=== PATIENT | female | born 1945 | race Caucasian/White ===

== ENCOUNTER 2020-08-27 14:45 | Emergency (ER) | payer MEDICARE, MEDICAID, SELFPAY ==
--- NOTE | ~2020-08-27 | CT_ITS ---
EXAMINATION: CT facial bones wo con DATE: 08/27/2020 16:32 INDICATION: Head injury. TECHNIQUE: Computed tomography (CT) of the facial bones and maxillofacial region was performed withou t intravenous contrast. Automated exposure control and iterative reconstruction technique were employ ed. The dose-length product was 453.08 mGy-cm. COMPARISON: Head CT 11/11/2017 FINDINGS: The orbits are normal. There is mild mucosal thickening in the paranasal sinuses. There is a left lateral spur of the nasal septum. No fracture. The mastoid air cells are normal. IMPRESSION: 1. No fracture. Reviewed, dictated and finalized at location A. EL REGISTERED NURSE ICU IMPRESSION: 1. No fracture.
--- NOTE | ~2020-08-27 | CT_ITS ---
EXAMINATION: CT brain wo con DATE: 08/27/2020 16:32 INDICATION: Head injury. TECHNIQUE: Computed tomography (CT) of the head was performed without intravenous contrast. The mA wa s adjusted according to patient size. Iterative reconstruction technique was employed. The dose-lengt h product was 605.33 mGy-cm. COMPARISON: Head CT 11/11/2017 FINDINGS: There are scattered areas of low attenuation in the cerebral white matter, which is within normal limits for the patient's age. There is no intracranial hemorrhage, acute infarction, or abnorm al intracranial mass lesion. The ventricles are normal in size. There is mild mucosal thickening in t he ethmoid sinuses. The mastoid air cells are normal. The orbits are normal. IMPRESSION: 1. Normal aging brain. Reviewed, dictated and finalized at location A. WORKER IMPRESSION: 1. Normal aging brain.
--- NOTE | ~2020-08-27 | XR_ITS ---
EXAMINATION: XR_[id number]_CR DATE: 08/27/2020 16:46 INDICATION: Left chest pain. Fall. TECHNIQUE: A frontal view of the chest and 4 views of the left ribs were obtained. COMPARISON: Chest 2 views 07/12/2019, chest CT 11/11/2017 FINDINGS: The chest demonstrates clear lungs without pneumonia, pleural effusion, or pneumothorax. Th e heart size is normal. Again seen are multiple old healed left rib fractures. There are acute fractu res of left fourth-eighth ribs. IMPRESSION: 1. Acute fractures of left fourth-eighth ribs. Reviewed, dictated and finalized at location A. AL CRUELTY INVESTIGATOR
[2020-08-27 14:58] VITALS: BP 148/104; PULSE 81; RESP 18; TEMP 36.6; O2SAT 97
--- NOTE | 2020-08-27 15:51 | ED.EYEPROB ---
HPI - Eye Problem General Chief complaint: Eye Problems Stated complaint: blood in left eye Time Seen by Provider: 08/27/20 15:51 History of Present Illness HPI Narrative: History limited by very poor historian 75 yo female w/ h/o DM presents to the ED for bleeding eyes. She reports that she had a fall several days ago and struck her face. She had pain in her nose after the fall. She awoke the next morning with blood in her eyes . She says that she has also had blurry vision and crusting. She claims that the blood goes away at times and come back. She also admits to very poor glucose control, between 350 and 550. She says that her PCP is aware, but she will not take insulin due to an allergy. She feels light headed frequently. Related Data Allergies Allergy/AdvReac Type Severity Reaction Status Date / Time Insulins Allergy Intermediate Swelling Verified 08/27/20 15:03 Quinolones Allergy Mild Unknown Verified 08/27/20 15:03 Aminoglycosides Allergy Unknown Unknown Verified 08/27/20 15:03 erythromycin base Allergy Unknown Unknown Verified 08/27/20 15:03 insulin detemir Allergy Unknown Unknown Verified 08/27/20 15:03 insulin glargine Allergy Unknown Unknown Verified 08/27/20 15:03 iodine Allergy Unknown Unknown Verified 08/27/20 15:03 latex Allergy Unknown Unknown Verified 08/27/20 15:03 levofloxacin Allergy Unknown Unknown Verified 08/27/20 15:03 acyclovir Allergy Unknown Verified 08/27/20 15:03 MYCINS Allergy Mild MAKES Uncoded 08/27/20 15:03 TONGUE SWELL, DIFF BREATHING Contrast Media Allergy Mild Unknown Uncoded 08/27/20 15:03 CHLORDIAZEPOXIDE HCL Allergy Unknown Unknown Uncoded 08/27/20 15:03 MACROLIDES Allergy Unknown Unknown Uncoded 08/27/20 15:03 Review of Systems Review of Systems: All systems reviewed & are unremarkable except as noted in HPI and below Constitutional: Constitutional: Reports fatigue and Denies fever(s) Eyes: Eyes: Reports change in vision ENT: Reports dizziness Cardiovascular: Cardiovascular: Denies chest pain Respiratory: Respiratory: Reports dyspnea Gastrointestinal: Gastrointestinal: Denies abdominal pain, Denies nausea and Denies vomiting Genitourinary: Genitourinary: Denies dysuria Musculoskeletal: Musculoskeletal: Denies back pain Neurologic: Reports dizziness, Reports headache(s) and Reports weakness Endocrine: Endocrine: Reports fatigue PMFSH Past Medical History Medical History (Updated 08/27/20 @ 17:44 by Dionicio Amaya MD) Essential (primary) hypertension History of [place] (myocardial infarction) History of stroke Surgical History Surgical History (Updated 08/27/20 @ 16:56 by Dionicio Amaya MD) History of repair of hiatal hernia Family History Family History (Updated 06/04/17 @ 11:56 by DOCTOR UNKNOWN) Grandparent Family history of obesity Asthma Diabetes mellitus Mother Family history of osteoporosis Depression Family history of migraine headaches Asthma Family history of anemia Cerebrovascular accident Family history of arthritis Carcinoma of colon Family history of Alzheimer's disease Family history of atrial fibrillation Family history of heart disease in male family member before age 55 Acute myocardial infarction Father Family history of alcoholism Family history of arthritis Family history of lung cancer Family history of lung disease Family history of hearing loss Other Family history of allergic disorder Hypertension Social History Social History Smoking status: Never smoker Alcohol intake: never Gender identity (if verbalized by the patient): Female Exam Const: General: no acute distress and alert Nutritional Appearance: obese Orientation/consciousness: patient oriented x3 HENMT: Other: mild swelling to the nose Eyes: Conjunctivae: conjunctival abnormality left subconjunctival hemorrhage Pupils: Equal, round and reactive pupils present EOM: EOMs intact bilaterally N
[2020-08-27 16:36] LABS: Basophils Percent Auto 0.7 % (0.2-1.2); Eosinophils Absolute Auto 0.1 K/mm3 (0-0.3); Hematocrit 36.6 % (37.0-47.0); Hemoglobin 12.3 g/dL (12.0-15.0); Immature Granulocyte Absolute 0.02 K/mm3 (0.00-0.031); Immature Granulocyte Percent A 0.3 % (0-0.5); Lymphocytes Absolute Auto 1.38 K/mm3 (0.9-3.2); Lymphocytes Percent Auto 22.5 % (18.3-44.2); Mean Corpuscular HGB Conc 33.6 g/dl (32-36); Mean Corpuscular Hemoglobin 31.5 pg (26-34); Mean Corpuscular Volume 93.6 fl (80-100); Mean Platelet Volume 10.5 fl (7.4-10.4); Monocytes Absolute Auto 0.4 K/mm3 (0.1-0.6); Monocytes Percent Auto 6.9 % (2.6-8.5); Neutrophils Absolute Auto 4.1 K/mm3 (1.3-6.7); Neutrophils Percent Auto 67.6 % (45.5-73.1); Platelet Count Result 183 k/mm3 (150-375); Red Blood Count 3.91 M/mm3 (4.2-5.4); Red Cell Distribution Width 12.5 % (11.5-14.5); White Blood Count 6.1 K/mm3 (4.5-10.0)
[2020-08-27 16:48] LABS: Alanine Aminotransferase 22 U/L (4-35); Albumin Level 4.3 g/dL (3.5-5.1); Alkaline Phosphatase 117 U/L (38-126); Anion Gap 11 mmol/L (8-16); Aspartate Amino Transferase 30 U/L (14-36); Bilirubin,Total 0.4 mg/dL (0.2-1.3); Blood Urea Nitrogen 17 mg/dL (7-17); Calcium 9.3 mg/dL (8.4-10.2); Carbon Dioxide 25 mmol/L (22-30); Chloride 97 mmol/L (98-107); Estimated CRCL calculation 61 ml/min; Estimated Glomerular Filt Rate > 60; Glucose 456 mg/dL (65-105); Potassium 4.2 mmol/L (3.4-5.0); Sodium 133 mmol/L (137-145)
[2020-08-27] MEDS: SODIUM CHLORIDE 0.9% IV 1,000 ML 999 ML IV CONT (17:05)
[2020-08-27] MEDS: METOCLOPRAMIDE HCL INJ 10 MG/2 ML VIAL IV PUSH (17:05)
[2020-08-27 18:05] VITALS: BP 132/87; PULSE 78; RESP 18; O2SAT 99
== END 2020-08-27 18:06 | disposition home or self-care (01) ==
PROVIDERS: Emergency Provider Emergency Medicine; PCP Family Medicine
DX: H11.32 Conjunctival hemorrhage, left eye (principal); S22.42XA Multiple fractures of ribs, left side, initial encounter for closed fracture; E11.9 Type 2 diabetes mellitus without complications; I10 Essential (primary) hypertension; I25.2 Old myocardial infarction; Z86.73 Personal history of transient ischemic attack (TIA), and cerebral infarction without residual deficits; W19.XXXA Unspecified fall, initial encounter
CPT/HCPCS: 36415; 70450; 70486; 71101; 80053; 85025; 96374; 99284; J2765; J7030

== ENCOUNTER 2020-09-13 13:27 | Outpatient (CLI) | payer MEDICARE, MEDICAID, SELFPAY ==
--- NOTE | ~2020-09-13 | CT_ITS ---
EXAMINATION: CT brain wo con DATE: 09/13/2020 14:18 INDICATION: Head injury from fall 3 weeks ago. Headache, blurred vision TECHNIQUE: Computed tomography (CT) of the head was performed without intravenous contrast. The mA wa s adjusted according to patient size. Iterative reconstruction technique was employed. Exam dose: 60 5.33 mGy-cm total exam DLP. COMPARISON: 08/27/2020 CT brain FINDINGS: There is nonspecific diminished attenuation of the subcortical and periventricular cerebral white matter, likely due to chronic small vessel ischemic changes. No intracranial mass lesion or hemorrhage or recent cerebrovascular accident is evident. There is no midline shift or mass effects. No subdural or epidural hematoma. No fracture or bone destruction of the cranial vault. The mastoid air cells and included paranasal sinuses are normally developed and aerated. IMPRESSION: Nonspecific white matter changes likely related to small vessel ischemic changes; no acu te intracranial finding or skull fracture Reviewed, dictated and finalized at Location A. Reviewed, dictated and finalized at location B. HASING ASSISTANT IMPRESSION: Nonspecific white matter changes likely related to small vessel is chemic changes; no acute intracranial finding or skull fracture
--- NOTE | ~2020-09-13 | US_ITS ---
EXAMINATION: US carotid duplex BI DATE: 09/13/2020 14:09 INDICATION: TIA. TECHNIQUE: Grayscale, color Doppler, and pulsed Doppler images of the cervical carotid arteries were obtained. The degree of vessel stenosis is placed in one of the following categories: normal, <50%, 5 0-69%, >=70% but less than near-occlusion, near-occlusion, or total occlusion. Note that percent sten osis relative to normal distal artery lumen diameter is indirectly measured from velocity measurement s as described by Dionicio, et al. Radiology 2003; 229:340-346. Notes: Normal: Peak systolic velocity <125 centimeters/sec and no plaque <50%. Peak systolic velocity <125 ( EDV <40; ICA/CCA PSV ratio <2.0; used these factors only a tandem lesions or low cardiac output or co ntralateral disease) 50-69 %: PSV 125-230 (EDV 40-100; ratio 2-4) >= 70% but less than near occlusion: PSV greater than 230 (EDV > 100; ratio> 4.0) Near Occlusion: PSV that is variable; markedly narrowed lumen Occlusion: Absent flow on color/spectral Doppler and no lumen on nesbitt scale. COMPARISON: Ultrasound dated 02/08/2011 FINDINGS: RIGHT: The right common carotid artery (CCA) peak systolic velocity (PSV) is 80 cm/s. The right internal car otid artery (ICA) PSV is 72 cm/s. The right ICA end-diastolic velocity (EDV) is 24 cm/s. The right IC A/CCA PSV ratio is 0.9. The external carotid artery (ECA) PSV is 74 cm/s. There is antegrade flow in the right vertebral artery. LEFT: The left CCA PSV is 95 cm/s. The left ICA PSV is 66 cm/s. The left ICA EDV is 15 cm/s. The left ICA/C CA PSV ratio is 0.7. The ECA PSV is 80 cm/s. There is antegrade flow in the left vertebral artery. IMPRESSION: 1. Less than 50% stenosis in the right internal carotid artery by sonographic criteria. 2. Less than 50% stenosis in the left internal carotid artery by sonographic criteria. Reviewed, dictated and finalized at location A. MATIC TUBE REPAIRER IMPRESSION: 1. Less than 50% stenosis in the right internal carotid artery by sonographic c stefan. 2. Less than 50% stenosis in the left internal carotid artery by sonographic rick berumen.
== END 2020-09-13 13:28 | disposition home or self-care (01) ==
PROVIDERS: PCP Family Medicine; Visit Provider Psychiatry & Neurology Neurology
DX: G45.9 Transient cerebral ischemic attack, unspecified (principal)
CPT/HCPCS: 70450; 93880

== ENCOUNTER 2021-03-20 12:53 | Outpatient (CLI) | payer MEDICARE, MEDICAID, SELFPAY ==
[2021-03-20 13:39] LABS: Alanine Aminotransferase 25 U/L (4-35); Albumin Level 4.6 g/dL (3.5-5.1); Alkaline Phosphatase 75 U/L (38-126); Anion Gap 13 mmol/L (8-16); Aspartate Amino Transferase 30 U/L (14-36); Bilirubin,Total 0.4 mg/dL (0.2-1.3); Blood Urea Nitrogen 21 mg/dL (7-17); Calcium 10.1 mg/dL (8.4-10.2); Carbon Dioxide 23 mmol/L (22-30); Chloride 98 mmol/L (98-107); Estimated Glomerular Filt Rate > 60; Glucose 454 mg/dL (65-105); Potassium 4.1 mmol/L (3.4-5.0); Sodium 134 mmol/L (137-145)
[2021-03-20 13:55] LABS: Cholesterol 291 mg/dL (0-200); HDL Direct 56 mg/dL; Triglycerides 168 mg/dL (<150)
[2021-03-20 14:01] LABS: LDL Cholesterol Direct 180 mg/dL
[2021-03-20 14:21] LABS: Creatinine Urine 21.6 mg/dL
[2021-03-20 14:26] LABS: MALB Creatinine Ratio 50.9 mg/g (0-30)
[2021-03-20 14:37] LABS: Free T4 Free Thyroxine 0.89 ng/mL (0.78-2.19)
== END 2021-03-20 12:54 | disposition home or self-care (01) ==
PROVIDERS: PCP Family Medicine; Visit Provider Internal Medicine Endocrinology, Diabetes & Metabolism
DX: E11.9 Type 2 diabetes mellitus without complications (principal); I10 Essential (primary) hypertension
CPT/HCPCS: 36415; 80053; 80061; 82043; 82306; 84439; 84443

== ENCOUNTER 2021-03-20 12:59 | Outpatient (CLI) | payer MEDICARE, MEDICAID, SELFPAY ==
[2021-03-20 14:37] LABS: Vitamin D 25 Hydroxy 27.2 ng/mL
== END 2021-03-20 13:00 | disposition home or self-care (01) ==
PROVIDERS: PCP Family Medicine
DX: E55.9 Vitamin D deficiency, unspecified (principal)
CPT/HCPCS: 36415; 82306

== ENCOUNTER 2021-07-10 15:21 | Outpatient (CLI) | payer MEDICARE, MEDICAID, SELFPAY ==
--- NOTE | ~2021-07-10 | CT_ITS ---
EXAMINATION: CT brain wo con EXAM DATE: 07/10/2021 15:56 INDICATION: Headache. Abnormal gait. TECHNIQUE: Spiral CT of the head was performed without contrast. Axial, coronal and sagittal images were reviewed. The dose-length product (DLP) for this examination was 681.00 mGy-cm. The exposure w as tailored according to patient size, and iterative reconstruction (ASIR) was used as additional dos e reduction technique. Comparison is made to prior examination from 09/03/2020. FINDINGS: There is no acute intraparenchymal hemorrhage. No evidence of intraparenchymal brain mass lesion. No evidence of acute infarction. Please note that initial head CT has limited sensitivity f or small or acute infarctions. There is mild to moderate periventricular and subcortical hypodensity, nonspecific but probably related to small vessel ischemic disease. There is mild to moderate promi nence of the sulci and ventricles related to cerebral atrophy. There is intracranial carotid arteri osclerosis. There are no extra-axial collections. There is no mass effect or midline shift. The or bits are unremarkable. Soft tissue is unremarkable. The visualized sinuses and mastoid air cells ar e well aerated. IMPRESSION: 1. No acute intracranial findings. 2. Chronic age related findings. Reviewed, dictated and finalized at location A.
== END 2021-07-10 15:22 | disposition home or self-care (01) ==
LOC: ANHIMG 15:27
PROVIDERS: PCP Family Medicine; Visit Provider Family Medicine
DX: R51.9 Headache, unspecified (principal)
CPT/HCPCS: 70450

== ENCOUNTER 2021-07-20 08:54 | Outpatient (CLI) | payer MEDICARE, MEDICAID, SELFPAY ==
--- NOTE | 2021-07-20 11:31 | P.NEURO_ITS ---
Neurology EEG Report General Information Date of Study: 07/20/21 TEST eeg DIAGNOSIS Recurrent black out. CONDITION OF RECORDING awake drowsy and sleep EEG NUMBER [id number] CLINICAL HISTORY patient reported the last few months she has been falling a lot. Feels like someone is pulling her head back and then she falls. Also been having a lot of throbbing headaches EEG DESCRIPTION basic resting occipital frequency consists of small amount of poorly organized low voltage to medium voltage 8 to 9 hertz per second alpha admixed with low- voltage 15 to 18 hertz per second beta. Low-voltage to medium voltage 6 to 7 hertz per second theta activity seen during drowsiness admixed with low-voltage beta activity. Bilateral symmetrical sleep activity seen during sleep with intermittent EKG artifact. Hyperventilation not done. Photic stimulation produced normal drive. Non paroxysmal. Nonfocal. Nonlateralizing. IMPRESSION No significant abnormalities noted
== END 2021-07-20 08:55 | disposition home or self-care (01) ==
PROVIDERS: PCP Family Medicine; Visit Provider Psychiatry & Neurology Neurology
DX: R55 Syncope and collapse (principal)
CPT/HCPCS: 95816

== ENCOUNTER 2022-04-14 17:15 | Emergency (ER) | payer MEDICARE, MEDICAID, SELFPAY ==
--- NOTE | ~2022-04-14 | CT_ITS ---
EXAMINATION: CT brain wo con DATE: 04/14/2022 17:50 INDICATION: ROSA, WEAKNESS, BLURRED VISION . TECHNIQUE: Computed tomography (CT) of the head was performed without intravenous contrast. The mA wa s adjusted according to patient size. Iterative reconstruction technique was employed. The dose-lengt h product was 605.33 mGy-cm. COMPARISON: 07/10/2021. FINDINGS: No acute intracranial hemorrhage or extra-axial fluid collection. No hydrocephalus, mass, or herniation. No acute ischemic infarct. Unremarkable dural venous sinus attenuation. No acute osseous abnormality. The aerated spaces are clear. Mild atrophy and chronic white matter change. Atherosclerotic intracranial calcifications. IMPRESSION: No acute intracranial process. Reviewed, dictated and finalized at location K.
--- NOTE | ~2022-04-14 | XR_ITS ---
EXAMINATION: XR chest 2V Exam Date/Time: 04/14/2022 17:48 CDT HISTORY: WEAKNESS, mult falls recently, ROSA,hx seizures,asthma,OR Comparison: 07/12/2019. RESULT: Lines, tubes, and devices: None. Lungs and pleura: Clear. Cardiomediastinal silhouette: Stable cardiomediastinal silhouette. Other: No acute osseous or upper abdominal finding. IMPRESSION: No acute cardiopulmonary process. Reviewed, dictated and finalized at location K.
[2022-04-14 17:28] VITALS: BP 142/69; PULSE 108; RESP 18; TEMP 36.3; O2SAT 98
--- NOTE | 2022-04-14 17:42 | ECG_ITS ---
Measurements Intervals [place] Rate: 77 P: 30 MO: 197 QRS: -19 QRSD: 94 T: 62 QT: 407 QTc: 462 Interpretive Statements SINUS RHYTHM LEFT VENTRICULAR HYPERTROPHY WITH ST-T CHANGE BASELINE ARTIFACT- I, II, III, AVR, AVL, V4-V6 BORDERLINE ECG Electronically Signed On 04-14-2022 23:19:32 CDT by Scott Deal D.O.
[2022-04-14 18:23] LABS: Basophils Percent Auto 0.5 % (0.2-1.2); Eosinophils Absolute Auto 0.1 K/mm3 (0-0.3); Eosinophils Percent Auto 1.2 % (0-4.4); Hematocrit 38.8 % (37.0-47.0); Hemoglobin 12.8 g/dL (12.0-15.0); Immature Granulocyte Absolute 0.02 K/mm3 (0.00-0.031); Immature Granulocyte Percent A 0.3 % (0-0.5); Lymphocytes Absolute Auto 1.34 K/mm3 (0.9-3.2); Mean Corpuscular Hemoglobin 31.9 pg (26-34); Mean Corpuscular Volume 96.8 fl (80-100); Mean Platelet Volume 10.2 fl (7.4-10.4); Monocytes Absolute Auto 0.4 K/mm3 (0.1-0.6); Monocytes Percent Auto 7.4 % (2.6-8.5); Neutrophils Absolute Auto 3.9 K/mm3 (1.3-6.7); Neutrophils Percent Auto 67.6 % (45.5-73.1); Platelet Count Result 172 k/mm3 (150-375); Red Blood Count 4.01 M/mm3 (4.2-5.4); Red Cell Distribution Width 11.8 % (11.5-14.5); White Blood Count 5.8 K/mm3 (4.5-10.0)
[2022-04-14 18:56] LABS: Alanine Aminotransferase 25 U/L (6-35); Albumin Level 4.3 g/dL (3.5-5.1); Alkaline Phosphatase 97 U/L (38-126); Anion Gap 8 mmol/L (8-16); Aspartate Amino Transferase 29 U/L (14-36); Bilirubin,Total 0.4 mg/dL (0.2-1.3); Blood Urea Nitrogen 20 mg/dL (7-17); Calcium 9.1 mg/dL (8.4-10.2); Carbon Dioxide 25 mmol/L (22-30); Chloride 95 mmol/L (98-107); Estimated CRCL calculation 66 ml/min; Estimated Glomerular Filt Rate > 60; Glucose 548 mg/dL (65-110); Potassium 4.4 mmol/L (3.4-5.0); Sodium 128 mmol/L (137-145)
[2022-04-14] MEDS: SODIUM CHLORIDE 0.9% IV 1,000 ML 999 ML IV CONT (19:39)
[2022-04-14] MEDS: PROCHLORPERAZINE EDISYLATE 10 MG/2 ML VIAL IV PUSH (19:40)
[2022-04-14] MEDS: diphenhydrAMINE HCl INJ 50 MG/ML VIAL IV PUSH (19:40)
[2022-04-14 19:45] LABS: Appearance Urine Clear (Clear); Bilirubin Urine Negative (Negative); Blood Urine Trace-lysed (Negative); Color Urine Yellow (Yellow); Glucose Urine UA 3+ mg/dL (Negative); Ketones Urine Negative (Negative); Leukocyte Esterase Ur Trace LEU/UL (Negative); Nitrate Urine Negative (Negative); Protein Urine Negative (Negative); Urobilinogen Urine 0.2 mg/dL (<2.0)
[2022-04-14 19:46] VITALS: BP 169/89; PULSE 79; RESP 13; O2SAT 97
[2022-04-14 19:46] LABS: Bacteria Urine Trace /hpf; Mucus Urine Rare /lpf; Squamous Epithelial Cell Urine Occasional /hpf (Few)
[2022-04-14 19:47] LABS: Add Urine Microscopic? YES
[2022-04-14 19:53] LABS: Lactic Acid Reflex 1.8 mmol/L (0.7-2.0)
--- NOTE | 2022-04-14 19:58 | ED.GENADULT ---
HPI - General Adult General Chief complaint: Headache Stated complaint: gait abnormalities, head pain x 1.5 weeks Time Seen by Provider: 04/14/22 19:12 History of Present Illness HPI narrative: Patient is 76-year-old female who presents the emergency department with chief complaint of headache and hyperglycemia. The patient reports that she is allergic to insulins as they make her feel strange and has felt as though she has been somewhat unsteady patient states that for some time she has been feeling unsteady but states it got worse over the last. Blood the patient states that she has seen her primary doctor and has an appointment tomorrow with her primary as well patient reports that she has multiple allergies to medications as they make her feel strange Related Data Home Medications Medication Instructions Recorded Confirmed losartan 50 mg-hydrochlorothiazide 1 tablet PO DAILY 01/10/21 11/21/21 12.5 mg tablet metoprolol succinate 100 mg 100 mg PO DAILY 01/10/21 11/21/21 tablet,extended release 24 hr meclizine 12.5 mg tablet 12.5 mg PO TID PRN 01/02/22 Allergies Allergy/AdvReac Type Severity Reaction Status Date / Time Insulins Allergy Intermediate Swelling Verified 04/14/22 19:39 iohexol Allergy Mild Unknown Verified 04/14/22 19:39 [From contrast - CT, X-RAY] Quinolones Allergy Mild Unknown Verified 04/14/22 19:39 Aminoglycosides Allergy Unknown Unknown Verified 04/14/22 19:39 chlordiazepoxide Allergy Unknown Unknown Verified 04/14/22 19:39 erythromycin base Allergy Unknown Unknown Verified 04/14/22 19:39 insulin detemir Allergy Unknown Unknown Verified 04/14/22 19:39 insulin glargine Allergy Unknown Unknown Verified 04/14/22 19:39 iodine Allergy Unknown Unknown Verified 04/14/22 19:39 latex Allergy Unknown Unknown Verified 04/14/22 19:39 levofloxacin Allergy Unknown Unknown Verified 04/14/22 19:17 Macrolide Antibiotics Allergy Unknown Unknown Verified 04/14/22 19:29 acyclovir Allergy Unknown Verified 04/14/22 19:17 MYCINS Allergy Mild MAKES Uncoded 04/14/22 19:17 TONGUE SWELL, DIFF BREATHING Review of Systems Review of Systems: A 10 system review of systems was completed on the patient and is negative except for what is stated in the HPI. Nursing and ancillary documentation was reviewed. PMFSH Past Medical History Medical History Allergies Allergy to insulin Anxiety Arthritis Asthma Brain tumor Essential (primary) hypertension Gallbladder disorder History of [place] (myocardial infarction) History of stroke Hyperlipidemia Myelopathy Osteoporosis Seizures Stroke Uncontrolled type 2 diabetes mellitus with hyperglycemia Surgical History Surgical History History of repair of hiatal hernia Family History Family History Grandparent Family history of obesity Asthma Diabetes mellitus Mother Family history of osteoporosis Depression Family history of migraine headaches Asthma Family history of anemia Cerebrovascular accident Family history of arthritis Carcinoma of colon Family history of Alzheimer's disease Family history of atrial fibrillation Family history of heart disease in male family member before age 55 Acute myocardial infarction Father Family history of alcoholism Family history of arthritis Family history of lung cancer Family history of lung disease Family history of hearing loss Other Family history of allergic disorder Hypertension Social History Social History Alcohol intake: never Substance use: never Gender identity (if verbalized by the patient): Female Exam Narrative: GENERAL: Well-appearing, well-nourished, and in no acute distress. HEAD: Normocephalic, atraumatic.
[2022-04-14 20:06] LABS: Troponin I < 0.012 ng/mL (0.000-0.034)
[2022-04-14 20:40] VITALS: BP 152/82; PULSE 77; RESP 26; O2SAT 97
--- NOTE | 2022-04-14 20:40 | PC.NURSE ---
BS 402
[2022-04-14 20:41] LABS: Glucose Point of Care 402 mg/dl (65-105)
[2022-04-14 20:52] LABS: Glucose Point of Care 399 mg/dl (65-105)
== END 2022-04-14 21:05 | disposition home or self-care (01) ==
PROVIDERS: Emergency Medicine; Emergency Provider Emergency Medicine; PCP Family Medicine
DX: E11.65 Type 2 diabetes mellitus with hyperglycemia (principal); R51.9 Headache, unspecified; J45.909 Unspecified asthma, uncomplicated; I10 Essential (primary) hypertension; I25.2 Old myocardial infarction; Z86.73 Personal history of transient ischemic attack (TIA), and cerebral infarction without residual deficits; E78.5 Hyperlipidemia, unspecified; M81.0 Age-related osteoporosis without current pathological fracture; M19.90 Unspecified osteoarthritis, unspecified site; Z79.84 Long term (current) use of oral hypoglycemic drugs
CPT/HCPCS: 36415; 70450; 71046; 80053; 81001; 82948; 83605; 83735; 84484; 85025; 87086; 87088; 93005; 96361; 96374; 96375; 99284; J0780; J1200; J7030

== ENCOUNTER 2022-04-15 13:18 | Outpatient (CLI) | payer MEDICARE, MEDICAID, SELFPAY ==
[2022-04-15 15:08] LABS: Alanine Aminotransferase 25 U/L (6-35); Albumin Level 4.4 g/dL (3.5-5.1); Alkaline Phosphatase 92 U/L (38-126); Anion Gap 11 mmol/L (8-16); Aspartate Amino Transferase 28 U/L (14-36); Bilirubin,Total 0.6 mg/dL (0.2-1.3); Blood Urea Nitrogen 16 mg/dL (7-17); Calcium 9.7 mg/dL (8.4-10.2); Carbon Dioxide 25 mmol/L (22-30); Chloride 97 mmol/L (98-107); Cholesterol 262 mg/dL (0-200); Estimated Glomerular Filt Rate > 60; Glucose 402 mg/dL (65-110); HDL Direct 41 mg/dL; Potassium 4.1 mmol/L (3.4-5.0); Sodium 133 mmol/L (137-145); Triglycerides 197 mg/dL (<150)
[2022-04-15 15:19] LABS: LDL Cholesterol Direct 172 mg/dL
[2022-04-15 15:28] LABS: Hemoglobin A1C > 14.0 % (<5.7)
[2022-04-15 15:39] LABS: Creatinine Urine 23.7 mg/dL
[2022-04-15 15:44] LABS: MALB Creatinine Ratio 53.2 mg/g (0-30); Microalbumin Urine Random 12.6 mg/L (0-16.7)
[2022-04-15 16:13] LABS: Vitamin D 25 Hydroxy 22.5 ng/mL
== END 2022-04-15 13:19 | disposition home or self-care (01) ==
PROVIDERS: PCP Family Medicine; Visit Provider Nurse Practitioner Family
DX: E11.65 Type 2 diabetes mellitus with hyperglycemia (principal); E78.5 Hyperlipidemia, unspecified; Z88.8 Allergy status to other drugs, medicaments and biological substances; I10 Essential (primary) hypertension
CPT/HCPCS: 36415; 80053; 80061; 82043; 82306; 82607; 83036; 84443

== ENCOUNTER 2022-07-03 13:08 | Outpatient (CLI) | payer MEDICARE, MEDICAID, SELFPAY | END 2022-07-03 13:09 | disposition home or self-care (01) | LOC: ANHAUDIO 13:10 | PROVIDERS: PCP Family Medicine; Referring Provider Student in an Organized Health Care Education/Training Program; Visit Provider Student in an Organized Health Care Education/Training Program | DX: H91.90 Unspecified hearing loss, unspecified ear (principal) | CPT/HCPCS: 92557; 92567 ==

== ENCOUNTER 2022-08-24 13:20 | Outpatient (CLI) | payer MEDICARE, MEDICAID, SELFPAY ==
[2022-08-24 13:58] LABS: Alanine Aminotransferase 28 U/L (6-35); Albumin Level 4.5 g/dL (3.5-5.1); Alkaline Phosphatase 77 U/L (38-126); Anion Gap 9 mmol/L (8-16); Aspartate Amino Transferase 29 U/L (14-36); Bilirubin,Total 0.5 mg/dL (0.2-1.3); Blood Urea Nitrogen 18 mg/dL (7-17); Carbon Dioxide 27 mmol/L (22-30); Chloride 98 mmol/L (98-107); Cholesterol 232 mg/dL (0-200); Estimated Glomerular Filt Rate > 60; Glucose 280 mg/dL (65-110); HDL Direct 51 mg/dL; Potassium 3.6 mmol/L (3.4-5.0); Sodium 134 mmol/L (137-145); Triglycerides 136 mg/dL (<150)
[2022-08-24 14:01] LABS: Hemoglobin A1C > 14.0 % (<5.7)
[2022-08-24 14:09] LABS: LDL Cholesterol Direct 133 mg/dL
[2022-08-24 14:25] LABS: Creatinine Urine 16.4 mg/dL
[2022-08-24 14:29] LABS: MALB Creatinine Ratio 46.3 mg/g (0-30); Microalbumin Urine Random 7.6 mg/L (0-16.7)
== END 2022-08-24 13:21 | disposition home or self-care (01) ==
LOC: ANHLAB 13:24
PROVIDERS: PCP Family Medicine; Visit Provider Family Medicine
DX: E11.40 Type 2 diabetes mellitus with diabetic neuropathy, unspecified (principal); Z79.4 Long term (current) use of insulin; I10 Essential (primary) hypertension; E78.5 Hyperlipidemia, unspecified
CPT/HCPCS: 36415; 80053; 80061; 82043; 83036

== ENCOUNTER 2022-09-06 10:29 | Outpatient (CLI) | payer MEDICARE, MEDICAID, SELFPAY ==
--- NOTE | 2022-09-06 11:00 | NEURO_ITS ---
IMPRESSION: # History of diabetes with falls and lower extremity numbness. # Bilateral lower extremity sensorimotor polyneuropathy (left worse than right) with chronic neurogenic changes in bilateral gastrocnemius, bilateral extensor digitorum brevis and right flexor digitorum longus muscles consistent with axonal-type polyneuropathy. # Clinical correlation recommended. Motor Nerve Conduction Lower Extremities Peroneal Nerve Conduction Velocity (m/sec) Terminal Latency (msec) Response Voltage(mV) Popliteal space-Ankle Ankle Extensor Dig Brevis Popliteal space Ankle Right 39-40 4.4 1-1 1 Left NR-NR 3.9 NR-NR .5 Tibial Nerve Conduction Velocity (m/sec) Terminal Latency (msec) Response Voltage(mV) Popliteal space-Ankle Ankle-Extensor Dig Brevis Popliteal space Ankle Right 39 4.6 1 1 Left 45 4.6 2 2 F-waves Peroneal Nerve (ms) Tibial Nerve (ms) Right 56.1 57.1 Left 56.3 58.4 Sensory Nerve Conduction Lower Extremities Sural Nerve Stimulation Terminal Latency (msec) Ankle Response Voltage (uV) Ankle Response Velocity (m/sec) Right 3.4 21 47 Left 3.9 28 41 Superficial Peroneal Nerve Stimulation Terminal Latency (msec) Ankle Response Voltage (uV) Ankle Response Velocity (m/sec) Right 3.9 14 41 Left 3.8 22 42 Left Right Muscles Examined Fibrillation Fasciculation Recruitment Voltage Duration Left Right Left Right Left Right Left Right Left Right X X Ant Tibialis X X Gastroc Reduced Reduced X X Fibularis Long X X Flex Dig Long Reduced X X Ext Dig Brev Reduced Reduced Abd Hallucis Quadriceps Paraspinals MTDD
== END 2022-09-06 10:30 | disposition home or self-care (01) ==
LOC: ANHNEURO 10:30
PROVIDERS: PCP Family Medicine; Visit Provider Student in an Organized Health Care Education/Training Program
DX: R29.6 Repeated falls (principal); G62.9 Polyneuropathy, unspecified
CPT/HCPCS: 95886; 95910; 95911

== ENCOUNTER 2022-09-14 10:44 | Outpatient (CLI) | payer MEDICARE, MEDICAID, SELFPAY ==
--- NOTE | ~2022-09-14 | MM_ITS ---
EXAMINATION: MM screening jay BI w kirstin HISTORY: Screening TECHNIQUE: Craniocaudal and mediolateral oblique 3-D tomosynthesis images were obtained and synthetic 2-D images were generated. CAD analysis was submitted and interpreted. COMPARISON: Comparison to multiple prior studies sequentially, with oldest reviewed study dated 06/24. BREAST PARENCHYMAL COMPOSITION: There are scattered areas of fibroglandular density. FINDINGS: There is no evidence of suspicious mass, calcification, or architectural distortion to sugg est malignancy in either breast. There has been no suspicious interval change. IMPRESSION: 1. No mammographic evidence of malignancy. 2. Recommend routine screening mammography in one year. BI-RADS Category 1: Negative Reviewed, dictated and finalized at location A. ICAL OFFICE
== END 2022-09-14 10:45 | disposition home or self-care (01) ==
PROVIDERS: PCP Family Medicine; Visit Provider Family Medicine
DX: Z12.31 Encounter for screening mammogram for malignant neoplasm of breast (principal)
CPT/HCPCS: 77063; 77067

== ENCOUNTER 2023-04-12 10:41 | Emergency (ER) | payer MEDICARE, MEDICAID, SELFPAY ==
[2023-04-12] VITALS (11 sets, daily range): BP systolic 124–168; BP diastolic 67–84; PULSE 78–88; RESP 10–18; TEMP 36.4; O2SAT 90–100
--- NOTE | ~2023-04-12 | XR_ITS ---
XR hip RT 2V w AP pelvis DATE: 04/12/2023 12:00 INDICATION: Fall. Right groin pain TECHNIQUE: AP pelvis. AP and lateral views of right hip COMPARISON: 04/12/2011 right hip 11/11/2017 CT chest abdomen pelvis FINDINGS: There is osteopenia. Levoscoliosis of the lumbar spine. Possible fracture deformity of L3, not well-demonstrated on this examination. Moderate bilateral hip osteoarthritis. No fracture or dislocation, avascular necrosis or bone destruc tion of the right hip is evident. No pelvic fracture or bone destruction is noted. Normal alignment at the pubic symphysis and sacroili ac joints. IMPRESSION: Moderate bilateral hip osteoarthritis Osteopenia Possible L3 fracture of uncertain age Reviewed, dictated and finalized at location A.
--- NOTE | ~2023-04-12 | CT_ITS ---
EXAMINATION: CT abdomen pelvis wo con DATE: 04/12/2023 12:08 INDICATION: Constipation for 7 days. Left lower quadrant pain. TECHNIQUE: Computed tomography (CT) of the abdomen and pelvis was performed without intravenous contr ast (patient is reportedly allergic to contrast material.). Automated exposure control and iterative reconstruction technique were employed. Exam dose: 611.01 mGy-cm total exam DLP. COMPARISON: November 11, 2017 CT chest abdomen pelvis FINDINGS: Included lower lung thomas are clear. No pericardial or pleural effusion. Small sliding hiatal hernia. The liver is unremarkable. Possible small stones in the dependent aspect of the gallbladder; ultrasou nd would be more sensitive and accurate for detection of cholelithiasis. No gallbladder wall thickeni ng or pericholecystic fluid or fat stranding. No bile duct or pancreatic duct dilatation is detected. No hepatic, pancreatic or splenic space-occupying mass lesion. Normal morphology of the adrenal glands. Approximately 1.4 cm possible right renal cyst; this is indeterminate on this limited noncontrast exa mination. No urinary tract calculus or hydroureteronephrosis. The urinary bladder wall is diffusely m oderately thickened.. There is atherosclerotic calcification of the abdominal aorta at the origins of the celiac, superior mesenteric and particularly renal arteries. No abdominal aortic aneurysm. There is calcified atherosc lerosis of the iliac and femoral arteries. No intraperitoneal or retroperitoneal or pelvic mass lesion or adenopathy or ascites is noted. There is thickening of the wall of the rectosigmoid area. There are numerous diverticula throughout the left and right colon; no evidence of diverticulitis is noted. No bowel obstruction or intraperitoneal free air is detected. There is patchy sclerosis of the left sacrum which might be due to Paget's disease, less likely osteo sclerotic metastatic disease. Degenerative changes of the thoracic and lumbar spine. Compression fracture deformity of L3. IMPRESSION: Extensive diverticulosis of left and right colon Thickening of the wall of rectosigmoid area which may indicate proctocolitis Small sliding hiatal hernia Cannot exclude cholelithiasis; consider ultrasound evaluation Possible 1.4 cm right renal cyst; this is not optimally evaluated on this limited noncontrast examina tion Nonspecific moderate thickening of the urinary bladder wall Patchy sclerosis of left sacrum which might be due to Paget's disease or less likely osteosclerotic m etastatic disease; this is a new finding since Compression fracture deformity of L3, new since 11/11/2017 Reviewed, dictated and finalized at [facility]. Reviewed, dictated and finalized at location A. IMPRESSION: Extensive diverticulosis of left and right colon Thickening of the wall of rectosigmoid area which may indicate proctocolitis Small sliding hiatal hernia Cannot exclude cholelithiasis; consider ultrasound evaluation Possible 1.4 cm right renal cyst; this is not optimally evaluated on this limit ed noncontrast examination Nonspecific moderate thickening of the urinary bladder wall Patchy sclerosis of left sacrum which might be due to Paget's disease or less l ikely osteosclerotic metastatic disease; this is a new finding since Compression fracture deformity of L3, new since 11/11/2017
[2023-04-12 11:11] LABS: Basophils Percent Auto 0.5 % (0.2-1.2); Eosinophils Absolute Auto 0.1 K/mm3 (0-0.3); Eosinophils Percent Auto 0.7 % (0-4.4); Hematocrit 38.7 % (37.0-47.0); Hemoglobin 12.4 g/dL (12.0-15.0); Immature Granulocyte Absolute 0.03 K/mm3 (0.00-0.031); Immature Granulocyte Percent A 0.3 % (0-0.5); Lymphocytes Absolute Auto 1.21 K/mm3 (0.9-3.2); Lymphocytes Percent Auto 13.9 % (18.3-44.2); Mean Corpuscular Volume 90.4 fl (80-100); Mean Platelet Volume 10.1 fl (7.4-10.4); Monocytes Absolute Auto 0.6 K/mm3 (0.1-0.6); Monocytes Percent Auto 6.3 % (2.6-8.5); Neutrophils Absolute Auto 6.8 K/mm3 (1.3-6.7); Neutrophils Percent Auto 78.3 % (45.5-73.1); Platelet Count Result 268 k/mm3 (150-375); Red Blood Count 4.28 M/mm3 (4.2-5.4); Red Cell Distribution Width 14.1 % (11.5-14.5); White Blood Count 8.7 K/mm3 (4.5-10.0)
[2023-04-12 11:20] LABS: Alanine Aminotransferase 23 U/L (6-35); Albumin Level 4.7 g/dL (3.5-5.1); Alkaline Phosphatase 89 U/L (38-126); Anion Gap 10 mmol/L (8-16); Aspartate Amino Transferase 29 U/L (14-36); Bilirubin,Total 0.7 mg/dL (0.2-1.3); Blood Urea Nitrogen 18 mg/dL (7-17); Calcium 9.4 mg/dL (8.4-10.2); Carbon Dioxide 30 mmol/L (22-30); Chloride 93 mmol/L (98-107); Estimated CRCL calculation 64 ml/min; Estimated Glomerular Filt Rate > 60; Glucose 253 mg/dL (65-110); Lipase 38 U/L (23-300); Potassium 4.1 mmol/L (3.4-5.0); Sodium 133 mmol/L (137-145)
--- NOTE | 2023-04-12 11:32 | ED.GENADULT ---
HPI - General Adult General Chief complaint: Abdominal Pain <Ayaz Cruz PA-C - Last Filed: 04/12/23 17:31> Stated complaint: abd pain (concerned for bowel blockage) <Ayaz Cruz PA-C - Last Filed: 04/12/23 17:31> Time Seen by Provider: 04/12/23 10:54 <Ayaz Cruz PA-C - Last Filed: 04/12/23 17:31> Source: patient <ALISA Smith Last Filed: 04/12/23 17:31> Mode of arrival: ambulatory <Ayaz Cruz PA-C - Last Filed: 04/12/23 17:31> Limitations: no limitations <Ayaz Cruz PA-C - Last Filed: 04/12/23 17:31> History of Present Illness HPI narrative: This is a 77-year-old female who presents to the ED with chief complaint of lower abdominal pain and nausea for the the past couple of days. Per triage note patient reported not having a BM for 7 days, however she tells me that she did have 1 small BM 3 days ago. She states that she has been passing gas today. She reports decreased appetite and intermittent nausea. Denies vomiting. She does note some increased frequency and discomfort with urination in the past couple of days as well. Denies fevers, chills, chest pain, shortness of breath. Patient also notes that she had a recent mechanical fall in her home and is also having some right groin pain. She reports the pain radiates into her lower leg. She reports a longstanding history of arthritis including degenerative spine disease. Denies any numbness or weakness. Denies bowel or bladder dysfunction. <Ayaz Cruz PA-C - Last Filed: 04/12/23 17:31> Related Data Home medications: Home Medications Medication Instructions Recorded Confirmed losartan 50 mg-hydrochlorothiazide 1 tablet PO DAILY 01/10/21 04/15/22 12.5 mg tablet metoprolol succinate 100 mg 100 mg PO DAILY 01/10/21 04/15/22 tablet,extended release 24 hr meclizine 12.5 mg tablet 12.5 mg PO TID PRN 01/02/22 04/15/22 acetaminophen 325 mg capsule 325 mg PO Q6H PRN 04/15/22 04/15/22 [id number] ac 400 tablet PO 04/15/22 04/15/22 mcg-calcium carb 500 mg-vit K1 20 mcg tablet insulin regular hum U-500 conc 500 25 unit subcut ONCE 06/20/22 unit/mL subcutaneous soln (Humulin R U-500 (Concentrated) Insulin) <Ayaz Cruz PA-C - Last Filed: 04/12/23 17:31> Allergies/adverse reactions: Allergies Allergy/AdvReac Type Severity Reaction Status Date / Time insulin aspart Allergy Severe itching, Verified 04/12/23 11:07 [From Fiasp U-100 Insulin] trouble breathing, chest pain niacinamide Allergy Severe itching, Verified 04/12/23 11:07 [From Fiasp U-100 Insulin] trouble breathing, chest pain Insulins Allergy Intermediate Swelling Verified 04/12/23 11:07 iohexol Allergy Mild Unknown Verified 04/12/23 11:07 [From contrast - CT, X-RAY] Quinolones Allergy Mild Unknown Verified 04/12/23 11:07 Aminoglycosides Allergy Unknown Unknown Verified 04/12/23 11:07 chlordiazepoxide Allergy Unknown Unknown Verified 04/12/23 11:07 erythromycin base Allergy Unknown Unknown Verified 04/12/23 11:07 insulin detemir Allergy Unknown Unknown Verified 04/12/23 11:07 insulin glargine Allergy Unknown Unknown Verified 04/12/23 11:07 iodine Allergy Unknown Unknown Verified 04/12/23 11:07 latex Allergy Unknown Unknown Verified 04/12/23 11:07 levofloxacin Allergy Unknown Unknown Verified 04/12/23 11:07 Macrolide Antibiotics Allergy Unknown Unknown Verified 04/12/23 11:07 acyclovir Allergy Unknown Verified 04/12/23 11:07 insulin glulisine AdvReac Hives Verified 04/12/23 11:07 [From Apidra U-100 Insulin] MYCINS Allergy Mild MAKES Uncoded 06/20/22 15:23 TONGUE SWELL, DIFF BREATHING <Ayaz Cruz PA-C - Last Filed: 04/12/23 17:31> COUNTS INCLUDE 234 BEDS AT THE [facility] Past Medical History Medical History: Medical History (Updated 04/12/23 @ 14:28 by Ayaz A. Anthony, PA-C) Allergies Allergy to insulin Anxiety Arthritis Asthma Brain tumor Cataracts, bilateral Diabete
[2023-04-12 12:15] LABS: Appearance Urine Slightly Cloudy (Clear); Bilirubin Urine Negative (Negative); Blood Urine 2+ (Negative); Color Urine Yellow (Yellow); Glucose Urine UA Trace mg/dL (Negative); Ketones Urine Negative (Negative); Leukocyte Esterase Ur 1+ LEU/UL (Negative); Nitrate Urine Negative (Negative); Protein Urine 1+ mg/dL (Negative); Urobilinogen Urine 0.2 mg/dL (<2.0); pH Urine 5.5 (5.0-9.0)
[2023-04-12 12:37] LABS: Add Urine Microscopic? YES
[2023-04-12 12:42] LABS: Bacteria Urine Rare /hpf; Squamous Epithelial Cell Urine Few /hpf (Few); WBC Urine >100 /hpf
[2023-04-12] MEDS: ONDANSETRON INJ 4 MG/2 ML VIAL IV PUSH (12:59)
[2023-04-12] MEDS: MORPHINE SULFATE (*CRX) 2 MG/ML INJ IV PUSH (12:59)
[2023-04-12 13:23] LABS: WBC Clumps Urine Present /HPF
== END 2023-04-12 15:06 | disposition home or self-care (01) ==
PROVIDERS: Emergency Medicine; Emergency Provider Physician Assistant; PCP Internal Medicine
DX: N39.0 Urinary tract infection, site not specified (principal); K51.30 Ulcerative (chronic) rectosigmoiditis without complications; S32.030A Wedge compression fracture of third lumbar vertebra, initial encounter for closed fracture; E78.5 Hyperlipidemia, unspecified; E11.9 Type 2 diabetes mellitus without complications; I10 Essential (primary) hypertension; Z86.73 Personal history of transient ischemic attack (TIA), and cerebral infarction without residual deficits; W19.XXXA Unspecified fall, initial encounter; Y92.009 Unspecified place in unspecified non-institutional (private) residence as the place of occurrence of the external cause
CPT/HCPCS: 36415; 73502; 74176; 80053; 81001; 83690; 85025; 87086; 87088; 96374; 96375; 99284; J2270; J2405

== ENCOUNTER 2023-04-14 11:42 | Emergency (ER) | payer MEDICARE, MEDICAID, SELFPAY ==
[2023-04-14] VITALS (11 sets, daily range): BP systolic 122–164; BP diastolic 41–83; PULSE 78–88; RESP 16–20; TEMP 36.3–36.6; O2SAT 95–100
--- NOTE | ~2023-04-14 | CT_ITS ---
EXAMINATION: CT brain wo con DATE: 04/14/2023 16:07 INDICATION: Achalasia TECHNIQUE: Computed tomography (CT) of the head was performed without intravenous contrast. The mA wa s adjusted according to patient size. Iterative reconstruction technique was employed. Exam dose: 68 1.00 mGy-cm total exam DLP. COMPARISON: 04/14/2022 CT brain FINDINGS: Bilateral vertebral artery, basilar artery and bilateral carotid siphon internal carotid ar taylor calcifications. There is nonspecific diminished attenuation of the cerebral white matter, likely due to chronic small vessel ischemic changes. No intracranial mass lesion or hemorrhage, midline shift or mass effect or subdural or epidural hemat brandi is detected. There is cerebral and cerebellar volume loss. No fracture or bone destruction of the cranial vault. The mastoid air cells and included paranasal sinuses are normally developed and aerated. IMPRESSION: Cerebral atherosclerosis and chronic small vessel ischemic changes of the cerebral white matter Cerebral and cerebellar volume loss No acute intracranial finding Reviewed, dictated and finalized at [facility]. Reviewed, dictated and finalized at location B.
--- NOTE | ~2023-04-14 | CT_ITS ---
EXAMINATION: CT abdomen pelvis wo con DATE: 04/14/2023 14:44 INDICATION: Abdominal pain. Nausea. TECHNIQUE: Computed tomography (CT) of the abdomen and pelvis was performed without intravenous contr ast. Automated exposure control and iterative reconstruction technique were employed. The dose-length product was 705.01 mGy-cm. COMPARISON: CT abdomen and pelvis 04/12/2023 FINDINGS: The visualized portions of the lung bases demonstrate minimal atelectasis. No pleural effus ion. The heart size is normal. There are coronary artery calcifications. No pericardial effusion. The re are changes of fundoplication of the stomach. The liver is normal. There are gallstones in the gal lbladder, which is distended. The spleen, pancreas, adrenal glands, and left kidney are normal. There is a 1.3 cm cyst in right kidney. There is diverticulosis of the colon without evidence of diverticu litis. There are no dilated loops of bowel. The appendix is not visualized. There is calcified athero sclerosis of the aorta and many of the other arteries. There are no pathologically enlarged lymph nod es. There is no free intraperitoneal fluid. There is a compression fracture of L3 with 1/5 loss of he ight. There is mild chronic anterior wedging of multiple vertebral bodies. There is moderate lumbar s pondylosis. There are bridging endplate osteophytes at multiple levels in the spine, consistent with diffuse idiopathic skeletal hyperostosis (DISH). There is sclerosis in left sacral ala, consistent wi th a healing insufficiency fracture. IMPRESSION: 1. Cholelithiasis. Gallbladder distention may be secondary to fasting or acute cholecystitis. Correla te with physical exam. 3. L3 compression fracture with mild worsening from 04/12/2023. Reviewed, dictated and finalized at location A. IMPRESSION: 1. Cholelithiasis. Gallbladder distention may be secondary to fasting or acute cholecystitis. Correlate with physical exam. 3. L3 compression fracture with mild worsening from 04/12/2023.
--- NOTE | 2023-04-14 14:08 | ED.ABDPAIN ---
HPI - Abdominal Pain General Chief Complaint: Abdominal Pain Stated Complaint: pain Time Seen by Provider: 04/14/23 13:29 Source: patient and old records reviewed Mode of arrival: ambulatory Limitations: no limitations History of Present Illness HPI narrative: Patient is a 77-year-old female who presents to the ED with report of right-sided abdominal pain and constipation. Patient reports she has been constipated for the last 8+ days. She was seen in the ED here 2 days ago for abdominal pain, back pain s/p glf, and was found to have a urinary tract infection, proctocolitis, and an L3 compression fracture. Patient was prescribed Augmentin and [place]. She states she has been taking these as prescribed, though per her med rec it does not appear that these have been picked up. Patient reports having worsening pain in her right sided lower abdomen, radiating down her right leg and bilateral flanks. She is concerned she is severely constipated. She states she has been having difficulty ambulating due to the pain. Reports nausea, denies vomiting. Denies fever. Related Data Home Medications Medication Instructions Recorded Confirmed losartan 50 mg-hydrochlorothiazide 1 tablet PO DAILY 01/10/21 04/15/22 12.5 mg tablet metoprolol succinate 100 mg 100 mg PO DAILY 01/10/21 04/15/22 tablet,extended release 24 hr meclizine 12.5 mg tablet 12.5 mg PO TID PRN 01/02/22 04/15/22 acetaminophen 325 mg capsule 325 mg PO Q6H PRN 04/15/22 04/15/22 gjhtlfwt-jyh-uufjg ac 400 tablet PO 04/15/22 04/15/22 mcg-calcium carb 500 mg-vit K1 20 mcg tablet insulin regular hum U-500 conc 500 25 unit subcut ONCE 06/20/22 unit/mL subcutaneous soln (Humulin R U-500 (Concentrated) Insulin) Allergies Allergy/AdvReac Type Severity Reaction Status Date / Time insulin aspart Allergy Severe itching, Verified 04/14/23 13:08 [From Fiasp U-100 Insulin] trouble breathing, chest pain niacinamide Allergy Severe itching, Verified 04/14/23 13:08 [From Fiasp U-100 Insulin] trouble breathing, chest pain Insulins Allergy Intermediate Swelling Verified 04/14/23 13:08 iohexol Allergy Mild Unknown Verified 04/14/23 13:08 [From contrast - CT, X-RAY] Quinolones Allergy Mild Unknown Verified 04/14/23 13:08 Aminoglycosides Allergy Unknown Unknown Verified 04/14/23 13:08 chlordiazepoxide Allergy Unknown Unknown Verified 04/14/23 13:08 erythromycin base Allergy Unknown Unknown Verified 04/14/23 13:08 insulin detemir Allergy Unknown Unknown Verified 04/14/23 13:08 insulin glargine Allergy Unknown Unknown Verified 04/14/23 13:08 iodine Allergy Unknown Unknown Verified 04/14/23 13:08 latex Allergy Unknown Unknown Verified 04/14/23 13:08 levofloxacin Allergy Unknown Unknown Verified 04/14/23 13:08 Macrolide Antibiotics Allergy Unknown Unknown Verified 04/14/23 13:08 acyclovir Allergy Unknown Verified 04/14/23 13:08 insulin glulisine AdvReac Hives Verified 04/14/23 13:08 [From Apidra U-100 Insulin] MYCINS Allergy Mild MAKES Uncoded 04/14/23 13:08 TONGUE SWELL, DIFF BREATHING Review of Systems Review of Systems: CONSTITUTIONAL: Denies fever, chills, or sweats. CARDIOVASCULAR: Denies chest pain. RESPIRATORY: Denies dyspnea. GASTROINTESTINAL: See HPI. GENITOURINARY: Denies dysuria or hematuria. SKIN: Denies rash or itching. MUSCULOSKELETAL: See HPI. NEUROLOGIC: Denies headache, numbness, or weakness. All systems reviewed & are unremarkable except as noted in HPI and below PMFSH Past Medical History Medical History Allergies Allergy to insulin Anxiety Arthritis Asthma Brain tumor Cataracts, bilateral Diabetes Essential (primary) hypertension Falls Gallbladder disorder Hearing loss History of AR (myocardial infarction) History of stroke Hyperlipidemia Myelopathy Osteoporosis Seizures Stroke Uncontrolled type 2 diabetes mellitus with
--- NOTE | 2023-04-14 14:35 | PC.NURSE ---
pt to ct via stretcher at this time
[2023-04-14 14:37] LABS: Basophils Absolute Auto 0.1 K/mm3 (0.0-0.1); Basophils Percent Auto 0.7 % (0.2-1.2); Eosinophils Absolute Auto 0.1 K/mm3 (0-0.3); Hematocrit 45.5 % (37.0-47.0); Hemoglobin 14.7 g/dL (12.0-15.0); Immature Granulocyte Absolute 0.05 K/mm3 (0.00-0.031); Immature Granulocyte Percent A 0.5 % (0-0.5); Lymphocytes Absolute Auto 1.59 K/mm3 (0.9-3.2); Lymphocytes Percent Auto 16.7 % (18.3-44.2); Mean Corpuscular HGB Conc 32.3 g/dl (32-36); Mean Corpuscular Hemoglobin 29.5 pg (26-34); Mean Corpuscular Volume 91.4 fl (80-100); Mean Platelet Volume 9.7 fl (7.4-10.4); Monocytes Absolute Auto 0.6 K/mm3 (0.1-0.6); Monocytes Percent Auto 5.9 % (2.6-8.5); Neutrophils Absolute Auto 7.2 K/mm3 (1.3-6.7); Neutrophils Percent Auto 75.2 % (45.5-73.1); Platelet Count Result 278 k/mm3 (150-375); Red Blood Count 4.98 M/mm3 (4.2-5.4); Red Cell Distribution Width 14.1 % (11.5-14.5); White Blood Count 9.5 K/mm3 (4.5-10.0)
[2023-04-14 14:44] LABS: Appearance Urine Clear (Clear); Bacteria Urine None Seen /hpf; Bilirubin Urine Negative (Negative); Blood Urine Negative (Negative); Color Urine Yellow (Yellow); Glucose Urine UA Negative (Negative); Ketones Urine Negative (Negative); Leukocyte Esterase Ur Trace LEU/UL (Negative); Nitrate Urine Negative (Negative); Non Pathogenic Casts 0-2; Protein Urine Negative (Negative); RBC Urine 0-2 /hpf (0-2); Specific Grav Ur 1.009 (1.001-1.035); Squamous Epithelial Cell Urine None seen /hpf (Few); WBC Urine 0-5 /hpf; pH Urine 5.5 (5.0-9.0)
[2023-04-14 14:52] LABS: Add Urine Microscopic? YES
[2023-04-14 15:01] LABS: Alanine Aminotransferase 25 U/L (6-35); Albumin Level 5.3 g/dL (3.5-5.1); Alkaline Phosphatase 116 U/L (38-126); Anion Gap 10 mmol/L (8-16); Aspartate Amino Transferase 33 U/L (14-36); Bilirubin,Total 0.9 mg/dL (0.2-1.3); Blood Urea Nitrogen 14 mg/dL (7-17); Calcium 10.5 mg/dL (8.4-10.2); Carbon Dioxide 34 mmol/L (22-30); Chloride 93 mmol/L (98-107); Estimated CRCL calculation 64 ml/min; Estimated Glomerular Filt Rate > 60; Glucose 111 mg/dL (65-110); Lipase 29 U/L (23-300); Potassium 4.2 mmol/L (3.4-5.0); Sodium 137 mmol/L (137-145)
--- NOTE | 2023-04-14 16:10 | PC.NURSE ---
PT refuses to get back into bed at this time, pt A&Ox2
[2023-04-14 16:36] LABS: Amphetamine Screen Urine Negative (Negative); Barbiturate Screen Urine Negative (Negative); Benzodiazepines Screen Urine Negative (Negative); Cannabinoid Screen Urine Negative (Negative); Cocaine Screen Urine Negative (Negative); Methadone Screen Urine Negative (Negative); Opiate Screen Urine Positive (Negative); Phencyclidine Screen Urine Negative (Negative)
--- NOTE | 2023-04-14 16:47 | PC.NURSE ---
stand by assist to bedside commode, ERP at bedside with this nurse and pt's speech suddenly became garbled, Pt A/O x2, would follow commands. CT ordered by ERP. Pt up in chair now reports she is ready to go home. Pt has asked for morphine multiple times, ERP aware. Pt is currently angry because she did not receive morphine. Son reports pt sometimes has garbled speech after waking up.
== END 2023-04-14 17:30 | disposition home or self-care (01) ==
PROVIDERS: Emergency Provider Physician Assistant
DX: S32.030A Wedge compression fracture of third lumbar vertebra, initial encounter for closed fracture (principal); K59.00 Constipation, unspecified; F41.9 Anxiety disorder, unspecified; J45.909 Unspecified asthma, uncomplicated; E11.9 Type 2 diabetes mellitus without complications; I10 Essential (primary) hypertension; G40.909 Epilepsy, unspecified, not intractable, without status epilepticus; X58.XXXA Exposure to other specified factors, initial encounter
CPT/HCPCS: 36415; 70450; 74176; 80053; 80307; 81001; 83690; 85025; 99284

== ENCOUNTER 2023-08-07 12:49 | Emergency (ER) | payer MEDICARE, MEDICAID, SELFPAY ==
--- NOTE | ~2023-08-07 | US_ITS ---
EXAMINATION: US venous doppler [facility] DATE: 08/07/2023 16:07 INDICATION: Lower limb swelling TECHNIQUE: Grayscale ultrasound images without and with compression and Doppler ultrasound images of the bilateral lower extremity veins were obtained. COMPARISON: None. FINDINGS: The visualized portions of right common femoral vein, profunda (deep) femoral vein, femoral vein, pop liteal vein, posterior tibial veins, peroneal veins, gastrocnemius vein and greater saphenous vein ou tflow are patent. The visualized portions of left common femoral vein, profunda femoral vein, femoral vein, popliteal v ein, posterior tibial veins, peroneal veins, gastrocnemius vein and greater saphenous vein outflow ar e patent. IMPRESSION: 1. No deep venous thrombosis in either lower limb. Reviewed, dictated and finalized at location A. MILLER
[2023-08-07 12:58] VITALS: BP 136/84; PULSE 63; RESP 18; TEMP 36.6; O2SAT 100
[2023-08-07 15:35] LABS: Appearance Urine Clear (Clear); Bacteria Urine 3+ /hpf; Bilirubin Urine Negative (Negative); Blood Urine Negative (Negative); Color Urine Yellow (Yellow); Glucose Urine UA Negative (Negative); Ketones Urine Negative (Negative); Leukocyte Esterase Ur 1+ LEU/UL (Negative); Nitrate Urine Negative (Negative); Non Pathogenic Casts 0-2; Protein Urine Negative (Negative); RBC Urine 0-2 /hpf (0-2); Specific Grav Ur 1.008 (1.001-1.035); Squamous Epithelial Cell Urine None seen /hpf (Few); Urobilinogen Urine 0.2 mg/dL (<2.0); pH Urine 5.5 (5.0-9.0)
[2023-08-07 15:43] LABS: Add Urine Microscopic? YES
--- NOTE | 2023-08-07 16:54 | ED.GENADULT ---
HPI - General Adult General Chief complaint: Allergic Reaction Stated complaint: allergic reaction Time Seen by Provider: 08/07/23 14:55 History of Present Illness HPI narrative: Patient is a 78-year-old female who presents the ER with concerns of having an allergic reaction to Bactrim. She took the Bactrim for 1 week 1 month ago. After finishing the medication she reports she developed some swelling her lower extremities. No calf pain. No chest pain or shortness of breath. She also reports that she has been having dysuria over the last 3 days. No urinary frequency or urgency. No fevers or chills or sweats. Related Data Home Medications Medication Instructions Recorded Confirmed losartan 50 mg-hydrochlorothiazide 1 tablet PO DAILY 01/10/21 06/18/23 12.5 mg tablet metoprolol succinate 100 mg 100 mg PO DAILY 01/10/21 06/18/23 tablet,extended release 24 hr meclizine 12.5 mg tablet 12.5 mg PO TID PRN 01/02/22 06/18/23 acetaminophen 325 mg capsule 325 mg PO Q6H PRN 04/15/22 06/18/23 kptfonjy-yua-ghykz ac 400 tablet PO 04/15/22 06/18/23 mcg-calcium carb 500 mg-vit K1 20 mcg tablet insulin regular hum U-500 conc 500 25 unit subcut ONCE 06/20/22 06/18/23 unit/mL subcutaneous soln (Humulin R U-500 (Concentrated) Insulin) Saccharomyces boulardii 250 mg 250 mg PO BID 06/11/23 06/18/23 capsule (Florastor) bisacodyl 10 mg rectal suppository 10 mg RECTAL DAILY PRN 06/11/23 06/18/23 (Dulcolax (bisacodyl)) cefdinir 300 mg capsule 300 mg PO Q12H 06/11/23 06/18/23 famotidine 10 mg tablet 10 mg PO BID 06/11/23 06/18/23 hyoscyamine sulfate 0.125 mg tablet 0.125 mg PO QID 06/11/23 06/18/23 metformin 1,000 mg tablet 1,000 mg PO BID 06/11/23 06/18/23 Allergies Allergy/AdvReac Type Severity Reaction Status Date / Time insulin aspart Allergy Severe itching, Verified 06/11/23 15:18 [From Fiasp U-100 Insulin] trouble breathing, chest pain niacinamide Allergy Severe itching, Verified 06/11/23 15:18 [From Fiasp U-100 Insulin] trouble breathing, chest pain Insulins Allergy Intermediate Swelling Verified 06/11/23 15:18 amoxicillin Allergy Mild Unknown Verified 06/11/23 15:18 iohexol Allergy Mild Unknown Verified 06/11/23 15:18 [From contrast - CT, X-RAY] Quinolones Allergy Mild Unknown Verified 06/11/23 15:18 Aminoglycosides Allergy Unknown Unknown Verified 06/11/23 15:18 chlordiazepoxide Allergy Unknown Unknown Verified 06/11/23 15:18 erythromycin base Allergy Unknown Unknown Verified 06/11/23 15:18 insulin detemir Allergy Unknown Unknown Verified 06/11/23 15:18 insulin glargine Allergy Unknown Unknown Verified 06/11/23 15:18 iodine Allergy Unknown Unknown Verified 06/11/23 15:18 latex Allergy Unknown Unknown Verified 06/11/23 15:18 levofloxacin Allergy Unknown Unknown Verified 06/11/23 15:18 Macrolide Antibiotics Allergy Unknown Unknown Verified 06/11/23 15:18 acyclovir Allergy Unknown Verified 06/11/23 15:18 sulfamethoxazole Allergy Swelling Verified 08/07/23 14:58 [From Bactrim] trimethoprim [From Bactrim] Allergy Swelling Verified 08/07/23 14:58 insulin glulisine AdvReac Hives Verified 06/11/23 15:18 [From Apidra U-100 Insulin] MYCINS Allergy Mild MAKES Uncoded 06/11/23 15:18 TONGUE SWELL, DIFF BREATHING Review of Systems Review of Systems: All systems reviewed & are unremarkable except as noted in HPI and below Constitutional: Constitutional: Denies chills and Denies fever(s) Cardiovascular: Cardiovascular: Denies chest pain, Denies rapid heart rate and Denies radiating jaw, neck or arm pain Respiratory: Respiratory: Denies cough and Denies dyspnea Gastrointestinal: Gastrointestinal: Denies abdominal pain, Denies nausea and Denies vomiting Genitourinary: Genitourinary: Reports dysuria Musculoskeletal: Musculoskeletal: Denies arthralgias and Denies joint swelling Comments: Leg edema PMFSH Past Medical History Medical History (Reviewed
[2023-08-07 18:03] VITALS: BP 130/67; PULSE 72; RESP 17; O2SAT 98
== END 2023-08-07 18:04 | disposition home or self-care (01) ==
PROVIDERS: Emergency Provider Emergency Medicine
DX: N39.0 Urinary tract infection, site not specified (principal); J45.909 Unspecified asthma, uncomplicated; I10 Essential (primary) hypertension; I25.2 Old myocardial infarction; E11.9 Type 2 diabetes mellitus without complications; E78.5 Hyperlipidemia, unspecified; E55.9 Vitamin D deficiency, unspecified; M19.90 Unspecified osteoarthritis, unspecified site; M81.0 Age-related osteoporosis without current pathological fracture; Z86.73 Personal history of transient ischemic attack (TIA), and cerebral infarction without residual deficits; Z87.891 Personal history of nicotine dependence; Z79.4 Long term (current) use of insulin; Z79.84 Long term (current) use of oral hypoglycemic drugs
CPT/HCPCS: 81001; 87077; 87086; 87186; 93970; 99284

== ENCOUNTER 2023-12-07 15:19 | Emergency (ER) | payer MEDICARE, MEDICAID, SELFPAY ==
[2023-12-07 15:21] VITALS: BP 154/105; PULSE 74; RESP 18; TEMP 36.4; O2SAT 99
--- NOTE | 2023-12-07 17:35 | ED.EXTPRO ---
HPI - Extremity Problem General Chief complaint: Extremity Problem,Nontraumatic Stated complaint: left leg pain Time Seen by Provider: 12/07/23 16:23 History of Present Illness HPI Narrative: 78 YEARS OLD WHITE FEMALE DROPPED OFF BY HER SON, CAME FROM HOME. COMPLAINING OF CAT SCRATCH AT LEFT LOWER LEG ANTERIORLY FEW DAYS AGO SUBSEQUENTLY STARTED HAVING REDNESS AT THAT AREA AND TENDERNESS. SHE DENIES ANY FEVER, CHILLS, NAUSEA, VOMITING, HEADACHE, CHEST PAIN OR SHORTNESS OF BREATH OR BACK PAIN. Related Data Home Medications Medication Instructions Recorded Confirmed losartan 50 mg-hydrochlorothiazide 1 tablet PO DAILY 01/10/21 06/18/23 12.5 mg tablet metoprolol succinate 100 mg 100 mg PO DAILY 01/10/21 06/18/23 tablet,extended release 24 hr meclizine 12.5 mg tablet 12.5 mg PO TID PRN 01/02/22 06/18/23 acetaminophen 325 mg capsule 325 mg PO Q6H PRN 04/15/22 06/18/23 nmfwoybk-uzx-kfive ac 400 tablet PO 04/15/22 06/18/23 mcg-calcium carb 500 mg-vit K1 20 mcg tablet insulin regular hum U-500 conc 500 25 unit subcut ONCE 06/20/22 06/18/23 unit/mL subcutaneous soln (Humulin R U-500 (Concentrated) Insulin) Saccharomyces boulardii 250 mg 250 mg PO BID 06/11/23 06/18/23 capsule (Florastor) bisacodyl 10 mg rectal suppository 10 mg RECTAL DAILY PRN 06/11/23 06/18/23 (Dulcolax (bisacodyl)) cefdinir 300 mg capsule 300 mg PO Q12H 06/11/23 06/18/23 famotidine 10 mg tablet 10 mg PO BID 06/11/23 06/18/23 hyoscyamine sulfate 0.125 mg tablet 0.125 mg PO QID 06/11/23 06/18/23 metformin 1,000 mg tablet 1,000 mg PO BID 06/11/23 06/18/23 Allergies Allergy/AdvReac Type Severity Reaction Status Date / Time insulin aspart Allergy Severe itching, Verified 06/11/23 15:18 [From Fiasp U-100 Insulin] trouble breathing, chest pain niacinamide Allergy Severe itching, Verified 06/11/23 15:18 [From Fiasp U-100 Insulin] trouble breathing, chest pain Insulins Allergy Intermediate Swelling Verified 06/11/23 15:18 amoxicillin Allergy Mild Unknown Verified 06/11/23 15:18 iohexol Allergy Mild Unknown Verified 06/11/23 15:18 [From contrast - CT, X-RAY] Quinolones Allergy Mild Unknown Verified 06/11/23 15:18 Aminoglycosides Allergy Unknown Unknown Verified 06/11/23 15:18 chlordiazepoxide Allergy Unknown Unknown Verified 06/11/23 15:18 erythromycin base Allergy Unknown Unknown Verified 06/11/23 15:18 insulin detemir Allergy Unknown Unknown Verified 06/11/23 15:18 insulin glargine Allergy Unknown Unknown Verified 06/11/23 15:18 iodine Allergy Unknown Unknown Verified 06/11/23 15:18 latex Allergy Unknown Unknown Verified 06/11/23 15:18 levofloxacin Allergy Unknown Unknown Verified 06/11/23 15:18 Macrolide Antibiotics Allergy Unknown Unknown Verified 06/11/23 15:18 acyclovir Allergy Unknown Verified 06/11/23 15:18 sulfamethoxazole Allergy Swelling Verified 08/07/23 14:58 [From Bactrim] trimethoprim [From Bactrim] Allergy Swelling Verified 08/07/23 14:58 insulin glulisine AdvReac Hives Verified 06/11/23 15:18 [From Apidra U-100 Insulin] MYCINS Allergy Mild MAKES Uncoded 06/11/23 15:18 TONGUE SWELL, DIFF BREATHING Review of Systems Review of Systems: All systems reviewed & are unremarkable except as noted in HPI and below PMFSH Past Medical History Medical History Allergies Allergy to insulin Anxiety Arthritis Asthma Brain tumor Cataracts, bilateral Diabetes Essential (primary) hypertension [place] Gallbladder disorder Hearing loss History of [place] (myocardial infarction) History of stroke Hyperlipidemia Myelopathy Osteoporosis Seizures Stroke Uncontrolled type 2 diabetes mellitus with hyperglycemia Vitamin D deficiency Surgical History Surgical History History of repair of hiatal hernia Family History Family History (Reviewed 12/07/23 @ 17:52 by Anika Delgado
[2023-12-07] MEDS: DOXYCYCLINE HYCLATE 100 MG TABLET PO (17:50)
== END 2023-12-07 18:13 | disposition home or self-care (01) ==
PROVIDERS: Emergency Provider Emergency Medicine; PCP Internal Medicine
DX: A28.1 Cat-scratch disease (principal); I80.02 Phlebitis and thrombophlebitis of superficial vessels of left lower extremity; I83.93 Asymptomatic varicose veins of bilateral lower extremities; J45.909 Unspecified asthma, uncomplicated; I25.2 Old myocardial infarction; E11.9 Type 2 diabetes mellitus without complications; E78.5 Hyperlipidemia, unspecified; E55.9 Vitamin D deficiency, unspecified; M81.0 Age-related osteoporosis without current pathological fracture; M19.90 Unspecified osteoarthritis, unspecified site; Z86.73 Personal history of transient ischemic attack (TIA), and cerebral infarction without residual deficits; Z87.891 Personal history of nicotine dependence; Z79.4 Long term (current) use of insulin; Z79.84 Long term (current) use of oral hypoglycemic drugs
CPT/HCPCS: 99283; A9270

== ENCOUNTER 2024-01-07 12:31 | Outpatient (CLI) | payer MEDICARE, MEDICAID, SELFPAY ==
[2024-01-08 00:47] LABS: Folic Acid 12.8 ng/mL (2.76->20)
== END 2024-01-07 12:32 | disposition home or self-care (01) ==
PROVIDERS: PCP Internal Medicine; Visit Provider Family Medicine
DX: E03.9 Hypothyroidism, unspecified (principal); E55.9 Vitamin D deficiency, unspecified; Z13.228 Encounter for screening for other metabolic disorders
CPT/HCPCS: 36415; 82306; 82607; 82746; 84443

== ENCOUNTER 2024-05-02 14:18 | Observation (INO) | payer MEDICARE, MEDICAID, SELFPAY ==
--- NOTE | ~2024-05-02 | XR_ITS ---
EXAMINATION: XR chest 1V portable DATE: 05/05/2024 12:49 INDICATION: Shortness of breath. TECHNIQUE: A single frontal view of the chest was obtained. COMPARISON: Chest 2 views 05/02/2024 FINDINGS: There is no pneumonia, pleural effusion, or pneumothorax. The heart size is normal. There a re old healed bilateral rib fractures. IMPRESSION: 1. No acute cardiopulmonary disease. Reviewed, dictated and finalized at location A.
--- NOTE | ~2024-05-02 | XR_ITS ---
XR chest 2V DATE: 05/02/2024 15:09 INDICATION: Shortness of breath. Bilateral lower leg swelling TECHNIQUE: AP and lateral views COMPARISON: 04/14/2022 2 view chest FINDINGS: Borderline or increased heart size, not optimally evaluated on AP projection because of mag nification. There is an approximately 2 cm asymmetric density overlying the left suprahilar area of uncertain sig nificance. PA and lateral chest radiographs were CT thorax are recommended when practical. Otherwise no pulmonary infiltrate or consolidation, pleural effusion or pneumothorax is noted. Pulmon anu vascularity appears within normal range. Osteopenia. IMPRESSION: Asymmetric 2 cm opacity is uncertain if any significance overlying left suprahilar area; recommend PA and lateral chest radiographs or CT thorax with IV contrast material when practical Borderline or increased heart size Osteopenia Reviewed, dictated and finalized at location J. IMPRESSION: Asymmetric 2 cm opacity is uncertain if any significance overlying left suprahilar area; recommend PA and lateral chest radiographs or CT thorax w ith IV contrast material when practical Borderline or increased heart size Osteopenia
--- NOTE | ~2024-05-02 | XR_ITS ---
XR chest 2V DATE: 05/02/2024 18:41 INDICATION: Shortness of breath. Asymmetric opacity left suprahilar area noted on earlier AP portable chest radiograph TECHNIQUE: PA and lateral views COMPARISON: 05/02/2024 AP and lateral views FINDINGS: Previously reported asymmetrical opacity overlying left suprahilar area on 05/02/2024 1507 ho urs AP chest is not evident on the current PA view and was presumably artifact. There is aortic calcification and ectasia and unfolding. Cardiomegaly. No pulmonary consolidation or pneumothorax is evident. Osteopenia. IMPRESSION: Cardiomegaly, aortic atherosclerosis Asymmetric opacity overlying left suprahilar area on earlier AP chest radiograph today is not observe d on this PA view. This was likely an artifact. Reviewed, dictated and finalized at location J. IMPRESSION: Cardiomegaly, aortic atherosclerosis Asymmetric opacity overlying left suprahilar area on earlier AP chest radiograp h today is not observed on this PA view. This was likely an artifact.
--- NOTE | ~2024-05-02 | NM_ITS ---
EXAMINATION: NM lung vent and perfusion DATE: 05/05/2024 15:34 INDICATION: Shortness of breath. TECHNIQUE: 19.64 mCi Xenon-133 was given for ventilation images. 4.72 mCi Tc-99m MAA was administered intravenously for perfusion images. Scintigraphic images of the chest were obtained. COMPARISON: Chest single view 05/05/2024 FINDINGS: Ventilation images demonstrate small defects in the upper lobes and lower lobes. No retention on wash out images. Perfusion images demonstrate small defects in the lower lobes and left upper lobe. IMPRESSION: 1. Low probability for pulmonary embolism. Reviewed, dictated and finalized at location A.
--- NOTE | ~2024-05-02 | XR_ITS ---
Portable chest x-ray Comparison: 05/05/2024 Clinical History: Shortness of breath Findings: Lungs are clear, without focal consolidation or pleural effusion. Cardiomediastinal silho uette is stable. Bones and soft tissues are unremarkable. Impression: Clear lungs. Reviewed, dictated and finalized at location . Impression: Clear lungs.
--- NOTE | 2024-05-02 14:21 | ECG_ITS ---
Test Date: 2024-05-02 14:25:27 Measurements Intervals [place] Rate: 74 P: 6 [place]: 188 QRS: -7 QRSD: 98 T: 105 QT: 395 QTc: 440 Interpretive Statements SINUS RHYTHM LEFT VENTRICULAR HYPERTROPHY AND ST-T CHANGE [VOLTAGE CRITERIA PLUS ST/T ABNORMALITY] ABNORMAL ECG No previous ECG available for comparison Electronically Signed On 05-03-2024 15:26:22 CDT by Ammon York M.D.
--- NOTE | 2024-05-02 15:00 | ED.SOB ---
HPI - SOB/Dyspnea General Chief Complaint: Shortness of Breath/Dyspnea Stated Complaint: trouble breathing. BLE edema Time Seen by Provider: 05/02/24 14:32 History of Present Illness HPI Narrative: 78-year-old female with history of hypertension, diabetes presenting with shortness of breath. Patient states that for the last week or so she has been feeling persistently short of breath especially when she lays down or exerts herself. States that she had brief episode of some right-sided chest pain yesterday but no other chest pain. States that both of her legs are also very swollen for her. States they feel tight and painful. Related Data Home Medications Medication Instructions Recorded Confirmed losartan 50 mg-hydrochlorothiazide 1 tablet PO DAILY 01/10/21 05/02/24 12.5 mg tablet metoprolol succinate 100 mg 100 mg PO DAILY 01/10/21 05/02/24 tablet,extended release 24 hr meclizine 12.5 mg tablet 12.5 mg PO TID PRN Dizziness 01/02/22 05/02/24 [id number] ac 400 1 tablet PO DAILY 04/15/22 05/02/24 mcg-calcium carb 500 mg-vit K1 20 mcg tablet metformin 1,000 mg tablet 1,000 mg PO BID 06/11/23 05/02/24 acetaminophen 500 mg tablet 1,000 mg PO TID PRN Pain 05/02/24 05/02/24 cholecalciferol (vitamin D3) 10 10 mcg PO DAILY 05/02/24 05/02/24 mcg (400 unit) capsule (Vitamin D3) insulin NPH-regular 70-30 U-100 15 unit subcut BID 05/02/24 05/02/24 insulin 100 unit/mL subcutaneous pen (Novolin 70-30 FlexPen U-100 Insulin) pantoprazole 40 mg tablet,delayed 40 mg PO DAILY 05/02/24 05/02/24 release Allergies Allergy/AdvReac Type Severity Reaction Status Date / Time insulin aspart Allergy Severe itching, Verified 06/11/23 15:18 [From Fiasp U-100 Insulin] trouble breathing, chest pain niacinamide Allergy Severe itching, Verified 06/11/23 15:18 [From Fiasp U-100 Insulin] trouble breathing, chest pain Insulins Allergy Intermediate Swelling Verified 06/11/23 15:18 amoxicillin Allergy Mild Unknown Verified 06/11/23 15:18 iohexol Allergy Mild Unknown Verified 06/11/23 15:18 [From contrast - CT, X-RAY] Quinolones Allergy Mild Unknown Verified 06/11/23 15:18 Aminoglycosides Allergy Unknown Unknown Verified 06/11/23 15:18 chlordiazepoxide Allergy Unknown Unknown Verified 06/11/23 15:18 erythromycin base Allergy Unknown Unknown Verified 06/11/23 15:18 insulin detemir Allergy Unknown Unknown Verified 06/11/23 15:18 insulin glargine Allergy Unknown Unknown Verified 06/11/23 15:18 iodine Allergy Unknown Unknown Verified 06/11/23 15:18 latex Allergy Unknown Unknown Verified 06/11/23 15:18 levofloxacin Allergy Unknown Unknown Verified 06/11/23 15:18 Macrolide Antibiotics Allergy Unknown Unknown Verified 06/11/23 15:18 acyclovir Allergy Unknown Verified 06/11/23 15:18 sulfamethoxazole Allergy Swelling Verified 08/07/23 14:58 [From Bactrim] trimethoprim [From Bactrim] Allergy Swelling Verified 08/07/23 14:58 insulin glulisine AdvReac Hives Verified 06/11/23 15:18 [From Apidra U-100 Insulin] MYCINS Allergy Mild MAKES Uncoded 06/11/23 15:18 TONGUE SWELL, DIFF BREATHING PMFSH Past Medical History Medical History (Updated 05/05/24 @ 13:40 by Jenna Peralta MD) Allergies Allergy to insulin Anxiety Arthritis Asthma Brain tumor Cataracts, bilateral Diabetes Essential (primary) hypertension Falls Gallbladder disorder Hearing loss History of [place] (myocardial infarction) History of stroke Hyperlipidemia Myelopathy Osteoporosis Peripheral neuropathy Seizures Stroke Uncontrolled type 2 diabetes mellitus with hyperglycemia Vitamin D deficiency Surgical History Surgical History History of repair of hiatal hernia Family History Family History Grandparent Family history of obesity Asthma Diabetes mellitus Mother Family history of osteop
[2024-05-02 15:46] LABS: Basophils Absolute Auto 0.1 K/mm3 (0.0-0.1); Basophils Percent Auto 0.6 % (0.2-1.2); Eosinophils Absolute Auto 0.2 K/mm3 (0-0.3); Eosinophils Percent Auto 2.5 % (0-4.4); Hematocrit 23.2 % (37.0-47.0); Immature Granulocyte Absolute 0.03 K/mm3 (0.00-0.031); Immature Granulocyte Percent A 0.4 % (0-0.5); Lymphocytes Absolute Auto 1.84 K/mm3 (0.9-3.2); Mean Corpuscular Hemoglobin 21.2 pg (26-34); Mean Corpuscular Volume 75.6 fl (80-100); Mean Platelet Volume 9.8 fl (7.4-10.4); Monocytes Absolute Auto 0.7 K/mm3 (0.1-0.6); Monocytes Percent Auto 8.1 % (2.6-8.5); Neutrophils Absolute Auto 5.2 K/mm3 (1.3-6.7); Neutrophils Percent Auto 65.4 % (45.5-73.1); Platelet Count Result 256 k/mm3 (150-375); Red Blood Count 3.07 M/mm3 (4.2-5.4); Red Cell Distribution Width 18.3 % (11.5-14.5)
[2024-05-02 15:56] LABS: Alanine Aminotransferase 14 U/L (6-35); Albumin Level 4.4 g/dL (3.5-5.1); Alkaline Phosphatase 70 U/L (38-126); Anion Gap 13 mmol/L (4-12); Aspartate Amino Transferase 23 U/L (14-36); Bilirubin,Total 0.5 mg/dL (0.2-1.3); Blood Urea Nitrogen 13 mg/dL (7-17); Carbon Dioxide 25 mmol/L (22-30); Chloride 100 mmol/L (98-107); Estimated CRCL calculation 66 ml/min; Estimated Glomerular Filt Rate > 60; Glucose 122 mg/dL (65-110); Potassium 3.3 mmol/L (3.4-5.0); Sodium 138 mmol/L (137-145)
[2024-05-02 15:59] LABS: INR 1.1; Prothrombin Time 14.3 Seconds (11.1-14.7)
[2024-05-02 16:00] LABS: Partial Thromboplastin Time 34.3 Seconds (22.3-36.8)
[2024-05-02 16:07] LABS: Hemoglobin 6.5 g/dL (12.0-15.0)
[2024-05-02 16:08] LABS: NT Pro B Type Natriuretic Pept 746 pg/mL (19.9-100); Troponin I < 0.012 ng/mL (0.000-0.034)
[2024-05-02 16:09] LABS: Anisocytosis 1+; Hypochromasia 1+; Microcytosis 1+ (NORMAL); Platelet Estimate Adequate (Adequate); Schistocytes None Seen
[2024-05-02 16:22] LABS: Influenza A QL RT-PCR Negative (Negative); Influenza B QL RT-PCR Negative (Negative); RSV RNA, RT-PCR Negative (Negative); SARS-CoV-2 RNA PCR Negative (Negative)
[2024-05-02 16:35] VITALS: BP 151/74; PULSE 70; RESP 18; TEMP 36.6; O2SAT 95
--- NOTE | 2024-05-02 16:42 | PM.IMHP ---
H&P: HPI History of Present Illness Date/Time: 05/02/24 16:42 Chief Complaint: Shortness of Breath Narrative: 78 y/o F presents here with shortness of breath with PMH of HTN, diabetes, asthma, HLD, seizures, and stroke. The patient presents here from home for further evaluation of shortness of breath. She reports acute onset of shortness of breath for the past 8-9 days. She reports intermittent shortness of breath that would not last for extended periods. Shortness of breath that started 8-9 days ago started while she was waiting in the car while her son went into the grocery store. She insisted that he turn the car off. She reports that she started feeling overheated and then became short of breath. Did decrease for a few days but then worsened again. Shortness of breath is accompanied by fatigue, weakness, chest tightness, and syncope. She reports no injury during initial episode and has felt lightheaded since. She is denying palpitations, BRBPR, or melena. Not on anticoagulation. Has hx of anemia - dx 3 months ago. Patient was going to undergo an upper endoscopy but has been unable to get procedure done due to her son having a heart attack. Has previous hx of GI bleed from colon. Patient is also reporting diarrhea that started after she cooked angel in the microwave. She is concerned she did not cook it long enough. No associated abdominal pain. Patient also reports taking multiple supplements and 1G of Tylenol TID with [place] four times per day. Initial VS at presentation: 97.8? F, HR 70, RR 18, 151/74, and 95% on RA. ED workup showed: No leukocytosis, hemoglobin 6.5 (previously 14.7 in 03/2023), normal coags, potassium 3.3, creatinine 0.5 and GFR >60, glucose 122, BNP 746, and viral PCR negative. CXR showed an asymmetric 2 cm opacity overlying left suprahilar area. Review of Systems Review of Systems: All systems reviewed & are unremarkable except as noted in HPI and below [facility] Past Medical History Medical History (Updated 05/02/24 @ 19:54 by Leigh Pike, SANDRA) Allergies Allergy to insulin Anxiety Arthritis Asthma Brain tumor Cataracts, bilateral Diabetes Essential (primary) hypertension Falls Gallbladder disorder Hearing loss History of [place] (myocardial infarction) History of stroke Hyperlipidemia Myelopathy Osteoporosis Peripheral neuropathy Seizures Stroke Uncontrolled type 2 diabetes mellitus with hyperglycemia Vitamin D deficiency Surgical History Surgical History History of repair of hiatal hernia Family History Family History Grandparent Family history of obesity Asthma Diabetes mellitus Mother Family history of osteoporosis Depression Family history of migraine headaches Asthma Family history of anemia Cerebrovascular accident Family history of arthritis Carcinoma of colon Family history of Alzheimer's disease Family history of atrial fibrillation Family history of heart disease in male family member before age 55 Acute myocardial infarction Father Family history of alcoholism Family history of arthritis Family history of lung cancer Family history of lung disease Family history of hearing loss Other Family history of allergic disorder Hypertension Social History Social History Smoking status: Never smoker Second hand tobacco smoke exposure: No Alcohol intake: never Substance use: never Substance use type: does not use Do You Feel Safe in your Home?: Yes Lack of Transportation: No Lack of Food: Never True Current Housing: I Have Housing Concerned About Future Housing: No Difficulty Paying Gas/Electric Bills: No Difficulty Paying for Meds: No Currently Unemployed: No Education: High School Diploma/GED Difficulty w/ Childcare or Family Care: No Gender identity (if verbalized
--- NOTE | 2024-05-02 18:21 | PC.NURSE ---
Pt currently is not sure if she wants to sign consent for blood transfusion because there is no way to tell if the blood came from a patient who received the COVID vaccine or not.
[2024-05-02 18:26] VITALS: BP 179/88; PULSE 70; RESP 18; TEMP 36.4; O2SAT 98
[2024-05-02 18:43] LABS: Iron 24 ug/dL (37-170)
[2024-05-02 18:53] LABS: Percent Iron Saturation 5 % (20-50)
[2024-05-02 19:19] LABS: Ferritin 5.68 ng/mL (11.1-264)
--- NOTE | 2024-05-02 19:42 | ADMGEN ---
This patient, Kimberly Masters, was admitted to 3 Med Surg Room 327-01. Patient/family oriented to hospital policies and general routines including ID bracelet, bed and alarms, visiting hours, pain management, procedures, bathroom and other care routines, personal items, smoking policy, room service/diet, and visiting hours. Information on how to activate the Rapid Response Team has been discussed. Patient/Family are encouraged to report perceived risks to care and to ask questions if they do not understand what they are told or what they should do.
[2024-05-02 19:52] LABS: Folic Acid > 20.0 ng/mL (2.76->20)
[2024-05-02 20:00] VITALS: PULSE 69; O2SAT 100
[2024-05-02 20:03] VITALS: BMI 29.9
[2024-05-02 20:34] LABS: Glucose Point of Care 90 mg/dl (65-105)
[2024-05-02 20:47] LABS: Troponin I < 0.012 ng/mL (0.000-0.034)
[2024-05-02 21:03] VITALS: BP 173/78; PULSE 72; RESP 22; TEMP 36.4; O2SAT 100
[2024-05-02] MEDS: POTASSIUM CHLORIDE 20 MEQ ER TABLET 40 MEQ PO (21:17)
[2024-05-02] MEDS: PANTOPRAZOLE SODIUM IV 40 MG VIAL IV PUSH (21:17)
[2024-05-02] MEDS: LACTATED RINGERS 1,000 ML 75 ML IV CONT (21:18)
[2024-05-02 22:49] LABS: Hematocrit 24.8 % (37.0-47.0)
[2024-05-02 22:53] LABS: Hemoglobin 6.8 g/dL (12.0-15.0)
[2024-05-02 23:11] LABS: Troponin I < 0.012 ng/mL (0.000-0.034)
[2024-05-03] VITALS (11 sets, daily range): BP systolic 138–169; BP diastolic 62–77; PULSE 70–90; RESP 16–20; TEMP 36.2–36.7; O2SAT 98–100; BMI 29.9
[2024-05-03 06:01] LABS: Basophils Absolute Auto 0.1 K/mm3 (0.0-0.1); Eosinophils Absolute Auto 0.2 K/mm3 (0-0.3); Eosinophils Percent Auto 2.7 % (0-4.4); Hematocrit 24.3 % (37.0-47.0); Immature Granulocyte Absolute 0.02 K/mm3 (0.00-0.031); Immature Granulocyte Percent A 0.3 % (0-0.5); Lymphocytes Absolute Auto 1.33 K/mm3 (0.9-3.2); Lymphocytes Percent Auto 18.8 % (18.3-44.2); Mean Corpuscular HGB Conc 26.7 g/dl (32-36); Mean Corpuscular Hemoglobin 20.3 pg (26-34); Mean Corpuscular Volume 75.9 fl (80-100); Mean Platelet Volume 10.2 fl (7.4-10.4); Monocytes Absolute Auto 0.6 K/mm3 (0.1-0.6); Monocytes Percent Auto 8.2 % (2.6-8.5); Neutrophils Absolute Auto 4.9 K/mm3 (1.3-6.7); Platelet Count Result 265 k/mm3 (150-375); Red Cell Distribution Width 18.4 % (11.5-14.5); White Blood Count 7.1 K/mm3 (4.5-10.0)
[2024-05-03 06:17] LABS: Alanine Aminotransferase 12 U/L (6-35); Alkaline Phosphatase 74 U/L (38-126); Anion Gap 8 mmol/L (4-12); Aspartate Amino Transferase 22 U/L (14-36); Bilirubin,Total 0.4 mg/dL (0.2-1.3); Blood Urea Nitrogen 12 mg/dL (7-17); Calcium 8.8 mg/dL (8.4-10.2); Carbon Dioxide 28 mmol/L (22-30); Chloride 101 mmol/L (98-107); Estimated CRCL calculation 77 ml/min; Estimated Glomerular Filt Rate > 60; Glucose 138 mg/dL (65-110); Potassium 3.7 mmol/L (3.4-5.0); Sodium 137 mmol/L (137-145)
[2024-05-03 06:35] LABS: Hemoglobin 6.5 g/dL (12.0-15.0)
[2024-05-03 06:37] LABS: Anisocytosis 1+; Hypochromasia 1+; Microcytosis 1+ (NORMAL); Ovalocytes 1+; Platelet Estimate Adequate (Adequate); Target Cells 1+
[2024-05-03 06:42] LABS: Hemoglobin A1C 8.3 % (<5.7)
[2024-05-03 07:23] LABS: Schistocytes None Seen
[2024-05-03 07:50] LABS: Glucose Point of Care 146 mg/dl (65-105)
[2024-05-03] MEDS: hydroCHLOROthiazide 12.5 MG CAPSULE PO (09:13)
[2024-05-03] MEDS: CHOLECALCIFEROL 400 UNITS TABLET (VIT D) PO (09:14)
[2024-05-03] MEDS: metFORMIN HCL 500 MG TABLET 1000 MG PO ×2 (09:14→16:50)
[2024-05-03] MEDS: LOSARTAN POTASSIUM 50 MG TABLET PO (09:14)
[2024-05-03] MEDS: METOPROLOL SUCCINATE EXT REL 100 MG TABCR PO (09:14)
[2024-05-03] MEDS: THERAPEUTIC MULTIVITAMINS/MINERALS TAB (*BKC) 1 TABLET PO (09:14)
[2024-05-03] MEDS: INSULIN HUMAN ISOPHAN/REGULAR 70/30 (*BKC) 100 UNITS/ML 15 UNITS SUB-Q ×2 (09:16→16:50)
[2024-05-03] MEDS: PANTOPRAZOLE SODIUM IV 40 MG VIAL IV PUSH (09:16)
[2024-05-03 11:46] LABS: Glucose Point of Care 157 mg/dl (65-105)
[2024-05-03 12:53] LABS: IFOB Positive Control Positive; Immunochemical Fecal Occult Bl Negative (N)
--- NOTE | 2024-05-03 14:37 | P.PNIM_ITS ---
Progress Note: A&P Assessment and Plan (1) Acute respiratory failure with hypoxia: Code(s): J96.01 - Acute respiratory failure with hypoxia Status: Acute Assessment and Plan: 05/03/24: * Possibly due to CHF changes verses anemia related * Will give 20 of Lasix as she has 1+ pitting edema to both lower extremities and crackles in the bases upper lungs * Will also obtain an echo as we do not have 1 to review in our system * Continue to wean O2 for an oxygen sat greater than 92%, currently on 2 L nasal cannula (2) Anemia: Qualifiers: Anemia type: unspecified type Qualified Code(s): D64.9 - Anemia, unspecified Code(s): D64.9 - Anemia, unspecified Status: Acute Assessment and Plan: 05/03/24: * Hemoglobin 6.5, likely chronic as patient is not symptomatic with the low hemoglobin * Patient refusing blood transfusion due to the possibility that the daughter may have received the COVID vaccine and she once keep her blood PE or * Patient refusing iron infusions as well as tablets as she has had constipation in the past * Continue to trend H&H * Continue Protonix (3) Diarrhea: Qualifiers: Diarrhea type: presumed infectious Qualified Code(s): R19.7 - Diarrhea, unspecified Code(s): R19.7 - Diarrhea, unspecified Status: Acute Assessment and Plan: 05/03/24: * Stool culture was obtained and is pending * Occult blood negative (4) Diabetes: Qualifiers: Diabetes mellitus long-term insulin use: with long-term use Diabetes mellitus type: type 2 Code(s): E11.9 - Type 2 diabetes mellitus without complications Status: Chronic Assessment and Plan: 05/03/24: * Blood sugars ranging 138-157 * Hgb A1C 8.3 which is down from 14.0 * Accu checks AC/HS * Low-dose SSI ordered * Continue insulin 70/ 30--15 units subQ b.i.d. * Continue metformin * hypoglycemic protocol in place * Diabetic diet ordered (5) Essential (primary) hypertension: Code(s): I10 - Essential (primary) hypertension Status: Chronic Assessment and Plan: 05/03/24: * Blood pressures ranging 138/62 to 169/77 * Continue losartan/hydrochlorothiazide, and metoprolol Time Spent With Patient Time with patient: Greater than 35 minutes Subjective Date/time seen: 05/03/24 14:37 Interval history: Interval history: This is a 78-year-old female who presented to the hospital on 05/02/2024 with complaints of shortness of breath. Workup in the hospital included a chest x- ray which shown asymmetric 2 cm opacity. Second chest x-ray which is the AP view did not show the opacity and was likely an artifact. Initial labs showed a normal white blood cell count of 8.0, hemoglobin 6.5, hematocrit 23.2, potassium 3.3, BNP 746, troponin negative x2, TSH 3.280. Respiratory panel was negative for influenza a and B, RSV, COVID. Stool culture was obtained and is pending. He she was occult blood negative. Patient is refusing blood transfusions as she states she wants to keep her blood pure as she does not know if the donor has had a COVID vaccine and does not want that in her blood. She has been given IV fluids, potassium, iron infusion. 05/03/24: Patient denies fever, chills, nausea, vomiting, diarrhea, abdominal pain, chest pain. Patient endorses shortness of breath at rest and bilateral lower extremity swelling. Her vital signs are stable she is currently on 2 L nasal cannula she is afebrile. She does have a low hemoglobin again today of 6.5 and is refusing blood transfusion due to the possibility of
--- NOTE | 2024-05-03 14:37 | PM.IMPN ---
Progress Note: A&P Assessment and Plan (1) Acute respiratory failure with hypoxia: Code(s): J96.01 - Acute respiratory failure with hypoxia Status: Acute Assessment and Plan: 05/03/24: Possibly due to CHF changes verses anemia related Will give 20 of Lasix as she has 1+ pitting edema to both lower extremities and crackles in the bases upper lungs Will also obtain an echo as we do not have 1 to review in our system Continue to wean O2 for an oxygen sat greater than 92%, currently on 2 L nasal cannula (2) Anemia: Qualifiers: Anemia type: unspecified type Qualified Code(s): D64.9 - Anemia, unspecified Code(s): D64.9 - Anemia, unspecified Status: Acute Assessment and Plan: 05/03/24: Hemoglobin 6.5, likely chronic as patient is not symptomatic with the low hemoglobin Patient refusing blood transfusion due to the possibility that the daughter may have received the COVID vaccine and she once keep her blood PE or Patient refusing iron infusions as well as tablets as she has had constipation in the past Continue to trend H&H Continue Protonix (3) Diarrhea: Qualifiers: Diarrhea type: presumed infectious Qualified Code(s): R19.7 - Diarrhea, unspecified Code(s): R19.7 - Diarrhea, unspecified Status: Acute Assessment and Plan: 05/03/24: Stool culture was obtained and is pending Occult blood negative (4) Diabetes: Qualifiers: Diabetes mellitus snf insulin use: with snf use Diabetes mellitus type: type 2 Code(s): E11.9 - Type 2 diabetes mellitus without complications Status: Chronic Assessment and Plan: 05/03/24: Blood sugars ranging 138-157 Hgb A1C 8.3 which is down from 14.0 Accu checks AC/HS Low-dose SSI ordered Continue insulin 70/ 30--15 units subQ b.i.d. Continue metformin hypoglycemic protocol in place Diabetic diet ordered (5) Essential (primary) hypertension: Code(s): I10 - Essential (primary) hypertension Status: Chronic Assessment and Plan: 05/03/24: Blood pressures ranging 138/62 to 169/77 Continue losartan/hydrochlorothiazide, and metoprolol Time Spent With Patient Time with patient: Greater than 35 minutes Subjective Date/time seen: 05/03/24 14:37 Interval history: Interval history: This is a 78-year-old female who presented to the hospital on 05/02/2024 with complaints of shortness of breath. Workup in the hospital included a chest x-ray which shown asymmetric 2 cm opacity. Second chest x-ray which is the AP view did not show the opacity and was likely an artifact. Initial labs showed a normal white blood cell count of 8.0, hemoglobin 6.5, hematocrit 23.2, potassium 3.3, BNP 746, troponin negative x2, TSH 3.280. Respiratory panel was negative for influenza a and B, RSV, COVID. Stool culture was obtained and is pending. He she was occult blood negative. Patient is refusing blood transfusions as she states she wants to keep her blood pure as she does not know if the donor has had a COVID vaccine and does not want that in her blood. She has been given IV fluids, potassium, iron infusion. 05/03/24: Patient denies fever, chills, nausea, vomiting, diarrhea, abdominal pain, chest pain. Patient endorses shortness of breath at rest and bilateral lower extremity swelling. Her vital signs are stable she is currently on 2 L nasal cannula she is afebrile. She does have a low hemoglobin again today of 6.5 and is refusing blood transfusion due to the possibility of the donor having had the COVID vaccine and she does not want her blood tainted. I also ordered iron for her and she refused that as well as that has caused her constipation in the past. Review of Systems Review of Systems: All systems reviewed & are unremarkable except as noted in HPI and below Constitutional: Constitutional: Reports as per HPI and Reports no additional constitutional complaints
[2024-05-03 16:46] LABS: Glucose Point of Care 165 mg/dl (65-105)
[2024-05-03] MEDS: FUROSEMIDE INJ 40 MG/4 ML VIAL 20 MG IV PUSH (18:04)
[2024-05-03 20:01] LABS: Glucose Point of Care 155 mg/dl (65-105)
[2024-05-03] MEDS: HYDROcodone/acetaminophen (*CRX) 5-325 MG TABLET 1 TAB PO (21:24)
[2024-05-03] MEDS: ACETAMINOPHEN 500 MG TABLET PO (21:26)
[2024-05-04] VITALS (11 sets, daily range): BP systolic 142–156; BP diastolic 63–84; PULSE 63–85; RESP 18–20; TEMP 35.7–36.3; O2SAT 97–99
--- NOTE | 2024-05-04 | ECHO_ITS ---
Patient Info Name: Kimberly Masters Age: 78 years : 1945 Gender: Female Ht: 64 in Wt: 174 lbs BSA: 1.91 m2 HR: 85 bpm BP: 150 / 83 mmHg Heart Rhythm: Sinus Rhythm Technical Quality: Fair Exam Date: 05/04/2024 9:13 AM Exam Location: Echo Lab Patient Status: Inpatient Admit Date: 05/02/2024 Staff Ordering Physician: Lolis Vicente APRN Plasterer Journeyman: Afia Mendoza RDCS Attending Provider: Lolis Vicente APRN Referring Physician: Cinthia WARD; Exam Type: CA echo dop color flow w con Study Info Indications - CHF Complete two-dimensional, color flow and Doppler transthoracic echocardiogram is performed with contrast to opacify the left ventricle and to improve the deliniation of the left ventricle endocardial borders. Contrast/Agitated Saline Contrast/Ag. Saline: Definity Amount: 2.00 ml Administered By: Afia Mendoza RDCS Existing IV Access: Yes IV Access Condition: patent with no signs of infiltration Summary 1. Left ventricular chamber dimension is normal. 2. Left ventricular systolic function is normal, estimated at 65-70%. 3. There is mildly increased left ventricular wall thickness. 4. The left ventricular diastolic function is grade I diastolic dysfunction. 5. Right ventricular systolic function is normal. 6. Left atrial chamber dimension is severely enlarged. 7. There is mild tricuspid valve regurgitation. Left Ventricle Left ventricular chamber dimension is normal. Left ventricular systolic function is normal, estimated at 65-70%. There is mildly increased left ventricular wall thickness. The left ventricular diastolic function is grade I diastolic dysfunction. Right Ventricle Right ventricular chamber dimension is normal. Right ventricular systolic function is normal. Left Atria Left atrial chamber dimension is severely enlarged. Right Atria Right atrial chamber dimension is normal. Atrial Septum Intact interatrial septum visualized by color flow imaging. Aortic Valve The aortic valve is probable trileaflet. There is no aortic valve stenosis. There is no aortic valve regurgitation. Pulmonic Valve The pulmonic valve is not well visualized. Mitral Valve There is trace mitral valve regurgitation. Tricuspid Valve There is mild tricuspid valve regurgitation. Pericardium/Pleural There is no pericardial effusion. Inferior Vena Cava Dilated inferior vena cava with <50% collapse upon inspiration consistent with elevated right atrial pressure, 15 mmHg. Aorta The aortic root size at the sinus of Valsalva is normal. Left Ventricular Outflow Tract Name Value Normal LVOT 2D LVOT Diameter 1.99 cm LVOT Doppler LVOT Peak Gradient 5 mmHg LVOT Mean Gradient 2 mmHg LVOT VTI 23.33 cm LVOT VTI/AV VTI Ratio 0.84 LVOT Stroke Volume 72.47 ml LVOT CO 4.98 l/min LVOT CI 2.60 L/min/m2 Pulmonic Valve Name Value
--- NOTE | 2024-05-04 07:31 | P.PNIM_ITS ---
Progress Note: A&P Assessment and Plan (1) Acute respiratory failure with hypoxia: Code(s): J96.01 - Acute respiratory failure with hypoxia Status: Acute Assessment and Plan: 05/03/24: * Possibly due to CHF changes verses anemia related * Will give 20 of Lasix as she has 1+ pitting edema to both lower extremities and crackles in the bases upper lungs * Will also obtain an echo as we do not have 1 to review in our system * Continue to wean O2 for an oxygen sat greater than 92%, currently on 2 L nasal cannula 05/04/24: * Plan for echo today * Will give another dose of Lasix this morning as she still has 1+ pitting edema and crackles to both bases * Continue to wean O2 for sat greater than 92%, currently on 2 L nasal cannula (2) Anemia: Qualifiers: Anemia type: unspecified type Qualified Code(s): D64.9 - Anemia, unspecified Code(s): D64.9 - Anemia, unspecified Status: Acute Assessment and Plan: 05/03/24: * Hemoglobin 6.5, likely chronic as patient is not symptomatic with the low hemoglobin * Patient refusing blood transfusion due to the possibility that the daughter may have received the COVID vaccine and she once keep her blood PE or * Patient refusing iron infusions as well as tablets as she has had constipation in the past * Continue to trend H&H * Continue Protonix 05/04/24: * Continue to monitor, patient is asymptomatic (3) Diarrhea: Qualifiers: Diarrhea type: presumed infectious Qualified Code(s): R19.7 - Diarrhea, unspecified Code(s): R19.7 - Diarrhea, unspecified Status: Acute Assessment and Plan: 05/03/24: * Stool culture was obtained and is pending * Occult blood negative 05/04/24: * Stool culture is still pending (4) Diabetes: Qualifiers: Diabetes mellitus type: type 2 Diabetes mellitus correction insulin use: with correction use Code(s): E11.9 - Type 2 diabetes mellitus without complications Status: Chronic Assessment and Plan: 05/03/24: * Blood sugars ranging 138-157 * Hgb A1C 8.3 which is down from 14.0 * Accu checks AC/HS * Low-dose SSI ordered * Continue insulin 70/ 30--15 units subQ b.i.d. * Continue metformin * hypoglycemic protocol in place * Diabetic diet ordered 05/04/24: * No change to current treatment plan (5) Essential (primary) hypertension: Code(s): I10 - Essential (primary) hypertension Status: Chronic Assessment and Plan: 05/03/24: * Blood pressures ranging 138/62 to 169/77 * Continue losartan/hydrochlorothiazide, and metoprolol 05/04/24: * No change to current treatment plan Time Spent With Patient Time with patient: Greater than 35 minutes Subjective Date/time seen: 05/04/24 07:31 Interval history: Interval history: This is a 78-year-old female who presented to the hospital on 05/02/2024 with complaints of shortness of breath. Workup in the hospital included a chest x- ray which shown asymmetric 2 cm opacity. Second chest x-ray which is the AP view did not show the opacity and was likely an artifact. Initial labs showed a normal white blood cell count of 8.0, hemoglobin 6.5, hematocrit 23.2, potassium 3.3, BNP 746, troponin negative x2, TSH 3.280. Respiratory panel was negative for influenza a and B, RSV, COVID. Stool culture was obtained and is pending. He she was occult blood negative. Patient is refusing blood transfusions as she states she wants to keep her blood pure as she does not know if the donor has had a COVID vaccine and d
--- NOTE | 2024-05-04 07:31 | PM.IMPN ---
Progress Note: A&P Assessment and Plan (1) Acute respiratory failure with hypoxia: Code(s): J96.01 - Acute respiratory failure with hypoxia Status: Acute Assessment and Plan: 05/03/24: Possibly due to CHF changes verses anemia related Will give 20 of Lasix as she has 1+ pitting edema to both lower extremities and crackles in the bases upper lungs Will also obtain an echo as we do not have 1 to review in our system Continue to wean O2 for an oxygen sat greater than 92%, currently on 2 L nasal cannula 05/04/24: Plan for echo today Will give another dose of Lasix this morning as she still has 1+ pitting edema and crackles to both bases Continue to wean O2 for sat greater than 92%, currently on 2 L nasal cannula (2) Anemia: Qualifiers: Anemia type: unspecified type Qualified Code(s): D64.9 - Anemia, unspecified Code(s): D64.9 - Anemia, unspecified Status: Acute Assessment and Plan: 05/03/24: Hemoglobin 6.5, likely chronic as patient is not symptomatic with the low hemoglobin Patient refusing blood transfusion due to the possibility that the daughter may have received the COVID vaccine and she once keep her blood PE or Patient refusing iron infusions as well as tablets as she has had constipation in the past Continue to trend H&H Continue Protonix 05/04/24: Continue to monitor, patient is asymptomatic (3) Diarrhea: Qualifiers: Diarrhea type: presumed infectious Qualified Code(s): R19.7 - Diarrhea, unspecified Code(s): R19.7 - Diarrhea, unspecified Status: Acute Assessment and Plan: 05/03/24: Stool culture was obtained and is pending Occult blood negative 05/04/24: Stool culture is still pending (4) Diabetes: Qualifiers: Diabetes mellitus type: type 2 Diabetes mellitus long term care social worker insulin use: with long term care social worker use Code(s): E11.9 - Type 2 diabetes mellitus without complications Status: Chronic Assessment and Plan: 05/03/24: Blood sugars ranging 138-157 Hgb A1C 8.3 which is down from 14.0 Accu checks AC/HS Low-dose SSI ordered Continue insulin 70/ 30--15 units subQ b.i.d. Continue metformin hypoglycemic protocol in place Diabetic diet ordered 05/04/24: No change to current treatment plan (5) Essential (primary) hypertension: Code(s): I10 - Essential (primary) hypertension Status: Chronic Assessment and Plan: 05/03/24: Blood pressures ranging 138/62 to 169/77 Continue losartan/hydrochlorothiazide, and metoprolol 05/04/24: No change to current treatment plan Time Spent With Patient Time with patient: Greater than 35 minutes Subjective Date/time seen: 05/04/24 07:31 Interval history: Interval history: This is a 78-year-old female who presented to the hospital on 05/02/2024 with complaints of shortness of breath. Workup in the hospital included a chest x-ray which shown asymmetric 2 cm opacity. Second chest x-ray which is the AP view did not show the opacity and was likely an artifact. Initial labs showed a normal white blood cell count of 8.0, hemoglobin 6.5, hematocrit 23.2, potassium 3.3, BNP 746, troponin negative x2, TSH 3.280. Respiratory panel was negative for influenza a and B, RSV, COVID. Stool culture was obtained and is pending. He she was occult blood negative. Patient is refusing blood transfusions as she states she wants to keep her blood pure as she does not know if the donor has had a COVID vaccine and does not want that in her blood. She has been given IV fluids, potassium, iron infusion. Patient refusing blood transfusion due to the possibility of the donor having had the COVID vaccine and she does not want her blood tainted. She is also refusing iron as well as that has caused her constipation in the past. 05/04/24: Patient denies any new complaints today. Labs reviewed. Review of Systems Review of Systems: All systems reviewed & are unre
[2024-05-04 08:11] LABS: Glucose Point of Care 145 mg/dl (65-105)
[2024-05-04] MEDS: PANTOPRAZOLE SODIUM IV 40 MG VIAL IV PUSH (08:21)
[2024-05-04] MEDS: metFORMIN HCL 500 MG TABLET 1000 MG PO ×2 (08:21→17:27)
[2024-05-04] MEDS: INSULIN HUMAN ISOPHAN/REGULAR 70/30 (*BKC) 100 UNITS/ML 15 UNITS SUB-Q ×2 (08:21→17:28)
[2024-05-04] MEDS: LOSARTAN POTASSIUM 50 MG TABLET PO (08:22)
[2024-05-04] MEDS: CHOLECALCIFEROL 400 UNITS TABLET (VIT D) PO (08:22)
[2024-05-04] MEDS: THERAPEUTIC MULTIVITAMINS/MINERALS TAB (*BKC) 1 TABLET PO (08:22)
[2024-05-04] MEDS: METOPROLOL SUCCINATE EXT REL 100 MG TABCR PO (08:22)
[2024-05-04] MEDS: hydroCHLOROthiazide 12.5 MG CAPSULE PO (08:22)
[2024-05-04] MEDS: HYDROcodone/acetaminophen (*CRX) 5-325 MG TABLET 1 TAB PO ×3 (08:26→23:08)
[2024-05-04] MEDS: ACETAMINOPHEN 500 MG TABLET PO ×3 (08:27→23:09)
[2024-05-04] MEDS: PERFLUTREN LIPID MICROSPHERES 1.5 ML VIAL DILUTED TO 10 ML TOTAL VOLUME IV PUSH (09:48)
[2024-05-04 10:34] LABS: Basophils Absolute Auto 0.1 K/mm3 (0.0-0.1); Basophils Percent Auto 0.8 % (0.2-1.2); Eosinophils Absolute Auto 0.1 K/mm3 (0-0.3); Hemoglobin 7.3 g/dL (12.0-15.0); Immature Granulocyte Absolute 0.03 K/mm3 (0.00-0.031); Immature Granulocyte Percent A 0.5 % (0-0.5); Lymphocytes Absolute Auto 1.14 K/mm3 (0.9-3.2); Lymphocytes Percent Auto 17.6 % (18.3-44.2); Mean Corpuscular Hemoglobin 20.6 pg (26-34); Mean Corpuscular Volume 76.3 fl (80-100); Mean Platelet Volume 9.8 fl (7.4-10.4); Monocytes Absolute Auto 0.6 K/mm3 (0.1-0.6); Monocytes Percent Auto 9.9 % (2.6-8.5); Neutrophils Absolute Auto 4.5 K/mm3 (1.3-6.7); Neutrophils Percent Auto 69.2 % (45.5-73.1); Platelet Count Result 272 k/mm3 (150-375); Red Blood Count 3.54 M/mm3 (4.2-5.4); Red Cell Distribution Width 18.3 % (11.5-14.5); White Blood Count 6.5 K/mm3 (4.5-10.0)
[2024-05-04] MEDS: FUROSEMIDE INJ 40 MG/4 ML VIAL IV PUSH (10:55)
[2024-05-04 10:58] LABS: Anisocytosis 2+; Hypochromasia 2+; Ovalocytes 2+; Platelet Estimate Adequate (Adequate); Schistocytes None Seen
[2024-05-04 11:01] LABS: Alanine Aminotransferase 14 U/L (6-35); Albumin Level 4.6 g/dL (3.5-5.1); Alkaline Phosphatase 74 U/L (38-126); Anion Gap 9 mmol/L (4-12); Aspartate Amino Transferase 24 U/L (14-36); Bilirubin,Total 0.4 mg/dL (0.2-1.3); Blood Urea Nitrogen 13 mg/dL (7-17); Carbon Dioxide 34 mmol/L (22-30); Chloride 96 mmol/L (98-107); Estimated CRCL calculation 57 ml/min; Estimated Glomerular Filt Rate > 60; Glucose 137 mg/dL (65-110); Potassium 4.1 mmol/L (3.4-5.0); Sodium 139 mmol/L (137-145)
--- NOTE | 2024-05-04 11:24 | IVDEFINITY ---
Prior to administration of IV Definity the patient was educated on the risks and benefits of the imaging enhancing agent including potential adverse side effects. The patient verbalized understanding. Allergies were verified. No exclusion criteria were identified and at least one of the following inclusion criteria were met: 1) physician request, 2) patient technically difficult to image (per the [employer] [place] [employer] guidelines of two or more segments not discernable within the apical view), or 3) questionable left ventricular function. ?
[2024-05-04 11:53] LABS: Glucose Point of Care 160 mg/dl (65-105)
[2024-05-04 17:28] LABS: Glucose Point of Care 208 mg/dl (65-105)
[2024-05-04] MEDS: INSULIN ASPART (*BKC) 100 UNITS/ML SUB-Q (17:28)
[2024-05-04 21:53] LABS: Glucose Point of Care 111 mg/dl (65-105)
[2024-05-05] VITALS (14 sets, daily range): BP systolic 124–180; BP diastolic 61–88; PULSE 65–113; RESP 16–18; TEMP 36–36.3; O2SAT 96–100
[2024-05-05 08:05] LABS: Glucose Point of Care 138 mg/dl (65-105)
[2024-05-05] MEDS: ACETAMINOPHEN 500 MG TABLET PO ×3 (08:52→23:42)
[2024-05-05] MEDS: FUROSEMIDE INJ 40 MG/4 ML VIAL IV PUSH ×2 (08:52→17:43)
[2024-05-05] MEDS: HYDROcodone/acetaminophen (*CRX) 5-325 MG TABLET 1 TAB PO ×3 (08:53→23:42)
[2024-05-05] MEDS: hydroCHLOROthiazide 12.5 MG CAPSULE PO (08:53)
[2024-05-05] MEDS: metFORMIN HCL 500 MG TABLET 1000 MG PO ×2 (08:53→17:43)
[2024-05-05] MEDS: THERAPEUTIC MULTIVITAMINS/MINERALS TAB (*BKC) 1 TABLET PO (08:53)
[2024-05-05] MEDS: LOSARTAN POTASSIUM 50 MG TABLET PO (08:53)
[2024-05-05] MEDS: METOPROLOL SUCCINATE EXT REL 100 MG TABCR PO (08:54)
[2024-05-05] MEDS: INSULIN HUMAN ISOPHAN/REGULAR 70/30 (*BKC) 100 UNITS/ML 15 UNITS SUB-Q ×2 (08:54→17:44)
[2024-05-05] MEDS: PANTOPRAZOLE SODIUM IV 40 MG VIAL IV PUSH (08:54)
[2024-05-05] MEDS: CHOLECALCIFEROL 400 UNITS TABLET (VIT D) PO (08:54)
[2024-05-05] MEDS: INSULIN ASPART (*BKC) 100 UNITS/ML SUB-Q (11:50)
[2024-05-05 12:07] LABS: Glucose Point of Care 204 mg/dl (65-105)
--- NOTE | 2024-05-05 14:44 | PCRCNOTE ---
HOME O2 EVAL COMPLETE. PATIENT DOES NOT REQUIRE HOME O2 AT THIS TIME. RN NOTIFIED.
--- NOTE | 2024-05-05 15:43 | P.PNIM_ITS ---
Progress Note: A&P Assessment and Plan (1) Acute respiratory failure with hypoxia: Code(s): J96.01 - Acute respiratory failure with hypoxia Status: Acute Assessment and Plan: 05/03/24: * Possibly due to CHF changes verses anemia related * Will give 20 of Lasix as she has 1+ pitting edema to both lower extremities and crackles in the bases upper lungs * Will also obtain an echo as we do not have 1 to review in our system * Continue to wean O2 for an oxygen sat greater than 92%, currently on 2 L nasal cannula 05/04/24: * Plan for echo today * Will give another dose of Lasix this morning as she still has 1+ pitting edema and crackles to both bases * Continue to wean O2 for sat greater than 92%, currently on 2 L nasal cannula 05/05/24: * In echocardiogram showing normal LV systolic function with an estimated EF of 65-70%, mildly increased left ventricular wall thickness, and 1 diastolic dysfunction * Continue Lasix 40 mg IV * Will put in for Lasix 40 mg IV b.i.d. * Wean oxygen for sat greater than 92%, currently on 1 L nasal cannula with an O2 sat of 100% * Home O2 evaluation * Dietitian consult for heart healthy diet * 1500 ml fluid restriction * Will get V/Q scan to rule out PE today (2) Anemia: Qualifiers: Anemia type: unspecified type Qualified Code(s): D64.9 - Anemia, unspecified Code(s): D64.9 - Anemia, unspecified Status: Acute Assessment and Plan: 05/03/24: * Hemoglobin 6.5, likely chronic as patient is not symptomatic with the low hemoglobin * Patient refusing blood transfusion due to the possibility that the daughter may have received the COVID vaccine and she once keep her blood PE or * Patient refusing iron infusions as well as tablets as she has had constipation in the past * Continue to trend H&H * Continue Protonix 05/04/24: * Continue to monitor, patient is asymptomatic 05/05/24: * Hemoglobin 7.3 today after diuresis * Continue to trend H&H (3) Diarrhea: Qualifiers: Diarrhea type: presumed infectious Qualified Code(s): R19.7 - Diarrhea, unspecified Code(s): R19.7 - Diarrhea, unspecified Status: Acute Assessment and Plan: 05/03/24: * Stool culture was obtained and is pending * Occult blood negative 05/04/24: * Stool culture is still pending 05/05/24: * No change (4) Diabetes: Qualifiers: Diabetes mellitus type: type 2 Diabetes mellitus supervisor intermediates insulin use: with prison use Code(s): E11.9 - Type 2 diabetes mellitus without complications Status: Chronic Assessment and Plan: 05/03/24: * Blood sugars ranging 138-157 * Hgb A1C 8.3 which is down from 14.0 * Accu checks AC/HS * Low-dose SSI ordered * Continue insulin 70/ 30--15 units subQ b.i.d. * Continue metformin * hypoglycemic protocol in place * Diabetic diet ordered 05/04/24: * No change to current treatment plan (5) Essential (primary) hypertension: Code(s): I10 - Essential (primary) hypertension Status: Chronic Assessment and Plan: 05/03/24: * Blood pressures ranging 138/62 to 169/77 * Continue losartan/hydrochlorothiazide, and metoprolol 05/04/24: * No change to current treatment plan Subjective Date/time seen: 05/05/24 15:43 Interval history: Interval history: This is a 78-year-old female who presented to the hospital on 05/02/2024 with complaints of shortness of breath. Workup in the hospital included a chest x- ray which shown asymm
--- NOTE | 2024-05-05 15:43 | PM.IMPN ---
Progress Note: A&P Assessment and Plan (1) Acute respiratory failure with hypoxia: Code(s): J96.01 - Acute respiratory failure with hypoxia Status: Acute Assessment and Plan: 05/03/24: Possibly due to CHF changes verses anemia related Will give 20 of Lasix as she has 1+ pitting edema to both lower extremities and crackles in the bases upper lungs Will also obtain an echo as we do not have 1 to review in our system Continue to wean O2 for an oxygen sat greater than 92%, currently on 2 L nasal cannula 05/04/24: Plan for echo today Will give another dose of Lasix this morning as she still has 1+ pitting edema and crackles to both bases Continue to wean O2 for sat greater than 92%, currently on 2 L nasal cannula 05/05/24: In echocardiogram showing normal LV systolic function with an estimated EF of 65-70%, mildly increased left ventricular wall thickness, and 1 diastolic dysfunction Continue Lasix 40 mg IV Will put in for Lasix 40 mg IV b.i.d. Wean oxygen for sat greater than 92%, currently on 1 L nasal cannula with an O2 sat of 100% Home O2 evaluation Dietitian consult for heart healthy diet 1500 ml fluid restriction Will get V/Q scan to rule out PE today (2) Anemia: Qualifiers: Anemia type: unspecified type Qualified Code(s): D64.9 - Anemia, unspecified Code(s): D64.9 - Anemia, unspecified Status: Acute Assessment and Plan: 05/03/24: Hemoglobin 6.5, likely chronic as patient is not symptomatic with the low hemoglobin Patient refusing blood transfusion due to the possibility that the daughter may have received the COVID vaccine and she once keep her blood PE or Patient refusing iron infusions as well as tablets as she has had constipation in the past Continue to trend H&H Continue Protonix 05/04/24: Continue to monitor, patient is asymptomatic 05/05/24: Hemoglobin 7.3 today after diuresis Continue to trend H&H (3) Diarrhea: Qualifiers: Diarrhea type: presumed infectious Qualified Code(s): R19.7 - Diarrhea, unspecified Code(s): R19.7 - Diarrhea, unspecified Status: Acute Assessment and Plan: 05/03/24: Stool culture was obtained and is pending Occult blood negative 05/04/24: Stool culture is still pending 05/05/24: No change (4) Diabetes: Qualifiers: Diabetes mellitus type: type 2 Diabetes mellitus trimmer sorter insulin use: with penitentiary use Code(s): E11.9 - Type 2 diabetes mellitus without complications Status: Chronic Assessment and Plan: 05/03/24: Blood sugars ranging 138-157 Hgb A1C 8.3 which is down from 14.0 Accu checks AC/HS Low-dose SSI ordered Continue insulin 70/ 30--15 units subQ b.i.d. Continue metformin hypoglycemic protocol in place Diabetic diet ordered 05/04/24: No change to current treatment plan (5) Essential (primary) hypertension: Code(s): I10 - Essential (primary) hypertension Status: Chronic Assessment and Plan: 05/03/24: Blood pressures ranging 138/62 to 169/77 Continue losartan/hydrochlorothiazide, and metoprolol 05/04/24: No change to current treatment plan Subjective Date/time seen: 05/05/24 15:43 Interval history: Interval history: This is a 78-year-old female who presented to the hospital on 05/02/2024 with complaints of shortness of breath. Workup in the hospital included a chest x-ray which shown asymmetric 2 cm opacity. Second chest x-ray which is the AP view did not show the opacity and was likely an artifact. Initial labs showed a normal white blood cell count of 8.0, hemoglobin 6.5, hematocrit 23.2, potassium 3.3, BNP 746, troponin negative x2, TSH 3.280. Respiratory panel was negative for influenza a and B, RSV, COVID. Stool culture was obtained and is pending. He she was occult blood negative. Patient is refusing blood transfusions as she states she wants to keep her blood pure as she does not know if the do
[2024-05-05 16:34] LABS: Glucose Point of Care 152 mg/dl (65-105)
[2024-05-05 16:44] LABS: Basophils Absolute Auto 0.1 K/mm3 (0.0-0.1); Basophils Percent Auto 1.1 % (0.2-1.2); Eosinophils Absolute Auto 0.3 K/mm3 (0-0.3); Eosinophils Percent Auto 3.8 % (0-4.4); Hematocrit 24.7 % (37.0-47.0); Immature Granulocyte Absolute 0.02 K/mm3 (0.00-0.031); Immature Granulocyte Percent A 0.3 % (0-0.5); Lymphocytes Absolute Auto 1.51 K/mm3 (0.9-3.2); Lymphocytes Percent Auto 22.9 % (18.3-44.2); Mean Corpuscular HGB Conc 27.9 g/dl (32-36); Mean Corpuscular Volume 75.1 fl (80-100); Mean Platelet Volume 10.5 fl (7.4-10.4); Monocytes Absolute Auto 0.8 K/mm3 (0.1-0.6); Monocytes Percent Auto 11.9 % (2.6-8.5); Platelet Count Result 274 k/mm3 (150-375); Red Blood Count 3.29 M/mm3 (4.2-5.4); Red Cell Distribution Width 18.6 % (11.5-14.5); White Blood Count 6.6 K/mm3 (4.5-10.0)
[2024-05-05 17:38] LABS: Hemoglobin 6.9 g/dL (12.0-15.0)
[2024-05-05 17:40] LABS: Alanine Aminotransferase 15 U/L (6-35); Albumin Level 4.4 g/dL (3.5-5.1); Alkaline Phosphatase 69 U/L (38-126); Anion Gap 14 mmol/L (4-12); Anisocytosis 1+; Aspartate Amino Transferase 28 U/L (14-36); Bilirubin,Total 0.3 mg/dL (0.2-1.3); Blood Urea Nitrogen 18 mg/dL (7-17); Carbon Dioxide 31 mmol/L (22-30); Chloride 92 mmol/L (98-107); Estimated CRCL calculation 57 ml/min; Estimated Glomerular Filt Rate > 60; Glucose 139 mg/dL (65-110); Hypochromasia 2+; Macrocytosis 1+ (NORMAL); Platelet Estimate Adequate (Adequate); Potassium 3.8 mmol/L (3.4-5.0); Sodium 137 mmol/L (137-145)
[2024-05-05 17:41] LABS: Basophilic Stippling 1+; Schistocytes None Seen; Target Cells 1+
[2024-05-05 20:49] LABS: Glucose Point of Care 183 mg/dl (65-105)
[2024-05-06] VITALS (7 sets, daily range): BP systolic 122–140; BP diastolic 81–101; PULSE 67–84; RESP 14–20; TEMP 35.6–36.2; O2SAT 90–100
[2024-05-06 06:30] LABS: Basophils Absolute Auto 0.1 K/mm3 (0.0-0.1); Basophils Percent Auto 0.9 % (0.2-1.2); Eosinophils Absolute Auto 0.3 K/mm3 (0-0.3); Eosinophils Percent Auto 4.5 % (0-4.4); Hemoglobin 7.4 g/dL (12.0-15.0); Immature Granulocyte Absolute 0.02 K/mm3 (0.00-0.031); Immature Granulocyte Percent A 0.3 % (0-0.5); Lymphocytes Absolute Auto 1.96 K/mm3 (0.9-3.2); Lymphocytes Percent Auto 30.2 % (18.3-44.2); Mean Corpuscular HGB Conc 27.4 g/dl (32-36); Mean Corpuscular Hemoglobin 20.6 pg (26-34); Mean Platelet Volume 9.9 fl (7.4-10.4); Monocytes Absolute Auto 0.7 K/mm3 (0.1-0.6); Monocytes Percent Auto 11.2 % (2.6-8.5); Neutrophils Absolute Auto 3.4 K/mm3 (1.3-6.7); Neutrophils Percent Auto 52.9 % (45.5-73.1); Platelet Count Result 293 k/mm3 (150-375); Red Cell Distribution Width 18.6 % (11.5-14.5); White Blood Count 6.5 K/mm3 (4.5-10.0)
[2024-05-06 06:41] LABS: Alanine Aminotransferase 14 U/L (6-35); Albumin Level 4.4 g/dL (3.5-5.1); Alkaline Phosphatase 74 U/L (38-126); Anion Gap 10 mmol/L (4-12); Aspartate Amino Transferase 25 U/L (14-36); Bilirubin,Total 0.4 mg/dL (0.2-1.3); Blood Urea Nitrogen 21 mg/dL (7-17); Calcium 8.8 mg/dL (8.4-10.2); Carbon Dioxide 35 mmol/L (22-30); Chloride 92 mmol/L (98-107); Estimated CRCL calculation 51 ml/min; Estimated Glomerular Filt Rate > 60; Glucose 128 mg/dL (65-110); Potassium 3.8 mmol/L (3.4-5.0); Sodium 137 mmol/L (137-145)
[2024-05-06 06:50] LABS: NT Pro B Type Natriuretic Pept 222 pg/mL (19.9-100)
[2024-05-06 06:57] LABS: Anisocytosis 2+; Hypochromasia 2+; Platelet Estimate Adequate (Adequate); Schistocytes None Seen; Target Cells 2+
[2024-05-06 08:10] LABS: Glucose Point of Care 160 mg/dl (65-105)
[2024-05-06] MEDS: ACETAMINOPHEN 500 MG TABLET PO (09:18)
[2024-05-06] MEDS: metFORMIN HCL 500 MG TABLET 1000 MG PO (09:18)
[2024-05-06] MEDS: HYDROcodone/acetaminophen (*CRX) 5-325 MG TABLET 1 TAB PO (09:18)
[2024-05-06] MEDS: THERAPEUTIC MULTIVITAMINS/MINERALS TAB (*BKC) 1 TABLET PO (09:18)
[2024-05-06] MEDS: hydroCHLOROthiazide 12.5 MG CAPSULE PO (09:18)
[2024-05-06] MEDS: INSULIN HUMAN ISOPHAN/REGULAR 70/30 (*BKC) 100 UNITS/ML 15 UNITS SUB-Q (09:19)
[2024-05-06] MEDS: LOSARTAN POTASSIUM 50 MG TABLET PO (09:19)
[2024-05-06] MEDS: METOPROLOL SUCCINATE EXT REL 100 MG TABCR PO (09:19)
[2024-05-06] MEDS: CHOLECALCIFEROL 400 UNITS TABLET (VIT D) PO (09:19)
[2024-05-06] MEDS: PANTOPRAZOLE SODIUM IV 40 MG VIAL IV PUSH (09:19)
--- NOTE | 2024-05-06 10:22 | PM.DS ---
DS: Admitting Diagnosis Discharge Date 05/06/24 Admitting Diagnosis Anemia Diarrhea Diabetes Hypertension DS: Discharge Diagnosis Discharge Diagnosis (1) Acute respiratory failure with hypoxia: Code(s): J96.01 - Acute respiratory failure with hypoxia Status: Acute (2) Anemia: Qualifiers: Anemia type: unspecified type Qualified Code(s): D64.9 - Anemia, unspecified Code(s): D64.9 - Anemia, unspecified Status: Acute (3) Diarrhea: Qualifiers: Diarrhea type: presumed infectious Qualified Code(s): R19.7 - Diarrhea, unspecified Code(s): R19.7 - Diarrhea, unspecified Status: Acute (4) Diabetes: Qualifiers: Diabetes mellitus type: type 2 Diabetes mellitus long-term insulin use: with intermediate project manager use Code(s): E11.9 - Type 2 diabetes mellitus without complications Status: Chronic (5) Essential (primary) hypertension: Code(s): I10 - Essential (primary) hypertension Status: Chronic DS: Summary Hospital Course Reason for hospitalization: Anemia Diarrhea Diabetes Hypertension Hospital Course: This is a 78-year-old female who presented to the hospital on 05/02/2024 with complaints of shortness of breath. Workup in the hospital included a chest x-ray which shown asymmetric 2 cm opacity. Second chest x-ray which is the AP view did not show the opacity and was likely an artifact. Initial labs showed a normal white blood cell count of 8.0, hemoglobin 6.5, hematocrit 23.2, potassium 3.3, BNP 746, troponin negative x2, TSH 3.280. Respiratory panel was negative for influenza a and B, RSV, COVID. Stool culture was obtained and is pending. He she was occult blood negative. Patient is refusing blood transfusions as she states she wants to keep her blood pure as she does not know if the donor has had a COVID vaccine and does not want that in her blood. She has been given IV fluids, potassium, iron infusion. Patient refusing blood transfusion due to the possibility of the donor having had the COVID vaccine and she does not want her blood tainted. She is also refusing iron as well as that has caused her constipation in the past. Echo was preformed and showed normal LV systolic function with an estimated EF of 65-70%, mildly increased left ventricular wall thickness, grade 1 diastolic dysfunction. She was started on Lasix 40 mg daily for her bilateral lower extremity edema and pulmonary edema. She appears euvolemic today. Stool cultures were negative. Her diarrhea has subsided. Her vital signs are stable, she is afebrile, she is currently on room air. Patient is stable for discharge at this time. She will need to follow up with her primary care physician in week. Final diagnosis: Acute exacerbation of CHF, chronic anemia Status at Discharge Cognitive/behavioral status at discharge: Alert oriented x3 Functional status at discharge: uses cane/walker Overall status at discharge: patient is progressing back to baseline Time Spent with Patient Time attestation: Total time spent providing and/or coordinating discharge services: Time spent: Greater than 30 minutes Exam Narrative: General: In no acute distress, well nourished Cardiac: Normal S1 and S2. RRR, No murmur, gallops or friction rubs, peripheral pulses intact. Respiratory: Lungs clear to auscultation, no adventitious lung sounds, currently on room air Extremities: No edema Neuro: Alert and oriented x4 DS: Data Data Completed and Pending Completed studies during hospitalization: Chest x-ray x4 Pulmonary perfusion imaging Pending studies at discharge: None Labs on day of discharge: Labs from last 24 hours 05/06/24 05/06/24 05/05/24 08:07 06:05 20:34 WBC 6.5 RBC 3.60 L Hgb 7.4 L Hct 27.0 L MCV 75.0 L MCH 20.6 L MCHC 27.4 L RDW 18.6 H Plt Count 293 MPV 9.9 Immature Gran % (Auto) 0.3 Neut % (Auto) 52.9 Lymph % (Auto) 30.
[2024-05-06] MEDS: SODIUM CHLORIDE 0.9% IV 500 ML IV CONT (11:04)
[2024-05-06 12:17] LABS: Glucose Point of Care 137 mg/dl (65-105)
== END 2024-05-06 14:50 | disposition home or self-care (01) ==
LOC: ANHED 15:00 → ANH3MEDSUR 18:14
PROVIDERS: Emergency Medicine; Student in an Organized Health Care Education/Training Program; Admitting Provider Internal Medicine; Emergency Provider Emergency Medicine; PCP Family Medicine; Visit Provider Nurse Practitioner Acute Care
DX: J96.01 Acute respiratory failure with hypoxia (principal); I11.0 Hypertensive heart disease with heart failure; I50.9 Heart failure, unspecified; D64.9 Anemia, unspecified; R19.7 Diarrhea, unspecified; I36.1 Nonrheumatic tricuspid (valve) insufficiency; J45.909 Unspecified asthma, uncomplicated; E78.5 Hyperlipidemia, unspecified; E11.42 Type 2 diabetes mellitus with diabetic polyneuropathy; F41.9 Anxiety disorder, unspecified; I25.2 Old myocardial infarction; Z86.73 Personal history of transient ischemic attack (TIA), and cerebral infarction without residual deficits; M81.0 Age-related osteoporosis without current pathological fracture; E55.9 Vitamin D deficiency, unspecified; G40.909 Epilepsy, unspecified, not intractable, without status epilepticus; Z20.822 Contact with and (suspected) exposure to COVID-19; Z79.84 Long term (current) use of oral hypoglycemic drugs; Z79.4 Long term (current) use of insulin; Z79.891 Long term (current) use of opiate analgesic
CPT/HCPCS: 36415; 71045; 71046; 78582; 80053; 82274; 82607; 82728; 82746; 82948; 83036; 83540; 83550; 83880; 84443; 84484; 85014; 85018; 85025; 85610; 85730; 86850; 86900; 86901; 86920; 87045; 87427; 87449; 87637; 93005; 94618; 96361; 96374; 96375; 96376; 97161; 97165; 99285; A9270; A9540; A9558; C8929; G0378; J1815; J1940; J2470; J7040; J7120; Q9957

== ENCOUNTER 2024-06-21 13:01 | Observation (INO) | payer MEDICARE, MEDICAID, SELFPAY ==
[2024-06-21] VITALS (21 sets, daily range): BP systolic 107–158; BP diastolic 54–78; PULSE 70–88; RESP 14–18; TEMP 36.4–36.8; O2SAT 95–100; BMI 29.0; BMI 23.1
--- NOTE | ~2024-06-21 | CT_ITS ---
EXAMINATION: CT brain wo con DATE: 06/21/2024 22:35 INDICATION: Right arm numbness TECHNIQUE: Computed tomography (CT) of the head was performed without intravenous contrast. Sagittal and coronal reconstructions were performed. The mA was adjusted according to patient size. Iterative reconstruction technique was employed. The dose-length product was 1135.00 mGy-cm. COMPARISON: head CT dated 04/14/2023 FINDINGS: No acute intracranial hemorrhage, acute infarction or abnormal extra axial fluid collection. There is mild to moderate scattered white matter hypoattenuation consistent with chronic small vessel ischemi c disease. Symmetric prominence of the sulci consistent with mild to moderate age-appropriate diffuse cerebral volume loss. Ventricles are normal and symmetric. No mass/mass effect. The orbits, paranas al sinuses and mastoid air cells are normal. IMPRESSION: 1. No acute intracranial process. 2. Stable appearance of age-related changes including mild to moderate diffuse volume loss and mild t o moderate scattered white matter hypoattenuation consistent with chronic small vessel ischemic disea se. Reviewed, dictated and finalized at location A. IMPRESSION: 1. No acute intracranial process. 2. Stable appearance of age-related changes including mild to moderate diffuse volume loss and mild to moderate scattered white matter hypoattenuation consist ent with chronic small vessel ischemic disease.
--- NOTE | ~2024-06-21 | XR_ITS ---
EXAMINATION: XR chest 2V DATE: 06/21/2024 13:56 INDICATION: Shortness of breath and chest pain. TECHNIQUE: Frontal and lateral views of the chest were obtained. COMPARISON: Chest single view 05/06/2024 FINDINGS: There is no pneumonia, pleural effusion, or pneumothorax. The heart size is normal. There a re old healed bilateral rib fractures. There is mild chronic anterior wedging of multiple vertebral b odies. There are changes of vertebroplasty in lumbar spine. IMPRESSION: 1. No acute cardiopulmonary disease. Reviewed, dictated and finalized at location A.
--- NOTE | 2024-06-21 13:14 | ECG_ITS ---
Test Date: 2024-06-21 13:22:12 Measurements Intervals [place] Rate: 83 P: -3 MT: 195 QRS: -15 QRSD: 101 T: 145 QT: 371 QTc: 438 Interpretive Statements SINUS RHYTHM WITH OCCASIONAL VENTRICULAR PREMATURE COMPLEXES WITH OCCASIONAL SUPRAVENTRICULAR PREMATURE COMPLEXES DELAYED PRECORDIAL R/S TRANSITION LEFT VENTRICULAR HYPERTROPHY AND ST-T CHANGE MINIMAL Q WAVES- HIGH LATERAL LEADS BORDERLINE ST-T WAVE ABNORMALITY- INFERIOR LEADS BASELINE ARTIFACT- I, II, III, AVR, AVL, AVF BORDERLINE ECG Compared to ECG 05/02/2024 14:25:27 NO SIGNIFICANT CHANGE Electronically Signed On 06-21-2024 14:21:37 CDT by Scott Deal D.O.
[2024-06-21 13:35] LABS: Basophils Percent Auto 0.7 % (0.2-1.2); Eosinophils Absolute Auto 0.2 K/mm3 (0-0.3); Hemoglobin 7.5 g/dL (12.0-15.0); Immature Granulocyte Absolute 0.02 K/mm3 (0.00-0.031); Immature Granulocyte Percent A 0.3 % (0-0.5); Lymphocytes Absolute Auto 1.86 K/mm3 (0.9-3.2); Lymphocytes Percent Auto 26.6 % (18.3-44.2); Mean Corpuscular HGB Conc 27.8 g/dl (32-36); Mean Corpuscular Hemoglobin 20.7 pg (26-34); Mean Corpuscular Volume 74.6 fl (80-100); Mean Platelet Volume 9.9 fl (7.4-10.4); Monocytes Absolute Auto 0.5 K/mm3 (0.1-0.6); Monocytes Percent Auto 7.4 % (2.6-8.5); Neutrophils Absolute Auto 4.3 K/mm3 (1.3-6.7); Platelet Count Result 291 k/mm3 (150-375); Red Blood Count 3.62 M/mm3 (4.2-5.4); Red Cell Distribution Width 19.8 % (11.5-14.5)
[2024-06-21 13:36] LABS: Basophils Absolute Auto 0.1 K/mm3 (0.0-0.1)
[2024-06-21 13:44] LABS: Anion Gap 12 mmol/L (4-12); Blood Urea Nitrogen 21 mg/dL (7-17); Calcium 9.1 mg/dL (8.4-10.2); Carbon Dioxide 24 mmol/L (22-30); Chloride 101 mmol/L (98-107); Estimated CRCL calculation 54 ml/min; Estimated Glomerular Filt Rate > 60; Glucose 123 mg/dL (65-110); Hypochromasia 2+; Platelet Estimate Adequate (Adequate); Potassium 3.1 mmol/L (3.4-5.0); Sodium 137 mmol/L (137-145)
[2024-06-21 13:45] LABS: Alanine Aminotransferase 18 U/L (6-35); Albumin Level 4.6 g/dL (3.5-5.1); Alkaline Phosphatase 64 U/L (38-126); Aspartate Amino Transferase 28 U/L (14-36); Bilirubin,Total 0.3 mg/dL (0.2-1.3); Lipase 21 U/L (23-300)
[2024-06-21 13:49] LABS: Anisocytosis 2+; Microcytosis 1+ (NORMAL)
[2024-06-21 13:50] LABS: Ovalocytes 1+; Schistocytes None Seen
[2024-06-21 13:56] LABS: Troponin I < 0.012 ng/mL (0.000-0.034)
[2024-06-21 13:59] LABS: INR 1.1; Prothrombin Time 14.6 Seconds (11.1-14.7)
[2024-06-21 14:00] LABS: Partial Thromboplastin Time 32.9 Seconds (22.3-36.8)
--- NOTE | 2024-06-21 14:17 | PC.NURSE ---
patient states they have hx of GI bleeding and was told told to never take Aspirin so would like to decline today.
--- NOTE | 2024-06-21 15:08 | ED.CHESTPAIN ---
HPI - Chest Pain General Chief Complaint: Shortness of Breath/Dyspnea Stated Complaint: short of breath- CHF Time Seen by Provider: 06/21/24 14:23 Source: patient Mode of arrival: ambulatory Limitations: no limitations History of Present Illness HPI narrative: This is an 79-year-old female, with history of diabetes, hypertension, recently admitted to this hospital for anemia from a GI bleed, presents emergency department complaining of chest pain for the past 2 days. Patient states the pain is dull, substernal without radiation aggravated by physical exertion. This is associated with shortness of breath. She denies loss of consciousness, weakness/numbness, abdominal pain and has no other complaints at this time. Related Data Home Medications Medication Instructions Recorded Confirmed losartan 50 mg-hydrochlorothiazide 1 tablet PO DAILY 01/10/21 05/02/24 12.5 mg tablet metoprolol succinate 100 mg 100 mg PO DAILY 01/10/21 05/02/24 tablet,extended release 24 hr meclizine 12.5 mg tablet 12.5 mg PO TID PRN Dizziness 01/02/22 05/02/24 [id number] ac 400 1 tablet PO DAILY 04/15/22 05/02/24 mcg-calcium carb 500 mg-vit K1 20 mcg tablet metformin 1,000 mg tablet 1,000 mg PO BID 06/11/23 05/02/24 acetaminophen 500 mg tablet 1,000 mg PO TID PRN Pain 05/02/24 05/02/24 cholecalciferol (vitamin D3) 10 10 mcg PO DAILY 05/02/24 05/02/24 mcg (400 unit) capsule (Vitamin D3) insulin NPH-regular 70-30 U-100 15 unit subcut BID 05/02/24 05/02/24 insulin 100 unit/mL subcutaneous pen (Novolin 70-30 FlexPen U-100 Insulin) pantoprazole 40 mg tablet,delayed 40 mg PO DAILY 05/02/24 05/02/24 release Allergies Allergy/AdvReac Type Severity Reaction Status Date / Time insulin aspart Allergy Severe itching, Verified 06/11/23 15:18 [From Fiasp U-100 Insulin] trouble breathing, chest pain niacinamide Allergy Severe itching, Verified 06/11/23 15:18 [From Fiasp U-100 Insulin] trouble breathing, chest pain Insulins Allergy Intermediate Swelling Verified 06/11/23 15:18 amoxicillin Allergy Mild Unknown Verified 06/11/23 15:18 iohexol Allergy Mild Unknown Verified 06/11/23 15:18 [From contrast - CT, X-RAY] Quinolones Allergy Mild Unknown Verified 06/11/23 15:18 Aminoglycosides Allergy Unknown Unknown Verified 06/11/23 15:18 chlordiazepoxide Allergy Unknown Unknown Verified 06/11/23 15:18 erythromycin base Allergy Unknown Unknown Verified 06/11/23 15:18 insulin detemir Allergy Unknown Unknown Verified 06/11/23 15:18 insulin glargine Allergy Unknown Unknown Verified 06/11/23 15:18 iodine Allergy Unknown Unknown Verified 06/11/23 15:18 latex Allergy Unknown Unknown Verified 06/11/23 15:18 levofloxacin Allergy Unknown Unknown Verified 06/11/23 15:18 Macrolide Antibiotics Allergy Unknown Unknown Verified 06/11/23 15:18 acyclovir Allergy Unknown Verified 06/11/23 15:18 sulfamethoxazole Allergy Swelling Verified 08/07/23 14:58 [From Bactrim] trimethoprim [From Bactrim] Allergy Swelling Verified 08/07/23 14:58 insulin glulisine AdvReac Hives Verified 06/11/23 15:18 [From Apidra U-100 Insulin] MYCINS Allergy Mild MAKES Uncoded 06/11/23 15:18 TONGUE SWELL, DIFF BREATHING Review of Systems Review of Systems: All systems reviewed & are unremarkable except as noted in HPI and below PMFSH Past Medical History Medical History Allergies Allergy to insulin Anxiety Arthritis Asthma Brain tumor Cataracts, bilateral Diabetes Essential (primary) hypertension [place] Gallbladder disorder Hearing loss History of NH (myocardial infarction) History of stroke Hyperlipidemia Myelopathy Osteoporosis Peripheral neuropathy Seizures Stroke Uncontrolled type 2 diabetes mellitus with hyperglycemia Vitamin D deficiency Surgical History Surgical History History of re
[2024-06-21 15:45] LABS: NT Pro B Type Natriuretic Pept 228 pg/mL (19.9-100)
--- NOTE | 2024-06-21 16:01 | ECG_ITS ---
Test Date: 2024-06-21 16:08:27 Measurements Intervals [place] Rate: 76 P: 2 WI: 213 QRS: -13 QRSD: 100 T: 128 QT: 399 QTc: 451 Interpretive Statements SINUS RHYTHM WITH FIRST DEGREE AV BLOCK WITH OCCASIONAL SUPRAVENTRICULAR PREMATURE COMPLEXES LEFT VENTRICULAR HYPERTROPHY AND ST-T CHANGE BORDERLINE T WAVE ABNORMALITY- LATERAL LEADS BASELINE ARTIFACT- I, III, AVF, V1-V2 BORDERLINE ECG Compared to ECG 06/21/2024 13:22:12 NO SIGNIFICANT CHANGE Electronically Signed On 06-21-2024 18:48:06 CDT by Scott Deal D.O.
--- NOTE | 2024-06-21 16:22 | PC.NURSE ---
asked patient about insulin dose at home @1600. they state for the past 2 weeks they have been taking 18 units of Novolin 70-30 BID at 0600 and 1800. called retail pharmacy [facility] @1616 and they state the prescription is for 20units BID. Called pharmacy @1621 and spoke to Gianni to update them and added this to home medications list. patient does not have a list of other home medications.
[2024-06-21 16:27] LABS: Troponin I < 0.012 ng/mL (0.000-0.034)
[2024-06-21 17:21] LABS: Glucose Point of Care 76 mg/dl (65-105)
--- NOTE | 2024-06-21 17:29 | ADMGEN ---
This patient, Kimberly Masters, was admitted to IMU Room 206-02. Patient/family oriented to hospital policies and general routines including ID bracelet, bed and alarms, visiting hours, pain management, procedures, bathroom and other care routines, personal items, smoking policy, room service/diet, and visiting hours. Information on how to activate the Rapid Response Team has been discussed. Patient/Family are encouraged to report perceived risks to care and to ask questions if they do not understand what they are told or what they should do. Report received from DEMAR Meredith @ [id number]. Pt arrived on the floor at 1705.
--- NOTE | 2024-06-21 18:05 | PM.IMHP ---
H&P: HPI History of Present Illness Date/Time: 06/21/24 19:00 Chief Complaint: Chest pain, shortness of breath, weakness. Narrative: This is an 79-year-old female with hypertension, diastolic dysfunction, sleep apnea, insulin-dependent type 2 diabetes mellitus, and microcytic anemia who presented to the emergency department via private vehicle for evaluation of chest pain, shortness of breath, and weakness. The patient provides the following history. She was admitted to the hospital at the beginning of April 2024 with a hemoglobin of 6.5 after presenting with shortness of breath. She was found to be profoundly iron deficient and was given an iron infusion after declining blood transfusion. She has not been taking oral iron supplementation at home as it causes her constipation. She remained short of breath on discharge in that has gotten progressively worse. She is also feeling weak and is lightheaded on occasion, mainly with position changes. Additionally she has been having low chest/epigastric discomfort ?almost like I had been kicked there.? With further questioning she also endorses bloating and feeling gassy however she has not been able to belch. She is frequently sick to her stomach and has been regurgitating on occasion. She denies overt heartburn. She does endorse having a lot of stress recently. She denies syncope, fever, pleuritic pain, orthopnea, palpitations, vomiting, melena, hematochezia, and calf pain. No known history of coronary artery disease, gastritis, peptic ulcers, or pancreatitis. No NSAID use. Of note the patient tells me that her right hand went numb while she was in the emergency department and she was unable to even hold her spoon. On occasion she has mild numbness and tingling in that hand, sometimes at nighttime, but is never been this significant. She uses Voltaren gel on it and that seems to help. She has no other paresthesias or numbness and she denies focal weakness, vertigo, vision changes, facial droop, and difficulties speaking and swallowing. In the ED: She was afebrile on arrival with stable vital signs. Labs were significant for a hemoglobin of 7.5, MCV 74.6, potassium 3.1, BUN 21, glucose 123, proBNP 228, troponin less than 0.012. Chest x-ray showed no acute cardiopulmonary disease. EKG was read by the accredited farm manager as showing no significant change compared to prior tracings (sinus rhythm with occasional ectopy, minimal Q-waves in the high lateral leads, changes of LVH, delayed precordial R/S transition). She was given aspirin 324 mg and is being admitted in this setting for closer monitoring and Cardiology consultation. Review of Systems Review of Systems: Findings and treatment plan were discussed with the patient. Questions were solicited and answered to satisfaction. The patient's medical management will be taken over by the hospitalist team in a.m. [facility] Past Medical History Medical History Allergies Anxiety Arthritis Asthma Brain tumor Cataracts, bilateral Diastolic dysfunction Essential (primary) hypertension Gallbladder disorder Hearing loss History of DE (myocardial infarction) Hyperlipidemia Iron deficiency anemia Myelopathy Osteoporosis Peripheral neuropathy Seizures Stroke Type 2 diabetes mellitus Uncontrolled type 2 diabetes mellitus with hyperglycemia Vitamin D deficiency Surgical History Surgical History History of repair of hiatal hernia Family History Family History Grandparent Family history of obesity Asthma Diabetes mellitus Mother Family history of osteoporosis Depression Family history of migraine headaches Asthma Family history of anemia Cerebrovascular accident Family history of arthritis Carcinoma of colon Family history of Alzheimer's disease Family history of atrial fibrillation
[2024-06-21] MEDS: POTASSIUM CHLORIDE 20 MEQ ER TABLET 40 MEQ PO (18:49)
--- NOTE | 2024-06-21 19:18 | ECG_ITS ---
Test Date: 2024-06-21 19:28:34 Measurements Intervals [place] Rate: 74 P: 15 SD: 225 QRS: -17 QRSD: 113 T: 103 QT: 407 QTc: 453 Interpretive Statements SINUS RHYTHM WITH FIRST DEGREE AV BLOCK WITH OCCASIONAL SUPRAVENTRICULAR PREMATURE COMPLEXES INTRAVENTRICULAR CONDUCTION DELAY LEFT VENTRICULAR HYPERTROPHY AND ST-T CHANGE MINIMAL Q WAVES- HIGH LATERAL LEADS BORDERLINE T WAVE ABNORMALITY- LATERAL LEADS BORDERLINE ECG Compared to ECG 06/21/2024 16:08:27 No significant changes Electronically Signed On 06-21-2024 19:34:38 CDT by Scott Deal D.O.
[2024-06-21 19:52] LABS: Glucose Point of Care 155 mg/dl (65-105)
[2024-06-21 19:57] LABS: Iron 25 ug/dL (37-170)
[2024-06-21 19:59] LABS: Troponin I < 0.012 ng/mL (0.000-0.034)
[2024-06-21 20:06] LABS: Percent Iron Saturation 5 % (20-50)
[2024-06-21 20:33] LABS: Ferritin 5.33 ng/mL (11.1-264)
[2024-06-21 21:09] LABS: Folic Acid > 20.0 ng/mL (2.76->20)
[2024-06-21 22:59] LABS: IFOB Positive Control Positive; Immunochemical Fecal Occult Bl Positive (N)
[2024-06-22] VITALS (22 sets, daily range): BP systolic 109–149; BP diastolic 49–99; PULSE 66–78; RESP 12–20; TEMP 36.6–37.2; O2SAT 98–100
[2024-06-22] MEDS: HYDROcodone/acetaminophen (*CRX) 5-325 MG TABLET 1 TAB PO ×2 (04:17→19:53)
[2024-06-22] MEDS: DICLOFENAC SODIUM 1% 100 GM GEL (*BKC) 1 APPLIC TOPICAL ×2 (04:18→23:02)
[2024-06-22] MEDS: MECLIZINE HCL 12.5 MG TABLET PO ×2 (04:21→19:53)
[2024-06-22 05:16] LABS: Basophils Absolute Auto 0.1 K/mm3 (0.0-0.1); Basophils Percent Auto 1.1 % (0.2-1.2); Eosinophils Absolute Auto 0.2 K/mm3 (0-0.3); Hematocrit 29.7 % (37.0-47.0); Hemoglobin 8.2 g/dL (12.0-15.0); Immature Granulocyte Absolute 0.02 K/mm3 (0.00-0.031); Immature Granulocyte Percent A 0.3 % (0-0.5); Lymphocytes Absolute Auto 1.59 K/mm3 (0.9-3.2); Lymphocytes Percent Auto 24.7 % (18.3-44.2); Mean Corpuscular HGB Conc 27.6 g/dl (32-36); Mean Corpuscular Hemoglobin 20.7 pg (26-34); Mean Corpuscular Volume 74.8 fl (80-100); Mean Platelet Volume 10.2 fl (7.4-10.4); Monocytes Absolute Auto 0.6 K/mm3 (0.1-0.6); Neutrophils Percent Auto 61.9 % (45.5-73.1); Platelet Count Result 314 k/mm3 (150-375); Red Blood Count 3.97 M/mm3 (4.2-5.4); Red Cell Distribution Width 19.9 % (11.5-14.5); White Blood Count 6.4 K/mm3 (4.5-10.0)
[2024-06-22 05:31] LABS: Anion Gap 12 mmol/L (4-12); Blood Urea Nitrogen 21 mg/dL (7-17); Calcium 9.6 mg/dL (8.4-10.2); Carbon Dioxide 27 mmol/L (22-30); Chloride 99 mmol/L (98-107); Estimated CRCL calculation 56 ml/min; Estimated Glomerular Filt Rate > 60; Glucose 199 mg/dL (65-110); Magnesium 1.5 mg/dL (1.6-2.3); Potassium 3.8 mmol/L (3.4-5.0); Sodium 138 mmol/L (137-145)
[2024-06-22 05:39] LABS: Anisocytosis 1+; Hypochromasia 1+; Ovalocytes 1+; Platelet Estimate Adequate (Adequate)
[2024-06-22 05:40] LABS: Schistocytes None Seen
--- NOTE | 2024-06-22 08:38 | PM.PNCARD ---
Progress Note: A&P Assessment and Plan (1) Chest pain: Qualifiers: Chest pain type: unspecified Qualified Code(s): R07.9 - Chest pain, unspecified Code(s): R07.9 - Chest pain, unspecified Status: Acute Assessment and Plan: Intermittent. R/O MN with serial troponin and EKG. Start Isosorbide mononitrate for possible CAD causing CP. Monitor BP and if low, then will decrease antihypertensives. No stress test given anemia. Discuss outpatient CTA of heart at [facility] to assess coronaries. No further cardiac workup for patient. (2) Diastolic dysfunction: Code(s): I51.89 - Other ill-defined heart diseases Status: Acute Assessment and Plan: Stable. (3) Anemia: Code(s): D64.9 - Anemia, unspecified Status: Acute Assessment and Plan: Assess need for oxygen as per hospitalist. Subjective Date/time seen: 06/22/24 08:38 Interval history: Denies any chest pain now but it intermittent. She felt SOB last night and given oxygen and breathing better. Exam Const: General: cooperative, healthy appearing and comfortable Resp: Auscultation: clear to auscultation bilaterally, no crackles, no rales, no rhonchi and no wheezes Cardio: Rate: regular rate Rhythm: regular rhythm Heart sounds: no murmurs Peripheral pulses: dorsalis pedis present GI: GI Palp: No abdominal tenderness and Yes Soft to palpation Neuro: General: oriented to person, oriented to place and oriented to time Extrem: Right lower extremity: no edema Left lower extremity: no edema Objective Data Vital Signs Vital Signs: Vital Signs - 24 hr 06/21/24 13:08 06/21/24 14:41 06/21/24 14:17 Temperature 98.1 F Pulse Rate 81 81 Respiratory Rate 18 15 Blood Pressure 107/59 L 153/67 H Pulse Oximetry 97 98 Oxygen Delivery Room Air Room Air Oxygen Flow Rate 06/21/24 14:32 06/21/24 14:47 06/21/24 15:16 Temperature Pulse Rate 78 74 80 Respiratory Rate 14 14 14 Blood Pressure 123/59 L 109/57 L 119/75 Pulse Oximetry 99 95 95 Oxygen Delivery Oxygen Flow Rate 06/21/24 15:50 06/21/24 16:29 06/21/24 15:51 Temperature 98.1 F Pulse Rate 81 88 81 Respiratory Rate 17 14 16 Blood Pressure 158/72 H 136/78 Pulse Oximetry 100 99 100 Oxygen Delivery Oxygen Flow Rate 06/21/24 16:15 06/21/24 17:20 06/21/24 17:05 Temperature 98.2 F Pulse Rate 84 76 Respiratory Rate 17 18 Blood Pressure 121/54 L Pulse Oximetry 100 97 Oxygen Delivery Room Air Oxygen Flow Rate 06/21/24 18:00 06/21/24 20:00 06/21/24 20:02 Temperature 97.6 F Pulse Rate 74 74 71 Respiratory Rate 18 18 Blood Pressure 132/66 Pulse Oximetry 97 100 Oxygen Delivery Room Air Oxygen Flow Rate 06/21/24 20:05 06/21/24 20:04 06/21/24 20:04 Temperature 97.6 F Pulse Rate 71 Respiratory Rate 18 Blood Pressure 132/66 112/66 116/71 Pulse Oximetry 100 Oxygen Delivery Oxygen Flow Rate 06/21/24 20:46 06/21/24 21:50 06/21/24 20:00 Temperature Pulse Rate 72 72 70 Respiratory Rate 17 Blood Pressure 155/65 H Pulse Oximetry Oxygen Delivery Oxygen Flow Rate 06/21/24 22:00 06/21/24 23:39 06/21/24 23:56 Temperature 97.7 F Pulse Rate 71 71 70 Respiratory Rate 17 18 Blood Pressure 124/62 Pulse Oximetry 100 99 Oxygen Delivery Room Air Oxygen Flow Rate 06/22/24 00:00 06/22/24 02:00 06/22/24 03:03 Temperature 97.8 F Pulse Rate 72 74 67 Respiratory Rate 18 Blood Pressure 149/64 H Pulse Oximetry 99 Oxygen Delivery Oxygen Flow Rate 06/22/24 04:20 06/22/24 04:00 06/22/24 05:58 Temperature Pulse Rate 67 78 66 Respiratory Rate 18 Blood Pressure Pulse Oximetry 99 Oxygen Delivery Nasal Cannula Oxygen Flow Rate 2 06/22/24 08:00 06/21/24 17:21 Temperature 98.2 F 98.2 F Pulse Rate 72 76 Respiratory Rate 12 18 Blood Pressure 136/99 H 121/54 L Pulse Oximetry 99 97 Oxygen Delivery Oxygen Flow
--- NOTE | 2024-06-22 09:43 | P.CONGI_ITS ---
I, Casey Portillo MD, have provided a substantive portion of the care of this patient and discussed the patient with my Nurse Practitioner. I have reviewed any new relevant radiographic and laboratory results including medications. I agree with her documentation as noted below.?I personally performed the medical decision making and much of the history and exam for this encounter. briefly, she is here with shortness of breath, chest pain and dizziness. Also 1.5 week of dysphagia, recent hospitalization with anemia, denies overt gib. Again with TA[place] and + occult blood stools, noted change in bowel pattern using more laxatives. She refused to have endoscopic evaluation at this time, she just talked to her son. If she changes her mind then they can contact our office to set up as outpatient. Assessment and Plan Assessment and plan (1) Iron deficiency anemia: Qualifiers: Iron deficiency anemia type: unspecified iron deficiency Qualified Code(s): D50.9 - Iron deficiency anemia, unspecified Code(s): D50.9 - Iron deficiency anemia, unspecified Status: Acute (2) Heme + stool: Code(s): R19.5 - Other fecal abnormalities Status: Acute (3) Dysphagia: Qualifiers: Dysphagia type: unspecified Qualified Code(s): R13.10 - Dysphagia, unspecified Code(s): R13.10 - Dysphagia, unspecified Status: Acute (4) Chest pain: Qualifiers: Chest pain type: unspecified Qualified Code(s): R07.9 - Chest pain, unspecified Code(s): R07.9 - Chest pain, unspecified Status: Acute (5) Gallstones: Code(s): K80.20 - Calculus of gallbladder without cholecystitis without obstruction Status: Acute (6) Nausea: Code(s): R11.0 - Nausea Status: Acute Plan 1. Iron deficiency anemia / heme positive stools: Last colonoscopy March of 2018. Patient denies any prior history of EGD. Patient was hospitalized in April 2024 at which time she was noted to have a hemoglobin at 6.5. At that time she received IV iron but declined blood transfusion. labs this admission show HGB 8, HCT 30, MCV 75, platelets 314. Total iron 25, TIBC 458, iron saturation 5%, ferritin 5.33, B12 folate normal. No signs of active GI bleeding at this time. * patient is still complaining of chest pain, may consider endoscopic evaluation once cleared by Cardiology * supplement with IV iron * discussed possibility of EGD and colonoscopy with patient but she would like to hold off at this time on making this decision to she speaks with Dr. Storey * primary care team to continue monitoring H&H and transfuse as needed if patient wishes to proceed with transfusion 2. Dysphagia/nausea: Patient reports one week of difficulty swallowing both solids and liquids. Denies odynophagia or any difficulty swallowing pills. prior to admission patient was on pantoprazole 40 mg daily and reflux was controlled. patient admits to occasional nausea without vomiting that typically accompanies her chest discomfort. * as mentioned above, may consider EGD if patient decides to proceed * If EGD unremarkable will consider MBS * continue PPI * Supportive care with antiemetics 3. Chest pain / Shortness of breath / Dizziness: Patient reports worsening substernal chest pressure and shortness of breath at rest associated with dizziness. Patient has to hold onto things to ambulate at home due to weakness. * Cardiology on patients case, will need clearance prior to endoscopy 4. Cholelithiasis: Patient reports she was previously told she needs cholecystectomy but
--- NOTE | 2024-06-22 09:43 | WPDGICN ---
Assessment and Plan Assessment and plan (1) Iron deficiency anemia: Qualifiers: Iron deficiency anemia type: unspecified iron deficiency Qualified Code(s): D50.9 - Iron deficiency anemia, unspecified Code(s): D50.9 - Iron deficiency anemia, unspecified Status: Acute (2) Heme + stool: Code(s): R19.5 - Other fecal abnormalities Status: Acute (3) Dysphagia: Qualifiers: Dysphagia type: unspecified Qualified Code(s): R13.10 - Dysphagia, unspecified Code(s): R13.10 - Dysphagia, unspecified Status: Acute (4) Chest pain: Qualifiers: Chest pain type: unspecified Qualified Code(s): R07.9 - Chest pain, unspecified Code(s): R07.9 - Chest pain, unspecified Status: Acute (5) Gallstones: Code(s): K80.20 - Calculus of gallbladder without cholecystitis without obstruction Status: Acute (6) Nausea: Code(s): R11.0 - Nausea Status: Acute Plan 1. Iron deficiency anemia / heme positive stools: Last colonoscopy March of 2018. Patient denies any prior history of EGD. Patient was hospitalized in April 2024 at which time she was noted to have a hemoglobin at 6.5. At that time she received IV iron but declined blood transfusion. labs this admission show HGB 8, HCT 30, MCV 75, platelets 314. Total iron 25, TIBC 458, iron saturation 5%, ferritin 5.33, B12 folate normal. No signs of active GI bleeding at this time. patient is still complaining of chest pain, may consider endoscopic evaluation once cleared by Cardiology supplement with IV iron discussed possibility of EGD and colonoscopy with patient but she would like to hold off at this time on making this decision to she speaks with Dr. Storey primary care team to continue monitoring H&H and transfuse as needed if patient wishes to proceed with transfusion 2. Dysphagia/nausea: Patient reports one week of difficulty swallowing both solids and liquids. Denies odynophagia or any difficulty swallowing pills. prior to admission patient was on pantoprazole 40 mg daily and reflux was controlled. patient admits to occasional nausea without vomiting that typically accompanies her chest discomfort. as mentioned above, may consider EGD if patient decides to proceed If EGD unremarkable will consider MBS continue PPI Supportive care with antiemetics 3. Chest pain / Shortness of breath / Dizziness: Patient reports worsening substernal chest pressure and shortness of breath at rest associated with dizziness. Patient has to hold onto things to ambulate at home due to weakness. Cardiology on patients case, will need clearance prior to endoscopy 4. Cholelithiasis: Patient reports she was previously told she needs cholecystectomy but has been hesitant to proceed with surgery as gallbladder is not currently symptomatic. CT abdomen showing cholelithiasis with gallbladder distention. Surgical evaluation if patient becomes symptomatic Thank you very much for allowing me to share in the care of this very nice patient. This report may have been done utilizing a voice recognition system. Attempts have been made to correct errors. However, there may be uncorrected grammatical, spelling, and recognition errors present. GI Consult Note Consult date/time: 06/22/24 09:43 Reason for consult: Anemia and possible GI bleed HPI: This is a pleasant 79 year old female with a past medical surgical history of anxiety, asthma, brain tumor, HTN, history of CA, history of stroke, HLD, seizures, diabetes, and hiatal hernia repair she presented to the ER room 06/21/2024 with complaints of chest pain, shortness of breath, and weakness. GI consulted for low hemoglobin and possible GI bleed. Patient states that she is still having chest pain /pressure since hospitalization. She denies any nausea, vomiting, bloating, odynophagia, reflux, regurgitation, early satiety. She is having daily bowel movements b
[2024-06-22] MEDS: hydroCHLOROthiazide 12.5 MG CAPSULE PO (10:26)
[2024-06-22] MEDS: ISOSORBIDE MONONITRATE 30 MG TAB.ER.24H PO (10:26)
[2024-06-22] MEDS: THERAPEUTIC MULTIVITAMINS/MINERALS TAB (*BKC) 1 TABLET PO (10:27)
[2024-06-22] MEDS: PANTOPRAZOLE 40 MG TABLET PO (10:27)
[2024-06-22] MEDS: FUROSEMIDE 40 MG TABLET PO (10:27)
[2024-06-22] MEDS: METOPROLOL SUCCINATE EXT REL 100 MG TABCR PO (10:28)
[2024-06-22] MEDS: CHOLECALCIFEROL 400 UNITS TABLET (VIT D) PO (10:29)
[2024-06-22] MEDS: LOSARTAN POTASSIUM 50 MG TABLET PO (10:29)
[2024-06-22] MEDS: INSULIN HUMAN ISOPHAN/REGULAR 70/30 (*BKC) 100 UNITS/ML 15 UNITS SUB-Q ×2 (10:30→17:14)
[2024-06-22 11:56] LABS: Glucose Point of Care 220 mg/dl (65-105)
--- NOTE | 2024-06-22 13:11 | PC.NURSE ---
1200- spoke with Dr. Guerrero- magnesium 2gm IVPB d/elayne - pt had received Magnesium IVPB 1 gm earlier this am
[2024-06-22 16:41] LABS: Glucose Point of Care 189 mg/dl (65-105)
--- NOTE | 2024-06-22 18:44 | WPDPN ---
Progress Note: A&P Assessment and Plan (1) Chest pain: Qualifiers: Chest pain type: unspecified Qualified Code(s): R07.9 - Chest pain, unspecified Code(s): R07.9 - Chest pain, unspecified Status: Acute (2) Iron deficiency anemia: Qualifiers: Iron deficiency anemia type: unspecified iron deficiency Qualified Code(s): D50.9 - Iron deficiency anemia, unspecified Code(s): D50.9 - Iron deficiency anemia, unspecified Status: Acute (3) Hypokalemia: Code(s): E87.6 - Hypokalemia Status: Acute (4) Generalized weakness: Code(s): R53.1 - Weakness Status: Acute (5) Numbness and tingling in right hand: Code(s): R20.0 - Anesthesia of skin; R20.2 - Paresthesia of skin Status: Acute (6) Diastolic dysfunction: Code(s): I51.89 - Other ill-defined heart diseases Status: Acute (7) Hypertension: Code(s): I10 - Essential (primary) hypertension Status: Acute (8) Type 2 diabetes mellitus: Code(s): E11.9 - Type 2 diabetes mellitus without complications Status: Acute Plan The patient presented to the emergency department for evaluation of chest pain, shortness of breath, and weakness as detailed in HPI. Labs, imaging, EKG, and all reports were personally reviewed. Chest pain has been ongoing for 6 days or more and her troponins have thus far been negative. Given her risk factors, we will continue to trend troponins and consult Cardiology. Generalized weakness and shortness of breath is likely due to anemia as her hemoglobin is nearly half of what she was running last year at this time. Stool was negative for occult blood during previous stay however that will be repeated. It is possible that her chest pain is stemming from a GI source (possible gastritis, esophagitis, ulcer) thus will repeat stool for occult blood. Dr. Storey has been consulted for possible endoscopy. She refused blood transfusion with her previous stay and does not tolerate oral iron supplementation due to constipation. Repeat iron studies pending to see if she would benefit from another iron infusion during this admission. It may be beneficial to refer her to Hematology as an outpatient. Regarding the right hand numbness and tingling, this has happened in the past and she reports that it is improved with Voltaren gel. May very well be related to carpal tunnel or other neuropathy. Brain CT ordered to rule out CVA which seems unlikely. Check B12 levels as well and continue neurologic checks q 4 hours. She is euvolemic on exam. Blood pressures were reviewed and they are stable. Continue basal insulin. Initiate sliding scale insulin, Accu-Cheks, and hypoglycemic protocol. Potassium will be replaced and monitored. She is on furosemide and hydrochlorothiazide and will likely need to be on daily supplementation. Her medications will be reviewed and resumed as appropriate. Findings and treatment plan were discussed with the patient. Questions were solicited and answered to satisfaction. The patient's medical management will be taken over by the hospitalist team in a.m. patient presented with c/o CP was seen by the copier operator patient had serial tropnin and EKG which were negative suggesting patient did not have CO, patient was started isosorbide mononitrate to help with CP and to help with HTN. patient is also found to have anemia and stool Heme was positive seen by GI and recommended colonoscopy but patient refused it. patient also refused blood transfusion. patient is very anxious most likely cause of her CP. Subjective Date/time seen: 06/22/24 18:44 Interval history: patient presented with c/o CP was seen by the copier operator patient had serial tropnin and EKG which were negative suggesting patient did not have CO, patient was started isosorbide mononitrate to help with CP and to help with HTN. patient is also found to have anemia and stool Heme was positive seen by GI and recom
[2024-06-22] MEDS: MAGNESIUM SULF 2 GM/WATER 50ML 2 GM/50 ML BAG IVPB (19:25)
[2024-06-22 20:18] LABS: Glucose Point of Care 199 mg/dl (65-105)
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
[2024-06-23] VITALS (14 sets, daily range): BP systolic 118–160; BP diastolic 50–70; PULSE 61–81; RESP 18–20; TEMP 36.3–37; O2SAT 95–99; BMI 29.9
--- NOTE | 2024-06-23 | ECHO_ITS ---
Patient Info Name: Kimberly Masters Age: 79 years : 1945 Gender: Female Ht: 64 in Wt: 135 lbs BSA: 1.67 m2 HR: 65 bpm Heart Rhythm: Sinus Rhythm Technical Quality: Fair Exam Date: 06/23/2024 10:58 AM Exam Location: Echo Lab Patient Status: Outpatient Admit Date: 06/21/2024 Staff Ordering Physician: Scott Deal DO Car Tester: Allie Way RDCS Attending Provider: Luis Meza MD Referring Physician: Say MEDINA; Exam Type: CA echo doppler color flow Study Info Indications - cp, sob, assess EF Complete two-dimensional, color flow and Doppler transthoracic echocardiogram is performed. Summary 1. Complete two-dimensional, color flow and Doppler transthoracic echocardiogram is performed. 2. Limited echocardiogram to assess EF and for any wall motion abnormalities. 3. Left ventricular chamber dimension is normal. 4. Left ventricular systolic function is normal, estimated at 65-70%. 5. The left ventricular diastolic function is grade I diastolic dysfunction. 6. E/e' 11 is mildly elevated. Left Ventricle Limited echocardiogram to assess EF and for any wall motion abnormalities. E/e' 11 is mildly elevated. Left ventricular chamber dimension is normal. Left ventricular systolic function is normal, estimated at 65-70%. The left ventricular diastolic function is grade I diastolic dysfunction. Left Ventricular Outflow Tract Name Value Normal LVOT 2D LVOT Diameter 2.0 cm LVOT Doppler LVOT Peak Gradient 6 mmHg LVOT Mean Gradient 4 mmHg LVOT VTI 25 cm LVOT VTI/AV VTI Ratio 0.8 LVOT Stroke Volume 76 ml LVOT CO 4.9 l/min LVOT CI 2.9 l/min/m2 Pulmonic Valve Name Value Normal PV Doppler PV Peak Gradient 6 mmHg Mitral Valve Name Value Normal MV Doppler MV Decel Ashe 289 cm/s2 MV PHT 68 ms MV Area (PHT) 3.3 cm2 4.0-5.0 MV Diastolic Function MV E Peak Velocity 67 cm/s MV A Peak Velocity 109 cm/s MV E/A 0.6 MV Decel Time 233 ms MV Annular TDI MV E/e' (Septal) 13.5 <=8.0 MV E/e' (Lateral) 9.7 <=8.0 MV E/e' (Average) 11.6 Tricuspid Valve
[2024-06-23 04:50] LABS: Hematocrit 26.1 % (37.0-47.0); Hemoglobin 7.2 g/dL (12.0-15.0); Mean Corpuscular HGB Conc 27.6 g/dl (32-36); Mean Corpuscular Hemoglobin 20.4 pg (26-34); Mean Corpuscular Volume 73.9 fl (80-100); Mean Platelet Volume 10.1 fl (7.4-10.4); Platelet Count Result 264 k/mm3 (150-375); Red Blood Count 3.53 M/mm3 (4.2-5.4); Red Cell Distribution Width 19.8 % (11.5-14.5); White Blood Count 6.9 K/mm3 (4.5-10.0)
[2024-06-23 05:05] LABS: Anion Gap 9 mmol/L (4-12); Blood Urea Nitrogen 20 mg/dL (7-17); Calcium 9.1 mg/dL (8.4-10.2); Carbon Dioxide 30 mmol/L (22-30); Chloride 99 mmol/L (98-107); Estimated CRCL calculation 50 ml/min; Estimated Glomerular Filt Rate > 60; Glucose 123 mg/dL (65-110); Magnesium 1.9 mg/dL (1.6-2.3); Sodium 138 mmol/L (137-145)
[2024-06-23 06:29] LABS: Potassium 3.8 mmol/L (3.4-5.0)
[2024-06-23 07:34] LABS: Glucose Point of Care 143 mg/dl (65-105)
--- NOTE | 2024-06-23 08:07 | PM.PNCARD ---
Progress Note: A&P Assessment and Plan (1) Chest pain: Qualifiers: Chest pain type: unspecified Qualified Code(s): R07.9 - Chest pain, unspecified Code(s): R07.9 - Chest pain, unspecified Status: Acute Assessment and Plan: Intermittent. R/O WI with serial troponin and EKG. Started Isosorbide mononitrate for possible CAD causing CP. Monitor BP and if low, then will decrease antihypertensives. No stress test given anemia. Discuss outpatient CTA of heart at [facility] to assess coronaries. Check limited echo to assess for wall motion abnormalities as requested by patient. No further cardiac workup for patient. Have patient f/u with me in 1 week upon discharge. (2) Diastolic dysfunction: Code(s): I51.89 - Other ill-defined heart diseases Status: Acute Assessment and Plan: Stable. (3) Anemia: Code(s): D64.9 - Anemia, unspecified Status: Acute Assessment and Plan: Assess need for oxygen as per hospitalist. May proceed to endoscopies from cardiology standpoint. Subjective Date/time seen: 06/23/24 08:07 Interval history: Denies any chest pain now but it intermittent. She has sob intermittently. Exam Const: General: cooperative, healthy appearing and comfortable Orientation/consciousness: oriented to person, oriented to place and oriented to time Resp: Auscultation: clear to auscultation bilaterally, no crackles, no rales, no rhonchi and no wheezes Cardio: Rate: regular rate Rhythm: regular rhythm Heart sounds: no murmurs Peripheral pulses: dorsalis pedis present Neuro: General: oriented to person, oriented to place and oriented to time Extrem: Right lower extremity: no edema Left lower extremity: no edema Objective Data Vital Signs Vital Signs: Vital Signs - 24 hr 06/22/24 10:28 06/22/24 08:30 06/22/24 11:32 Temperature 98.3 F Pulse Rate 77 68 73 Respiratory Rate 16 Blood Pressure 131/49 L Pulse Oximetry 99 Oxygen Delivery Oxygen Flow Rate 06/22/24 10:00 06/22/24 12:30 06/22/24 14:00 Temperature Pulse Rate 76 73 75 Respiratory Rate Blood Pressure Pulse Oximetry Oxygen Delivery Oxygen Flow Rate 06/22/24 16:00 06/22/24 16:00 09/24/24 18:00 Temperature 98.9 F Pulse Rate 77 73 78 Respiratory Rate 20 Blood Pressure 109/55 L Pulse Oximetry 100 Oxygen Delivery Oxygen Flow Rate 06/22/24 19:49 06/22/24 20:13 06/22/24 20:00 Temperature 98.5 F Pulse Rate 78 72 72 Respiratory Rate 20 20 Blood Pressure 119/61 Pulse Oximetry 100 98 Oxygen Delivery Room Air Oxygen Flow Rate 06/22/24 22:00 06/22/24 23:33 06/23/24 00:00 Temperature 98.7 F Pulse Rate 72 68 66 Respiratory Rate 20 Blood Pressure 132/62 Pulse Oximetry 99 Oxygen Delivery Oxygen Flow Rate 06/22/24 23:30 06/23/24 02:00 06/23/24 04:00 Temperature Pulse Rate 66 65 65 Respiratory Rate 20 20 Blood Pressure Pulse Oximetry 99 99 Oxygen Delivery Room Air Nasal Cannula Oxygen Flow Rate 2 06/23/24 04:00 06/22/24 21:20 06/23/24 05:38 Temperature 97.7 F Pulse Rate 61 64 Respiratory Rate 20 Blood Pressure 136/61 Pulse Oximetry 98 95 Oxygen Delivery Nasal Cannula Oxygen Flow Rate 2 06/23/24 06:00 Temperature Pulse Rate 65 Respiratory Rate Blood Pressure Pulse Oximetry Oxygen Delivery Oxygen Flow Rate Intake/Output Intake/Output: Intake & Output 06/20/24 06/21/24 06/22/24 06/23/24 23:59 23:59 23:59 23:59 Intake Total 120 2490 1100 Output Total 350 200 Balance -230 2290 1100 Meds/Results Medications: Active Medications Generic Name Dose Route Start Last Admin Trade Name Freq PRN Reason Stop Dose Admin Acetaminophen 650 mg 06/21/24 18:22 Acetaminophen 325 Mg Tablet PO Q6H PRN Mild Pain (1-3) or Fever Hydrocodone Bitart/Acetaminophen 1 tab 06/21/24 18:25 06/22/24 19:53 Hydrocodone/Acetaminophen
[2024-06-23] MEDS: INSULIN HUMAN ISOPHAN/REGULAR 70/30 (*BKC) 100 UNITS/ML 15 UNITS SUB-Q ×2 (09:11→17:34)
[2024-06-23] MEDS: PANTOPRAZOLE 40 MG TABLET PO (09:14)
[2024-06-23] MEDS: CHOLECALCIFEROL 400 UNITS TABLET (VIT D) PO (09:14)
[2024-06-23] MEDS: FUROSEMIDE 40 MG TABLET PO (09:14)
[2024-06-23] MEDS: METOPROLOL SUCCINATE EXT REL 100 MG TABCR PO (09:14)
[2024-06-23] MEDS: hydroCHLOROthiazide 12.5 MG CAPSULE PO (09:14)
[2024-06-23] MEDS: LOSARTAN POTASSIUM 50 MG TABLET PO (09:14)
[2024-06-23] MEDS: THERAPEUTIC MULTIVITAMINS/MINERALS TAB (*BKC) 1 TABLET PO (09:14)
[2024-06-23] MEDS: ISOSORBIDE MONONITRATE 30 MG TAB.ER.24H PO (09:14)
[2024-06-23] MEDS: HYDROcodone/acetaminophen (*CRX) 5-325 MG TABLET 1 TAB PO ×2 (09:20→17:34)
[2024-06-23 10:52] LABS: Glucose Point of Care 337 mg/dl (65-105)
--- NOTE | 2024-06-23 14:44 | WPDGIPROGNO ---
Progress Note: A&P Assessment and Plan (1) Iron deficiency anemia: Qualifiers: Iron deficiency anemia type: unspecified iron deficiency Qualified Code(s): D50.9 - Iron deficiency anemia, unspecified Code(s): D50.9 - Iron deficiency anemia, unspecified Status: Acute Assessment and Plan: she changed her mind and now she is ok to have scopes will arrange egd and colonoscopy as outpatient (I will be out of town next few days) (2) Dysphagia: Qualifiers: Dysphagia type: unspecified Qualified Code(s): R13.10 - Dysphagia, unspecified Code(s): R13.10 - Dysphagia, unspecified Status: Acute Assessment and Plan: assess with egd as outpatient (3) Heme + stool: Code(s): R19.5 - Other fecal abnormalities Status: Acute (4) Type 2 diabetes mellitus: Code(s): E11.9 - Type 2 diabetes mellitus without complications Status: Acute (5) Chest pain: Qualifiers: Chest pain type: unspecified Qualified Code(s): R07.9 - Chest pain, unspecified Code(s): R07.9 - Chest pain, unspecified Status: Acute Assessment and Plan: by cardiology Subjective Date/time seen: 06/23/24 14:44 Interval history: no changes yesterday she did not want to have scopes but today she is open to the idea Review of Systems Review of Systems: All systems reviewed & are unremarkable except as noted in HPI and below Exam Const: General: comfortable and no acute distress HENMT: Face/Nose/Sinus: Normal nares present Eyes: General: appearance normal, both eyes and all related structures Neck: Neck: supple Resp: Auscultation: clear to auscultation bilaterally Cardio: Rate: regular rate Rhythm: regular rhythm GI: Inspection: non-distended GI Palp: Yes Soft to palpation and No Tenderness to palpation present (GI) Auscultation: normal bowel sounds Skin: General skin exam: normal color Neuro: Speech: normal speech Motor exam (neuro): 5/5 motor strength present throughout Extrem: General: normal to inspection Psych: Mental Status: mental status grossly normal Objective Data Vital Signs Vital Signs: Vital Signs - 24 hr 06/22/24 16:00 06/22/24 16:00 06/22/24 18:00 Temperature 98.9 F Pulse Rate 77 73 78 Respiratory Rate 20 Blood Pressure 109/55 L Pulse Oximetry 100 Oxygen Delivery Oxygen Flow Rate 06/22/24 19:49 06/22/24 20:13 06/22/24 20:00 Temperature 98.5 F Pulse Rate 78 72 72 Respiratory Rate 20 20 Blood Pressure 119/61 Pulse Oximetry 100 98 Oxygen Delivery Room Air Oxygen Flow Rate 06/22/24 22:00 06/22/24 23:33 06/23/24 00:00 Temperature 98.7 F Pulse Rate 72 68 66 Respiratory Rate 20 Blood Pressure 132/62 Pulse Oximetry 99 Oxygen Delivery Oxygen Flow Rate 06/22/24 23:30 06/23/24 02:00 06/23/24 04:00 Temperature Pulse Rate 66 65 65 Respiratory Rate 20 20 Blood Pressure Pulse Oximetry 99 99 Oxygen Delivery Room Air Nasal Cannula Oxygen Flow Rate 2 06/23/24 04:00 06/22/24 21:20 06/23/24 05:38 Temperature 97.7 F Pulse Rate 61 64 Respiratory Rate 20 Blood Pressure 136/61 Pulse Oximetry 98 95 Oxygen Delivery Nasal Cannula Oxygen Flow Rate 2 06/23/24 06:00 06/23/24 08:00 06/23/24 09:14 Temperature 97.3 F L Pulse Rate 65 72 81 Respiratory Rate 20 Blood Pressure 160/67 H Pulse Oximetry 96 Oxygen Delivery Oxygen Flow Rate 06/23/24 11:53 06/23/24 08:00 06/23/24 10:00 Temperature 98.2 F Pulse Rate 68 71 76 Respiratory Rate 18 Blood Pressure 118/50 L Pulse Oximetry 98 Oxygen Delivery Oxygen Flow Rate 06/23/24 12:00 Temperature Pulse Rate 77 Respiratory Rate Blood Pressure Pulse Oximetry Oxygen Delivery Oxygen Flow Rate Intake/Output Intake/Output: Intake & Output 06/20/24 06/21/24 06/22/24 06/23/24 23:59 23:59 23:59 23:59 Intake Total 120 2490 1320 Output Total
--- NOTE | 2024-06-23 16:25 | PM.DS ---
DS: Summary Time Spent with Patient Time attestation: Total time spent providing and/or coordinating discharge services: DS: Data Data Completed and Pending Labs on day of discharge: Labs from last 24 hours 06/23/24 06/23/24 06/23/24 10:45 07:30 04:08 WBC 6.9 RBC 3.53 L Hgb 7.2 L Hct 26.1 L MCV 73.9 L MCH 20.4 L MCHC 27.6 L RDW 19.8 H Plt Count 264 MPV 10.1 Sodium 138 Potassium 3.8 Chloride 99 Carbon Dioxide 30 Anion Gap 9 BUN 20 H Creatinine 0.80 Estim Creat Clear Calc 50 Estimated GFR > 60 Glucose 123 H POC Capillary Glucose 337 H 143 H Calcium 9.1 Magnesium 1.9 06/22/24 06/22/24 19:42 16:26 WBC RBC Hgb Hct MCV MCH MCHC RDW Plt Count MPV Sodium Potassium Chloride Carbon Dioxide Anion Gap BUN Creatinine Estim Creat Clear Calc Estimated GFR Glucose POC Capillary Glucose 199 H 189 H Calcium Magnesium Discharge Plan Discharge Attending physician on discharge: Luis Meza Consulting providers: Scott Deal; Casey Portillo Discharging Clinician: Citlali Guerrero Activity: as tolerated Diet: heart healthy Discharge Instructions: Chest Pain. Patient to follow up with Dr Deal in 1 week, patient to follow up Casey Jernigan MD as schedule, patient to follow up with her primary care provider as soon as possible, patient is instructed if any symptoms redevelop to go to nearest ER Patient Instructions: Antibiotic Form, Chest Pain (GEN) Stand Alone Forms: General Discharge Information Follow-up/Referrals: Scott Deal DO [Physician] - Casey Portillo MD [Physician] - Jevon,MD Rm [Primary Care Provider] - Discharge Medications: New isosorbide mononitrate 30 mg Tablet Extended Release 24 Hr 30 mg PO QAM Qty: 30 0RF diclofenac sodium [Voltaren Arthritis Pain] 1 % gel 2 g topical QID Qty: 100 0RF Rx Instructions: apply to single elbow, wrist or hand; for hand includes palm/fingers/back of hand nitroglycerin [Nitrostat] 0.4 mg Tablet, Sublingual 0.4 mg sublingual Q5MIN PRN (Reason: Chest Pain) Qty: 20 0RF Continued meclizine 12.5 mg tablet 12.5 mg PO TID PRN (Reason: Dizziness) metoprolol succinate 100 mg tablet extended release 24 hr 100 mg PO DAILY losartan-hydrochlorothiazide 50-12.5 mg tablet 1 tablet PO DAILY [id number] [id number] 400 mcg-500 mg calcium-20 mcg tablet 1 tablet PO DAILY (DME) insulin syringe-needle U-100 [BD Insulin Syringe] 0.3 mL 29 gauge x 1/2 syringe See Rx Instructions .Route Qty: 100 4RF Rx Instructions: As directed metformin 1,000 mg tablet 1,000 mg PO BIDWM hydroxyzine HCl 25 mg tablet 25 mg PO TID PRN (Reason: Itching) sennosides [senna] 8.6 mg Tablet 8.6 mg PO HS PRN (Reason: Constipation) hydrocodone-acetaminophen 5-325 mg tablet 1 tablet PO Q6H PRN (Reason: pain) Qty: 16 0RF Rx Instructions: Patient takes with Acetaminophen 500mg (DME) blood-glucose meter [Contour Next Glucose Meter] Kit See Rx Instructions .Route Qty: 1 0RF Rx Instructions: As directed acetaminophen 500 mg Tablet 500 mg PO TID PRN (Reason: Pain) Rx Instructions: Take with [place] cholecalciferol (vitamin D3) [Vitamin D3] 10 mcg (400 unit) Capsule 10 mcg PO DAILY pantoprazole 40 mg tablet,delayed release (DR/EC) 40 mg PO DAILY Patient Comments: Patient takes 1 to as needed per day Novolin 70-30 FlexPen U-100 100 unit/mL (70-30) Insulin Pen 15 unit SUBCUT BIDWM furosemide 40 mg tablet 40 mg PO DAILY Qty: 30 1RF (DME) lancets [Microlet Lancet] Misc See Rx Instructions .Route Qty: 400 3RF Rx Instructions: use one lancet to check BS 4 times daily (DME) blood-glucose meter [Accu-Chek Guide Glucose Meter] Misc Se
[2024-06-23 19:18] LABS: Glucose Point of Care 242 mg/dl (65-105)
[2024-06-23 20:28] LABS: Glucose Point of Care 209 mg/dl (65-105)
[2024-06-23] MEDS: ACETAMINOPHEN 325 MG TABLET 650 MG PO (21:53)
[2024-06-23] MEDS: DICLOFENAC SODIUM 1% 100 GM GEL (*BKC) 1 APPLIC TOPICAL (21:57)
[2024-06-24] VITALS (9 sets, daily range): BP systolic 110–165; BP diastolic 47–95; PULSE 66–76; RESP 14–20; TEMP 36.2–37.2; O2SAT 95–99
[2024-06-24] MEDS: HYDROcodone/acetaminophen (*CRX) 5-325 MG TABLET 1 TAB PO ×4 (00:20→21:04)
[2024-06-24 08:01] LABS: Glucose Point of Care 220 mg/dl (65-105)
[2024-06-24 08:32] LABS: Hemoglobin 7.3 g/dL (12.0-15.0)
[2024-06-24] MEDS: INSULIN HUMAN ISOPHAN/REGULAR 70/30 (*BKC) 100 UNITS/ML 15 UNITS SUB-Q ×2 (08:48→16:45)
[2024-06-24] MEDS: PANTOPRAZOLE 40 MG TABLET PO (08:49)
[2024-06-24] MEDS: ISOSORBIDE MONONITRATE 30 MG TAB.ER.24H PO (08:49)
[2024-06-24] MEDS: CHOLECALCIFEROL 400 UNITS TABLET (VIT D) PO (08:49)
[2024-06-24] MEDS: hydroCHLOROthiazide 12.5 MG CAPSULE PO (08:49)
[2024-06-24] MEDS: FUROSEMIDE 40 MG TABLET PO (08:49)
[2024-06-24] MEDS: LOSARTAN POTASSIUM 50 MG TABLET PO (08:50)
[2024-06-24] MEDS: THERAPEUTIC MULTIVITAMINS/MINERALS TAB (*BKC) 1 TABLET PO (08:50)
[2024-06-24] MEDS: METOPROLOL SUCCINATE EXT REL 100 MG TABCR PO (08:50)
--- NOTE | 2024-06-24 10:47 | PC.NURSE ---
Complaints of 9/10 right sided chest pain radiating to back. Color pink, skin warm and dry. HR 76, BP 160/67, O2 99% RA. States I'm not taking anymore of that medication - referring to Imdur. Explained that medication likely would not induce chest pain because it dilates the blood vessels. Dr. Deal made aware. No new orders. Dr. Guerrero at bedside. New orders noted. Please see MAR.
[2024-06-24] MEDS: hydrOXYzine pamoate 25 MG CAPSULE PO ×2 (11:23→21:50)
[2024-06-24] MEDS: LIDOCAINE 5% PATCH 1 PATCH TRANSDERM ×2 (11:23→12:28)
[2024-06-24 11:45] LABS: Glucose Point of Care 218 mg/dl (65-105)
--- NOTE | 2024-06-24 13:40 | PC.NURSE ---
Pt has 19 ct of hydroxyzine that was taken from bedside and placed in home medication drawer behind nurses station. Medication counted with pt and DEMAR Rodrigez.
--- NOTE | 2024-06-24 13:45 | PC.NURSE ---
Pt sitting on side of bed organizing items. Pleasant with commercial underwriter. Talking on the phone with son.
--- NOTE | 2024-06-24 15:06 | PC.NURSE ---
Pt sitting on side of bed continuing to organize sugar, incontinence pads, and various items in her purse. Discussed with com writer fond memories from past. Painting nails. Reports feeling anxious and repeatedly asks what the doctors names are, if she can coordinate an ambulance at discharge, and verbalizes things that are upsetting from the past. Reports Ativan in the past has helped with anxiety. Dr. Guerrero made aware. 1 x dose of 0.5mg of Ativan ordered.
--- NOTE | 2024-06-24 15:32 | PC.NURSE ---
Allergy alert for lorazepam discussed with Dr. Guerrero. Advised to confirm pt has received in past. Spoke with RN at Dr. Ecsoto's office ([phone]) who confirmed pt has had over 10 prescriptions for lorazepam 1 mg with the latest prescription being 09/02/23. Allergy ok to override.
[2024-06-24] MEDS: LORazepam (*CRX) 0.5 MG TABLET PO (15:39)
[2024-06-24 16:07] LABS: Glucose Point of Care 183 mg/dl (65-105)
--- NOTE | 2024-06-24 16:42 | PC.NURSE ---
Sitting up on bedside eating dinner. Pt reports pain is feeling better to chest and back. Reports lorazepam helped anxiety.
--- NOTE | 2024-06-24 16:54 | PM.IMPN ---
Progress Note: A&P Assessment and Plan (1) Chest pain: Qualifiers: Chest pain type: unspecified Qualified Code(s): R07.9 - Chest pain, unspecified Code(s): R07.9 - Chest pain, unspecified Status: Acute (2) Iron deficiency anemia: Qualifiers: Iron deficiency anemia type: unspecified iron deficiency Qualified Code(s): D50.9 - Iron deficiency anemia, unspecified Code(s): D50.9 - Iron deficiency anemia, unspecified Status: Acute (3) Hypokalemia: Code(s): E87.6 - Hypokalemia Status: Acute (4) Generalized weakness: Code(s): R53.1 - Weakness Status: Acute (5) Numbness and tingling in right hand: Code(s): R20.0 - Anesthesia of skin; R20.2 - Paresthesia of skin Status: Acute (6) Diastolic dysfunction: Code(s): I51.89 - Other ill-defined heart diseases Status: Acute (7) Hypertension: Code(s): I10 - Essential (primary) hypertension Status: Acute (8) Type 2 diabetes mellitus: Code(s): E11.9 - Type 2 diabetes mellitus without complications Status: Acute Plan The patient presented to the emergency department for evaluation of chest pain, shortness of breath, and weakness as detailed in HPI. Labs, imaging, EKG, and all reports were personally reviewed. Chest pain has been ongoing for 6 days or more and her troponins have thus far been negative. Given her risk factors, we will continue to trend troponins and consult Cardiology. Generalized weakness and shortness of breath is likely due to anemia as her hemoglobin is nearly half of what she was running last year at this time. Stool was negative for occult blood during previous stay however that will be repeated. It is possible that her chest pain is stemming from a GI source (possible gastritis, esophagitis, ulcer) thus will repeat stool for occult blood. Dr. Storey has been consulted for possible endoscopy. She refused blood transfusion with her previous stay and does not tolerate oral iron supplementation due to constipation. Repeat iron studies pending to see if she would benefit from another iron infusion during this admission. It may be beneficial to refer her to Hematology as an outpatient. Regarding the right hand numbness and tingling, this has happened in the past and she reports that it is improved with Voltaren gel. May very well be related to carpal tunnel or other neuropathy. Brain CT ordered to rule out CVA which seems unlikely. Check B12 levels as well and continue neurologic checks q 4 hours. She is euvolemic on exam. Blood pressures were reviewed and they are stable. Continue basal insulin. Initiate sliding scale insulin, Accu-Cheks, and hypoglycemic protocol. Potassium will be replaced and monitored. She is on furosemide and hydrochlorothiazide and will likely need to be on daily supplementation. Her medications will be reviewed and resumed as appropriate. Findings and treatment plan were discussed with the patient. Questions were solicited and answered to satisfaction. The patient's medical management will be taken over by the hospitalist team in a.m. patient presented with c/o CP was seen by the drapery cutter machine patient had serial tropnin and EKG which were negative suggesting patient did not have WI, patient was started isosorbide mononitrate to help with CP and to help with HTN. patient is also found to have anemia and stool Heme was positive seen by GI and recommended colonoscopy but patient refused it. patient also refused blood transfusion. patient is very anxious most likely cause of her CP. today plan was to discharge patient however patient continue c/o CP and patient is very, will apply lidoderm patches for right sided CP suspect costochondritis, and give hydoxyzine pamoate for anxiety, will monitor overnight possibly discharge tomorrow. Subjective Date/time seen: 06/24/24 16:54 Interval history: patient presented with c/o CP was seen by the drapery cutter machine osiris
[2024-06-24] MEDS: POLYSACCHARIDE IRON COMPLEX 150 MG CAPSULE PO (17:27)
[2024-06-24 20:11] LABS: Glucose Point of Care 282 mg/dl (65-105)
[2024-06-25 05:53] VITALS: BP 154/75; PULSE 74; RESP 16; TEMP 36.5; O2SAT 98
[2024-06-25] MEDS: HYDROcodone/acetaminophen (*CRX) 5-325 MG TABLET 1 TAB PO ×2 (06:16→12:06)
[2024-06-25 08:00] VITALS: PULSE 85; O2SAT 96
[2024-06-25 08:11] LABS: Hemoglobin 7.6 g/dL (12.0-15.0); Mean Corpuscular HGB Conc 27.1 g/dl (32-36); Mean Corpuscular Hemoglobin 19.8 pg (26-34); Mean Corpuscular Volume 73.1 fl (80-100); Mean Platelet Volume 9.3 fl (7.4-10.4); Platelet Count Result 276 k/mm3 (150-375); Red Blood Count 3.83 M/mm3 (4.2-5.4); Red Cell Distribution Width 19.7 % (11.5-14.5); White Blood Count 6.6 K/mm3 (4.5-10.0)
[2024-06-25 08:22] LABS: Anion Gap 7 mmol/L (4-12); Blood Urea Nitrogen 20 mg/dL (7-17); Calcium 9.2 mg/dL (8.4-10.2); Carbon Dioxide 33 mmol/L (22-30); Chloride 96 mmol/L (98-107); Estimated CRCL calculation 55 ml/min; Estimated Glomerular Filt Rate > 60; Glucose 174 mg/dL (65-110); Magnesium 1.8 mg/dL (1.6-2.3); Potassium 4.2 mmol/L (3.4-5.0); Sodium 136 mmol/L (137-145)
[2024-06-25 08:32] LABS: Glucose Point of Care 167 mg/dl (65-105)
[2024-06-25 09:26] VITALS: O2SAT 95
[2024-06-25] MEDS: LIDOCAINE 5% PATCH 1 PATCH TRANSDERM ×2 (09:50→09:51)
[2024-06-25] MEDS: INSULIN HUMAN ISOPHAN/REGULAR 70/30 (*BKC) 100 UNITS/ML 15 UNITS SUB-Q (09:55)
[2024-06-25] MEDS: FUROSEMIDE 40 MG TABLET PO (09:59)
[2024-06-25] MEDS: CHOLECALCIFEROL 400 UNITS TABLET (VIT D) PO (09:59)
[2024-06-25] MEDS: POLYSACCHARIDE IRON COMPLEX 150 MG CAPSULE PO (09:59)
[2024-06-25 10:01] VITALS: PULSE 85
[2024-06-25] MEDS: METOPROLOL SUCCINATE EXT REL 100 MG TABCR PO (10:01)
[2024-06-25] MEDS: hydroCHLOROthiazide 12.5 MG CAPSULE PO (10:02)
[2024-06-25] MEDS: PANTOPRAZOLE 40 MG TABLET PO (10:03)
[2024-06-25] MEDS: LOSARTAN POTASSIUM 50 MG TABLET PO (10:03)
[2024-06-25] MEDS: THERAPEUTIC MULTIVITAMINS/MINERALS TAB (*BKC) 1 TABLET PO (10:03)
[2024-06-25] MEDS: DICLOFENAC SODIUM 1% 100 GM GEL (*BKC) 1 APPLIC TOPICAL (10:04)
[2024-06-25] MEDS: MECLIZINE HCL 12.5 MG TABLET PO (10:22)
[2024-06-25 12:05] LABS: Glucose Point of Care 177 mg/dl (65-105)
[2024-06-25] MEDS: hydrOXYzine pamoate 25 MG CAPSULE PO (12:06)
--- NOTE | 2024-06-25 12:50 | PM.DS ---
DS: Admitting Diagnosis Discharge Date 06/25/24 Admitting Diagnosis Chest pain, shortness of breath, weakness. DS: Discharge Diagnosis Discharge Diagnosis (1) Chest pain: Qualifiers: Chest pain type: unspecified Qualified Code(s): R07.9 - Chest pain, unspecified Code(s): R07.9 - Chest pain, unspecified Status: Acute (2) Iron deficiency anemia: Qualifiers: Iron deficiency anemia type: unspecified iron deficiency Qualified Code(s): D50.9 - Iron deficiency anemia, unspecified Code(s): D50.9 - Iron deficiency anemia, unspecified Status: Acute (3) Hypokalemia: Code(s): E87.6 - Hypokalemia Status: Acute (4) Generalized weakness: Code(s): R53.1 - Weakness Status: Acute (5) Numbness and tingling in right hand: Code(s): R20.0 - Anesthesia of skin; R20.2 - Paresthesia of skin Status: Acute (6) Diastolic dysfunction: Code(s): I51.89 - Other ill-defined heart diseases Status: Acute (7) Hypertension: Code(s): I10 - Essential (primary) hypertension Status: Acute (8) Essential (primary) hypertension: Code(s): I10 - Essential (primary) hypertension Status: Chronic (9) Type 2 diabetes mellitus: Code(s): E11.9 - Type 2 diabetes mellitus without complications Status: Acute DS: Summary Hospital Course Hospital Course: patient presented with c/o CP was seen by the supply chain project manager patient had serial tropnin and EKG which were negative suggesting patient did not have ME, patient was started isosorbide mononitrate to help with CP and to help with HTN. patient is also found to have anemia and stool Heme was positive seen by GI and recommended colonoscopy but patient refused it. patient also refused blood transfusion. patient is very anxious most likely cause of her CP. today plan was to discharge patient however patient continue c/o CP and patient is very, will apply lidoderm patches for right sided CP suspect costochondritis, and give hydoxyzine pamoate for anxiety, today patient is clinically stable, and denies CP, will discharge today. Time Spent with Patient Time attestation: Total time spent providing and/or coordinating discharge services: DS: Data Data Completed and Pending Labs on day of discharge: Labs from last 24 hours 06/25/24 06/25/24 06/25/24 11:55 08:08 08:04 WBC 6.6 RBC 3.83 L Hgb 7.6 L Hct 28.0 L MCV 73.1 L MCH 19.8 L MCHC 27.1 L RDW 19.7 H Plt Count 276 MPV 9.3 Sodium Potassium Chloride Carbon Dioxide Anion Gap BUN Creatinine Estim Creat Clear Calc Estimated GFR Glucose POC Capillary Glucose 177 H 167 H Calcium Magnesium 06/25/24 06/24/24 06/24/24 08:03 20:03 15:58 WBC RBC Hgb Hct MCV MCH MCHC RDW Plt Count MPV Sodium 136 L Potassium 4.2 Chloride 96 L Carbon Dioxide 33 H Anion Gap 7 BUN 20 H Creatinine 0.70 Estim Creat Clear Calc 55 Estimated GFR > 60 Glucose 174 H POC Capillary Glucose 282 H 183 H Calcium 9.2 Magnesium 1.8 Discharge Plan Discharge Attending physician on discharge: Luis Meza Consulting providers: Scott Deal; Casey Portillo; Lalita Rowell; Julian Dash V.; Gloria Schmitz Paul Discharging Clinician: Citlali Guerrero Patient Disposition: Home, Self-Care Activity: as tolerated Diet: heart healthy Discharge Instructions: Chest Pain. Patient to follow up with Dr Deal in 1 week, patient to follow up Casey Jernigan MD as schedule, patient to follow up with her primary care provider as soon as possible, patient is instructed if any symptoms redevelop to go to nearest ER Patient Instructions: Antibiotic Form, Chest Pain (GEN), Costochondritis (GEN), Anxiety (GEN) Stand Alone Forms: General Discharge Informati
[2024-07-02 12:48] LABS: Methylmalonic Acid 76 nmol/L (85-423)
== END 2024-06-25 15:20 | disposition home or self-care (01) ==
LOC: ANHED 15:26 → ANHIMU 06-22 03:16 → ANH3MEDSUR 06-25 13:45 → ANHIMU 06-28 07:51
PROVIDERS: Emergency Medicine; Internal Medicine; Physician Assistant; Admitting Provider Internal Medicine; Emergency Provider Preventive Medicine Aerospace Medicine; PCP Family Medicine; Visit Provider Family Medicine
DX: R07.9 Chest pain, unspecified (principal); D50.9 Iron deficiency anemia, unspecified; R53.1 Weakness; E87.6 Hypokalemia; R20.0 Anesthesia of skin; R20.2 Paresthesia of skin; R06.02 Shortness of breath; R19.5 Other fecal abnormalities; K80.20 Calculus of gallbladder without cholecystitis without obstruction; R11.0 Nausea; R13.10 Dysphagia, unspecified; R42 Dizziness and giddiness; I11.9 Hypertensive heart disease without heart failure; E78.5 Hyperlipidemia, unspecified; E11.42 Type 2 diabetes mellitus with diabetic polyneuropathy; I25.2 Old myocardial infarction; J45.909 Unspecified asthma, uncomplicated; E55.9 Vitamin D deficiency, unspecified; M81.0 Age-related osteoporosis without current pathological fracture; F41.9 Anxiety disorder, unspecified; Z79.84 Long term (current) use of oral hypoglycemic drugs; Z79.4 Long term (current) use of insulin; Z86.73 Personal history of transient ischemic attack (TIA), and cerebral infarction without residual deficits
CPT/HCPCS: 36415; 70450; 71046; 80048; 80053; 82274; 82607; 82728; 82746; 82948; 83540; 83550; 83690; 83735; 83880; 83921; 84484; 85014; 85018; 85025; 85027; 85610; 85730; 93005; 93306; 96365; 99285; A9270; G0378; J1815; J3475

== ENCOUNTER 2024-09-08 16:41 | Emergency (ER) | payer MEDICARE, MEDICAID, SELFPAY ==
--- NOTE | ~2024-09-08 | XR_ITS ---
EXAMINATION: XR chest 2V DATE: 09/08/2024 19:45 INDICATION: Cough. TECHNIQUE: Frontal and lateral views of the chest were obtained. COMPARISON: Chest 2 views 06/21/2024, chest CT 11/11/2017 FINDINGS: There is no pneumonia, pleural effusion, or pneumothorax. The heart size is normal. There a re old healed rib fractures bilaterally. IMPRESSION: 1. No acute cardiopulmonary disease. Reviewed, dictated and finalized at location A. ER FIRST
--- NOTE | ~2024-09-08 | XR_ITS ---
EXAMINATION: XR hand LT min 3V DATE: 09/08/2024 19:48 INDICATION: Left hand injury. TECHNIQUE: 4 views of left hand were obtained. COMPARISON: Left hand radiographs 06/29/2013 FINDINGS: Alignment is normal. There are calcifications palmar to base of fifth distal phalanx. There is mild osteoarthritis of triscaphe joint, severe osteoarthritis of first carpometacarpal joint, and mild osteoarthritis of some of the interphalangeal joints. There is moderate osteoarthritis of secon d, fourth, and fifth distal interphalangeal joints. IMPRESSION: 1. Calcifications palmar to base of fifth distal phalanx, which may be an acute avulsion fracture or a chronic finding. 2. Polyarticular osteoarthritis. Reviewed, dictated and finalized at location A. ER INSTRUCTOR
[2024-09-08 16:46] VITALS: BP 144/70; PULSE 86; RESP 18; TEMP 36.6; O2SAT 98
--- NOTE | 2024-09-08 18:35 | PC.NURSE ---
PT REFUSING TO REMOVE HER CLOTHING AT THIS TIME. WANTS TO STAY IN HER COAT.
[2024-09-08 19:21] LABS: Influenza A QL RT-PCR Negative (Negative); Influenza B QL RT-PCR Negative (Negative); RSV RNA, RT-PCR Negative (Negative); SARS-CoV-2 RNA PCR Negative (Negative)
--- NOTE | 2024-09-08 20:25 | ED_ITS ---
HPI - URI/Sore Throat General Chief Complaint: Upper Respiratory Infection Stated Complaint: URI Time Seen by Provider: 09/08/24 18:40 Source: patient and family Mode of arrival: wheelchair Limitations: no limitations History of Present Illness HPI Narrative: 79-year-old with a history of hypertension, diabetes here with the complaints of cold, congestion, nonproductive cough for last 1 week. She states every time she coughs she has pain occasionally in the mid chest area he also complains of left hand pain after a fall patient MD elicited complaint: cough, rhinorrhea and nasal congestion Pertinent past history: asthma Onset (ago): week(s) (1) Consistency: constant Severity: mild Description of mucous: clear Exacerbating factors: nothing Relieving factors: nothing Associated symptoms: denies other symptoms Related Data Home Medications ?Medication ?Instructions ?Recorded ?Confirmed ?Last Taken ?Type losartan 50 mg-hydrochlorothiazide 1 tablet PO DAILY 01/10/21 09/02/24 06/21/24 History 12.5 mg tablet metoprolol succinate 100 mg 100 mg PO DAILY 01/10/21 09/02/24 06/21/24 History tablet,extended release 24 hr meclizine 12.5 mg tablet 12.5 mg PO TID PRN Dizziness 01/02/22 09/02/24 Unknown History uwtemxpm-mck-ioakn ac 400 1 tablet PO DAILY 04/15/22 09/02/24 06/20/24 History mcg-calcium carb 500 mg-vit K1 20 mcg tablet metformin 1,000 mg tablet 1,000 mg PO BIDWM 06/11/23 09/02/24 06/21/24 History acetaminophen 500 mg tablet 500 mg PO TID PRN Pain 05/02/24 09/02/24 06/21/24 H istory cholecalciferol (vitamin D3) 10 10 mcg PO DAILY 05/02/24 09/02/24 06/20/24 History mcg (400 unit) capsule (Vitamin D3) insulin NPH-regular 70-30 U-100 15 unit subcut BIDWM 05/02/24 09/02/24 06/21/24 06:00 History insulin 100 unit/mL subcutaneous pen (Novolin 70-30 FlexPen U-100 Insulin) pantoprazole 40 mg tablet,delayed 40 mg PO DAILY 05/02/24 09/02/24 06/20/24 History release hydroxyzine HCl 25 mg tablet 25 mg PO TID PRN Itching 06/21/24 09/02/24 Unknown History Allergies Allergy/AdvReac Type Severity Reaction Status Date / Time insulin aspart (From Fiasp Allergy Severe itching, Verified 09/08/24 18:44 U-100 Insulin) trouble breathing, chest pain niacinamide (From Fiasp Allergy Severe itching, Verified 09/08/24 18:44 U-100 Insulin) trouble breathing, chest pain Insulins Allergy Intermediate Swelling Verified 09/08/24 18:44 amoxicillin Allergy Mild Unknown Verified 09/08/24 18:44 iohexol (From contrast - CT, Allergy Mild Unknown Verified 09/08/24 18:44 X-RAY) Quinolones Allergy Mild Unknown Verified 09/08/24 18:44 Aminoglycosides Allergy Unknown Unknown Verified 09/08/24 18:44 chlordiazepoxide Allergy Unknown Unknown Verified 09/08/24 18:44 erythromycin base Allergy Unknown Unknown Verified 09/08/24 18:44 insulin detemir Allergy Unknown Unknown Verified 09/08/24 18:44 insulin glargine Allergy Unknown Unknown Verified 09/08/24 18:44 iodine Allergy Unknown Unknown Verified 09/08/24 18:44 latex Allergy Unknown Unknown Verified 09/08/24 18:44 levofloxacin Allergy Unknown Unknown Verified 09/08/24 18:44 Macrolide Antibiotics Allergy Unknown Unknown Verified 09/08/24 18:44 acyclovir Allergy Unknown Verified 09/08/24 18:44 sulfamethoxazole (From Allergy Swelling Verified 09/08/24 18:44 Bactrim) trimethoprim (From Bactrim) Allergy Swelling Verified 09/08/24 18:44 insulin glulisine (From AdvReac Hives Verified 09/08/24 18:44 Apidra U-100 Insulin) MYCINS Allergy Mild MAKES Uncoded 09/08/24 18:44 TONGUE SWELL, DIFF BREATHING Review of Systems Review of Systems: All systems reviewed & are unremarkable except as noted in HPI and below Constitutional: Constitutional: Reports no additional constitutional complaints Eyes: Eyes: Reports no additional eye complaints ENT: Reports system reviewed and no additional complaints, except as documented Cardiovascular: Cardiovascular: Reports no additional cardiovascular co mplaints Respiratory: Respiratory: Reports as per HPI Genitourinary: Genitourinary: Reports no additional female genitourinary complaints Musculoskeletal: Musculoskeletal: Reports no additional musculoskeletal complaints Neurologic: Reports system reviewed and no additional complaints, except as documented PMFSH Past Medical History Medical History Diastolic dysfunction Iron deficiency anemia Type 2 diabetes mellitus Peripheral neuropathy Hearing loss Cataracts, bilateral Vitamin D deficiency Uncontrolled type 2 diabetes mellitus with hyperglycemia Brain tumor Myelopathy Hyperlipidemia Stroke Seizures Osteoporosis Gallbladder disorder Arthritis Anxiety Asthma Allergies Essential (primary) hypertension History of [place] (myocardial infarction) Surgical History Surgical History History of repair of hiatal hernia Family History Family History Grandparent Family history of obesity Asthma Diabetes mellitus Mother Family history of osteoporosis Depression Family history of migraine headaches Asthma Family history of anemia Cerebrovascular accident Family history of arthritis Carcinoma of colon Family history of Alzheimer's disease Family history of atrial fibrillation Family history of heart disease in male family member before age 55 Acute myocardial infarction Father Family history of alcoholism Family history of arthritis Family history of lung cancer Family history of lung disease Family history of hearing loss Other Family history of allergic disorder Hypertension Social History Social History Social History: Surrogate medical decision maker: Brendan Masters, son. Code status: Full code. Smoking status: Never smoker Second hand tobacco smoke exposure: No Alcohol intake: never Substance use: never Substance use type: does not use Do You Feel Safe in your Home?: Yes Lack of Transportation: YES Lack of Food: Never True Current Housing: I Have Housing Concerned About Future Housing: No Difficulty Paying Gas/Electric Bills: No Difficulty Paying for Meds: No Currently Unemployed: No Education: High School Diploma/GED Difficulty w/ Childcare or Family Care: No Spiritual care concerns: No Exam Narrative: GENERAL: Well-appearing, well-nourished, and in no acute distress. HEAD: Normocephalic, atraumatic. EYES: PERRLA and EOMI. NECK: Supple. CHEST: Clear to auscultation. No respiratory distress. HEART: Regular rate and rhythm. No murmur heard. Normal peripheral pulses.. EXTREMITIES: Normal range of motion. No edema. SKIN: Warm, dry, no rash. NEURO: No focal deficits. Alert and oriented x3. PSYCH: Normal mood and affect. Course Course Emergency Course: notified patient and the family about her lab work, chest x-ray findings advised to continue home medication. Take Robitussin as needed for coughing Vital Signs Vital signs: Vital Signs Temperature 36.6 C 09/08/24 16:46 Pulse Rate 86 09/08/24 16:46 Respiratory Rate 18 09/08/24 16:46 Blood Pressure 144/70 H 09/08/24 16:46 Pulse Oximetry 98 09/08/24 16:46 Temperature 36.6 C 09/08/24 16:46 Pulse Rate 86 09/08/24 16:46 Respiratory Rate 18 09/08/24 16:46 Blood Pressure 144/70 H 09/08/24 16:46 Pulse Oximetry 98 09/08/24 16:46 MDM - URI/Sore Throat Lab Data Labs: Lab Results 09/08/24 Range/Units 18:40 Influenza A (RT-PCR) Negative (Negative) Influenza B (RT-PCR) Negative (Negative) RSV (RT-PCR) Negative (Negative) SARS-CoV-2 RNA (RT-PCR) Negative (Negative) Discharge Plan Discharge Clinical Impression: Acute viral syndrome Patient Disposition: Home, Self-Care Condition: Stable Instructions: Viral Syndrome (ED) Additional Instructions: continue home medication, do not require any antibiotic at this time. Patient Language: Nauruan Prescriptions: No Action meclizine 12.5 mg tablet 12.5 mg PO TID PRN (Reason: Dizziness) metoprolol succinate 100 mg tablet extended release 24 hr 100 mg PO DAILY losartan-hydrochlorothiazide 50-12.5 mg tablet 1 tablet PO DAILY iw-jfv-vttzr-calcium carb-K1 400 mcg-500 mg calcium-20 mcg tablet 1 tablet PO DAILY (DME) insulin syringe-needle U-100 [BD Insulin Syringe] 0.3 mL 29 gauge x 1/2 syringe See Rx Instructions .Route Qty: 100 4RF Rx Instructions: As directed metformin 1,000 mg tablet 1,000 mg PO BIDWM hydroxyzine HCl 25 mg tablet 25 mg PO TID PRN (Reason: Itching) diclofenac sodium [Voltaren Arthritis Pain] 1 % gel 2 g topical QID Qty: 100 0RF Rx Instructions: apply to single elbow, wrist or hand; for hand includes palm/fingers/back of hand polysaccharide iron complex 150 mg iron Capsule 150 mg PO BIDWM Qty: 60 0RF hydroxyzine pamoate 25 mg Capsule 25 mg PO Q4H PRN (Reason: Anxiety) Qty: 30 0RF lidocaine [Lidoderm] 5 % Adhesive Patch,Medicated 1 patch transdermal DAILY Qty: 15 0RF hydrocodone-acetaminophen 5-325 mg tablet 1 tablet PO Q6H PRN (Reason: pain) Qty: 16 0RF Rx Instructions: Patient takes with Acetaminophen 500mg (DME) blood-glucose meter [Contour Next Glucose Meter] Kit See Rx Instructions .Route Qty: 1 0RF Rx Instructions: As directed acetaminophen 500 mg Tablet 500 mg PO TID PRN (Reason: Pain) Rx Instructions: Take with [place] cholecalciferol (vitamin D3) [Vitamin D3] 10 mcg (400 unit) Capsule 10 mcg PO DAILY pantoprazole 40 mg tablet,delayed release (DR/EC) 40 mg PO DAILY Patient Comments: Patient takes 1 to as needed per day Novolin 70-30 FlexPen U-100 100 unit/mL (70-30) Insulin Pen 15 unit SUBCUT BIDWM furosemide 40 mg tablet 40 mg PO DAILY Qty: 30 1RF (DME) lancets [Microlet Lancet] Misc See Rx Instructions .Route Qty: 400 3RF Rx Instructions: use one lancet to check BS 4 times daily (DME) blood-glucose meter [Accu-Chek Guide Glucose Meter] Misc See Rx Instructions .Route Qty: 1 0RF Rx Instructions: Use to check blood sugar 5 times daily (DME) Accu-Chek Guide test strips Strip See Rx Instructions .Route Qty: 300 0RF Rx Instructions: Use to check blood sugar 5 times daily (DME) pen needle, diabetic [BD Ultra-Fine July Pen Needle] 32 gauge x 5/32 needle See Rx Instructions .Route Qty: 400 0RF Rx Instructions: use one pen needle to inject insulin 4 times daily Follow-up/Referrals: Jevon,MD Rm [Primary Care Provider] - Time of Disposition: 20:29
[2024-09-08 20:35] VITALS: BP 144/69; PULSE 72; RESP 20; TEMP 37.3; O2SAT 100
== END 2024-09-08 20:55 | disposition home or self-care (01) ==
PROVIDERS: Emergency Provider Family Medicine; PCP Family Medicine
DX: B34.9 Viral infection, unspecified (principal); S69.92XA Unspecified injury of left wrist, hand and finger(s), initial encounter; Z20.822 Contact with and (suspected) exposure to COVID-19; E11.42 Type 2 diabetes mellitus with diabetic polyneuropathy; E55.9 Vitamin D deficiency, unspecified; J45.909 Unspecified asthma, uncomplicated; I11.9 Hypertensive heart disease without heart failure; I25.2 Old myocardial infarction; G95.9 Disease of spinal cord, unspecified; D50.9 Iron deficiency anemia, unspecified; M81.0 Age-related osteoporosis without current pathological fracture; Z79.4 Long term (current) use of insulin; Z79.84 Long term (current) use of oral hypoglycemic drugs; Z79.899 Other long term (current) drug therapy; M19.032 Primary osteoarthritis, left wrist; M18.9 Osteoarthritis of first carpometacarpal joint, unspecified; M19.042 Primary osteoarthritis, left hand; R93.6 Abnormal findings on diagnostic imaging of limbs; W19.XXXA Unspecified fall, initial encounter
CPT/HCPCS: 71046; 73130; 87637; 99284

== ENCOUNTER 2024-09-25 18:02 | Emergency (ER) | payer MEDICARE, MEDICAID, SELFPAY ==
--- NOTE | ~2024-09-25 | CT_ITS ---
CT diagnostic chest wo [facility] Ordering provider: German Baird MD History: 79 years Female with . chest wall pain s/p injury . Comparison: None. Technique: CT chest without IV contrast. Radiation reduction technique utilized. The dose-length product was 167.22 mGy-cm. FINDINGS: VISUALIZED THORACIC INLET: Normal. Hypodensity in the left lobe of the thyroid most likely nodule. U ltrasound evaluation advised. MEDIASTINUM: Aorta/coronary arteries: Mild atheromatous disease. Heart/other: The heart is not enlarged. Lymph nodes: No mediastinal or hilar adenopathy. LUNGS: No pulmonary nodules or masses. No infiltrates or effusions. No pneumothorax. VISUALIZED UPPER ABDOMEN: Small sliding hiatus hernia. Otherwise, the visualized upper abdomen is nor mal. MUSCULOSKELETAL: Soft tissues: The superficial soft tissues are normal. Bones: Age appropriate degenerative changes of the spine. Healed or healing fractures in the left kristine th and 10th ribs. IMPRESSION: 1. No acute cardiopulmonary pathology. 2. . Healed fractures in the left lower thorax. Reviewed, dictated and finalized at location A. W MACHINE SET UP OPERATOR
--- NOTE | ~2024-09-25 | XR_ITS ---
XR chest 2V Ordering provider: Rich Gamez MD History: 79 years Female with . suspected broken ribs . Comparison: September 08, 2024 FINDINGS: MEDIASTINUM: The cardiac silhouette is moderately enlarged. LUNGS: No effusions or pneumothorax. Opacification the left costophrenic angle which may indicate ate lectasis versus pneumonia. OTHER: No free air under the diaphragm. Kyphosis with degenerative disc disease and degenerative castillo ges of the spine. Healing fracture ribs is seen in the right and left lower thorax. IMPRESSION: Left basilar atelectasis versus pneumonia. Bilateral healing rib fractures in the lower thoracic area. Reviewed, dictated and finalized at location A. LEMENT PROCESSOR
[2024-09-25 18:11] VITALS: BP 151/64; PULSE 79; RESP 16; TEMP 36.8; O2SAT 98
--- NOTE | 2024-09-25 20:32 | ED.GENADULT ---
HPI - General Adult General Chief complaint: Chest Pain Stated complaint: rib pain, injury x3d Time Seen by Provider: 09/25/24 19:42 History of Present Illness HPI narrative: Patient 79-year-old female who presents emergency department with chief complaint of chest wall pain. The patient reports that 3 days ago she was getting into a vehicle and the door slammed on to the right side of her chest. The patient states there is pain with range of motion reports there is pain with inspiratory effort the patient states that she has prior history of rib fractures and reports that she is concerned that she may have a rib fracture. Related Data Home Medications ?Medication ?Instructions ?Recorded ?Confirmed ?Last Taken ?Type losartan 50 mg-hydrochlorothiazide 1 tablet PO DAILY 01/10/21 09/02/24 06/21/24 History 12.5 mg tablet metoprolol succinate 100 mg 100 mg PO DAILY 01/10/21 09/02/24 06/21/24 History tablet,extended release 24 hr meclizine 12.5 mg tablet 12.5 mg PO TID PRN Dizziness 01/02/22 09/02/24 Unknown History yxrubfjo-zmo-tqaba ac 400 1 tablet PO DAILY 04/15/22 09/02/24 06/20/24 History mcg-calcium carb 500 mg-vit K1 20 mcg tablet metformin 1,000 mg tablet 1,000 mg PO BIDWM 06/11/23 09/02/24 06/21/24 History acetaminophen 500 mg tablet 500 mg PO TID PRN Pain 05/02/24 09/02/24 06/21/24 History cholecalciferol (vitamin D3) 10 10 mcg PO DAILY 05/02/24 09/02/24 06/20/24 History mcg (400 unit) capsule (Vitamin D3) insulin NPH-regular 70-30 U-100 15 unit subcut BIDWM 05/02/24 09/02/24 06/21/24 06:00 History insulin 100 unit/mL subcutaneous pen (Novolin 70-30 FlexPen U-100 Insulin) pantoprazole 40 mg tablet,delayed 40 mg PO DAILY 05/02/24 09/02/24 06/20/24 History release hydroxyzine HCl 25 mg tablet 25 mg PO TID PRN Itching 06/21/24 09/02/24 Unknown History Allergies Allergy/AdvReac Type Severity Reaction Status Date / Time insulin aspart (From asp Allergy Severe itching, Verified 09/25/24 18:08 U-100 Insulin) trouble breathing, chest pain niacinamide (From Fiasp Allergy Severe itching, Verified 09/25/24 18:08 U-100 Insulin) trouble breathing, chest pain Insulins Allergy Intermediate Swelling Verified 09/25/24 18:08 amoxicillin Allergy Mild Unknown Verified 09/25/24 18:08 iohexol (From contrast - CT, Allergy Mild Unknown Verified 09/25/24 18:08 X-RAY) Quinolones Allergy Mild Unknown Verified 09/25/24 18:08 Aminoglycosides Allergy Unknown Unknown Verified 09/25/24 18:08 chlordiazepoxide Allergy Unknown Unknown Verified 09/25/24 18:08 erythromycin base Allergy Unknown Unknown Verified 09/25/24 18:08 insulin detemir Allergy Unknown Unknown Verified 09/25/24 18:08 insulin glargine Allergy Unknown Unknown Verified 09/25/24 18:08 iodine Allergy Unknown Unknown Verified 09/25/24 18:08 latex Allergy Unknown Unknown Verified 09/25/24 18:08 levofloxacin Allergy Unknown Unknown Verified 09/25/24 18:08 Macrolide Antibiotics Allergy Unknown Unknown Verified 09/25/24 18:08 acyclovir Allergy Unknown Verified 09/25/24 18:08 sulfamethoxazole (From Allergy Swelling Verified 09/25/24 18:08 Bactrim) trimethoprim (From Bactrim) Allergy Swelling Verified 09/25/24 18:08 diphenhydramine (From AdvReac Mild Itching Verified 09/25/24 18:08 Benadryl Allergy) insulin glulisine (From AdvReac Hives Verified 09/25/24 18:08 Apidra U-100 Insulin) MYCINS Allergy Mild MAKES Uncoded 09/25/24 18:08 TONGUE SWELL, DIFF BREATHING Review of Systems Review of Systems: A 10 system review of systems was completed on the patient and is negative except for what is stated in the HPI. Nursing and ancillary documentation was reviewed. [facility] Past Medical History Medical History Diastolic dysfunction Iron deficiency anemia Type 2 diabetes mellitus Peripheral neuropathy Hearing loss Cataracts, bilateral Vitamin D deficiency Uncontrolled type 2 diabetes mellitus with hyperglycemia Brain tumor Myelopathy Hyperlipidemia Stroke Seizures Osteoporosis Gallbladder disorder Arthritis Anxiety Asthma Allergies Essential (primary) hypertension History of [place] (myocardial infarction) Surgical History Surgical History History of repair of hiatal hernia Family History Family History Grandparent Family history of obesity Asthma Diabetes mellitus Mother Family history of osteoporosis Depression Family history of migraine headaches Asthma Family history of anemia Cerebrovascular accident Family history of arthritis Carcinoma of colon Family history of Alzheimer's disease Family history of atrial fibrillation Family history of heart disease in male family member before age 55 Acute myocardial infarction Father Family history of alcoholism Family history of arthritis Family history of lung cancer Family history of lung disease Family history of hearing loss Other Family history of allergic disorder Hypertension Social History Social History Social History: Surrogate medical decision maker: Brendan Masters, josee. Code status: Full code. Smoking status: Never smoker Second hand tobacco smoke exposure: No Alcohol intake: never Substance use: never Substance use type: does not use Do You Feel Safe in your Home?: Yes Lack of Transportation: YES Lack of Food: Never True Current Housing: I Have Housing Concerned About Future Housing: No Difficulty Paying Gas/Electric Bills: No Difficulty Paying for Meds: No Currently Unemployed: No Education: High School Diploma/GED Difficulty w/ Childcare or Family Care: No Spiritual care concerns: No Exam Narrative: GENERAL: Well-appearing, well-nourished, and in no acute distress. HEAD: Normocephalic, atraumatic. EYES: PERRLA and EOMI. ENT: Nares clear, no rhinorrhea or epistaxis. Mucous membranes moist. NECK: Supple. CHEST: Clear to auscultation. No respiratory distress. Chest wall is tender to palpation on the right side HEART: Regular rate and rhythm. No murmur heard. Normal peripheral pulses. ABDOMEN: Soft, nontender, nondistended, normal active bowel sounds. EXTREMITIES: Normal range of motion. No edema. SKIN: Warm, dry, no rash. NEURO: No focal deficits. Alert and oriented x3. PSYCH: Normal mood and affect. Course Vital Signs Vital signs: Vital Signs Temperature 36.8 C 09/25/24 18:11 Pulse Rate 79 09/25/24 18:11 Respiratory Rate 16 09/25/24 18:11 Blood Pressure 151/64 H 09/25/24 18:11 Pulse Oximetry 98 09/25/24 18:11 Temperature 36.8 C 09/25/24 18:11 Pulse Rate 79 09/25/24 18:11 Respiratory Rate 16 09/25/24 18:11 Blood Pressure 151/64 H 09/25/24 18:11 Pulse Oximetry 98 09/25/24 18:11 Medical Decision Making MDM Narrative Medical decision making narrative: Differential diagnosis includes rib fractures, pulmonary contusion, pneumothorax, rib contusion Chest x-ray showed no pneumothorax and showed old rib fractures. CT chest showed no evidence of displaced rib fracture and no evidence of pulmonary contusion Vital Signs Vital Signs: Vital Signs Temperature 36.8 C 09/25/24 18:11 Pulse Rate 79 09/25/24 18:11 Respiratory Rate 16 09/25/24 18:11 Blood Pressure 151/64 H 09/25/24 18:11 Pulse Oximetry 98 09/25/24 18:11 Temperature 36.8 C 09/25/24 18:11 Pulse Rate 79 09/25/24 18:11 Respiratory Rate 16 09/25/24 18:11 Blood Pressure 151/64 H 09/25/24 18:11 Pulse Oximetry 98 09/25/24 18:11 Discharge Plan Discharge Clinical Impression: Chest wall contusion Patient Disposition: Home, Self-Care Condition: Stable Instructions: Antibiotic Form, Chest Wall Pain (ED), Chest Contusion (ED) Patient Language: Syrian Prescriptions: New lidocaine [Lidoderm] 5 % adhesive patch,medicated See Rx Instructions .ROUTE .COMPLEX PRN (Reason: pain) Qty: 15 0RF Rx Instructions: leave on most painful area for up to 12 hrs PRN; No Action meclizine 12.5 mg tablet 12.5 mg PO TID PRN (Reason: Dizziness) metoprolol succinate 100 mg tablet extended release 24 hr 100 mg PO DAILY losartan-hydrochlorothiazide 50-12.5 mg tablet 1 tablet PO DAILY sl-rnq-qwray-calcium carb-K1 400 mcg-500 mg calcium-20 mcg tablet 1 tablet PO DAILY (DME) insulin syringe-needle U-100 [BD Insulin Syringe] 0.3 mL 29 gauge x 1/2 syringe See Rx Instructions .Route Qty: 100 4RF Rx Instructions: As directed metformin 1,000 mg tablet 1,000 mg PO BIDWM hydroxyzine HCl 25 mg tablet 25 mg PO TID PRN (Reason: Itching) diclofenac sodium [Voltaren Arthritis Pain] 1 % gel 2 g topical QID Qty: 100 0RF Rx Instructions: apply to single elbow, wrist or hand; for hand includes palm/fingers/back of hand polysaccharide iron complex 150 mg iron Capsule 150 mg PO BIDWM Qty: 60 0RF hydroxyzine pamoate 25 mg Capsule 25 mg PO Q4H PRN (Reason: Anxiety) Qty: 30 0RF lidocaine [Lidoderm] 5 % Adhesive Patch,Medicated 1 patch transdermal DAILY Qty: 15 0RF hydrocodone-acetaminophen 5-325 mg tablet 1 tablet PO Q6H PRN (Reason: pain) Qty: 16 0RF Rx Instructions: Patient takes with Acetaminophen 500mg (DME) blood-glucose meter [Contour Next Glucose Meter] Kit See Rx Instructions .Route Qty: 1 0RF Rx Instructions: As directed acetaminophen 500 mg Tablet 500 mg PO TID PRN (Reason: Pain) Rx Instructions: Take with [place] cholecalciferol (vitamin D3) [Vitamin D3] 10 mcg (400 unit) Capsule 10 mcg PO DAILY pantoprazole 40 mg tablet,delayed release (DR/EC) 40 mg PO DAILY Patient Comments: Patient takes 1 to as needed per day Novolin 70-30 FlexPen U-100 100 unit/mL (70-30) Insulin Pen 15 unit SUBCUT BIDWM furosemide 40 mg tablet 40 mg PO DAILY Qty: 30 1RF benzonatate 100 mg capsule 100 mg PO TID PRN (Reason: cough) Qty: 30 0RF (DME) lancets [Microlet Lancet] Misc See Rx Instructions .Route Qty: 400 3RF Rx Instructions: use one lancet to check BS 4 times daily (DME) blood-glucose meter [Accu-Chek Guide Glucose Meter] Misc See Rx Instructions .Route Qty: 1 0RF Rx Instructions: Use to check blood sugar 5 times daily (DME) Accu-Chek Guide test strips Strip See Rx Instructions .Route Qty: 300 0RF Rx Instructions: Use to check blood sugar 5 times daily (DME) pen needle, diabetic [BD Ultra-Fine July Pen Needle] 32 gauge x 5/32 needle See Rx Instructions .Route Qty: 400 0RF Rx Instructions: use one pen needle to inject insulin 4 times daily Follow-up/Referrals: Jevon,MD Rm [Primary Care Provider] - Time of Disposition: 21:50
[2024-09-25] MEDS: LIDOCAINE 5% PATCH 1 PATCH TRANSDERM (20:41)
[2024-09-25] MEDS: HYDROcodone/acetaminophen (*CRX) 5-325 MG TABLET 1 TAB PO (20:41)
== END 2024-09-25 22:24 | disposition home or self-care (01) ==
PROVIDERS: Emergency Provider Emergency Medicine; PCP Family Medicine
DX: S20.211A Contusion of right front wall of thorax, initial encounter (principal); I11.9 Hypertensive heart disease without heart failure; I25.2 Old myocardial infarction; E11.42 Type 2 diabetes mellitus with diabetic polyneuropathy; E78.5 Hyperlipidemia, unspecified; E55.9 Vitamin D deficiency, unspecified; J45.909 Unspecified asthma, uncomplicated; D50.9 Iron deficiency anemia, unspecified; M19.90 Unspecified osteoarthritis, unspecified site; M81.0 Age-related osteoporosis without current pathological fracture; Z86.73 Personal history of transient ischemic attack (TIA), and cerebral infarction without residual deficits; Z79.84 Long term (current) use of oral hypoglycemic drugs; Z79.4 Long term (current) use of insulin; Z79.899 Other long term (current) drug therapy; W22.8XXA Striking against or struck by other objects, initial encounter
CPT/HCPCS: 71046; 71250; 99284; A9270

== ENCOUNTER 2024-12-31 14:59 | Outpatient (CLI) | payer MEDICARE, MEDICAID, SELFPAY ==
--- OUTSIDE RECORDS SUMMARY | 2024-12-31 15:07 | XMS_ITS | Encounter Summary ---
Author Organization [facility] Facility Care Team Providers Care Clearance Center Manager Name Role Phone Memo Nieves MD Primary Care Provider [phone] Rm Escoto MD Primary Care Provider [phone] Carrie Joe SURVEY RODMAN Unavailable [phone] Leslye Correia MD Unavailable Carrie Joe SURVEY RODMAN Unavailable [phone] Encounter Details Date Type Department Care Team (Latest Contact Info) Description 10/23/2018 Orders Only [facility] CLINCONV Provider, MD Kelly [address] [place] [address] Social History Tobacco Use Types Packs/Day Years Used Date Smoking Tobacco: Never Smokeless Tobacco: Never Comments Unknown Sex and Gender Information Value Date Recorded Sex Assigned at Not on file Legal Sex Female 8:45 PM PARTS DATA WRITER Gender Identity Not on file Sexual Orientation Not on file documented as of this encounter Plan of Treatment Not on file documented as of this encounter Procedures Procedure Name Priority Date/Time Associated Diagnosis Comments CARDIOLOGY REPORT 10/23/2018 12: 00 AM PARTS DATA WRITER documented in this encounter Results * CARDIOLOGY REPORT (10/23/2018 12:00 AM PARTS DATA WRITER) Anatomical Region Laterality Modality Other Narrative 10/23/2018 12:00 AM PARTS DATA WRITER Ordered by an unspecified provider. Historical Provider [facility] C[facility] JO CHAN Final Result documented in this encounter Visit Diagnoses Not on filedocumented in this encounter Additional Health Concerns Infection Onset Date Last Indicated Resolved Time COVID: Suspected 05/27/2023 05/27/2023 05/27/2023 1:37 PM CDT documented as of this encounter Care Teams Clearance Center Manager Relationship Specialty Start Date End Date Memo Nieves MD PCP - General 01/17/17 08/26/22 Rm Escoto MD PCP - General Family Medicine 08/27/22 Carrie Joe, SURVEY RODMAN [address] [place] [address] [address] [place], [place] [id number] Sample Case Porter 11/27/22 12/09/22 Leslye Correia MD [address] [facility], [address] [place] [address] Consulting Physician Pain Management 06/12/23 Carrie Joe, SURVEY RODMAN [address] [place] [address] [address] [place] [address] Sample Case Porter 11/06/23 04/07/24 documented as of this encounter
--- OUTSIDE RECORDS SUMMARY | 2024-12-31 15:07 | XMS_ITS | Encounter Summary ---
Author Organization [facility] Healthcare Address [address] [place] [address] Care Team Providers Care Zigzag Appliquer Name Role Phone Rm Escoto MD Primary Care Provider [phone] Leslye Correia MD Unavailable Carrie JoeW Unavailable [phone] Encounter Details Date Type Department Care Team (Late st Contact Info) Description 12/29/2023 Telephone [facility] Family Medicine at [address] [place] [address] Rm Escoto MD [address] [place] [address] [address] [place] [address] Social History Tobacco Use Types Packs/Day Years Used Date Smoking Tobacco: Never Smokeless Tobacco: Never Alcohol Use Standard Drinks/Week Comments Never 0 (1 standard drink = 0.6 oz pur e alcohol) [facility] Utilities Answer Date Recorded In the past 12 months has Science, gas, oil, or water company threatened to shut off services in your home? No 11/06/2023 Social Connection and Isolat ion Panel [NHANES] Answer Date Recorded In a typical week, how many times do you talk on the phone with family, friends, or neighbors? Twice a week 11/06/2023 How often do you get togethe r with friends or relatives? Once a week 11/06/2023 How often do you attend chur ch or rastafari services? More than 4 times per year 11/06/2023 Do you belong to any clubs o r organizations such as episcopalian groups, unions, fraternal or athletic groups, or school groups? No 11/06/2023 How often do you attend meet ings of the clubs or organizations you belong to? Never 11/06/2023 Are you , , di vorced, , never , or living with a partner? 11/06/2023 AUDIT-C Answer Date Recorded Q1: How often do you have a drink containing alcohol? Never 12/18/2023 Q2: How many drinks containi ng alcohol do you have on a typical day when you are drinking? Patient does not drink Q3: How often do you have si x or more drinks on one occasion? Never 12/18/2023 Overall Financial Resource Strain (CARDIA) Answe r Date Recorded How hard is it for you to pa y for the very basics like food, housing, medical care, and heating? Not hard at all 11/06/2023 PHQ-2 Answer Date Recorded PHQ-2 Total Score (If total score is 3 or more points, staff should administer the PHQ-9) 1 11/04/2023 Hunger Vital Sign Answer Date Recorded Within the past 12 months, y ou worried that your food would run out before you got the money to buy more. Never true 11/06/19 24 Within the past 12 months, t he food you bought just didn't last and you didn't have money to get more. Never true 11/06/2023 PRAPARE - Transportation Answer Date Re corded In the past 12 months, has l ack of transportation kept you from medical appointments or from getting medications? No 04/2024 In the past 12 months, has l ack of transportation kept you from meetings, work, or from getting things needed for daily living? No 11/06/2023 Housing Stability Vital Sign Answer Onesimo e Recorded In the last 12 months, was t here a time when you were not able to pay the mortgage or rent on time? No 11/06/2023 In the last 12 months, how many places have you lived? 1 11/06/2023 In the last 12 months, was t here a time when you did not have a steady place to sleep or slept in a chcf (including now)? No 11/06/2023 Personal Safety Answer Date Recorded Have you ever been in or are you currently in a harmful physical or emotional relationship or is someone making you feel afraid or unsafe? Denies 05/27/2023 Comments No Sex and Gender Information Value Date Recorded Sex Assigned at Not on file Legal Sex Female 8:45 PM STAMP CLERK Gender Identity Not on file Sexual Orientation Not on file documented as of this encounter Plan of Treatment Not on file documented as of this encounter Goals Goal Patient Goal Type Associated Problems Recent Progress Patient-Stated? Author ACO SW Goal - Patient can identify and utilize needed community resources ACO Care Management On track( 024 4:16 PM CDT) No Carrie Joe LCSW Note: Problem: Need for Community Resources Interventions: - Provide patient/family with a list of appropriate resources for their specific need. - Help to coordinate resources. - Follow up to ensure patient/family has connected with the appropriate resources / personnel. documented as of this encounter Visit Diagnoses Not on filedocumented in this encounter Care Teams Zigzag Appliquer Relationship Specialty Start Date End Date Rm Escoto MD PCP - General Family Medicine 08/27/22 Leslye Correia MD [address] [facility], [facility] [address] [place] [address] Consulting Physician Pain Management 06/12/23 Carrie Joe LCSW [address] [place] [address] [address] [place] [address] Ice Cream Freezer Helper 11/06/23 04/07/24 documented as of this encounter
--- OUTSIDE RECORDS SUMMARY | 2024-12-31 15:07 | XMS_ITS | Encounter Summary ---
Author Organization [facility] Facility Care Team Providers Care Inspector Receiving Name Role Phone Memo Nieves MD Primary Care Provider [phone] Rm Escoto MD Primary Care Provider [phone] Carrie Joe WHEEL BUFFER Unavailable [phone] Leslye Correia MD Unavailable Carrie Joe WHEEL BUFFER Unavailable [phone] Encounter Details Date Type Department Care Team (Latest Contact Info) Description 11/27/2017 Orders Only [facility] CLINCONV ProviderKelly MD [address] [place] [address] Social History Tobacco Use Types Packs/Day Years Used Date Smoking Tobacco: Never Comments Unknown Sex and Gender Information Value Date Recorded Sex Assigned at Not on file Legal Sex Female 8:45 PM INSTRUCTOR ADJUNCT PHARMACY TECHNICIAN Gender Identity Not on file Sexual Orientation Not on file documented as of this encounter Plan of Treatment Not on file documented as of this encounter Procedures Procedure Name Priority Date/Time Associated Diagnosis Comments PROCEDURE - RESULT 12/01/2017 12 :00 AM INSTRUCTOR ADJUNCT PHARMACY TECHNICIAN CARDIOLOGY REPORT 11/27/2017 12: 00 AM INSTRUCTOR ADJUNCT PHARMACY TECHNICIAN documented in this encounter Results * PROCEDURE - RESULT (12/01/2017 12:00 AM INSTRUCTOR ADJUNCT PHARMACY TECHNICIAN) Narrative 12/01/2017 12:00 AM INSTRUCTOR ADJUNCT PHARMACY TECHNICIAN Ordered by an unspecified provider. Historical Provider Final Res ult * CARDIOLOGY REPORT (11/27/2017 12:00 AM INSTRUCTOR ADJUNCT PHARMACY TECHNICIAN) Anatomical Region Laterality Modality Other Narrative 11/27/2017 12:00 AM INSTRUCTOR ADJUNCT PHARMACY TECHNICIAN Ordered by an unspecified provider. us Historical Provider CV CARDIAC SERVICES JO CHAN Final Result documented in this encounter Visit Diagnoses Not on filedocumented in this encounter Additional Health Concerns Infection Onset Date Last Indicated Resolved Time COVID: Suspected 05/27/2023 05/27/2023 05/27/2023 1:37 PM CDT documented as of this encounter Care Teams Inspector Receiving Relationship Specialty Start Date End Date Memo Nieves MD PCP - General 01/17/17 08/26/22 Rm Escoto MD PCP - General Family Medicine 08/27/22 Carrie Joe, [address] [place], [place] [id number] Trimmer Climber 11/27/22 12/09/22 Leslye Correia MD [address] [facility], [address] [place] [address] Consulting Physician Pain Management 06/12/23 Carrie Joe, [address] [place] [address] Trimmer Climber 11/06/23 04/07/24 documented as of this encounter
--- OUTSIDE RECORDS SUMMARY | 2024-12-31 15:07 | XMS_ITS | Encounter Summary ---
Author Organization [facility] Facility Care Team Providers Care Supervisor Dairy Sanitation Name Role Phone Memo Nieves MD Primary Care Provider [phone] Antoinette Carreno RN Unavailable [phone] Rm Escoto MD Primary Care Provider [phone] Carrie Joe COCONUT CANDY MAKER Unavailable Leslye Correia MD Unavailable Carrie Joe COCONUT CANDY MAKER Unavailable Encounter Details Date Type Department Care Team (Latest Contact Info) Description 11/26/2017 Orders Only [facility] CLINCONV Provider, MD Kelly [address] [place] [address] Social History Tobacco Use Types Packs/Day Years Used Date Smoking Tobacco: Never Comments Unknown Sex and Gender Information Value Date Recorded Sex Assigned at Not on file Legal Sex Female 8:45 PM DIE MAKER Gender Identity Not on file Sexual Orientation Not on file documented as of this encounter Plan of Treatment Not on file documented as of this encounter Procedures Procedure Name Priority Date/Time Associated Diagnosis Comments CARDIOLOGY REPORT 12/01/2017 12: 00 AM DIE MAKER PROCEDURE - RESULT 11/26/2017 12 :00 AM DIE MAKER documented in this encounter Results * CARDIOLOGY REPORT (12/01/2017 12:00 AM DIE MAKER) Anatomical Region Laterality Modality Other Narrative 12/01/2017 12:00 AM DIE MAKER Ordered by an unspecified provider. Historical Provider CV CARDIAC SERVICES JO CHAN Final Result * PROCEDURE - RESULT (11/26/2017 12:00 AM DIE MAKER) Narrative 11/26/2017 12:00 AM DIE MAKER Ordered by an unspecified provider. us Historical Provider Final Res ult documented in this encounter Visit Diagnoses Not on filedocumented in this encounter Additional Health Concerns Infection Onset Date Last Indicated Resolved Time COVID: Suspected 05/27/2023 05/27/2023 05/27/2023 1:37 PM CDT documented as of this encounter Care Teams Supervisor Dairy Sanitation Relationship Specialty Start Date End Date Memo Nieves MD PCP - General 01/17/17 08/26/22 Rm Escoto MD [address] [place] [address] [address] [place] [address] PCP - General Family Medicine 08/27/22 Antoinette Carreno, RN [address] [facility] [address] [place] [address] Merchandise Worker 11/17/17 11/26/17 Carrie Joe LCSW [address] [place] [address] [facility] [address] [place] [address] Naphthalene Operator 11/27/22 12/09/22 Leslye Correia MD [address] [facility], [facility] [address] [place] [address] Consulting Physician Pain Management 06/12/23 Carrie Joe LCSW [address] [place] [address] [facility] [address] [place] [address] Naphthalene Operator 11/06/23 04/07/24 documented as of this encounter
--- OUTSIDE RECORDS SUMMARY | 2024-12-31 15:07 | XMS_ITS | Encounter Summary ---
Author Organization [facility] Facility Care Team Providers Care Cellophane Tester Name Role Phone Memo Nieves MD Primary Care Provider [phone] Antoinette Carreno RN Unavailable [phone] Rm Escoto MD Primary Care Provider [phone] Carrie Joe METAL NEUTRALIZER Unavailable [phone] Leslye Correia MD Unavailable Carrie Joe METAL NEUTRALIZER Unavailable [phone] Encounter Details Date Type Department Care Team (Latest Contact Info) Description 06/05/2017 Orders Only [facility] CLINCONV Provider, MD Kelly [address] [place] [address] Social History Tobacco Use Types Packs/Day Years Used Date Smoking Tobacco: Never Comments Unknown Sex and Gender Information Value Date Recorded Sex Assigned at Not on file Legal Sex Female 8:45 PM MEDICAL FIELD REPRESENTATIVE Gender Identity Not on file Sexual Orientation Not on file documented as of this encounter Plan of Treatment Not on file documented as of this encounter Procedures Procedure Name Priority Date/Time Associated Diagnosis Comments PROCEDURE - RESULT 06/06/2017 12 :00 AM CDT documented in this encounter Results * PROCEDURE - RESULT (06/06/2017 12:00 AM CDT) Narrative 06/06/2017 12:00 AM CDT Ordered by an unspecified provider. Historical Provider Final Res ult documented in this encounter Visit Diagnoses Not on filedocumented in this encounter Additional Health Concerns Infection Onset Date Last Indicated Resolved Time COVID: Suspected 05/27/2023 05/27/202305/27/2023 1:37 PM CDT documented as of this encounter Care Teams Cellophane Tester Relationship Specialty Start Date End Date Memo Nieves MD PCP - General 01/17/17 08/26/22 Rm Escoto MD [address] [facility] [address] [place] [address] PCP - General Family Medicine 08/27/22 Antoinette Carreno RN [address] [facility] [address] [place] [address] Direct Response Consultant 11/17/17 11/26/17 Carrie Joe, METAL NEUTRALIZER [address] [facility] [address] [place] [address] Manager Van 11/27/22 12/09/22 Leslye Correia MD [address] [facility], [facility] [address] [place] [address] Consulting Physician Pain Management 06/12/23 Carrie Joe, METAL NEUTRALIZER [address] [facility] [address] [place] [address] Manager Van 11/06/23 04/07/24 documented as of this encounter
--- OUTSIDE RECORDS SUMMARY | 2024-12-31 15:07 | XMS_ITS | Encounter Summary ---
Author Organization [facility] Address [address] [place] [address] Care Team Providers Care Cushion Maker Hand Name Role Phone Memo Nieves MD Primary Care Provider [phone] Natanael Yarbrough MD Unavailable [phone] Edison Escoto MD Primary Care Provider [phone] Encounter Details Date Type Department Care Team (Late st Contact Info) Description 07/15/2019 Abstract [facility], [facility] [address] [place], [place] [id number] Jaquan Tirado MA Social History Tobacco Use Types Packs/Day Years Used Date Smoking Tobacco: Never Smokeless Tobacco: Never Alcohol Use Standard Drinks/Week Comments No 0 (1 standard drink = 0.6 oz pur e alcohol) AUDIT-C Answer Date Recorded Frequency of Alcohol Consumption Never 08/07/2018 Average Number of Drinks Not on file 018 Frequency of Binge Drinking Not on file 05/2018 Comments Unknown Sex and Gender Information Value Date Recorded Sex Assigned at Female 11/16/2024 3:42 PM SCHOOL TREASURER Legal Sex Female 5:38 PM CDT Gender Identity Not on file Sexual Orientation Not on file Occupation Industry Job Start Date Job End Date Not on file Not on file Not on file Not on file documented as of this encounter Plan of Treatment Not on file documented as of this encounter Procedures Procedure Name Priority Date/Time Associated Diagnosis Comments PRO-BRAIN NATRIURETIC PEPTIDE Routine 07/12/2019 PROTIME (OUTSIDE LAB) Routine 07/12/2019 CBC (OUTSIDE LAB) Routine 07/12/2019 COMPREHENSIVE METABOLIC PANEL Routine 07/12/2019 LIPID PANEL Routine 07/12/2019 THYROXINE, TOTAL Routine 07/12/2019 THYROXINE, FREE (FT4) Routine 07/12/2019 THYROID STIM HORMONE TSH Routine 07/12/2019 documented in this encounter Results * THYROXINE, FREE (FT4) (07/12/2019) FREE T4 0.89 07/12/2019 [facility] Final Result * CBC (OUTSIDE LAB) (07/12/2019) WBC 6.3 HGB 12.4 HCT 38.1 PLT 215 07/12/2019 us [facility]-OUTSIDE/ABSTRACTED Final Result * PROTIME (OUTSIDE LAB) (07/12/2019) PROTIME 13.2 INR 1.0 07/12/2019 us Doc [facility]-OUTSIDE/ABSTRACTED Final Result * PRO-BRAIN NATRIURETIC PEPTIDE (07/12/2019) PRO-BRAIN NATRIURETIC PEPTIDE 93 5 - 100 07/12/2019 us [facility] Final Result * LIPID PANEL (07/12/2019) CHOLESTEROL 248 HDL 49 TRIGLYCERIDES 137 LDL (CALCULATED) 169 07/12/2019 us [facility] Edited Resul t - Final * COMPREHENSIVE METABOLIC PANEL (07/12/2019) SODIUM S/P/B 137 POTASSIUM S/P/B 3.7 CO2 27 CHLORIDE S/P/B 97 GLUCOSE 163 mg/dL CALCIUM S/P/B 9.5 BUN 8 CREATININE S/P/B 0.50 0.5 - 1.0 EGFR NON-AFR. AMER. >60 <=90 ALKALINE PHOSPHATASE S/P/B 92 ALT 26 AST 36 BILIRUBIN TOTAL S/P/B 0.5 ALBUMIN S/P/B 4.5 3.5 - 5.0 TOTAL PROTEIN S/P/B 8.0 07/12/2019 us Doc [facility] Edited Resul t - Final * THYROID STIM HORMONE, TSH (07/12/2019) TSH 1.950 07/12/2019 us [facility] Final Result * THYROXINE, TOTAL (07/12/2019) TOTAL T4 11.10 5.53 - 11.0 07/12/2019 us Doc [facility] Final Result documented in this encounter Visit Diagnoses Not on filedocumented in this encounter Care Teams Cushion Maker Hand Relationship Specialty Start Date End Date Memo Nieves MD PCP - General FAMILY PRACTICE 07/14/18 04/25/23 Edison Escoto MD [address] [place] [address] PCP - General Neurology Psychiatry 04/26/23 Natanael Yarbrough MD [address] [place] [address] Mirna Industrial Technician CARDIOVASCULAR DISEASE 05/25/19 documented as of this encounter
--- OUTSIDE RECORDS SUMMARY | 2024-12-31 15:07 | XMS_ITS | Patient Health Record ---
Author Organization [facility] Address [address] [facility] [address] [place], [place] [id number] Reason For Referral No Information Plan Of Treatment No Information
--- OUTSIDE RECORDS SUMMARY | 2024-12-31 15:07 | XMS_ITS ---
Author Organization [facility] Address [address] [place], [place] [id number] Care Team Providers Care Timber Trimmer Name Role Phone ARI MYERS Unavailable [phone] REASON FOR VISIT Has medicaid Encounters Encounter Location Date Provider Diagnosis [facility] [address] [place], [place] [id number] 12/03/2023 ARI MYERS Plan Of Treatment No Information Progress Notes * HEENA GASTELUMDOB:[birth year] (79 yo F)Acc No.[id number]:12/03/2023 Progress Notes Patient: HEENA GARCIA Provider: Kathi Myers DPM :1945 A ge:78 Y S ex:Female Date:12/03/2023 Address:[address] [place], [place] [id number] Subjective: * Chief Complaints: * 1 . Has medicaid. * Medical History: Objective: * Vitals: Assessment: Plan: * Treatment: * Billing Information: * Visit Code: * Procedure Codes: * Electronic signature of JORGE DEAN DPM on 12/31/2024 at 02:00 PM CDT Sign off status: Pending * Provider: Kathi Myers DPM Date: 12/03/2023 Generated for Titus reece/Vance/Jennifer on: 12/31/2024 02:00 PM CDT
--- OUTSIDE RECORDS SUMMARY | 2024-12-31 15:07 | XMS_ITS | Encounter Summary ---
Author Organization [facility] Healthcare Address [address] [place] [address] Care Team Providers Care Lines Tender Name Role Phone Rm Escoto MD Primary Care Provider Leslye Correia MD Unavailable Encounter Details Date Type Department Care Team (Late st Contact Info) Description 07/15/2024 Telephone [facility] Medical Group Family Medicine at [address] [place] [address] Rm Escoto MD [address] [place] [address] [address] [place] [address] Social History Tobacco Use Types Packs/Day Years Used Date Smoking Tobacco: Never Smokeless Tobacco: Never Alcohol Use Standard Drinks/Week Comments Never 0 (1 standard drink = 0.6 oz pur e alcohol) [facility] Utilities Answer Date Recorded In the past 12 months has [employer] electric, gas, oil, or water company threatened to [...] often do you attend chur ch or anabaptist services? More than 4 times per year 11/06/2023 Do you belong to any clubs o r organizations such as mandaen groups, unions, fraternal or athletic groups, or school groups? No 11/06/2023 How often do you attend meet ings of the clubs or organizations you belong to? Never 11/06/2023 Are you , , di vorced, , never , or living with a partner? 11/06/2023 AUDIT-C Answer Date Recorded Q1: How often do you have a drink containing alcohol? Never 07/14/2024 Q2: How many drinks containi ng alcohol do you have on a typical day when you are drinking? Patient does not drink Q3: How often do you have si x or more drinks on one occasion? Never 07/14/2024 Overall Financial Resource Strain (CARDIA) Answe r [...] place to sleep or slept in a long term (including now)? No 11/06/2023 Personal Safety Answer Date Recorded Have you ever been in or are you currently in a harmful physical or emotional relationship or is someone making you feel afraid or unsafe? Denies 05/27/2023 Comments No Sex and Gender Information Value Date Recorded Sex Assigned at Not on file Legal Sex Female 8:45 PM DIRECTOR OF SALES Gender Identity Not on file Sexual Orientation Not on file documented as of this encounter Miscellaneous Notes * Telephone Encounter - HenryDecember - 07/15/2024 4:26 PM CDT documented in this encounter Plan of Treatment Not on file documented as of this encounter Goals Goal Patient Goal Type Associated Problems Recent Progress Patient-Stated? Author ACO SW Goal - Patient can identify and utilize needed community resources ACO Care Management On track( 024 4:16 PM CDT) Carrie Jackson, SURVEY COORDINATOR Note: Problem: Need for Community Resources Interventions: - Provide patient/family with a list of appropriate resources for their specific need. - Help to coordinate resources. - Follow up to ensure patient/family has connected with the appropriate resources / personnel. documented as of this encounter Visit Diagnoses Not on filedocumented in this encounter Care Teams Lines Tender Relationship Specialty Start Date End Date Rm Escoto MD PCP - General Family Medicine 08/27/22 Leslye Correia MD [address] [facility] [address] Consulting Physician Pain Management 06/12/23 documented as of this encounter
--- OUTSIDE RECORDS SUMMARY | 2024-12-31 15:08 | XMS_ITS | Encounter Summary ---
Author Organization [facility] Healthcare Address [address] [place] [id number] Care Team Providers Care Furniture Restorer Name Role Phone Rm Escoto MD Primary Care Provider [phone] Leslye Correia MD Unavailable Reason for Visit * Reason Onset Date Comments Additional Services Or Orders 11/30/2024 Encounter Details Date Type Department Care Team (Late st Contact Info) Description 11/30/2024 Telephone [facility] Family Medicine at [address] [place] [address] Rm Escoto MD [address] [place] [address] [address] [place] [address] Additional Services Or Orders Social History Tobacco Use Types Packs/Day Years Used Date Smoking Tobacco: Never Smokeless Tobacco: Never Alcohol Use Standard Drinks/Week Comments Never 0 (1 standard drink = 0.6 oz pur e alcohol) [place] Utilities Answer Date Recorded In the past 12 months has [employer], gas, oil, or water [employer] threatened to shut off services in your home? No 11/06/2023 Social Connection and Isolat ion Panel [NHANES] Answer Date Recorded In a typical week, how many times do you talk on the phone with family, friends, or neighbors? Twice a week 11/06/2023 How often do you get togethe r with friends or relatives? Once a week 11/06/2023 How often do you attend chur or scientology services? More than 4 times per year 11/06/2023 Do you belong to any clubs o r organizations such as adventism groups, unions, fraternal or athletic groups, or school groups? No 11/06/2023 How often do you attend meet ings of the clubs or organizations you belong to? Never 11/06/2023 Are you , , di vorced, , never , or living with a partner? 11/06/2023 AUDIT-C Answer Date Recorded Q1: How often do you have a drink containing alcohol? Never 12/08/2024 Q2: How many drinks containi ng alcohol do you have on a typical day when you are drinking? Patient does not drink Q3: How often do you have si x or more drinks on one occasion? Never 12/08/2024 Overall Financial Resource Strain (CARDIA) Answe r Date Recorded How hard is it for you to pa y for the very basics like food, housing, medical care, and heating? Not hard at all 11/06/2023 PHQ-2 Answer Date Recorded PHQ-2 Total Score (If total score is 3 or more points, staff should administer the PHQ-9) 0 12/08/2024 Hunger Vital Sign Answer Date Recorded Within [...] place to sleep or slept in a custodial (including now)? No 11/06/2023 Personal Safety Answer Date Recorded Have you ever been in or are you currently in a harmful physical or emotional relationship or is someone making you feel afraid or unsafe? Denies 05/27/2023 Comments No Sex and Gender Information Value Date Recorded Sex Assigned at Not on file Legal Sex Female 8:45 PM [employer] [facility] Gender Identity Not on file Sexual Orientation Not on file documented as of this encounter Functional Status * Audit-C Score Answer Date of Assessment Author 0 12/08/2024 3:45 PM Jyoti Carroll MA * Question Answer Date of Assessment Author Q1: How often do you have a drink containing alcohol? Never 12/08/2024 3:45 PM CDJyoti Nieto MA Q2: How many drinks containing alcohol do you have on a typical day when you are drinking? Patient does not drink 12/08/2024 3:45 PM Jyoti Carroll MA Q3: How often do you have six or more drinks on one occasion? Never 12/08/2024 3:45 PM Jyoti Carroll MA documented as of this encounter Miscellaneous Notes * Telephone Encounter - Deedee Carvalho - 11/30/2024 3:38 PM CST Appointment scheduled 12/08/2024 CONCIERGE * Telephone Encounter - Holly Sanchez MA - 11/30/2024 3:14 PM CST She will need an appointment for documentation of need, it can be a video Please call patient for an appointment CONCIERGE * Telephone Encounter - Vero Peters MA - 11/30/2024 2:57 PM CST Additional Services or Orders Type of Service Requested:Equipment Reason for Request (e.g. condition/symptom, date of COVID exposure if applicable): Patient says shehas a broken back and needs a back brace Details Regarding Additional Services (e.g. type of home health, type of equipment, type of test, etc.): Patient needs a back brace Where will services be performed? (if outside of the practice, facility name, address, phone/fax offacility): TBD Additional Comments: She says she has had two however they wear out in six months she says. She does not have one. Does message need to be routed? Yes-Action Needed [facility]ER[place] documented in this encounter Plan of Treatment Not on file documented as of this encounter Goals Goal Patient Goal Type Associated Problems Recent Progress Patient-Stated? Author ACO SW Goal - Patient can identify and utilize needed community resources ACO Care Management On track( 024 4:16 PM CDT) Carrie Jackson, HOME HEALTH CARE PROVIDER Note: Problem: Need for Community Resources Interventions: - Provide patient/family with a list of appropriate resources for their specific need. - Help to coordinate resources. - Follow up to ensure patient/family has connected with the appropriate resources / personnel. documented as of this encounter Visit Diagnoses Not on filedocumented in this encounter Care Teams Furniture Restorer Relationship Specialty Start Date End Date Rm Escoto MD PCP - General Family Medicine 08/27/22 Leslye Correia MD [address] [facility] [address] Consulting Physician Pain Management 06/12/23 documented as of this encounter
--- OUTSIDE RECORDS SUMMARY | 2024-12-31 15:08 | XMS_ITS | Encounter Summary ---
Author Organization [facility] Address [facility] [place] [address] Care Team Providers Care Sweeping Compound Blender Name Role Phone Lori Valentin MD Unavailable [phone] Edison Escoto MD Primary Care Provider [phone] Reason for Visit * Reason Comments Hypertension 2mo Encounter Details Date Type Department Care Team (Latest Contact Info) Description 12/31/2024 2:00 PM CDT Office Visit [facility] [phone] Lori Valentin MD [address] [facility] [address] [place] [phone] Hypertension (2mo) Social History Tobacco Use Types Packs/Day Years Used Date Smoking Tobacco: Never Smokeless Tobacco: Never Tobacco Cessation:Counseling Given: Not Answered Alcohol Use Standard Drinks/Week Comments No 0 (1 standard drink = 0.6 oz pur e alcohol) AUDIT-C Answer Date Recorded Frequency of Alcohol Consumption Never 08/07/2018 Average Number of Drinks Not on file 018 Frequency of Binge Drinking Not on file 05/2018 Comments No Sex and Gender Information Value Date Recorded Sex Assigned at Female 11/16/2024 3:42 PM PIGMENT PUSHER Legal Sex Female 5:38 PM CDT Gender Identity Not on file Sexual Orientation Not on file Occupation Industry Job Start Date Job End Date Not on file Not on file Not on file Not on file documented as of this encounter Last Filed Vital Signs Vital Sign Reading Time Taken Comments Blood Pressure 130/62 12/31/2024 2:01 PM CDT Pulse - - Temperature - - Respiratory Rate - - Oxygen Saturation - - Inhaled Oxygen Concentration - - Weight 78.5 kg (173 lb) 12/31/2024 2:01 PM CDT Height 163.8 cm (5' 4.5 ) 12/31/2024 2:01 PM CDT Body Mass Index 29.24 12/31/2024 2:01 PM CDT documented in this encounter Progress Notes * Lori Valentin MD - 12/31/2024 2:00 PM CDT Reason for Visit: No chief complaint on file. History of Present Illness: I am seeing this nice 79-year-old woman in follow- up. Is a last seen her she does have exertional shortness of breath. She gets occasional chest tightness. It may come with and without exertion. Precordial location. She was told years ago by Dr. Louise that she had a heartattack and congestive heart failure. She has had her stress test done. She is rather upset about her insulin pump. Her insulin dose was changed by the chucker and when she used a new insulin she had episodes of heart pounding shortness of breath and chest tightness. She felt quite weak. Eventually she stopped using it. She states that the chucker became quite upset with her about this. She stopped using the new insulin, she feels better. He was told by the chucker and senior java programmer that she really did not have an allergic reaction. Since last appointment she still complains of general fatigue she has about to do good hours duringthe day when she can do things and rest the day she is pretty much exhausted. She has no orthopnea PND but she does get breathless with mild activities. We talked about a statin last time but she said the pharmacy never got it so she never followed up on it. She is concerned that she may have bloodclots in her legs her leg hurts on the left side lower leg. Since last appointment she denies chest pain and has not had quite as much heart pounding. She is very tired all the time she does not sleep well. She does use CPAP. On further questioning her son lives with her for the last year. She does not trust anyone not leave the house alone with him that she is afraid he may steal from her. He smokes in the house which makes her very upset and makes her heart pound and sometimes gives her chest tightness. She had an episode of syncope a couple of years ago while she was sitting. Kimberly is here in follow-up today. She was hospitalized 1 to 2 weeks ago at [facility] according to her history. She was treated for CHF. She was also hospitalized in April 2024 for for CHF. She says she was given oral nitroglycerin and got very weak and dizzy working. It was stopped. She said sometime in the past 6 years ago she was treated with Jardiance which she developed either vaginal or bladder infection and taken off of it. I do not see this in the records. She does snore shedoes get sleepy during the day she was told in the past she has sleep apnea years ago. He denies chest pain. She did have an episode of syncope recently without serious injury. She had an echo done but I cannot find this report. She has noticed a little more swelling in her legs since she got home. She stated in past that since her her son lives with her and can be quite mean to her.Today she told me that our office nurse Lyssa was very mean and hateful to her on a phone conversation. The patient states just a couple days ago she had an episode of chest tightness that lasted for a few minutes without radiation to her neck arm or jaw. She does get short of breath easily. She is on a significant dose of furosemide 40 twice daily as well as hydrochlorothiazide and still gets short of breath with exertion. She says she does make quite a bit of urine with her diuretic. No syncope. General fatigue. We tried to set her up for a stress test but the weather was bad since discharge concluding goal. Today we talked about different types of testing in children with iodine dye and willnot agree to a coronary CTA. She is agreeable to the Lexiscan stress as well she says it makes her feel poorly. We did discuss the 1 / 2,000 risk of heart attack with this test. We also talked about a catheterization both agreed that this would not be the first test we would order. She did not feelwell today and thought she might be getting hypoglycemic. We checked a One Touch here in the officeand we gave her some cheese crackers to take. Recommendations and Plan: I ordered a perfusion stress test Lexiscan protocol and echocardiogram toassess her congestive heart failure and chest pain. She has nitroglycerin and knows how to use it. She is getting blood work today in [place] and I added to this a CBC and a BNP, I will see her in 3months. Subjective Medications: Current Outpatient Medications: acetaminophen 500 MG tablet, Take 1 tablet (500 mg total) by mouth as needed., Disp: 30 tablet, Rfl: 0 amLODIPine (NORVASC) 5 MG tablet, 1 tablet (5 mg total)., Disp: , Rfl: B-D UF III MINI PEN NEEDLES 31G X 5 MM [facility], , Disp: , Rfl: Brindall Melton-Chromium Carl 500-0.2 MG Tab, Take 1 tablet by mouth daily., Disp: , Rfl: citalopram (CELEXA) 10 MG tablet, Take 1 tablet (10 mg total) by mouth daily., Disp: , Rfl: citalopram 20 MG tablet, daily. Indications: prn , Disp: , Rfl: dicyclomine 20 MG tablet, Take 1 tablet (20 mg total) by mouth every 6 (six) hours., Disp: , Rfl: furosemide (LASIX) 40 MG tablet, Take 1 tablet (40 mg total) by mouth daily., Disp: , Rfl: Glucose Blood (CONTOUR NEXT TEST) test strip, Test blood sugar 5 times daily, Disp: , Rfl: Glucose Blood (ONE TOUCH ULTRA TEST STRIPS) test strip, OneTouch Ultra Blue In Vitro StripTEST BLOOD SUGAR UP TO 5 TIMES [id number] Hayek, MireilleActivePharmacy Instructions: E11.9 (Patient taking differently: 1 each by Other route 6 (six) times daily. OneTouch Ultra Blue In Vitro StripTEST BLOOD SUGAR UP TO 5 TIMES [id number] Hayek, MireilleActivePharmacy Instructions: E11.9), Disp: 150 each, Rfl: 11 HYDROcodone-acetaminophen (NORCO) 5-325 MG tablet, 1 tablet every 4 (four) hours as needed for Pain., Disp: , Rfl: hydrOXYzine (VISTARIL) 25 MG capsule, Take 1 capsule (25 mg total) by mouth as needed for Itching.,Disp: , Rfl: insulin NPH-insulin regular (NOVOLIN/HUMULIN 70/30) (70-30) 100 UNIT/ML injection, Inject 18 Units into the skin 2 (two) times daily before meals., Disp: , Rfl: Insulin Pen Needle (BD ULTRA-FINE PEN NEEDLES) 29G X 12.7MM Misc, 1 each by Does not apply route., Disp: , Rfl: ketoconazole 2 % cream, Apply 2 times a day around the valvular area daily., Disp: , Rfl: Lancets (ONETOUCH ULTRASOFT) lancets, , Disp: , Rfl: LORazepam 1 MG tablet, TAKE 1 TABLET BY MOUTH TWICE DAILY NEEDED, Disp: , Rfl: losartan-hydroCHLOROthiazide 50-12.5 MG tablet, Take 1 tablet by mouth daily., Disp: , Rfl: meclizine 12.5 MG tablet, TAKE 1 TABLET BY MOUTH THREE TIMES DAILY NEEDED, Disp: , Rfl: metoprolol succinate ER 100 MG 24 hr tablet, Take 1 tablet (100 mg total) by mouth daily., Disp: , Rfl: Multiple Vitamins-Minerals (ONE-A-DAY WOMENS 50+) Tab, Take 1 tablet by mouth daily., Disp: , Rfl: nitroglycerin (NITROSTAT) 0.4 MG SL tablet, , Disp: , Rfl: ondansetron (ZOFRAN-ODT) 4 MG disintegrating tablet, Take 1 tablet (4 mg total) by mouth every 8 (eight) hours as needed for Nausea., Disp: 20 tablet, Rfl: 0 pantoprazole 40 MG tablet, Take 1 tablet (40 mg total) by mouth daily., Disp: , Rfl: Current Facility-Administered Medications: EPINEPHrine (EPIPEN) injection 0.3 mg, 0.3 mg, Intramuscular, Once, Carolina Florence MD Allergies Allergen Reactions Erythromycin Swelling and Angioedema Insulin Detemir Angioedema and Swelling Insulin Glulisine Angioedema Levofloxacin Angioedema Iodine Rash Amoxicillin-Pot Clavulanate Unknown Benadryl [Diphenhydramine] Itching Cyclobenzaprine Unknown Insulin Unknown Tramadol Unknown Tresiba [Insulin Degludec] Other (see comment) Yeast infections Aminoglycosides Other (see comment) Reaction: Basaglar Kwikpen [Insulin Glargine] Palpitations baslagar Swelling Cat Dander Itching Insulin Degludec Palpitations Latex Rash Wu skin Pioglitazone Unknown and Cough Cough and excessive urination Povidone Iodine Hives and Rash Past Medical History: Diagnosis Date Abnormal EKG Acquired hypothyroidism Brain aneurysm (HHS/HCC) Cataract right Essential (primary) hypertension History of rheumatic fever Sleep apnea Does not use CPAP consistently Type 2 diabetes mellitus without complications (CMS/HCC HHS/HCC) insulin allergies Vitamin D deficiency Yeast infection Past Surgical History: Procedure Laterality Date BREAST LUMPECTOMY Right DILATION/CURETTAGE,DIAGNOSTIC Bilateral LAPAROTOMY OOPHERECTOMY Right REPAIR INCISIONAL HERNIA,REDUCIBLE Social History Tobacco Use Smoking status: Never Smokeless tobacco: Never Vaping Use Vaping status: Never Used Substance Use Topics Alcohol use: No Drug use: Yes Types: Hydrocodone Family History Problem Relation Name Age of Onset Diabetes Paternal Uncle Alzheimers Mother Heart Disease Mother Lung Cancer Father ID Father Family Status Relation Name Status PUncle (Not Specified) Mother at age 62 Father at age 62 No partnership data on file Review of Systems General fatigue does not sleep well wakes up tired and sleepy during the day Respiratory she has documented sleep apnea could not tolerate the mask Not coughing or wheezing but is short of breath with activity Vascular-d she has varicose veins of prominent veins and gets pain in her lower legs. Neurologic progressive imbalance and trouble with her gait she is holding onto the rodriguez. She was supposed to get an appointment with [facility] neurology but they have not called her back at this point There were no vitals filed for this visit. There is no height or weight on file to calculate BMI. Objective Physical Exam elderly no acute distress overweight Skin warm and dry Head normocephalic eyes no icterus Ears no creases neck no JVD or thyromegaly Lungs clear Heart exam is regular with no murmur gallop Abdomen soft nontender no organomegaly or aneurysm Negative Homans Extremities 1-2+ edema right lower extremity 1+ left lower extremity Minor varicosities neuro no focal abnormality mental status alert coherent cooperative Gait wide-based and abnormal. Unsure of her self with her foot Abnormal Romberg. When I stand her up even with her eyes open she is swaying. 07/14/24 1317Resulting AgencySodium 135 - 145 mmol/O368Cpqvuvltn, pl 3.3 - 4.9 mmol/L3.5CERNER MHChloride 97 - 110 mmol/J81JXXLMV MHCO2 22 - 32 mmol/B32QXHYZV MHAnion gap 2 - 15 mmol/S76EUIXSH MHBUN 6 - 25 mg/nC15AUJWRZ [facility] SEMINOLEreatinine 0.60 - 1.10 mg/dL0.74CERNER MHGlucose 70 - 199 mg/hP536DILAYS MHComment: Interpretive Data Fasting glucose >/= 126 mg/dl is diagnostic for diabetes. Fasting is defined as no caloric intake for at least 8 hours. Fasting glucose between 100 mg/dl to 125 mg/dl is diagnostic of prediabetes. In a patient with classic symptoms of hyperglycemia or hyperglycemic crisis, a random glucose >/= 200 mg/dl is diagnostic for diabetes. In the absence of unequivocal hyperglycemia, results should be confirmed by repeat testing. The classification and Diagnosis of Diabetes Diabetes Care 2021; 46: S19-S40. Current interpretive data was last revised 2022.Calcium 8.5 - 10.3 mg/dL9.9CERNER MHBilirubin, total 0.1 - 1.2 mg/dL0.2CERNER MHProtein, pl 6.5 - 8.5 g/dL8.1CERNER MHAlbumin 3.5 - 5.0 g/dL4.5CERNER MHAlk phos 40 - 130 Units/[id number] MHALT 7 - 45 Units/F76TNAUBX MHAST 10 - 45 Units/Z82IUKGDM MH Component CHOLESTEROL 248 HDL 49 TRIGLYCERIDE 137 LDL (CALCULATED) 169 PRO-BRAIN NATRIURETIC PEPTIDE 93 5 - 100 Final 04-26-23 CT ABD IMPRESSION: 1. L3 burst compression fracture as above, age indeterminate and potentially acute or subacute. 2. Cholelithiasis and mild gallbladder distention. If there is concern for cholecystitis, ultrasound could be performed. 3. Colonic diverticulosis without diverticulitis. 4. Other chronic or nonurgent findings as described above. 02/11/19 abd u/s cholelithiasis Exam: Abdomen ultrasound limited No comparison INDICATION: Distended abdomen, evaluate for ascites. TECHNIQUE: Grayscale imaging. FINDINGS: Visualized liver is hyperechoic which could be associated with fatty infiltration. 4 quadrant survey imaging of the abdomen shows no ascites. IMPRESSION: No ascites. HGB A1C 10.6 12/15/2018 BUN 14 creatinine 0.6 blood sugar 219 11/27/2017 Cholesterol 206 triglycerides 157 LDL [address] abdomen 12/11/2014 Colonic diverticulosis, no abdominal aneurysm Diagnostics 4-4-25 EKG SINUS Mukesh,lvh with stt abn 24 mct Normal monitor, no significant arrhythmia burden noted. No symptom rhythm correlation 11-07-22 kenny dioppler Normal study bilateral lower extremity, with no evidence of acute deep or superficial vein thrombosis. There is no significant reflux detected. 10/04/2022-sinus rhythm [address]-T abnormality. 05/05/2020 EKG sinus rhythm rate 63 LVH 1-14-20 mct- much of data poor. Short runs of nonsust SVT. EKG 06/17/2019 sinus rhythm old inferior ID LVH Pat.Name: KIMBERLY MASTERS Pat.ID: [id number] St.Date: 07/29/2019 Refer.: [id number], LORI VALENTIN Exam Time: 8:31:00 AM Study Type:ECHO WITH CARDIAC DOPPLER COMP Height: 65in Weight: 184.62lb BSA: 1.91 m2 Age: 9 1945,74Y Sex: FEMALE BP: 150/88 HR: 69 bpm Sonogrphr: Charu Reed [facility] SUMMARY: ++++++++++++++++++++++++++++++++++++ The left ventricular size is normal. Estimated left ventricular ejection fraction is 55-60%. Mild concentric left ventricular hypertrophy. Left ventricular diastolic function is abnormal (grade 1 - impaired relaxation). Wall motion appears normal in all segments. The right ventricular size is not fully assessable. Appears normal size . Right ventricular systolic function is mildly depressed. The left atrial volume is normal ( less than 34 ml/M2). Right atrial size is mildly enlarged. Normal aortic root. Inferior vena cava is normal. Technically difficult exam due to body habitus. No evidence of aortic valve stenosis. No evidence of aortic regurgitation. Aortic valve calcification with normal systolic leaflet excursion. Trace mitral regurgitation. Mild tricuspid regurgitation. Right ventricular systolic pressure is estimated below 30 mm hg. Sinus rhythm . Interpreted By: Hemant Castellaons MD, 06/25/2019 Right leg: Common Femoral waveform is triphasic, high amplitude; Popliteal triphasic, medium amplitude; Posterior Tibial triphasic, medium amplitude with RYANNE 1.26 ; DP/Anterior Tibial triphasic, high amplitude with RYANNE 1.16 . Digit flow by PPG is high amplitude with DBI 1.01 . Left leg: Common Femoral waveform is triphasic, high amplitude; Popliteal triphasic, high amplitude; Posterior Tibial triphasic, medium amplitude with RYANNE 1.21 ; DP/Anterior Tibial triphasic, high amplitude with RYANNE 1.17 . Digit flow by PPG is high amplitude with DBI 0.871 . Post toe lift exercise stress test, right RYANNE decreases 0.31; left RYANNE decreases 0.20. Patient maintained exercise for 40 toe raises, and experienced right foot pain. CONCLUSION: RYANNE right > 1.0 with triphasic waveforms, with toe index 1.01 . RYANNE left > 1.0 with triphasic waveforms, with toe index 0.871 . No significant peripheral arterial disease at rest. No evidence of tibial artery disease bilaterally. There is no evidence of small vessel disease or embolism in either foot. Exercise stress test right leg is positive with significant drop in RYANNE, suggestive of possible stenosis and claudication. 07-29-19 Myocardial Perfusion Imaging Pat.Name: KIMBERLY MASTERS Pat.ID: [id number] .Date: 07/29/2019 Refer.MD: Ezequiel Exam Time: 10:37:00 AM Study Type:AGNES KS HT MUSCLE IMAGE SPECT MULTI ++++++++++++++++++++++++++++++++++++ SUMMARY: ++++++++++++++++++++++++++++++++++++ Stress conclusion: 1. Clinically negative. 2. Electrocardiographically negative stress test for ischemia. 3. Scintigraphic images to follow. Perfusion conclusion: 1. Good study quality. No motion correction was applied to images. Breast,gut attenuation is noted. Prone imaging was performed. 2. Normal myocardial perfusion SPECT imaging. Images show a small area of irreversibility present in the basal inferolateral wall(s) c/w breast attenuation artifact .. 3. Normal wall motion with an ejection fraction of 77%. 4. Stress test with myocardial perfusion imaging shows overall low risk for a cardiac event. Diagnoses/Impression: 1. PAD (peripheral artery disease) 2. Type 2 diabetes mellitus with diabetic neuropathy, with long-term current use of insulin ([facility]) 3. Essential (primary) hypertension 4. Atherosclerosis of [place] coronary artery of [place] heart with stable angina pectoris Referring Provider: No ref. provider found PCP: Edison Escoto MD documented in this encounter Plan of Treatment Pending Results Name Type Priority Associated Diagnoses Date /Time ELECTROCARDIOGRAM EKG-NonRad Routine Essential (primary) hypertension 12/31/2024 2:24 PM CDT Scheduled Orders Name Type Priority Associated Diagnoses Orde r Schedule CBC W/DIFF AUTOMATED Lab Routine Essential (primary) hypertension Expected: 12/31/2024, Expires: 12/31/2025 PRO-BNP Lab Routine SOB (shortness of breath) Expected: 12/31/2024, Expires: 12/31/2025 documented as of this encounter Procedures Procedure Name Priority Date/Time Associated Diagnosis Comments ELECTROCARDIOGRAM (NON MIDMARK ACQUIRED) Routine 12/31/2024 2:24 PM CDT Essential (primary) hypertension Procedure Note - 12/31/2024 2:24 PM CDTThis [place] [address] Test Date: 2024-12-31 Pat Name: KIMBERLY MASTERS Department: [id number] Room: Gender: Female Private Duty Aide: : 1945 Requested By: LORI VALENTIN Order Number: [id number] Reading MD: LORI VALENTIN Measurements Intervals [place] Rate: 56 P: 12 CO: 199 QRS: -7 QRSD: 105 T: 75 QT: 467 QTc: 452 Interpretive Statements SINUS BRADYCARDIA LEFT VENTRICULAR HYPERTROPHY AND ST-T CHANGE documented in this encounter Visit Diagnoses Diagnosis SOB (shortness of breath)- Primary Shortness of breath PAD (peripheral artery disease) Peripheral vascular disease, unspecified Type 2 diabetes mellitus with diabetic neuropathy, with long-term current use of insulin ([facility]) Essential (primary) hypertension Unspecified essential hypertension Atherosclerosis of [place] coronary artery of [place] heart with stable angina pectoris Abnormal EKG Nonspecific abnormal electrocardiogram (ECG) (EKG) documented in this encounter Care Teams Sweeping Compound Blender Relationship Specialty Start Date End Date Edison Escoto MD [address] [address] PCP - General Neurology Psychiatry 04/26/23 Lori Valentin MD [address] [facility] [address] [place] [address] Violet Customer Accounts Advisor CARDIOVASCULAR DISEASE 05/25/19 documented as of this encounter
--- OUTSIDE RECORDS SUMMARY | 2024-12-31 15:08 | XMS_ITS | Encounter Summary ---
Author Organization [facility] Address [address] [place] [address] Care Team Providers Care Credit Risk Analyst Name Role Phone Natanael Yarbrough MD Unavailable Edison Escoto MD Primary Care Provider [phone] Encounter Details Date Type Department Care Team (Latest Contact Info) Description 12/31/2024 Travel Social History Tobacco Use Types Packs/Day Years [...] Sex Assigned at Female 11/16/2024 3:42 PM CIVIL DEFENSE DIRECTOR Legal Sex Female 5:38 PM CDT Gender Identity Not on file Sexual Orientation Not on file Occupation Industry Job Start Date Job End Date Not on file Not on file Not on file Not on file documented as of this encounter Plan of Treatment Not on file documented as of this encounter Visit Diagnoses Not on filedocumented in this encounter Care Teams Credit Risk Analyst Relationship Specialty Start Date End Date Edison Escoto MD [address] [place] [address] PCP - General Neurology Psychiatry 04/26/23 Natanael Yarbrough MD 3 [facility] [address] [place] [id number] Mirna Multiple Drill Operator CARDIOVASCULAR DISEASE 05/25/19 documented as of this encounter
--- OUTSIDE RECORDS SUMMARY | 2024-12-31 15:08 | XMS_ITS | Encounter Summary ---
Author Organization [facility] Facility Care Team Providers Care Net Making Supervisor Name Role Phone Chintan Henderson MD Primary Care Provider [phone] Memo Nieves MD Primary Care Provider [phone] Antoinette Carreno RN Unavailable [phone] Rm Escoto MD Primary Care Provider [phone] Carrie Joe CLERK ENTRY LEVEL Unavailable [phone] Leslye Correia MD Unavailable Carrie Joe CLERK ENTRY LEVEL Unavailable Encounter Details Date Type Department Care Team (Latest Contact Info) Description 02/05/2016 Orders Only [facility] CLINCONV Provider, MD Kelly [address] [place] [address] Social History Tobacco Use Types Packs/Day Years Used Date Smoking Tobacco: Never Comments Unknown Sex and Gender Information Value Date Recorded Sex Assigned at Not on file Legal Sex Female 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 us Historical Provider Final Res ult documented in this encounter Visit Diagnoses Not on filedocumented in this encounter Additional Health Concerns Infection Onset Date Last Indicated Resolved Time COVID: Suspected 05/27/2023 05/27/2023 05/27/2023 1:37 PM CDT documented as of this encounter Care Teams Net Making Supervisor Relationship Specialty Start Date End Date Chintan Henderson MD [address] [facility] [place] [address] PCP - General 11/26/10 01/16/17 Memo Nieves MD [address] [facility] [place] [address] PCP - General 01/17/17 08/26/22 Rm Escoto MD [address] [facility] [address] [place] [address] PCP - General Family Medicine 08/27/22 Antoinette Carreno, RN [address] [facility] [address] [place] [address] It Security Manager 11/17/17 11/26/17 Carrie Joe, [address] [place] [address] Woodwork Salvage Inspector 11/27/22 12/09/22 Leslye Correia MD [address] [facility], [facility] [address] [place] [address] Consulting Physician Pain Management 06/12/23 Carrie Joe, CLERK ENTRY LEVEL [address] [place] [address] [address] [place] [address] Woodwork Salvage Inspector 11/06/23 04/07/24 documented as of this encounter
--- OUTSIDE RECORDS SUMMARY | 2024-12-31 15:08 | XMS_ITS | Encounter Summary ---
Author Organization [facility] Facility Care Team Providers Care Mental Health Case Manager Name Role Phone Chintan Henderson MD Primary Care Provider [phone] Memo Nieves MD Primary Care Provider [phone] Antoinette Carreno RN Unavailable [phone] Rm Escoto MD Primary Care Provider [phone] Carrie Joe CRUSHER LOADER OPERATOR Unavailable [phone] Leslye Correia MD Unavailable Carrie Joe CRUSHER LOADER OPERATOR Unavailable Encounter Details Date Type Department Care Team (Latest Contact Info) Description 12/17/2016 Orders Only MMG CLINCONV Provider, MD Kelly [address] [place] [address] Social History Tobacco Use Types Packs/Day Years Used Date Smoking Tobacco: Never Comments Unknown Sex and Gender Information Value Date Recorded Sex Assigned at Not on file Legal Sex Female 8:45 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 us Historical Provider Final Res ult documented in this encounter Visit Diagnoses Not on filedocumented in this encounter Additional Health Concerns Infection Onset Date Last Indicated Resolved Time COVID: Suspected 05/27/2023 05/27/2023 05/27/2023 1:37 PM CDT documented as of this encounter Care Teams Mental Health Case Manager Relationship Specialty Start Date End Date Chintan Henderson MD [address] [facility] [place] [address] PCP - General 11/26/10 01/16/17 Memo Nieves MD [address] [facility] [place] [address] PCP - General 01/17/17 08/26/22 Rm Escoto MD [address] [facility] [address] [place] [address] PCP - General Family Medicine 08/27/22 Antoinette Carreno, RN [address] [facility] [address] [place] [address] Social Services Specialist 11/17/17 11/26/17 Carrie Joe, CRUSHER LOADER OPERATOR [address] [place] [address] [address] [place] [address] Lead Programmer Analyst 11/27/22 12/09/22 Leslye Correia MD [address] [facility], [facility] 230 [place] [address] Consulting Physician Pain Management 06/12/23 Carrie Joe, CRUSHER LOADER OPERATOR [address] [place] [address] [address] [place] [address] Lead Programmer Analyst 11/06/23 04/07/24 documented as of this encounter
--- OUTSIDE RECORDS SUMMARY | 2024-12-31 15:08 | XMS_ITS | Encounter Summary ---
Author Organization [facility] Facility Care Team Providers Care Weatherization Field Technician Name Role Phone Chintan Henderson MD Primary Care Provider [phone] Memo Nieves MD Primary Care Provider [phone] Antoinette Carreno RN Unavailable [phone] Rm Escoto MD Primary Care Provider Carrie Joe OFFICIAL COURT REPORTER Unavailable Leslye Correia MD Unavailable Carrie Joe OFFICIAL COURT REPORTER Unavailable [phone] Encounter Details Date Type Department Care Team (Latest Contact Info) Description 09/18/2016 Orders Only MMG CLINCONV Provider, MD Kelly [address] [place] [address] Social History Tobacco Use Types Packs/Day Years Used Date Smoking Tobacco: Never Comments Unknown Sex and Gender Information Value Date Recorded Sex Assigned at Not on file Legal Sex Female 8:45 PM VISUAL DESIGN LEAD Gender Identity Not on file Sexual Orientation Not on file documented as of this encounter Plan of Treatment Not on file documented as of this encounter Procedures Procedure Name Priority Date/Time Associated Diagnosis Comments SCAN - LABS 09/18/2016 12:00 AM VISUAL DESIGN LEAD documented in this encounter Results * SCAN - LABS (09/18/2016 12:00 AM VISUAL DESIGN LEAD) Narrative 09/18/2016 12:00 AM VISUAL DESIGN LEAD Ordered by an unspecified provider. us Historical Provider Final Res ult documented in this encounter Visit Diagnoses Not on filedocumented in this encounter Additional Health Concerns Infection Onset Date Last Indicated Resolved Time COVID: Suspected 05/27/2023 05/27/2023 05/27/2023 1:37 PM CDT documented as of this encounter Care Teams Weatherization Field Technician Relationship Specialty Start Date End Date Chintan Henderson MD 10 [facility] [place] [address] PCP - General 11/26/10 01/16/17 Memo Nieves MD 10 [facility] [place] [address] PCP - General 01/17/17 08/26/22 Rm Escoto MD [address] [place] [address] [address] [place] [address] PCP - General Family Medicine 08/27/22 Antoinette Carreno, RN [address] [facility] [address] [place] [address] Hand Ii Cutter 11/17/17 11/26/[address] REPORTER [address] [place] [address] 300 [place] [address] Mis Director 11/27/22 12/09/22 Leslye Correia MD [address] [facility], [facility] 230 [place] [address] Consulting Physician Pain Management 06/12/[address] REPORTER [address] [place] [address] [address] [place] [address] Mis Director 11/06/23 04/07/24 documented as of this encounter
--- OUTSIDE RECORDS SUMMARY | 2024-12-31 15:08 | XMS_ITS | Clinical Summary ---
Author Organization [facility] Address [address] [place] [address] Care Team Providers Care Instructor Apparel Manufacture Name Role Phone Lori Valentin MD Unavailable [phone] Edison Escoto MD Primary Care Provider [phone] Allergies Active Allergy Reactions Criticality Noted Date Comments Aminoglycosides Other (see comment) Low 01/26/2019 Reaction: Amoxicillin-Pot Clavulanate Unknown 01/26/2019 Insulin Glargine Palpitations Low 12/01/2019 baslagar Swelling Cat Dander Itching Low 03/21/2023 Cyclobenzaprine Unknown 05/12/2018 Diphenhydramine Itching Low 07/21/2024 Erythromycin Swelling,Angioedema High 07/31/2017 Insulin Unknown 05/12/2018 Insulin Degludec Palpitations Low 07/31/2017 Insulin Detemir Angioedema,Swelling High 07/31/2017 Insulin Glulisine Angioedema High 07/31/2017 Iodine Rash Medium Latex Rash Low 07/31/2017 Wu skin Levofloxacin Angioedema High 07/31/2017 Pioglitazone Unknown,Cough Low 07/31/2017 Cough and excessive urination Povidone Iodine Hives,Rash Low 07/31/2017 Tramadol Unknown 05/12/2018 Insulin Degludec Other (see comment) 04/15/2019 Yeast infections Medications B-D UF III MINI PEN NEEDLES 31G X 5 MM Misc 2017 Active Insulin Pen Needle (BD ULTRA-FINE PEN NEEDLES) 29G X 12.7MM Misc 1 each by Does not apply route. 2017 Active Lancets (ONETOUCH ULTRASOFT) lancets 2017 Active pantoprazole 40 MG tablet Take 1 tablet (40 mg total) by mouth daily. Ac tive Glucose Blood (ONE TOUCH ULTRA TEST STRIPS) test stripIndication s:Type 2 diabetes mellitus with hyperglycemia, without long-term current use of insulin ([facility]) OneTouch Ultra Blue In Vitro StripTEST BLOOD SUGAR UP TO 5 TIMES [id number] Hayek, MireilleActivePharmacy Instructions: E11.9 150 each 11 2018 Active Additional Information Patient taking differently: 1 each Other 6 times daily, OneTouch Ultra Blue In Vitro StripTEST BLOOD SUGAR UP TO 5 TIMES [id number] Hayek, MireilleActivePharmacy Instructions: E11.9, Reported on 12/31/2024 ketoconazole 2 % cream Apply 2 times a day around the valvular area daily. 2018 Active metoprolol succinate ER 100 MG 24 hr tablet Take 1 tablet (100 mg total) by mouth daily. 2018 Active dicyclomine 20 MG tablet Take 1 tablet (20 mg total) by mouth every 6 (six) hours. 2018 Active acetaminophen 500 MG tablet Take 1 tablet (500 mg total) by mouth as needed. 30 tablet 2018 Active Brindall Melton-Chromium Carl 500-0.2 MG Tab Take 1 tablet by mouth daily. 2018 Active Glucose Blood (CONTOUR NEXT TEST) test strip Test blood sugar 5 times daily 2019 Active losartan-hydroC HLOROthiazide 50-12.5 MG tablet Take 1 tablet by mouth daily. 2019 Active LORazepam 1 MG tablet TAKE 1 TABLET BY MOUTH TWICE DAILY NEEDED 2019 Active meclizine 12.5 MG tablet TAKE 1 TABLET BY MOUTH THREE TIMES DAILY NEEDED 2019 Active citalopram 20 MG tabletIndicatio ns:prn daily. Indications: prn 2019 Active Multiple Vitamins-Minera ls (ONE-A-DAY WOMENS 50+) Tab Take 1 tablet by mouth daily. Active ondansetron (ZOFRAN-ODT) 4 MG disintegrating tablet Take 1 tablet (4 mg total) by mouth every 8 (eight) hours as needed for Nausea. 20 tablet 2022 Active furosemide (LASIX) 40 MG tablet Take 1 tablet (40 mg total) by mouth daily. 2023 Active nitroglycerin (NITROSTAT) 0.[address] 1 tablet (0.4 mg total) under the tongue every 5 (five) minutes as needed. 2023 Active citalopram (CELEXA) 10 MG tablet Take 1 tablet (10 mg total) by mouth daily. 2023 Active amLODIPine (NORVASC) 5 MG tablet 1 tablet (5 mg total). 07/17 Active HYDROcodone-danny taminophen (NORCO) 7.5-325 MG tablet Take 1 tablet by mouth every 8 (eight) hours as needed. 01/27 Active HUMULIN 70/30 KWIKPEN (70-30) 100 UNIT/ML injection (pen) Inject 20 Units into the skin 2 (two) times daily. 12/08 Active hydrOXYzine (ATARAX) 25 MG tablet Take 1 tablet (25 mg total) by mouth. 01/23 Active hydrOXYzine (VISTARIL) 25 MG capsule Take 1 capsule (25 mg total) by mouth as needed for Itching. 12/31 Discontinued HYDROcodone-danny taminophen (NORCO) 5-325 MG tablet 1 tablet every 4 (four) hours as needed for Pain. 12/31 Discontinued insulin NPH-insulin regular (NOVOLIN/HUMULI N 70/30) (70-30) 100 UNIT/ML injection Inject 18 Units into the skin 2 (two) times daily before meals. 12/31 Discontinued Hospital, Clinic, or Other Facility Administered Medication Ordered Dose Route Frequency Start Date End Date Status EPINEPHrine (EPIPEN) injection 0.3 mgIndications:Type 2 diabetes mellitus without complication, without long-term current use of insulin ([facility]) 0.3 mg IM Once 05/24/2019 Active Active Problems Problem Noted Date Diagnosed Date Microcytic anemia 09/01/2024 Syncope 07/02/2024 Imbalance 11/30/2021 PAD (peripheral artery disease) 07/13/2019 Brain aneurysm ([facility]) 07/13/2019 CASTELLANOS (dyspnea on exertion) 06/17/2019 Abnormal EKG 06/17/2019 Acquired hypothyroidism 02/04/2019 Type 2 diabetes mellitus wit h diabetic neuropathy, with long-term current use of insulin ([facility]) 12/03/2018 Allergy status to other drug s, medicaments and biological substances status 12/03/2018 Hearing problem of both ears 12/03/2018 Vitamin D deficiency 12/03/2018 Umbilical hernia without obstruction and without gangrene 06/17/2018 Laryngopharyngeal reflux 05/20/2018 Arthritis 05/12/2018 Sleep apnea 05/12/2018 Cataract, left 05/12/2018 Concussion 05/12/2018 Diverticulosis 05/12/2018 Fracture of lower extremity 05/12/2018 Gall bladder disease 05/12/2018 Hyperglycemia 05/12/2018 Leiomyoma of uterus 05/12/2018 Ribs, multiple fractures 05/12/2018 Seizures ([facility]) 05/12/2018 Stroke ([facility]) 05/12/2018 Stomach ulcer 05/12/2018 Lumbar facet arthropathy 04/21/2018 Greater trochanteric bursitis of right hip 04/08 GERD without esophagitis 09/17/2017 Lumbago with sciatica, left side 08/18/2017 Angioneurotic edema 07/31/2017 Diabetic polyneuropathy ([facility]) 2016 Diverticulitis of large inte jagdish without perforation or abscess with bleeding 12/18/2016 Anxiety 10/23/2016 Varicose veins of both lower extremities with pa in 07/02/2016 Urinary incontinence 03/20/2016 Essential (primary) hypertension 12/26/2015 Overview (08/13/2019): Last Assessment & Plan: Blood pressure 165/80. Continue same medications at this time. Continue to monitor. Atherosclerosis of coronary artery 10/23/2012 Overview (04/02/2019): Overview: CAD (coronary artery disease) Mixed hyperlipidemia 10/23/2012 Overview (08/13/2019): Overview: Hyperlipidemia Overview: Hyperlipidemia Resolved Problems Problem Noted Date Diagnosed Date Resolved Date Encounter for preventive health examination 04/20/2018 06/09/2020 Encounters Date Type Department Care Team Description 12/31/2024 2:00 PM CDT Office Visit [facility] [address] Lori Valentin MD Hypertension (2mo) 12/31/2024 Travel from Last 3 Months Family History Medical History Relation Comments Lung Cancer Father ID Father Alzheimers Mother Heart Disease Mother Diabetes Paternal Uncle Relation Status Comments Father (Age 62) Mother (Age 62) Paternal Uncle Social History Tobacco Use Types Packs/Day Years [...] Sex Assigned at Female 11/16/2024 3:42 PM CASINO GAMES DEALER Legal Sex Female 5:38 PM CDT Gender Identity Not on file Sexual Orientation Not on file Occupation Industry Job Start Date Job End Date Not on file Not on file Not on file Not on file Last Filed Vital Signs Vital Sign Reading Time Taken Comments Blood Pressure 130/62 12/31/2024 2:01 PM CDT Pulse 80 08/23/2024 11:39 AM CASINO GAMES DEALER Temperature 36.2 C (97.2 F) 08/23/2024 10:30 AM CASINO GAMES DEALER Respiratory Rate 18 08/23/2024 10:30 AM CASINO GAMES DEALER Oxygen Saturation 98% 08/23/2024 11:39 AM CASINO GAMES DEALER Inhaled Oxygen Concentration - - Weight 78.5 kg (173 lb) 12/31/2024 2:01 PM CDT Height 163.8 cm (5' 4.5 ) 12/31/2024 2:01 PM CDT Body Mass Index 29.24 12/31/2024 2:01 PM CDT Plan of Treatment Health Maintenance Due Date Last Done Comments ASCVD Statin 1945 Kidney Health Evaluation 1945 Pneumococcal Vaccine: 65+ Years (1 of 2 - PCV) 1950 Diabetes: Retinopathy Eye Exam 1962 DTaP, Tdap and Td Vaccines (1 - Tdap) 1963 Zoster Vaccines (1 of 2) 1994 Annual Medicare Wellness Visit 2009 Dexa Scan (General) 2009 RSV Immunization or 60+ Years (1 - 1-dose 75+ series) 2019 ASCVD LDL 07/12/2020 07/12/2019 Lipid Panel 07/12/2020 07/12/2019 Hemoglobin A1C 11/16/2023 05/16/2023, 10/05/2020, 10/11/2019, Additional history exists COVID-19 Vaccine ( season) 2024 Meningococcal B Vaccine Aged Out No l onger eligible based on patient's age to complete this topic Meningococcal Vaccine Aged Out No magaly rodolfo eligible based on patient's age to complete this topic RSV Immunizations Under 20 Months Aged Out No longer eligible based on patient's age to complete this topic Medical Devices Implanted Type Area Cryolite Recovery Operator Device Identifier Shelf Expiration Date Model / Serial / Lot Iol Tecnis Simplicity Dcb00 - [id number] Implanted:Qty: 1 on 08/23/2024 by Bhavin Jerez MD at [facility] Lens Left: Eye [employer] 08/01/2026 DCB00 / [id number] / Tecnis 1-Piece Iol With Tecnis Simplicity Delivery System Implanted:Qty: 1 on 07/26/2024 by Bhavin Jerez MD at [facility] Right: Eye [employer] 02/10/2027 DCB00 / / Procedures Procedure Name Priority Date/Time Associated Diagnosis Comments ELECTROCARDIOGRAM (NON MIDMARK ACQUIRED) Routine 12/31/2024 2:24 PM CDT Essential (primary) hypertension Procedure Note - 12/31/2024 2:24 PM CDT[place] [address] Test Date: 2024-12-31 Pat Name: KIMBERLY MASTERS Department: 177 Room: Gender: Female Lighting Fixture Installer: : 1945 Requested By: LORI VALENTIN Order Number: [id number] Reading MD: LORI VALENTIN Measurements Intervals [place] Rate: 56 P: 12 [place]: 199 QRS: -7 QRSD: 105 T: 75 QT: 467 QTc: 452 Interpretive Statements SINUS BRADYCARDIA LEFT VENTRICULAR HYPERTROPHY AND ST-T CHANGE LIPID PANEL Routine 07/12/2019 HEMOGLOBIN, GLYCOSYLATED Routine 05/24/2019 8:59 AM CDT Type 2 diabetes mellitus without complication, without long-term current use of insulin from Last 3 Months or Most Recently Relevant to Health Maintenance Results * LIPID PANEL (07/12/2019) CHOLESTEROL 248 HDL 49 TRIGLYCERIDES 137 LDL (CALCULATED) 169 07/12/2019 us Doc [facility] LABORATORY Edited Resul t - Final * HEMOGLOBIN, GLYCOSYLATED (05/24/2019 8:59 AM CDT) HGB A1C [address] [place] 05/24/2019 8:59 AM CDT Carolina Florence MD LABORATORY Nadeen l Result [address] [place] [address] [address], from Last 3 Months or Most Recently Relevant to Health Maintenance Insurance MEDICAID Member Subscriber Plan / Payer (Ef fective 2024-Present) Name:Kimberly Masters Relation to Subscriber:Self Name:Kimberly Masters Payer ID:Not on file Group ID:Not on file Type:Not on file Address: [facility] [id number] [address] MEDICAID Care Teams Instructor Apparel Manufacture Relationship Specialty Start Date End Date Edison Escoto MD [address] [place] [address] PCP - General Neurology Psychiatry 04/26/23 Lori Valentin MD [address] [facility] [address] [place] [id number] [place] Exhibit Cleaner CARDIOVASCULAR DISEASE 05/25/19
--- OUTSIDE RECORDS SUMMARY | 2024-12-31 15:08 | XMS_ITS | Clinical Summary ---
Author Organization [facility] Address [address] [place] [address] Care Team Providers Care Boat [employer]cher [employer] Name Role Phone Memo Nieves MD Primary Care Provider Source Comments [facility],non-owned Affiliates and Associated Physician Practices is amultiple site organization consisting of ambulatory clinics and hospital sitesin [place], [place], [place]. This disclosure is being madepursuant to the Care Everywhere program and may not contain all information available regarding this patient. Last updated 18.[facility] Allergies Active Allergy Reactions Criticality Noted Date Comments Erythromycin Angioedema High 07/31/2017 Insulin Degludec Palpitations Low 07/31/2017 Insulin Detemir Angioedema High 07/31/2017 Insulin Glulisine Angioedema High 07/31/2017 Latex Other Low 07/31/2017 Wu skin Levofloxacin Angioedema High 07/31/2017 Pioglitazone Other Low 07/31/2017 Cough and excessive urination Povidone Iodine Other Low 07/31/2017 eats skin Medications * Be aware that medications may not be up to date on this document. Alwaysverify current medications with the patient. Medication Sig Dispensed Refills Start Date End Date Status Insulin Pen Needle (BD ULTRA-FINE PEN NEEDLES) 29G X 12.7MM MISC Use 1 Each DAILY. 100 Each 5 10/15/2017 Active amoxicillin (AMOXIL) 500 MG tablet Take 500 mg by mouth. 08/20/2017 Active pantoprazole (PROTONIX) 40 MG packet 40 mg by Feeding route DAILY. 07/31/2017 Active losartan - hydroCHLOROthiazide (HYZAAR) 50-12.5 MG tablet Take 1 tablet by mouth DAILY. 07/31/2017 Active LORazepam (ATIVAN) 1 MG tablet Take 1 mg by mouth TID. 07/31/2017 Active glimepiride (AMARYL) 2 MG tablet Take 2 mg by mouth BID. 07/31/2017 Active meclizine (ANTIVERT) 12.5 MG tablet Take 12.5 mg by mouth BID PRN. 07/31/2017 Active metFORMIN (GLUCOPHAGE) 500 MG tablet Take 1,000 mg by mouth DAILY. 07/31/2017 Active HYDROcodone-acetaminophen (NORCO) 7.5-325 MG tablet Take 1 tablet by mouth q6h PRN (Pain). 07/31/2017 Active metoprolol succinate XL 24hr (TOPROL XL) 100 MG tablet Take 100 mg by mouth DAILY. 07/31/2017 Active Active Problems Problem Noted Date Diagnosed Date Diverticulitis of colon 04/07/2018 Allergy status to other drug s, medicaments and biological substances status 08/20/2017 Essential (primary) hypertension 07/31/2017 Angioneurotic edema 07/31/2017 Type 2 diabetes mellitus without complications 1 09/30/2016 Overview (12/29/2024): IMO 12/29/2024 Family History Medical History Relation Name Comments Cancer - Lung Father Status: Deceas ed None Known Maternal Grandfather Status: Diabetes - Type [address] at[place]: Cancer - Colon Mother Status: Decea sed Hyperlipidemia Mother Hypertension Mother None Known Paternal Grandfather Status: None Known Paternal Grandmother Status: Other Son allergies Relation Name Status Comments Father Maternal Grandfather Maternal Grandmother Mother Paternal Grandfather Paternal Grandmother Son Social History Tobacco Use Types Packs/Day Years Used Date Smoking Tobacco: Passive Smo ke Exposure - Never Smoker Smokeless Tobacco: Never Alcohol Use Standard Drinks/Week Comments No 0 (1 standard drink = 0.6 oz pur e alcohol) Sex and Gender Information Value Date Recorded Sex Assigned at Not on file Gender Identity Not on file Sexual Orientation Not on file Last Filed Vital Signs Vital Sign Reading Time Taken Comments Blood Pressure 128/78 04/07/2018 9:02 AM CDT Pulse 66 04/07/2018 9:02 AM CDT Temperature 36.4 C (97.6 F) 04/07/2018 9:02 AM CDT Respiratory Rate 14 08/20/2017 1:00 PM JOINT CUTTER Oxygen Saturation 97% 04/07/2018 9:02 AM CDT Inhaled Oxygen Concentration - - Weight 79 kg (174 lb 3.2 oz) 04/07/2018 9:02 AM CDT Height 162.6 cm (5' 4 ) 04/07/2018 9:02 AM CDT Body Mass Index 29.9 04/07/2018 9:02 AM CDT Plan of Treatment Health Maintenance Due Date Last Done Comments BONE DENSITY TESTING 1945 MEDICARE AWV 12 MONTHS 1945 DTAP/TDAP/TD VACCINES (1 - Tdap) 1963 PNEUMOCOCCAL VACCINE 50+ (1 of 2 - PCV) 1963 DIABETES-STATIN 1984 ZOSTER VACCINE (1 of 2) 1994 DIABETES RETINOPATHY SCREENING 12/29/2017 DIABETES-FOOT EXAM WITH MONOFILAMENT 04/07/2019 04/07/2018 Respiratory Syncytial Virus (RSV) Vaccine Pt: or over 60 yrs (1 - 1-dose 75+ series) 2019 DIABETES-HGB A1C 08/24/2019 05/24/2019, 06/2018, 10/22/2017, Additional history exists DIABETES-SERUM CREATININE 04/26/20242022, 04/26/2023, 10/22/2017, Additional history exists COVID-19 VACCINE ( season) 2024 INFLUENZA VACCINE (#1) 2024 DEPRESSION SCREENING 09/29/2024 DIABETES - URINE PROTEIN SCREENING 09/29/2024 10/22/2017, 08/20/2017 HEPATITIS B VACCINE Aged Out No longe r eligible based on patient's age to complete this topic HIB VACCINE Aged Out No longer eligi ble based on patient's age to complete this topic HPV VACCINE Aged Out No longer eligi ble based on patient's age to complete this topic MENINGOCOCCAL (Group B) VACCINE SHARED DECISION-MAKING Aged Out No longer eligible based on patient's age to complete this topic MENINGOCOCCAL GROUPS A/C/Y/W VACCINE Aged Out No longer eligible based on patient's age to complete this topic Procedures Procedure Name Priority Date/Time Associated Diagnosis Comments HEMOGLOBIN A1C - POINT OF CARE (AMB) [facility] Routine 04/07/2018 Type 2 diabetes mellitus without complication, with long-term current use of insulin MICROALB/CREAT RATIO URINE RANDOM PANEL Routine 10/22/2017 3:33 PM [facility] C[facility]TER COMPREHENSIVE METABOLIC PANEL Routine 10/22/2017 3:33 PM JOINT CUTTER from Last 3 Months or Most Recently Relevant to Health Maintenance Results * HEMOGLOBIN A1C - POINT OF CARE (AMB) [facility] (04/07/2018) Hemoglobin A1c POCT 8.3 [facility] POCT TESTING Blood BLOOD SPECIMEN / Unknown 04/07/2018 Shanice Vanegas MD LAB - POINT OF CARE ORDERABLES [facility] POCT TESTING [address] [phone] * MICROALB/CREAT RATIO URINE RANDOM PANEL (10/22/2017 3:33 PM JOINT CUTTER) [facility] Albumin Random Urine 5.0 Not Established mcg/mL [facility] Creatinine Urine 31 Not Established mg/dL [facility] Urine Albumin/Creati nine Ratio 16 <30 mg/g [facility] Urine specimen (specimen) URINE / Unknown 10/22/2017 3:33 PM JOINT CUTTER 10/22/2017 4:37 PM JO[facility] C[facility]TER Tommy Delgado MD LAB - URINE CHEMISTR Y ORDERABLES [facility] [address] [place] [address] * (ABNORMAL) COMPREHENSIVE METABOLIC PANEL (10/22/2017 3:33 PM JOINT CUTTER) [facility] BUN 15 7 - 26 mg/dL [facility] Creatinine 0.7 0.6 - 1.2 mg/dL [facility] Sodium 142 136 - 145 mmol/L [facility] Potassium 3.7 3.5 - 4.5 mmol/L [facility] Chloride 102 98 - 107 mmol/L [facility] CO2 30(H) 22 - 29 mmol/L [facility] Glucose 76 70 - 115 mg/dL [facility] Calcium 9.8 8.4 - 10.2 mg/dL [facility] Protein Total 8.2 6.0 - 8.3 g/dL [facility] Albumin 4.3 3.4 - 5.0 g/dL [facility] Bilirubin Total 0.5 0.2 - 1.2 mg/dL [facility] Alkaline Phosphatase 83 40 - 150 Units/L [facility] ALT 26 0 - 55 Units/L [facility] AST 29 5 - 34 Units/L [facility] Anion Gap 14 8 - 18 [facility] BUN/Creatinine Ratio 21 7 - 23 [facility] Osmolality Calculated 294 270 - 300 mOsm/kg [facility] Albumin/Globulin Ratio 1.1 1.1 - 2.3 [facility] eGFR >60 >60 mL/min/1.7 3 m2 [facility] Blood specimen (specimen) BLOOD SPECIMEN / Unknown 10/22/2017 3:33 PM JOINT C[facility]TER 10/22/2017 4:37 PM JOINT C[facility]TER Tommy Delgado MD LAB - CHEMISTRY [facility] Organization Address City/State/ZIP Co de Phone Number [facility] [address] [phone] from Last 3 Months or Most Recently Relevant to Health Maintenance Care Teams Boat [employer] Relationship Specialty Start Date End Date Memo Nieves MD [address] [place] [phone] PCP - General 02/06/18
--- OUTSIDE RECORDS SUMMARY | 2024-12-31 15:08 | XMS_ITS | Clinical Summary ---
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 range established. Current interpretive data was last revised 2019. Creatinine Ur 43.0 mg/dL IDALIA Comment: Interpretive Data No reference range established. Current interpretive data was last revised 2019. Albumin Creatinine Ratio, Ur 107(H) 1 - 29 mg/g IDALIA Urine 09/02/2023 3:00 PM CERTIFIED MASSAGE THERAPIST 09/02/2023 9:22 PM CERTIFIED MASSAGE THERAPIST us Rm Escoto MD LAB URINE ORDERABLES Final Resul t Performing Organization Address [facility] Co de Phone Number [address] [address] * Occult blood, fecal non neoplasm screening (12/09/2016 10:00 AM CDT) [facility] Stool Occult Blood POSITIVE NEGATIVE 12/09/2016 10:41 AM CDT [facility] HISTORICAL RESULTS 12/09/2016 10:0 0 AM CDT 12/09/2016 10:39 AM CDT Narrative [facility] HISTORICAL RESULTS - 12/09/2016 10:41 AM CDT Collected By us Felecia Stephens LAB BODY FLUIDS AND STOOLS ORDER RUBEN Final Result [facility] HISTORICAL RESULTS from Last 3 Months or Most Recently Relevant to Health Maintenance Insurance IDPA MEDICARE MEDICARE [facility] MEDICARE ADVANTAGE [facility] MEDIC[facility] Address: [facility] [address] [place] [address] Advance Directives For more information, please contact: [phone] * Full Code (Latest Code Status on File) Date Activated Date Inactivated Comments 05/10/2023 10:28 PM 05/20/2023 8:11 PM Care Teams Administrative Office Specialist Relationship Specialty Start Date End Date Rm Escoto MD PCP - General Family Medicine 08/27/22 Leslye Correia MD [address] [facility], [address] [address] Consulting Physician Pain Management 06/12/23
--- OUTSIDE RECORDS SUMMARY | 2024-12-31 15:08 | XMS_ITS | Encounter Summary ---
Author Organization [facility] Facility Care Team Providers Care Extrusion Engineer Name Role Phone Chintan Henderson MD Primary Care Provider [phone] Memo Nieves MD Primary Care Provider Antoinette Carreno RN Unavailable [phone] Rm Escoto MD Primary Care Provider [phone] Carrie Joe CANCER GENETIC COUNSELOR Unavailable [phone] Leslye Correia MD Unavailable Carrie Joe CANCER GENETIC COUNSELOR Unavailable [phone] Encounter Details Date Type Department Care Team (Latest Contact Info) Description 10/23/2016 Orders Only [facility] CLINCONV Provider, MD Kelly [address] [place] [address] Social History Tobacco Use Types Packs/Day Years Used Date Smoking Tobacco: Never Comments Unknown Sex and Gender Information Value Date Recorded Sex Assigned at Not on file Legal Sex Female 8:45 PM BUILDING ADMIN Gender Identity Not on file Sexual Orientation Not on file documented as of this encounter Plan of Treatment Not on file documented as of this encounter Procedures Procedure Name Priority Date/Time Associated Diagnosis Comments CARDIOLOGY REPORT 10/23/2016 12: 00 AM BUILDING ADMIN CARDIOLOGY REPORT 10/23/2016 12: 00 AM BUILDING ADMIN CARDIOLOGY REPORT 10/23/2016 12: 00 AM BUILDING ADMIN documented in this encounter Results * CARDIOLOGY REPORT (10/23/2016 12:00 AM BUILDING ADMIN) Anatomical Region Laterality Modality Other Narrative 10/23/2016 12:00 AM BUILDING ADMIN Ordered by an unspecified provider. us Historical Provider CV CARDIAC SERVICES PROCE DURES Final Result * CARDIOLOGY REPORT (10/23/2016 12:00 AM BUILDING ADMIN) Anatomical Region Laterality Modality Other Narrative 10/23/2016 12:00 AM BUILDING ADMIN Ordered by an unspecified provider. Historical Provider CV CARDIAC SERVICES PROCE DURES Final Result * CARDIOLOGY REPORT (10/23/2016 12:00 AM BUILDING ADMIN) Anatomical Region Laterality Modality Other Narrative 10/23/2016 12:00 AM BUILDING ADMIN Ordered by an unspecified provider. Historical Provider CV CARDIAC SERVICES PROCE DURES Final Result documented in this encounter Visit Diagnoses Not on filedocumented in this encounter Additional Health Concerns Infection Onset Date Last Indicated Resolved Time COVID: Suspected 05/27/2023 05/27/2023 05/27/2023 1:37 PM CDT documented as of this encounter Care Teams Extrusion Engineer Relationship Specialty Start Date End Date Chintan Henderson MD [address] [place] [address] PCP - General 11/26/10 01/16/17 Memo Nieves MD [address] [place] [address] PCP - General 01/17/17 08/26/22 Rm Escoto MD [address] [place] [address] [address] [place] [address] PCP - General Family Medicine 08/27/22 Antoinette Carreno, DEMAR [address] [place] [address] Gluing Crew Leader 11/17/17 11/26/17 Carrie Joe, ELIANA [address] [place] [address] Job Site Superintendent 11/27/22 12/09/22 Leslye Correia MD [address] [facility] [address] [place] [address] Consulting Physician Pain Management 06/12/23 Carrie Joe, CANCER GENETIC COUNSELOR [address] [place] [address] Job Site Superintendent 11/06/23 04/07/24 documented as of this encounter
--- OUTSIDE RECORDS SUMMARY | 2024-12-31 15:08 | XMS_ITS | Referral Summary ---
Author Organization [facility] Building B Address [address] [place] [address] Care Team Providers Care Solar Maintenance Technician Name Role Phone Rm Escoto MD Primary Care Provider [phone] Leslye Correia MD Unavailable Encounters Date Type Department Care Team Description 12/28/2024 Telephone [facility] Family Medicine at [address] [address] Rm Escoto MD Medication Request 12/22/2024 Telephone [facility] Family Medicine at [address] [address] Rm Escoto MD Additional Services Or Orders 12/22/2024 Telephone [facility] Family Medicine at [address] [address] Rm Escoto MD Med Refill 12/20/2024 Telephone [facility] Family Medicine at [address] [address] Rm Escoto MD testing 12/08/2024 3:30 PM CDT Office Visit [facility] Family Medicine at [address] [address] Rm Escoto MD Medicare annual wellness visit, subsequent (Primary Dx); Uncontrolled type 2 diabetes mellitus with hypoglycemia without coma (HCC); Menopause; Lumbar facet arthropathy; Class 1 obesity due to excess calories with serious comorbidity and body mass index (BMI) of 30.0 to 30.9 in adult 11/30/2024 Telephone [facility] Family Medicine at [address] [place] [address] Rm Escoto MD Additional Services Or Orders 10/13/2024 Nurse Triage [facility] at [address] [place] [address] Rm Escoto MD 10/13/2024 Telephone [facility] Medicine at [address] [place] [address] Rm Escoto MD from Last 3 Months Allergies Active Allergy Reactions Criticality Noted Date [...] capsule 09/02/20 23 Active cholecalciferol (VITAMIN D-3) 91150 unit tabletIndicatio ns:Vitamin D Deficiency,Koki min D [...] Active blood-glucose meter,continuou s (FreeStyle Lanny 3 [place]) miscIndications :Uncontrolled type 2 diabetes mellitus with [...] 2nd Gen Pen Needle) 32 gauge x needleIndicatio ns:Uncontrolled type 2 diabetes mellitus with [...] benefit of other non-opioid pain therapies. Immunization: [id number]: Risk and benefits discussed with patient. Patient voiced understandings; and refused. [id number]: Risk and benefits discussed with patient. Patient [...] Annually Assessment & Plan (11/04/2023 2:26 PM SUPERVISOR STOCK RANCH): Patient here for annual Medicare wellness visit [...] Plan Services (PPPS): Opioid Use: No Immunization: [id number]: Risk and benefits discussed with patient. Patient voiced understandings; and refused. [id number]: Risk and benefits discussed with patient. Patient [...] 12/26/2015 Assessment & Plan (08/11/2019 12:40 PM SUPERVISOR STOCK RANCH): Blood pressure 165/80. Continue same medications at this time. Continue to monitor. Atherosclerosis of coronary artery 10/23/2012 Overview (01/02/2017): CAD (coronary artery disease) Mixed hyperlipidemia 10/23/2012 Overview (01/02/2017): Hyperlipidemia Resolved Problems Problem Noted Date Diagnosed Date Resolved Date Hypertension 10/23/2012 02/04/2019 Overview (01/02/2017): HYPERTENSION NOS Immunizations Immunization Administration Dates Next Due Influenza, Quadrivalent, Hig h Dose, Preservative Free, Intrr 08/27/2022(Deferred: Patient Refused) Influenza, Unspecified 07/14/2024(Deferr ed: Patient decision),07/02/2023(Deferred: Patient Refused),05/30/2022(Deferred: Patient Refused) Pneumococcal Conjugate Pcv20 07/02/2023(Deferred : Patient Refused) Social History Tobacco Use Types Packs/Day Years Used Date Smoking Tobacco: Never Smokeless Tobacco: Never Tobacco Cessation:Counseling Given: Not Answered Alcohol Use Standard Drinks/Week Comments Never 0 (1 standard drink = 0.6 oz pur e alcohol) [facility] Utilities Answer Date Recorded In the past 12 months has [employer], gas, oil, or water [employer] threatened to shut off services in your [...] often do you attend chur ch or episcopal services? More than 4 times per year 11/06/2023 Do you belong to any clubs o r organizations such as restorationist groups, unions, fraternal or athletic groups, or [...] place to sleep or slept in a fpc (including now)? No 11/06/2023 Personal Safety Answer Date Recorded Have you ever been in or are you currently in a harmful physical or emotional relationship or is someone making you feel afraid or unsafe? Denies 05/27/2023 Comments No Sex and Gender Information Value Date Recorded Sex Assigned at Not on file Legal Sex Female 8:45 PM SUPERVISOR STOCK RANCH Gender Identity Not on file Sexual Orientation [...] 12/08/2024 3:39 PM CDT Plan of Treatment Not on file Goals Goal Patient Goal Type Associated Problems Recent Progress Patient-Stated? Author ACO SW Goal - Patient can identify and utilize needed community resources ACO Care Management On track( 024 4:16 PM CDT) Carrie [place], EQUIPMENT ANALYST Note: Problem: Need for Community Resources Interventions: - Provide patient/family with a list of appropriate resources for their specific need. - Help to coordinate resources. - Follow up to ensure patient/family has connected with the appropriate resources / personnel. Medical Devices Implanted Type Area Referral Management Liaison Device Identifier Shelf Expiration Date Model / Serial / Lot [employer] Vertaplex Hv Autoplex Without Needle Delivery System Kit Bone [id number] - [id number] Implanted:Qty: 1 on 05/15/2023 by Leslye Correia MD at [facility] N/A: Spine Lumbar [employer] 02/26/2025 [id number] / / [id number] Procedures Procedure Name Priority Date/Time Associated Diagnosis [...] CREATININE RATIO, URINE Routine 09/02/2023 3:00 PM SUPERVISOR STOCK RANCH Uncontrolled type 2 diabetes mellitus with hypoglycemia [...] LAB BLOOD ORDERABLES Final Resul t IDALIA [address] [facility] Department [place] [address] * Lipid panel (01/23/2024 2:26 [...] on 2018. Triglycerides 74 <=149 mg/dL IDALIA Comment: Interpretive Data Ages < or = [...] on 2018. HDL 57 >=40 mg/dL IDALIA Comment: Interpretive Data Ages < or = [...] LAB BLOOD ORDERABLES Final Resul t IDALIA [address] [facility] Department [place] [address] * (ABNORMAL) Albumin Creatinine Ratio, Urine (09/02/2023 3:00 PM SUPERVISOR STOCK RANCH) Albumin Ur 45.8 mg/L IDALIA NOVAK Comment: Interpretive Data No reference range established. Current interpretive data was last revised 2019. Creatinine Ur 43.0 mg/dL IDALIA NOVAK Comment: Interpretive Data No reference range established. Current interpretive data was last revised 2019. Albumin Creatinine Ratio, Ur 107(H) 1 - 29 mg/g IDALIA Urine 09/02/2023 3:00 PM SUPERVISOR STOCK RANCH 09/02/2023 9:22 PM SUPERVISOR STOCK RANCH us Rm Escoto MD LAB URINE ORDERABLES Final Resul t IDALIA [address] [facility] Department [place] [address] * Occult blood, fecal non neoplasm screening (12/09/2016 10:00 AM CDT) Stool Occult Blood POSITIVE NEGATIVE 12/09/2016 10:0 0 AM CDT 12/09/2016 10:39 AM CDT Narrative [facility] H[facility]OR[facility] RESULTS - 12/09/2016 10:41 AM CDT Collected By ss us Felecia Stephens LAB BODY FLUIDS AND STOOLS ORDER RUBEN Final Result [facility] HISTORICAL RESULTS from Last 3 Months or Most Recently Relevant to Health Maintenance Insurance [facility] MEDICARE MEDICARE [facility] UHC MEDICARE ADVANTAGE Advance Directives For more information, please contact: [phone] * Full Code (Latest Code Status on File) Date Activated Date Inactivated Comments 05/10/2023 10:28 PM 05/20/2023 8:11 PM Care Teams Solar Maintenance Technician Relationship Specialty Start Date End Date Rm Escoto MD PCP - General Family Medicine 08/27/22 Leslye Correia MD [address] [facility], [place] [address] Consulting Physician Pain Management 06/12/23
--- OUTSIDE RECORDS SUMMARY | 2024-12-31 15:08 | XMS_ITS | Clinical Summary ---
Author Organization [facility] Address [address] [place] [address] Phone Care Team Providers Care Textile Conversion Manager Name Role Phone Memo Nieves MD Primary Care Provider [phone] Social History Tobacco Use Types Packs/Day Years Used Date Smoking Tobacco: Never Assessed Comments Unknown Sex and Gender Information Value Date Recorded Sex Assigned at Not on file Legal Sex Female 3:19 PM MARINE RAILWAY OPERATOR Gender Identity Not on file Sexual Orientation Not on file Plan of Treatment Health Maintenance Due Date Last Done Comments DTAP/TDAP/TD VACCINES (1 - Tdap) 1963 PNEUMOCOCCAL VACCINE 50+ YEARS (1 of 1 - PCV) 06/16/19 94 ZOSTER VACCINE (1 of 2) 1994 OSTEOPOROSIS SCREENING 2009 RSV VACCINE (60+ or ) (1 - 1-dose 75+ series) 2019 INFLUENZA VACCINE (#1) 2024 Care Teams Textile Conversion Manager Relationship Specialty Start Date End Date Memo Nieves MD PCP - General Family Practice 09/18/17
[2024-12-31 16:28] LABS: Hematocrit 32.4 % (37.0-47.0); Hemoglobin 9.8 g/dL (12.0-15.0); Mean Corpuscular HGB Conc 30.2 g/dl (32-36); Mean Corpuscular Hemoglobin 25.7 pg (26-34); Mean Corpuscular Volume 84.8 fl (80-100); Mean Platelet Volume 9.7 fl (7.4-10.4); Platelet Count Result 231 k/mm3 (150-375); Red Blood Count 3.82 M/mm3 (4.2-5.4); Red Cell Distribution Width 17.7 % (11.5-14.5); White Blood Count 6.4 K/mm3 (4.5-10.0)
[2024-12-31 16:50] LABS: Alanine Aminotransferase 18 U/L (6-35); Albumin Level 4.5 g/dL (3.5-5.1); Alkaline Phosphatase 84 U/L (38-126); Anion Gap 9 mmol/L (4-12); Aspartate Amino Transferase 28 U/L (14-36); Bilirubin,Total 0.4 mg/dL (0.2-1.3); Blood Urea Nitrogen 30 mg/dL (7-17); Calcium 9.2 mg/dL (8.4-10.2); Carbon Dioxide 33 mmol/L (22-30); Chloride 96 mmol/L (98-107); Cholesterol 193 mg/dL (0-200); Estimated Glomerular Filt Rate 54; Glucose 97 mg/dL (65-110); HDL Direct 50 mg/dL; Potassium 3.7 mmol/L (3.4-5.0); Sodium 138 mmol/L (137-145); Triglycerides 71 mg/dL (<150)
[2024-12-31 16:52] LABS: NT Pro B Type Natriuretic Pept 225 pg/mL (19.9-100)
[2024-12-31 16:58] LABS: LDL Cholesterol Direct 111 mg/dL
[2024-12-31 16:59] LABS: Free T4 Free Thyroxine 1.16 ng/dL (0.78-2.19)
[2024-12-31 17:01] LABS: Creatinine Urine 30.1 mg/dL
[2024-12-31 17:06] LABS: MALB Creatinine Ratio 24.3 mg/g (0-30); Microalbumin Urine Random 7.3 mg/L (0-16.7)
[2024-12-31 17:35] LABS: Total Triiodothyronine (T3) 1.16 NG/ML (0.97-1.69)
[2025-01-03 11:52] LABS: Basophils Absolute Auto 0.1 K/mm3 (0.0-0.1); Basophils Percent Auto 0.8 % (0.2-1.2); Eosinophils Absolute Auto 0.2 K/mm3 (0-0.3); Eosinophils Percent Auto 3.1 % (0-4.4); Hematocrit 36.1 % (37.0-47.0); Hemoglobin 9.5 g/dL (12.0-15.0); Immature Granulocyte Absolute 0.02 K/mm3 (0.00-0.031); Immature Granulocyte Percent A 0.3 % (0-0.5); Mean Corpuscular HGB Conc 26.3 g/dl (32-36); Mean Corpuscular Hemoglobin 25.2 pg (26-34); Mean Corpuscular Volume 95.8 fl (80-100); Mean Platelet Volume 11.3 fl (7.4-10.4); Monocytes Absolute Auto 0.5 K/mm3 (0.1-0.6); Monocytes Percent Auto 8.3 % (2.6-8.5); Neutrophils Percent Auto 62.5 % (45.5-73.1); Platelet Count Result 238 k/mm3 (150-375); Red Blood Count 3.77 M/mm3 (4.2-5.4); Red Cell Distribution Width 18.2 % (11.5-14.5); White Blood Count 6.4 K/mm3 (4.5-10.0)
[2025-01-03 13:18] LABS: Hypochromasia 1+; Platelet Estimate Adequate (Adequate)
[2025-01-03 13:19] LABS: Anisocytosis 1+; Schistocytes None Seen
== END 2024-12-31 15:00 | disposition home or self-care (01) ==
PROVIDERS: PCP Family Medicine; Visit Provider Internal Medicine Cardiovascular Disease
DX: I11.0 Hypertensive heart disease with heart failure (principal); I50.22 Chronic systolic (congestive) heart failure; E03.9 Hypothyroidism, unspecified; E11.649 Type 2 diabetes mellitus with hypoglycemia without coma; L60.3 Nail dystrophy; L65.9 Nonscarring hair loss, unspecified
CPT/HCPCS: 36415; 80053; 80061; 82043; 83880; 84439; 84443; 84480; 85025; 85027

== ENCOUNTER 2025-04-28 13:21 | Outpatient (CLI) | payer MEDICARE, MEDICAID, SELFPAY ==
--- NOTE | ~2025-04-28 | MMUS_ITS ---
EXAMINATION: MM diagnostic jay BI w kirstin, US breast LT limited HISTORY: Breast pain TECHNIQUE: Additional 3-D tomosynthesis images of the breasts were performed and synthetic 2-D images were generated. CAD analysis was submitted and interpreted. High resolution Limited left breast ultr asound was performed. COMPARISON: Comparison to multiple prior studies sequentially, with oldest reviewed study dated 06/24. BREAST PARENCHYMAL COMPOSITION: Not dense: There are scattered areas of fibroglandular density. FINDINGS: MAMMOGRAPHIC FINDINGS: The right breast is stable without evidence for malignancy. There is a new small mass with irregular margins in the upper outer quadrant of the left breast, middle third. There are benign bilateral georgi st calcifications. ULTRASOUND: Limited left breast ultrasound: At 2:00, 8 cm from the nipple is an irregular shaped hypoechoic mass measuring 5 x 4 x 2 mm. No internal vascularity. Mixed posterior attenuation. This corresponds to the mammographic abnormality. IMPRESSION: 1. Irregular shaped left breast mass at 2:00, 8 cm from the nipple measuring 4 mm. 2. Ultrasound-guided left breast biopsy recommended. BI-RADS category 4, suspicious findings. Reviewed, dictated and finalized at location B. IMPRESSION: 1. Irregular shaped left breast mass at 2:00, 8 cm from the nipple measuring 4 mm. 2. Ultrasound-guided left breast biopsy recommended. BI-RADS category 4, suspicious findings.
--- OUTSIDE RECORDS SUMMARY | 2025-04-28 13:24 | XMS_ITS | Encounter Summary ---
Author Organization [facility] Address [address] [place] [address] Care Team Providers Care Emt Driver Name Role Phone Rm Escoto MD Primary Care Provider [phone] Leslye Correia MD Unavailable Encounter Details Date Type Department Care Team (Late st Contact Info) Description 07/15/2024 Telephone [facility] Family Medicine at [address] [place] [address] Rm Escoto MD [address] [place] [address] [address] [place] [address] Social History Tobacco Use Types Packs/Day Years Used Date Smoking Tobacco: Never Smokeless Tobacco: Never Alcohol Use Standard Drinks/Week Comments Never 0 (1 standard drink = 0.6 oz pur e alcohol) [facility] Utilities Answer Date Recorded In the past 12 months has [employer] electric, gas, oil, or water company threatened [...] often do you attend chur ch or sikhism services? More than 4 times per year 11/06/2023 Do you belong to any clubs o r organizations such as roman catholic groups, unions, fraternal or athletic groups, or [...] place to sleep or slept in a penitentiary (including now)? No 11/06/2023 Personal Safety Answer Date Recorded Have you ever been in or are you currently in a harmful physical or emotional relationship or is someone making you feel afraid or unsafe? Denies 05/27/2023 Comments No Sex and Gender Information Value Date Recorded Sex Assigned at Not on file Legal Sex Female 8:45 PM MOBILE HOMES REPAIRER Gender Identity Not on file Sexual Orientation [...] track( 024 4:16 PM CDT) Carrie [place], SCENIC ARTIST Note: Problem: Need for Community Resources Interventions: - Provide patient/family with a list of appropriate resources for their specific need. - Help to coordinate resources. - Follow up to ensure patient/family has connected with the appropriate resources / personnel. documented as of this encounter Visit Diagnoses Not on filedocumented in this encounter Care Teams Emt Driver Relationship Specialty Start Date End Date Rm Escoto MD PCP - General Family Medicine 08/27/22 Leslye Correia MD [address] [facility] [address] Consulting Physician Pain Management 06/12/23 documented as of this encounter
--- OUTSIDE RECORDS SUMMARY | 2025-04-28 13:24 | XMS_ITS | Encounter Summary ---
Author Organization [facility] Facility Care Team Providers Care Websphere Developer Name Role Phone Memo Nieves MD Primary Care Provider [phone] Antoinette Carreno RN Unavailable [phone] Rm Escoto MD Primary Care Provider Carrie Joe CERTIFIED MEDICAL BILLER Unavailable Leslye Correia MD Unavailable Carrie Joe CERTIFIED MEDICAL BILLER Unavailable Encounter Details Date Type Department Care Team (Latest Contact Info) Description 11/26/2017 Orders Only MMG CLINCONV Provider, MD Kelly [address] [place] [address] Social History Tobacco Use Types Packs/Day Years Used Date Smoking Tobacco: Never Comments Unknown Sex and Gender Information Value Date Recorded Sex Assigned at Not on file Legal Sex Female 8:45 PM VALUATION MANAGER Gender Identity Not on file Sexual Orientation Not on file documented as of this encounter Plan of Treatment Not on file documented as of this encounter Procedures Procedure Name Priority Date/Time Associated Diagnosis Comments CARDIOLOGY REPORT 12/01/2017 12: 00 AM VALUATION MANAGER PROCEDURE - RESULT 11/26/2017 12 :00 AM VALUATION MANAGER documented in this encounter Results * CARDIOLOGY REPORT (12/01/2017 12:00 AM VALUATION MANAGER) Anatomical Region Laterality Modality Other Narrative 12/01/2017 12:00 AM VALUATION MANAGER Ordered by an unspecified provider. Historical Provider CV CARDIAC SERVICES JO CHAN Final Result * PROCEDURE - RESULT (11/26/2017 12:00 AM VALUATION MANAGER) Narrative 11/26/2017 12:00 AM VALUATION MANAGER Ordered by an unspecified provider. us Historical Provider Final Res ult documented in this encounter Visit Diagnoses Not on filedocumented in this encounter Additional Health Concerns Infection Onset Date Last Indicated Resolved Time COVID: Suspected 05/27/2023 05/27/2023 05/27/2023 1:37 PM CDT documented as of this encounter Care Teams Websphere Developer Relationship Specialty Start Date End Date Memo Nieves MD PCP - General 01/17/17 08/26/22 Rm Escoto MD [address] [place] [address] [address] [place] [address] PCP - General Family Medicine 08/27/22 Antoinette Carreno, RN [address] [facility] [address] [place] [address] Master [place] 11/17/17 11/26/17 Carrie Joe LCSW [address] [place] [address] [facility] [address] [place] [address] Tile Trimmer 11/27/22 12/09/22 Leslye Correia MD [address] [facility], [facility] [address] [place] [address] Consulting Physician Pain Management 06/12/23 Carrie Joe LCSW [address] [place] [address] [facility] [address] [place] [address] Tile Trimmer 11/06/23 04/07/24 documented as of this encounter
--- OUTSIDE RECORDS SUMMARY | 2025-04-28 13:24 | XMS_ITS | Encounter Summary ---
Author Organization [facility] Address [address] [place] [address] Care Team Providers Care Presetter Operator Name Role Phone Memo Nieves MD Primary Care Provider [phone] Natanael Yarbrough MD Unavailable [phone] Edison Escoto MD Primary Care Provider [phone] Encounter Details Date Type Department Care Team (Late st Contact Info) Description 07/15/2019 Abstract [facility] at [facility], [facility] [address] [place] [address] Jaquan Tirado MA Social History Tobacco Use [...] Sex Assigned at Female 11/16/2024 3:42 PM TRANSPORTATION DRIVER Legal Sex Female 5:38 PM CDT Gender [...] Associated Diagnosis Comments PRO-BRAIN NATRIURETIC PEPTIDE Routine 12/31/2024 TRIIODOTHYRONINE TOTAL , TT-3 Routine 12/31/2024 COMPREHENSIVE METABOLIC PANEL Routine 12/31/2024 LIPID PANEL Routine 12/31/2024 CBC, MANUAL DIFF Routine 12/31/2024 THYROID STIM HORMONE TSH Routine 12/31/2024 PRO-BRAIN NATRIURETIC PEPTIDE Routine 07/12/2019 PROTIME (OUTSIDE LAB) Routine 07/12/2019 CBC (OUTSIDE LAB) Routine 07/12/2019 COMPREHENSIVE METABOLIC PANEL Routine 07/12/2019 LIPID PANEL Routine 07/12/2019 THYROXINE, TOTAL Routine 07/12/2019 THYROXINE, FREE (FT4) Routine 07/12/2019 THYROID STIM HORMONE TSH Routine 07/12/2019 documented in this encounter Results * TRIIODOTHYRONINE TOTAL , TT-3 (12/31/2024) Pathologist [facility] T3 TOTAL 1.16 12/31/2024 us Default History Genericprovider LABORATORY Final Result * COMPREHENSIVE METABOLIC PANEL (12/31/2024) [facility] SODIUM S/P/B 138 GLUCOSE 97 mg/dL AST 28 BUN 30 CREATININE S/P/B 0.99 0.5 - 1.0 CALCIUM S/P/B 9.2 POTASSIUM S/P/B 3.7 ALT 18 GFR ESTIMATE 54 us Default History Genericprovider LABORATORY Edited Result - Final * LIPID PANEL (12/31/2024) [facility] CHOLESTEROL 193 TRIGLYCERIDES 71 HDL 50 DIRECT LDL 111 us Default History Genericprovider LABORATORY Edited Result - Final * PRO-BRAIN NATRIURETIC PEPTIDE (12/31/2024) [facility] PRO-B TYPE NATRIURETIC PEPTIDE 225 us Default History Genericprovider LABORATORY Edited Result - Final * CBC, MANUAL DIFF (12/31/2024) [facility] WBC 6.4 HGB 9.8 HCT 32.4 PLT 231 Default History Genericprovider LABORATORY Edited Result - Final * THYROID STIM HORMONE TSH (12/31/2024) [facility] TSH 2.690 Default History Genericprovider LABORATORY Final Result * THYROXINE, FREE (FT4) (07/12/2019) [facility] FREE T4 0.89 07/12/2019 us Doc [facility] LABORATORY Final Result * CBC (OUTSIDE LAB) (07/12/2019) [facility] WBC 6.3 HGB 12.4 HCT 38.1 PLT 215 07/12/2019 us Doc [facility] LAB-OUTSIDE/ABSTRACTED Final Result * PROTIME (OUTSIDE LAB) (07/12/2019) [facility] PROTIME 13.2 INR 1.0 07/12/2019 us Doc [facility] LAB-OUTSIDE/ABSTRACTED Final Result * PRO-BRAIN NATRIURETIC PEPTIDE (07/12/2019) [facility] PRO-BRAIN NATRIURETIC PEPTIDE 93 5 - 100 07/12/2019 us Doc [facility] LABORATORY Final Result * LIPID PANEL (07/12/2019) [facility] CHOLESTEROL 248 HDL 49 TRIGLYCERIDES 137 LDL [...] on filedocumented in this encounter Care Teams Presetter Operator Relationship Specialty Start Date End Date Memo Nieves MD PCP - General FAMILY PRACTICE 07/14/18 04/25/23 Edison Escoto MD [address] [place] [address] PCP - General Neurology Psychiatry 04/26/23 Natanael Yarbrough MD [address] [facility] [address] [place] [address] [place] Computer Systems Engineer CARDIOVASCULAR DISEASE 05/25/19 documented as of this encounter
--- OUTSIDE RECORDS SUMMARY | 2025-04-28 13:24 | XMS_ITS | Encounter Summary ---
Author Organization [facility] Facility Care Team Providers Care Heel Attacher Wood Name Role Phone Memo Nieves MD Primary Care Provider [phone] Rm Escoto MD Primary Care Provider [phone] Carrie Joe ACADEMIC AFFAIRS MANAGER Unavailable [phone] Leslye Correia MD Unavailable Carrie Joe ACADEMIC AFFAIRS MANAGER Unavailable [phone] Encounter Details Date Type Department Care Team (Latest Contact Info) Description 11/27/2017 Orders Only [facility] CLINCONV ProviderKelly MD [address] [place] [address] Social History Tobacco Use Types Packs/Day Years Used Date Smoking Tobacco: Never Comments Unknown Sex and Gender Information Value Date Recorded Sex Assigned at Not on file Legal Sex Female 8:45 PM AUTOMOTIVE SERVICE ADVISOR Gender Identity Not on file Sexual Orientation Not on file documented as of this encounter Plan of Treatment Not on file documented as of this encounter Procedures Procedure Name Priority Date/Time Associated Diagnosis Comments PROCEDURE - RESULT 12/01/2017 12 :00 AM AUTOMOTIVE SERVICE ADVISOR CARDIOLOGY REPORT 11/27/2017 12: 00 AM AUTOMOTIVE SERVICE ADVISOR documented in this encounter Results * PROCEDURE - RESULT (12/01/2017 12:00 AM AUTOMOTIVE SERVICE ADVISOR) Narrative 12/01/2017 12:00 AM AUTOMOTIVE SERVICE ADVISOR Ordered by an unspecified provider. Historical Provider Final Res ult * CARDIOLOGY REPORT (11/27/2017 12:00 AM AUTOMOTIVE SERVICE ADVISOR) Anatomical Region Laterality Modality Other Narrative 11/27/2017 12:00 AM AUTOMOTIVE SERVICE ADVISOR Ordered by an unspecified provider. us Historical Provider [facility] CARDIAC SERVICES JO CHAN Final Result documented in this encounter Visit Diagnoses Not on filedocumented in this encounter Additional Health Concerns Infection Onset Date Last Indicated Resolved Time COVID: Suspected 05/27/2023 05/27/2023 05/27/2023 1:37 PM CDT documented as of this encounter Care Teams Heel Attacher Wood Relationship Specialty Start Date End Date Memo Nieves MD PCP - General 01/17/17 08/26/22 Rm Escoto MD PCP - General Family Medicine 08/27/22 Carrie Joe, [address] [place], [place] [id number] Pastrycook'S Assistant 11/27/22 12/09/22 Leslye Correia MD [address] [facility], [address] [place] [address] Consulting Physician Pain Management 06/12/23 Carrie Joe, [address] [place] [address] Pastrycook'S Assistant 11/06/23 04/07/24 documented as of this encounter
--- OUTSIDE RECORDS SUMMARY | 2025-04-28 13:24 | XMS_ITS | Encounter Summary ---
Author Organization [facility] Facility Care Team Providers Care Director Medical Writing Name Role Phone Memo Nieves MD Primary Care Provider [phone] Antoinette Carreno RN Unavailable [phone] Rm Escoto MD Primary Care Provider [phone] Carrie Joe ORTHOPEDIC RN Unavailable Leslye Correia MD Unavailable Carrie Joe ORTHOPEDIC RN Unavailable Encounter Details Date Type Department Care Team (Latest Contact Info) Description 06/05/2017 Orders Only MMG CLINCONV Provider, MD Kelly [address] [place] [address] Social History Tobacco Use Types Packs/Day Years Used Date Smoking Tobacco: Never Comments Unknown Sex and Gender Information Value Date Recorded Sex Assigned at Not on file Legal Sex Female 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 Gender Identity Not on file Sexual [...] documented as of this encounter Care Teams Director Medical Writing Relationship Specialty Start Date End Date Memo Nieves MD PCP - General 01/17/17 08/26/22 Rm Escoto MD [address] [place] [address] PCP - General Family Medicine 08/27/22 Antoinette Carreno RN [address] [facility] [address] [place] [address] Sap Bods Developer 11/17/17 11/26/17 Carrie Joe, ORTHOPEDIC RN [address] [place] [address] Applications Programmer 11/27/22 12/09/22 Leslye Correia MD [address] [facility] [address] [place] [address] Consulting Physician Pain Management 06/12/23 Carrie Joe, ORTHOPEDIC RN [address] [place] [address] Applications Programmer 11/06/23 04/07/24 documented as of this encounter
--- OUTSIDE RECORDS SUMMARY | 2025-04-28 13:25 | XMS_ITS | Patient Health Record ---
Author Organization [facility] As [employer] Address [facility] [facility] [address] [facility] [address] [place] [address] Care Team Providers Care Weigher And Crusher Name Role Phone Louis Dominguez Unavailable [phone] Reason For Referral No Information Plan Of Treatment No Information
--- OUTSIDE RECORDS SUMMARY | 2025-04-28 13:25 | XMS_ITS | Encounter Summary ---
Author Organization [facility] Facility Care Team Providers Care Machine Operator Name Role Phone Memo Nieves MD Primary Care Provider [phone] Rm Escoto MD Primary Care Provider [phone] Carrie Joe FINISHER MERCHANT PRODUCTS Unavailable [phone] Leslye Correia MD Unavailable Carrie Joe FINISHER MERCHANT PRODUCTS Unavailable [phone] Encounter Details Date Type Department Care Team (Latest Contact Info) Description 10/23/2018 Orders Only MMG CLINCONV Provider, MD Kelly [address] [place] [address] Social History Tobacco Use Types Packs/Day Years Used Date Smoking Tobacco: Never Smokeless Tobacco: Never Comments Unknown Sex and Gender Information Value Date Recorded Sex Assigned at Not on file Legal Sex Female 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 Historical Provider CV CARDIAC SERVICES JO CHAN Final Result documented in this encounter Visit Diagnoses Not on filedocumented in this encounter Additional Health Concerns Infection Onset Date Last Indicated Resolved Time COVID: Suspected 05/27/2023 05/27/2023 05/27/2023 1:37 PM CDT documented as of this encounter Care Teams Machine Operator Relationship Specialty Start Date End Date Memo Nieves MD PCP - General 01/17/17 08/26/22 Rm Escoto MD PCP - General Family Medicine 08/27/22 Carrie Joe, FINISHER [employer] [address] [place] [address] [address] [place], [place] [id number] Medical Record Transcriber 11/27/22 12/09/22 Leslye Correia MD [address] [facility], [address] [place] [address] Consulting Physician Pain Management 06/12/23 Carrie Joe, FINISHER [employer]CHANT [employer]ODUCTS [address] [place] [address] [address] [place] [address] Medical Record Transcriber 11/06/23 04/07/24 documented as of this encounter
--- OUTSIDE RECORDS SUMMARY | 2025-04-28 13:25 | XMS_ITS | Patient Health Record ---
Author Organization [facility] Address [address] [facility] [address] [place], [place] [id number] Reason For Referral No Information Plan Of Treatment No Information
--- OUTSIDE RECORDS SUMMARY | 2025-04-28 13:25 | XMS_ITS ---
Author Organization [facility] Address [address] [place], [place] [id number] Care Team Providers Care Senior Loss Control Specialist Name Role Phone ARI MYERS Unavailable [phone] REASON FOR VISIT Has medicaid Encounters Encounter Location Date Provider Diagnosis [facility] [address] [place], [place] [id number] 12/03/2023 ARI MYERS Plan Of Treatment No Information Progress Notes * HEENA GASTELUMDOB:[birth year] (79 yo F)Acc No.[id number]:12/03/2023 Progress Notes Patient: HEENA GARCIA Provider: Kathi Myers DPM :1945 A ge:78 Y S ex:Female Date:12/03/2023 Address:[address] [place], [place] [id number] Subjective: * Chief Complaints: * 1 . Has medicaid. * Medical History: Objective: * Vitals: Assessment: Plan: * Treatment: * Billing Information: * Visit Code: * Procedure Codes: * Electronic signature of JORGE DEAN DPM on 04/28/2025 at 01:24 PM CDT Sign off status: Pending * Provider: Kathi Myers DPM Date: 12/03/2023 Generated for Titus reece/Vance/Jennifer on: 04/28/2025 01:24 PM CDT
--- OUTSIDE RECORDS SUMMARY | 2025-04-28 13:26 | XMS_ITS | Encounter Summary ---
Author Organization [facility] - [facility] Address [address] [place] [address] Care Team Providers Care Resistance Brazer Name Role Phone Natanael Yarbrough MD Unavailable [phone] Edison Escoto MD Primary Care Provider [phone] Encounter Details Date Type Department Care Team (Late st Contact Info) Description 04/05/2025 Results Follow-Up [facility] [address] Lyssa Steele RN NM PHARM NUC STRESS TEST 1 DAY W TRACING Social History Tobacco Use Types Packs/Day Years [...] Sex Assigned at Female 11/16/2024 3:42 PM TELEVISION SCRIPT WRITER Legal Sex Female 5:38 PM CDT Gender Identity Not on file Sexual Orientation Not on file Occupation Industry Job Start Date Job End Date Not on file Not on file Not on file Not on file documented as of this encounter Plan of Treatment Not on file documented as of this encounter Visit Diagnoses Not on filedocumented in this encounter Care Teams Resistance Brazer Relationship Specialty Start Date End Date Edison Escoto MD [address] [place], [place] [address] PCP - General Neurology Psychiatry 04/26/23 Natanael Yarbrough MD [address] [facility] [address] [place] [address] [place] Thermostatic Controls Supervisor CARDIOVASCULAR DISEASE 05/25/19 documented as of this encounter
--- OUTSIDE RECORDS SUMMARY | 2025-04-28 13:26 | XMS_ITS | Encounter Summary ---
Author Organization [facility] Facility Care Team Providers Care Inhalation Therapy Aides Teacher Name Role Phone Chintan Henderson MD Primary Care Provider [phone] Memo Nieves MD Primary Care Provider [phone] Antoinette Carreno RN Unavailable [phone] Rm Escoto MD Primary Care Provider [phone] Carrie Joe SPINNING MULE OPERATOR Unavailable Leslye Correia MD Unavailable Carrie Joe SPINNING MULE OPERATOR Unavailable [phone] Encounter Details Date Type Department Care Team (Latest Contact Info) Description 12/17/2016 Orders Only MMG CLINCONV Provider, MD Kelly [address] [place] [address] Social History Tobacco Use Types Packs/Day Years Used Date Smoking Tobacco: Never Comments Unknown Sex and Gender Information Value Date Recorded Sex Assigned at Not on file 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 Gender Identity Not on file Sexual [...] documented as of this encounter Care Teams Inhalation Therapy Aides Teacher Relationship Specialty Start Date End Date Chintan Henderson MD [address] [facility] [place] [address] PCP - General 11/26/10 01/16/17 Memo Nieves MD [address] [facility] [place] [address] PCP - General 01/17/17 08/26/22 Rm Escoto MD [address] [facility] [address] [place] [address] PCP - General Family Medicine 08/27/22 Antoinette Carreno, RN [address] [facility] [address] [place] [address] Broach Setter 11/17/17 11/26/17 Carrie Joe, SPINNING MULE OPERATOR [address] [place] [address] [address] [place] [address] Wind Turbine Mechanic 11/27/22 12/09/22 Leslye Correia MD [address] [facility], [facility] [address] [address] [place] [address] Consulting Physician Pain Management 06/12/23 Carrie Joe, SPINNING MULE OPERATOR [address] [place] [address] [address] [place] [address] Wind Turbine Mechanic 11/06/23 04/07/24 documented as of this encounter
--- OUTSIDE RECORDS SUMMARY | 2025-04-28 13:26 | XMS_ITS | Encounter Summary ---
Author Organization [facility] - [facility] Address [facility] [place] [address] Care Team Providers Care Guidance Director Name Role Phone Natanael Yarbrough MD Unavailable [phone] Edison Escoto MD Primary Care Provider [phone] Encounter Details Date Type Department Care Team (Latest Contact Info) Description 03/25/2025 Results Follow-Up [facility] [address] Lyssa Steele RN USE ECHOCARDIOGRAM W CON Social History Tobacco Use Types Packs/Day Years [...] Sex Assigned at Female 11/16/2024 3:42 PM LINE PRODUCER Legal Sex Female 5:38 PM CDT Gender Identity Not on file Sexual Orientation Not on file Occupation Industry Job Start Date Job End Date Not on file Not on file Not on file Not on file documented as of this encounter Plan of Treatment Not on file documented as of this encounter Visit Diagnoses Not on filedocumented in this encounter Care Teams Guidance Director Relationship Specialty Start Date End Date Edison Escoto MD [address] [place] [address] PCP - General Neurology Psychiatry 04/26/23 Natanael Yarbrough MD [address] [facility] [address] [place] [address] [place] Feather Drying Machine Operator CARDIOVASCULAR DISEASE 05/25/19 documented as of this encounter
--- OUTSIDE RECORDS SUMMARY | 2025-04-28 13:26 | XMS_ITS | Encounter Summary ---
Author Organization [facility] Facility Care Team Providers Care Frankfurter Inspector Name Role Phone Chintan Henderson MD Primary Care Provider [phone] Memo Nieves MD Primary Care Provider [phone] Antoinette Carreno RN Unavailable [phone] Rm Escoto MD Primary Care Provider [phone] Carrie Joe CASHIER HOST/HOSTESS Unavailable [phone] Leslye Correia MD Unavailable Carrie Joe CASHIER HOST/HOSTESS Unavailable Encounter Details Date Type Department Care Team (Latest Contact Info) Description 09/18/2016 Orders Only MMG CLINCONV Provider, MD Kelly [address] [place] [address] Social History Tobacco Use Types Packs/Day Years Used Date Smoking Tobacco: Never Comments Unknown Sex and Gender Information Value Date Recorded Sex Assigned at Not on file Legal Sex Female 8:45 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 us Historical Provider Final Res ult documented in this encounter Visit Diagnoses Not on filedocumented in this encounter Additional Health Concerns Infection Onset Date Last Indicated Resolved Time COVID: Suspected 05/27/2023 05/27/2023 05/27/2023 1:37 PM CDT documented as of this encounter Care Teams Frankfurter Inspector Relationship Specialty Start Date End Date Chintan Henderson MD 10 [facility] [place] [address] PCP - General 11/26/10 01/16/17 Memo Nieves MD 10 [facility] [place] [address] PCP - General 01/17/17 08/26/22 Rm Escoto MD [address] [place] [address] [address] [place] [address] PCP - General Family Medicine 08/27/22 Antoinette Carreno, RN [address] [facility] [address] [place] [address] Economic Development Coordinator 11/17/17 11/26/17 Carrie Joe CASHIER HOST/HOSTESS [address] [place] [address] 300 [place] [address] Assistant Technician 11/27/22 12/09/22 Leslye Correia MD [address] [facility], [facility] [address] [place] [address] Consulting Physician Pain Management 06/12/23 Carrie Joe CASHIER HOST/HOSTESS [address] [place] [address] [address] [place] [address] Assistant Technician 11/06/23 04/07/24 documented as of this encounter
--- OUTSIDE RECORDS SUMMARY | 2025-04-28 13:26 | XMS_ITS | Clinical Summary ---
Author Organization [email or web address] Address [address] [facility] [place] [address] Care Team Providers Care Janitor Helper Name Role Phone Memo Nieves MD Primary Care Provider Source Comments [email or web address],non-owned Affiliates and Associated Physician Practices is amultiple site organization consisting of ambulatory clinics and hospital sitesin [place], [place], [place] and [place]. This disclosure is being madepursuant to the Care Everywhere program and may not contain all information available regarding this patient. Last updated 18.[email or web address] Allergies Active Allergy Reactions Criticality Noted Date [...] document. Alwaysverify current medications with the patient. Insulin Pen Needle (BD ULTRA-FINE PEN NEEDLES) 29G X 12.7MM MISC Use 1 Each DAILY. 100 Each 5 10/15/19 18 Active amoxicillin (AMOXIL) 500 MG tablet Take 500 mg by mouth. 08/20/20 17 Active pantoprazole (PROTONIX) 40 MG packet 40 mg by Feeding route DAILY. 07/31/20 17 Active losartan - hydroCHLOROthiazide (HYZAAR) 50-12.5 MG tablet Take 1 tablet by mouth DAILY. 07/31/20 17 Active LORazepam (ATIVAN) 1 MG tablet Take 1 mg by mouth TID. 07/31/20 Active glimepiride (AMARYL) 2 MG tablet Take 2 mg by mouth BID. 07/31/20 Active meclizine (ANTIVERT) 12.5 MG tablet Take 12.5 mg by mouth BID PRN. 07/31/20 Active metFORMIN (GLUCOPHAGE) 500 MG tablet Take 1,000 mg by mouth DAILY. 07/31/20 Active HYDROcodone-acetaminoph en (NORCO) 7.5-325 MG tablet Take 1 tablet by mouth q6h PRN (Pain). 07/31/20 Active metoprolol succinate XL 24hr (TOPROL XL) 100 MG tablet Take 100 mg by mouth DAILY. 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 Gender Identity Not on file Sexual Orientation Not on file Last Filed Vital Signs Vital Sign Reading Time Taken Comments Blood Pressure 128/78 04/07/2018 9:02 AM CDT Pulse 66 04/07/2018 9:02 AM CDT Temperature 36.4 C (97.6 F) 04/07/2018 9:02 AM CDT Respiratory Rate 14 08/20/2017 1:00 PM SUPERVISOR FIBERGLASS BOAT ASSEMBLY Oxygen Saturation 97% 04/07/2018 9:02 AM CDT Inhaled Oxygen Concentration - - Weight 79 kg (174 lb 3.2 oz) 04/07/2018 9:02 AM CDT Height 162.6 cm (5' 4) 04/07/2018 9:02 AM CDT Body Mass Index [...] history exists COVID-19 VACCINE ( season) 2024 DEPRESSION SCREENING 09/29/2024 DIABETES - URINE PROTEIN SCREENING 09/29/2024 10/22/2017, 08/20/2017 INFLUENZA VACCINE (#1) 2025 HEPATITIS B VACCINE Aged Out No longe [...] URINE RANDOM PANEL Routine 10/22/2017 3:33 PM SUPERVISOR FIBERGLASS BOAT ASSEMBLY COMPREHENSIVE METABOLIC PANEL Routine 10/22/2017 3:33 PM SUPERVISOR FIBERGLASS BOAT ASSEMBLY from Last 3 Months or Most Recently Relevant to Health Maintenance Results * HEMOGLOBIN A1C - POINT OF CARE (AMB) [facility] (04/07/2018) Pathologist [facility] Hemoglobin A1c POCT 8.3 [facility] POCT TESTING Blood BLOOD SPECIMEN / Unknown 04/07/2018 Shanice Vanegas MD LAB - POINT OF CARE ORDERABLES Final Result Performing Organization Address City/[facility]/ZIP Co de Phone Number [facility] POCT TESTING [address] [place] [address] * MICROALB/CREAT RATIO URINE RANDOM PANEL (10/22/2017 3:33 PM SUPERVISOR FIBERGLASS BOAT ASSEMBLY) Pathologist [facility] Albumin Random Urine 5.0 Not Established mcg/mL [facility] Creatinine Urine 31 Not Established mg/dL [facility] Urine Albumin/Creati nine Ratio 16 <30 mg/g [facility] Urine specimen (specimen) URINE / Unknown 10/22/2017 3:33 PM SUPERVISOR FIBERGLASS BOAT ASSEMBLY 10/22/2017 4:37 PM SUPERVISOR FIBERGLASS BOAT ASSEMBLY us Tommy Delgado MD LAB - URINE CHEMISTRY ORDERABLES Final Result [address] [phone] * (ABNORMAL) COMPREHENSIVE METABOLIC PANEL (10/22/2017 3:33 PM SUPERVISOR FIBERGLASS BOAT ASSEMBLY) BUN 15 7 - 26 mg/dL [facility] Creatinine 0.7 0.6 - 1.2 mg/dL [facility] Sodium 142 136 - 145 mmol/L [facility] Potassium 3.7 3.5 - 4.5 mmol/L [facility] Chloride 102 98 - 107 mmol/L [facility] CO2 30(H) 22 - 29 mmol/L [facility] Glucose 76 70 - 115 mg/dL [facility] Calcium 9.8 8.4 - 10.2 mg/dL [facility] Protein Total 8.2 6.0 - 8.3 g/dL [facility] Albumin 4.3 3.4 - 5.0 g/dL [facility] Bilirubin Total 0.5 0.2 - 1.2 mg/dL [facility] Alkaline Phosphatase 83 40 - 150 Units/L [facility] ALT 26 0 - 55 Units/L [facility] AST 29 5 - 34 Units/L [facility] Anion Gap 14 8 - 18 [facility] BUN/Creatinine Ratio 21 7 - 23 [facility] Osmolality Calculated 294 270 - 300 mOsm/kg [facility] Albumin/Globulin Ratio 1.1 1.1 - 2.3 [facility] eGFR >60 >60 mL/min/1.7 3 m2 [facility] Blood specimen (specimen) BLOOD SPECIMEN / Unknown 10/22/2017 3:33 PM SUPERVISOR FIBERGLASS BOAT ASSEMBLY 10/22/2017 4:37 PM SUPERVISOR FIBERGLASS BOAT ASSEMBLY Tommy Delgado MD LAB - CHEMISTRY ORDERABLES Final Result [facility] [address] [place] [address] from Last 3 Months or Most Recently Relevant to Health Maintenance Insurance MEDICARE MEDICAID - OUT OF STATE MEDICARE MEDICAID - [place] Care Teams Janitor Helper Relationship Specialty Start Date End Date Memo Nieves MD [address] [facility] [address] [place] [id number] PCP - General 02/06/18
--- OUTSIDE RECORDS SUMMARY | 2025-04-28 13:26 | XMS_ITS | Referral Summary ---
Author Organization [facility] Address [address] [place] [address] Care Team Providers Care Security Systems Specialist Name Role Phone Rm Escoto MD Primary Care Provider [phone] Leslye Correia MD Unavailable Encounters Date Type Department Care Team Description 03/22/2025 Telephone [facility] Medicine at [address] [place] [address] Rm Escoto MD Med Refill 03/16/2025 3:15 PM CDT Office Visit [facility] at [address] [place] [address] Rm Escoto MD Controlled type 2 diabetes mellitus with diabetic polyneuropathy, with long-term current use of insulin (HCC) (Primary Dx); Compression fracture of L3 vertebra with routine healing, subsequent encounter; Essential (primary) hypertension 02/18/2025 Telephone [facility] at [address] [place] [address] Rm Escoto MD Medical Question/Miscellaneous 02/17/2025 Telephone [facility] Family Medicine at [address] [place] [address] Rm Escoto MD Medical Question/Miscellaneous 02/11/2025 Telephone [facility] Family Medicine at [address] [place] [address] Rm Escoto MD Med Refill; Prior Auth (Contour test strips) from Last 3 Months Allergies Active Allergy [...] Unknown 01/26/2019 Medications acetaminophen (TYLENOL) 500 mg tabletIndications :Closed fracture of multiple ribs of left side, initial encounter Take 1 tablet (500 mg total) by mouth daily 30 tablet 020 Active lidocaine (LIDODERM) 5 % Place 1 patch on the skin daily Remove & discard patch within 12 hours or as directed by MD. 30 patch 023 Active Additional Information Patient not taking.Reported on 03/16/2025 citalopram (CeleXA) 20 mg tablet Take 1 tablet (20 mg total) by mouth daily 023 Active cholecalciferol (VITAMIN D-3) 71625 unit tabletIndications :Vitamin D Deficiency,Vitami n D Deficiency (High Dose Therapy) Take 1 tablet (50,000 Units total) by mouth once a week 12 tablet 3 024 Active citalopram (CeleXA) 10 mg tablet Take 1 tablet (10 mg total) by mouth daily 024 Active FreeStyle Lanny 2 Sensor kitIndications:Un controlled type 2 diabetes mellitus with hypoglycemia without coma (HCC) Change every 14 days 2 kit 11 024 Active QUEtiapine (SEROquel) 25 mg tabletIndications :Primary insomnia Take 1 tablet (25 mg total) by mouth nightly 30 tablet [address] (PROTONIX) 40 mg EC tabletIndications :GERD without esophagitis Take 1 tablet (40 mg total) by mouth daily 90 tablet 3 024 2024 Active blood-glucose sensor deviceIndications :Uncontrolled type 2 diabetes mellitus with hypoglycemia without coma (HCC) 1 each every 14 (fourteen) days To check blood sugar 4-5 times per day 6 each 1 Active blood-glucose meter,continuous (FreeStyle Lanny 3 [place]) miscIndications:U ncontrolled type 2 diabetes mellitus with hypoglycemia without coma (HCC) 1 each daily 1 each 1 Active docusate sodium (COLACE) 100 mg capsuleIndication s:constipation Take 1 capsule (100 mg total) by mouth 2 (two) times a day 60 capsule 11 024 Active pen needle, diabetic (BD July 2nd Gen Pen Needle) 32 gauge x 5/32 needleIndications :Uncontrolled type 2 diabetes mellitus with hypoglycemia without coma (HCC) USE ONE PEN NEEDLE TO INJECT INSULIN FOUR TIMES DAILY 400 each 5 025 Active meclizine (ANTIVERT) 12.5 mg tablet TAKE 1 TABLET(12.5 MG) BY MOUTH THREE TIMES DAILY NEEDED FOR DIZZINESS OR NAUSEA 90 tablet 3 025 Active metFORMIN (GLUCOPHAGE) 1,000 mg tabletIndications :Uncontrolled type 2 diabetes mellitus with hypoglycemia without coma (HCC) Take 1 tablet (1,000 mg total) by mouth 2 (two) times a day with meals 180 tablet 1 025 2024 Active furosemide (LASIX) 40 mg tablet Take 1 tablet (40 mg total) by mouth 2 (two) times a day 180 tablet 3 025 Active levothyroxine (SYNTHROID) 25 mcg tabletIndications :Acquired hypothyroidism Take 1 tablet (25 mcg total) by mouth daily 90 tablet 3 025 Active vitamin B complex capsuleIndication s:Uncontrolled type 2 diabetes mellitus with hypoglycemia without coma (HCC) TAKE 1 CAPSULE BY MOUTH EVERY DAY 30 capsule Active miscellaneous medical supply miscIndications:L umbar facet arthropathy,Compr ession fracture of L3 vertebra with routine healing, subsequent encounter One back brace of patient choice 1 each Active blood glucose diagnostic (Contour Next Test Strips) stripIndications: Uncontrolled type 2 diabetes mellitus with hypoglycemia without coma ([facility]) Check blood sugar 4-5 times daily 300 strip 1 Active hydrOXYzine (ATARAX) 25 mg tabletIndications :Lumbar facet arthropathy TAKE 1 TABLET(25 MG) BY MOUTH THREE TIMES DAILY NEEDED FOR ITCHING------- DO NOT TAKE WITH BENADRYL 90 tablet Active rosuvastatin (CRESTOR) 10 mg tabletIndications :Controlled type 2 diabetes mellitus with diabetic polyneuropathy, with long-term current use of insulin ([facility]) Take 1 tablet (10 mg total) by mouth daily 90 tablet 1 025 2024 Active losartan-hydroCHL OROthiazide (Hyzaar) 50-12.5 mg per tabletIndications :Essential (primary) hypertension Take 1 tablet by mouth daily 90 tablet 3 Active metoprolol XL (TOPROL-XL) 100 mg 24 hr tabletIndications :Essential (primary) hypertension Take 1 tablet (100 mg total) by mouth daily 90 tablet 3 025 Active HYDROcodone-aceta minophen (NORCO) 7.5-325 mg per tabletIndications :Pain Take 1 tablet by mouth every 8 (eight) hours as needed for pain 90 tablet 025 2024 Active insulin NPH-insulin regular 70/30 (HumuLIN 70/30, NovoLIN 70/30) 100 unit/mL pen for injectionIndicati ons:Controlled type 2 diabetes mellitus with diabetic polyneuropathy, with long-term current use of insulin ([facility]) Inject 20 Units under the skin 2 (two) times a day 12 mL 11 025 2025 Active ondansetron (ZOFRAN) 4 mg tablet Take 1 tablet (4 mg total) by mouth every 8 (eight) hours as needed for nausea or vomiting 30 tablet 07/28/2 025 Active ondansetron (ZOFRAN) 4 mg tablet Take 1 tablet (4 mg total) by mouth every 8 (eight) hours as needed for nausea or vomiting 30 tablet 025 2024 Discontinued HYDROcodone-aceta minophen (NORCO) 7.5-325 mg per tabletIndications :Pain Take 1 tablet by mouth every 8 (eight) hours as needed for pain 90 tablet 025 2024 Discontinued(R eorder) insulin NPH-insulin regular 70/30 (HumuLIN 70/30, NovoLIN 70/30) 100 unit/mL pen for injectionIndicati ons:Controlled type 2 diabetes mellitus with diabetic polyneuropathy, with long-term current use of insulin (HCC) Inject 20 Units under the skin 2 (two) times a day 12 mL 11 025 2024 Discontinued(R eorder) ondansetron (ZOFRAN) 4 mg tablet TAKE 1 TABLET(4 MG) BY MOUTH EVERY 8 HOURS NEEDED FOR NAUSEA OR VOMITING 30 tablet 025 2024 Discontinued(R eorder) Active Problems Problem Noted Date Diagnosed Date Class 1 obesity due to exces s calories with serious comorbidity and body mass index (BMI) of 30.0 to 30.9 in adult 12/08/2024 Assessment & Plan (12/08/2024 3:59 PM CDT): Chronic. Uncontrolled. Goal: 140lb Recommend Nutritional every other Friday Seminar. Recommended Medication :none Microcytic anemia 09/01/2024 Syncope 07/02/2024 Iron deficiency anemia due to [...] benefit of other non-opioid pain therapies. Immunization: [id number]: Risk and benefits discussed with patient. Patient voiced understandings; and refused. [id number]: Risk and benefits discussed with patient. Patient [...] Annually Assessment & Plan (11/04/2023 2:26 PM SUBACUTE NURSE): Patient here for annual Medicare wellness visit [...] Plan Services (PPPS): Opioid Use: No Immunization: [id number]: Risk and benefits discussed with patient. Patient voiced understandings; and refused. [id number]: Risk and benefits discussed with patient. Patient [...] Sleep apnea 05/12/2018 Lumbar facet arthropathy 04/21/2018 Assessment & Plan (01/14/2025 12:34 PM CDT): I would recommend that patient needs manual wheelchair to prevent potential falls and proper mobility. Pt needs a standard wheelchair, she cannot use a standard walker or cane due to gait instability and being a fall risk. Patient has mobility limitations. A manual wheelchair will significantly improve the patients ability to participate in [facility]. It will be used on a regular basis. The patient is willing to use a wheelchair. Patient has sufficient upper extremity function and other physical and mental capabilities to safely self propel the wheelchair in the home on a typical day. Limitations of strength, endurance, range of motion, coordination, presence of pain, or deformity or absence of one or both upper extremities are relevant to the assessment of upper extremity function. Caregiver is available and willing to provide assistance. Greater trochanteric bursitis of right hip 04/08 [...] 12/26/2015 Assessment & Plan (08/11/2019 12:40 PM SUBACUTE NURSE): Blood pressure 165/80. Continue same medications at [...] drink = 0.6 oz pur e alcohol) [facility] Utilities Answer Date Recorded In [...] often do you attend chur ch or spiritism services? More than 4 times per year 11/06/2023 Do you belong to any clubs o r organizations such as uatsdin groups, unions, fraternal or athletic groups, or school groups? No 11/06/2023 How often do you attend meet ings of the clubs or organizations you belong to? Never 11/06/2023 Are you , , di vorced, , never , or living with a partner? 11/06/2023 AUDIT-C Answer Date Recorded Q1: How often do you have a drink containing alcohol? Never 03/16/2025 Q2: How many drinks containi ng alcohol do you have on a typical day when you are drinking? Patient does not drink Q3: How often do you have si x or more drinks on one occasion? Never 03/16/2025 Overall Financial Resource Strain (CARDIA) Answe r [...] place to sleep or slept in a assisted (including now)? No 11/06/2023 Personal Safety Answer Date Recorded Have you ever been in or are you currently in a harmful physical or emotional relationship or is someone making you feel afraid or unsafe? Denies 05/27/2023 Comments No Sex and Gender Information Value Date Recorded Sex Assigned at Not on file Legal Sex Female 8:45 PM SUBACUTE NURSE Gender Identity Not on file Sexual Orientation Not on file Last Filed Vital Signs Vital Sign Reading Time Taken Comments Blood Pressure 95/53 03/16/2025 3:40 PM CDT Pulse 73 03/16/2025 3:40 PM CDT Temperature 36.6 C (97.8 F) 03/16/2025 3:40 PM CDT Respiratory Rate 18 03/16/2025 3:40 PM CDT Oxygen Saturation 97% 03/16/2025 3:4 0 PM CDT Inhaled Oxygen Concentration - - Weight 79.4 kg (175 lb) 03/16/2025 3:40 PM CDT pt did not want to weigh today.-DD Height 162.6 cm (5' 4.02) 03/16/2025 3 :40 PM CDT Body Mass Index 30.02 03/16/2025 3:40 PM CDT Plan of Treatment Not on file Goals Goal Patient Goal Type Associated Problems Recent Progress Patient-Stated? Author ACO SW Goal - Patient can identify and utilize needed community resources ACO Care Management On track( 024 4:16 PM CDT) Carrie Jackson, CONTINUOUS CRUSHER OPERATOR Note: Problem: Need for Community Resources Interventions: - Provide patient/family with a list of appropriate resources for their specific need. - Help to coordinate resources. - Follow up to ensure patient/family has connected with the appropriate resources / personnel. Medical Devices Implanted Type Area Copy Coordinator Device Identifier Shelf Expiration Date Model / Serial / Lot [employer] Vertaplex Hv Autoplex Without Needle Delivery System Kit Bone [id number] - [id number] Implanted:Qty: 1 on 05/15/2023 by Leslye Correia MD at [facility] N/A: Spine Lumbar [employer] 02/26/2025 [id number] / / [id number] Procedures Procedure Name Priority Date/Time Associated Diagnosis Comments POCT HEMOGLOBIN A1C Routine 03/16/2025 4 :10 PM CDT Controlled type 2 diabetes mellitus with diabetic polyneuropathy, with long-term current use of insulin (HCC) LIPID PANEL Routine 12/31/2024 11:37 AM CDT ALBUMIN CREATININE RATIO, URINE Routine 12/31/2024 Uncontrolled type 2 diabetes mellitus with hypoglycemia without coma (HCC) EGFR Routine 07/14/2024 1:17 PM CDT Uncontrolled type 2 diabetes mellitus with hypoglycemia without coma (HCC) OCCULT BLOOD, FECAL (FIT) Routine 12/09/2016 10:00 AM CDT from Last 3 Months or Most Recently Relevant to Health Maintenance Results * (ABNORMAL) POCT hemoglobin A1c (03/16/2025 4:10 PM CDT) Pathologist [facility] Hemoglobin A1C, POC 6.9(A) 4.0 - 5.6 % Blood 03/16/2025 4:10 PM CDT Rm Escoto MD POINT OF CARE TEST ORDERABLES Fi nal Result * Lipid panel (12/31/2024 11:37 AM CDT) Pathologist [facility] SCRIBED Cholesterol, Total 193 0 - 200 EXTERNAL LAB SCRIBED HDL 50 35 - 100 EXTERNAL LAB SCRIBED LDL 111 0 - 130 EXTERNAL LAB SCRIBED Triglycerides 71 0 - 150 EXTERNAL LAB Blood Kelly Boyce MD LAB BLOOD ORDERABLES Nadeen l Result Performing Organization Address City/[facility] Co de Phone Number EXTERNAL LAB * (ABNORMAL) Albumin Creatinine Ratio, Urine (12/31/2024) SCRIBED Creatinine, Urine 30.1(A) 0 - 0 EXTERNAL LAB SCRIBED Microalbumin 7.3 0 - 16.7 EXTERNAL LAB SCRIBED Micro ACR, Urine 24.3 0 - 30 EXTERNAL LAB Urine 12/31/2024 mR Escoto MD LAB URINE ORDERABLES Final Resul t Performing Organization Address [facility] de Phone Number EXTERNAL LAB * eGFR (07/14/2024 1:17 PM CDT) eGFR [...] 1:17 PM CDT 07/14/2024 5:46 PM CDT Rm Escoto MD LAB BLOOD ORDERABLES Final Resul t Performing Organization Address City/[facility]/ZIP Co de Phone Number IDALIA [id number] [facility] Department [place] [address] * Occult blood, fecal non neoplasm screening (12/09/2016 10:00 AM CDT) Stool Occult Blood POSITIVE NEGATIVE 12/09/2016 10:0 0 AM CDT 12/09/2016 10:39 AM CDT Narrative [facility] HISTORICAL RESULTS - 12/09/2016 10:41 AM CDT Collected By ss Felecia Stephens LAB BODY FLUIDS AND STOOLS ORDER RUBEN Final Result [facility] HISTORICAL RESULTS from Last 3 Months or Most Recently Relevant to Health Maintenance Insurance [facility] MEDICARE MEDICARE [facility] MEDICARE ADVANTAGE Advance Directives For more information, please contact: [phone] * Full Code (Latest Code Status on File) Date Activated Date Inactivated Comments 05/10/2023 10:28 PM 05/20/2023 8:11 PM Care Teams Security Systems Specialist Relationship Specialty Start Date End Date Rm Escoto MD PCP - General Family Medicine 08/27/22 Leslye Correia MD [address] [facility] [address] Consulting Physician Pain Management 06/12/23
--- OUTSIDE RECORDS SUMMARY | 2025-04-28 13:26 | XMS_ITS | Clinical Summary ---
Author Organization [facility] Address [address] [place] [address] Phone Care Team Providers Care Nitroglycerin Separator Operator Name Role Phone Memo Nieves MD Primary Care Provider [phone] Social History Tobacco Use Types Packs/Day Years Used Date Smoking Tobacco: Never Assessed Comments Unknown Sex and Gender Information Value Date Recorded Sex Assigned at Not on file Legal Sex Female 3:19 PM [employer] Gender Identity Not on file Sexual Orientation Not on file Plan of Treatment Health Maintenance Due Date Last Done Comments DTAP/TDAP/TD VACCINES (1 - Tdap) 1963 PNEUMOCOCCAL VACCINE 50+ YEARS (1 of 1 - PCV) 06/16/19 94 ZOSTER VACCINE (1 of 2) 1994 OSTEOPOROSIS SCREENING 2009 RSV VACCINE (60+ or ) (1 - 1-dose 75+ series) 2019 INFLUENZA VACCINE (#1) 2025 Care Teams Nitroglycerin Separator Operator Relationship Specialty Start Date End Date Memo Nieves MD PCP - General Family Practice 09/18/17
--- OUTSIDE RECORDS SUMMARY | 2025-04-28 13:26 | XMS_ITS | Clinical Summary ---
Author Organization [facility] [address] Address [address] [place] [address] Care Team Providers Care Pension Agent Name Role Phone Rm Escoto MD Primary Care Provider [phone] Leslye Correia MD Unavailable Allergies Active Allergy [...] or as directed by MD. 30 patch Active Additional Information Patient not taking.Reported on 03/16/2025 citalopram (CeleXA) 20 mg tablet Take 1 tablet (20 mg total) by mouth daily 023 Active cholecalciferol (VITAMIN D-3) 39203 unit tabletIndications :Vitamin D Deficiency,Vitami n D [...] 1 Active blood-glucose meter,continuous (FreeStyle Lanny 3 [place]) miscIndications:U ncontrolled type 2 diabetes mellitus with hypoglycemia without coma (HCC) 1 each daily 1 each 1 024 Active docusate sodium (COLACE) 100 mg capsuleIndication [...] CAPSULE BY MOUTH EVERY DAY 30 capsule 025 Active miscellaneous medical supply miscIndications:L umbar facet arthropathy,Compr ession fracture of L3 vertebra with routine healing, subsequent encounter One back brace of patient choice 1 each 025 Active blood glucose diagnostic (Contour Next Test Strips) stripIndications: Uncontrolled type 2 diabetes mellitus with hypoglycemia without coma (HCC) Check blood sugar 4-5 times daily 300 strip 1 025 Active hydrOXYzine (ATARAX) 25 mg tabletIndications :Lumbar facet arthropathy TAKE 1 TABLET(25 MG) BY MOUTH THREE TIMES DAILY NEEDED FOR ITCHING------- DO NOT TAKE WITH BENADRYL 90 tablet 025 Active rosuvastatin (CRESTOR) 10 mg tabletIndications :Controlled type 2 diabetes mellitus with diabetic polyneuropathy, with long-term current use of insulin (HCC) Take 1 tablet (10 mg total) by mouth daily 90 tablet 1 025 2024 Active losartan-hydroCHL OROthiazide (Hyzaar) 50-12.5 mg per tabletIndications :Essential (primary) hypertension Take 1 tablet by mouth daily 90 tablet 3 025 Active metoprolol XL (TOPROL-XL) 100 mg 24 [...] polyneuropathy, with long-term current use of insulin ([facility]) Inject 20 Units under the skin 2 (two) times a day 12 mL 11 025 2025 Active ondansetron (ZOFRAN) 4 mg tablet Take 1 tablet (4 mg total) by mouth every 8 (eight) hours as needed for nausea or vomiting 30 tablet Active ondansetron (ZOFRAN) 4 mg tablet Take [...] polyneuropathy, with long-term current use of insulin ([facility]) Inject 20 Units under the skin 2 [...] Uncontrolled. Goal: 140lb Recommend Nutritional every other [employer]. Recommended Medication :none Microcytic anemia 09/01/2024 [...] benefit of other non-opioid pain therapies. Immunization: [id number]: Risk and benefits discussed with patient. Patient voiced understandings; and refused. [id number]: Risk and benefits discussed with patient. Patient [...] Annually Assessment & Plan (11/04/2023 2:26 PM RESIDENTIAL CASE MANAGER): Patient here for annual Medicare wellness visit [...] Plan Services (PPPS): Opioid Use: No Immunization: [id number]: Risk and benefits discussed with patient. Patient voiced understandings; and refused. [id number]: Risk and benefits discussed with patient. Patient [...] 12/26/2015 Assessment & Plan (08/11/2019 12:40 PM RESIDENTIAL CASE MANAGER): Blood pressure 165/80. Continue same medications at this time. Continue to monitor. Atherosclerosis of coronary artery 10/23/2012 Overview (01/02/2017): CAD (coronary artery disease) Mixed hyperlipidemia 10/23/2012 Overview (01/02/2017): Hyperlipidemia Resolved Problems Problem Noted Date Diagnosed Date Resolved Date Hypertension 10/23/2012 02/04/2019 Overview (01/02/2017): HYPERTENSION NOS Encounters Date Type Department Care Team Description 03/22/2025 Telephone [facility] at [address] [phone] Rm Escoto MD Med Refill 03/16/2025 3:15 PM CDT Office Visit [facility] at [address] [phone] Rm Escoto MD Controlled type 2 diabetes mellitus with diabetic polyneuropathy, with long-term current use of insulin (HCC) (Primary Dx); Compression fracture of L3 vertebra with routine healing, subsequent encounter; Essential (primary) hypertension 02/18/2025 Telephone [facility] at [address] [phone] Rm Escoto MD Medical Question/Miscellaneous 02/17/2025 Telephone [facility] Medicine at [address] [place] [phone] Rm Escoto MD Medical Question/Miscellaneous 02/11/2025 Telephone [facility] Medicine at [address] [address] Rm Escoto MD Med Refill; Prior Auth (Contour test strips) from Last 3 Months Immunizations Immunization Administration [...] drink = 0.6 oz pur e alcohol) INCHRONities Answer Date Recorded In the past 12 months has [employer], gas, oil, or water [employer] I threatened to shut off services in your home? No 11/06/2023 Social Connection and Isolat ion Panel [NHANES] Answer Date Recorded In a typical week, how many times do you talk on the phone with family, friends, or neighbors? Twice a week 11/06/2023 How often do you get togethe r with friends or relatives? Once a week 11/06/2023 How often do you attend [facility] or evangelical services? More than 4 times per year 11/06/2023 Do you belong to any clubs o r organizations such as gnosticist groups, unions, fraternal or athletic groups, or [...] on file Legal Sex Female 8:45 PM RESIDENTIAL CASE MANAGER Gender Identity Not on file Sexual [...] 03/16/2025 3:40 PM CDT Plan of Treatment Health Maintenance Due Date Last Done Comments Osteoporosis Screening-Bone Density Scan 1945 DTaP/Tdap/Td Vaccine (1 - Tdap) 1955 Zoster Vaccine (1 of 2) 1994 Foot Exam 04/23/2024 04/23/2023, 02/28, 02/12/2023, Additional history exists Influenza Vaccine (#1) 2025 eGFR 07/14/2025 07/14/2024, 12/29, 05/27/2023, Additional history exists Hemoglobin A1C 09/15/2025 03/16/2025, 0310/2024, 05/18/2024, Additional history exists Depression Screening 12/08/2025 12/08/2024, 11/04/2023, 02/12/2023, Additional history exists Fall Risk Assessment 12/08/2025 12/08/2024, 11/04/2023, 05/20/2023, Additional history exists Well Visit 65+ 12/08/2025 12/08/2024, 0 02/2024, 02/13/2022 Albumin Creatinine Ratio, Urine 12/31/2025 12/31/2024, 09/02/2023, 08/24/2022 Lipid Panel 12/31/2025 12/31/2024, 04/0 12/2024, 01/23/2024, Additional history exists Colon Cancer Screening-FIT Discontinued 12/09/2016 Colon Cancer Screening-FOBT Discontinued 12/09/2016 Colorectal Cancer Screening Discontinued Hepatitis B Screening Completed 07/14/2024 Colon Cancer Screening-CT Colonography Discontinued Colon Cancer Screening-Colonoscopy Discontinued Colon Cancer Screening-DNA Stool Discontinued Colon Cancer Screening-Sigmoidoscopy Discontinued Dilated Eye Exam Discontinued Pneumococcal vaccine 65+ Discontinued Goals Goal Patient Goal Type Associated Problems Recent Progress Patient-Stated? Author ACO Goal - Patient can identify and utilize needed community resources ACO Care Management On track( 024 4:16 PM CDT) Carrie Jackson, PRIME MINISTER Note: Problem: Need for Community Resources Interventions: - Provide patient/family with a list of appropriate resources for their specific need. - Help to coordinate resources. - Follow up to ensure patient/family has connected with the appropriate resources / personnel. Medical Devices Implanted Type Area Poultry And Fish Butcher Device Identifier Shelf Expiration Date Model / Serial / Lot [employer] Vertaplex Hv Autoplex Without Needle Delivery System Kit Bone [id number] - [id number] Implanted:Qty: 1 on 05/15/2023 by Leslye Correia MD at [facility] N/A: Spine Lumbar [employer] 02/26/2025 [id number] / / [id number] Procedures Procedure Name Priority Date/Time Associated Diagnosis [...] POCT hemoglobin A1c (03/16/2025 4:10 PM CDT) Hemoglobin A1C, POC 6.9(A) 4.0 - 5.6 % Blood 03/16/2025 4:10 PM CDT Rm Escoto MD POINT OF CARE TEST ORDERABLES Fi nal Result * Lipid panel (12/31/2024 11:37 AM CDT) SCRIBED Cholesterol, Total 193 0 - 200 EXTERNAL LAB SCRIBED HDL 50 35 - 100 EXTERNAL LAB SCRIBED LDL 111 0 - 130 EXTERNAL LAB SCRIBED Triglycerides 71 0 - 150 EXTERNAL LAB Blood Kelly Provider LAB BLOOD ORDERABLES Nadeen l Result EXTERNAL LAB * (ABNORMAL) Albumin Creatinine Ratio, Urine (12/31/2024) SCRIBED Creatinine, Urine 30.1(A) 0 - 0 EXTERNAL LAB SCRIBED Microalbumin 7.3 0 - 16.7 EXTERNAL LAB SCRIBED Micro ACR, Urine 24.3 0 - 30 EXTERNAL LAB Urine 12/31/2024 Rm Escoto MD LAB URINE ORDERABLES Final Resul t EXTERNAL LAB * eGFR (07/14/2024 1:17 PM [...] of Race in Diagnosing Kidney Disease, JASN 2021). The CKD-EPI equation should not be used for patients with unstable renal function and has not been validated in children and those over 70. Current interpretive data was last reviewed 2021. Blood 07/14/2024 1:17 PM CDT 07/14/2024 5:46 PM CDT us Rm Escoto MD LAB BLOOD ORDERABLES Final Resul t Performing Organization Address [facility] [[email or web address]] Co de Phone Number IDALIA [phone] [facility] Department [place] [address] * Occult blood, fecal non neoplasm screening (12/09/2016 10:00 AM CDT) Stool Occult Blood POSITIVE NEGATIVE 12/09/2016 10:0 0 AM CDT 12/09/2016 10:39 AM CDT Narrative [facility] HISTORICAL RESULTS - 12/09/2016 10:41 AM CDT Collected By ss us Felecia Stephens LAB BODY FLUIDS AND STOOLS ORDER RUBEN Final Result Performing Organization Address [facility] [[email or web address]] Co de Phone Number [facility] HISTORICAL RESULTS from Last 3 Months or Most Recently Relevant to Health Maintenance Insurance [employer]NM MEDICARE MEDICARE [facility] MEDICARE ADVANTAGE Advance Directives For more information, please contact: [phone] * Full Code (Latest Code Status on File) Date Activated Date Inactivated Comments 05/10/2023 10:28 PM 05/20/2023 8:11 PM Care Teams Pension Agent Relationship Specialty Start Date End Date Rm Escoto MD PCP - General Family Medicine 08/27/22 Lesley Correia MD [address] [facility] [place] [phone] Consulting Physician Pain Management 06/12/23
--- OUTSIDE RECORDS SUMMARY | 2025-04-28 13:26 | XMS_ITS | Encounter Summary ---
Author Organization [facility] Facility Care Team Providers Care Grooving Lathe Tender Name Role Phone Chintan Henderson MD Primary Care Provider [phone] Memo Nieves MD Primary Care Provider Antoinette Carreno RN Unavailable [phone] Rm Escoto MD Primary Care Provider [phone] Carrie Joe STEWARD/STEWARDESS ROOM Unavailable Leslye Correia MD Unavailable Carrie Joe STEWARD/STEWARDESS ROOM Unavailable Encounter Details Date Type Department Care Team (Latest Contact Info) Description 02/05/2016 Orders Only [facility] CLINCONV Provider, MD Kelly [address] [place] [id number] Social History Tobacco Use Types Packs/Day Years Used Date Smoking Tobacco: Never Comments Unknown Sex and Gender Information Value Date Recorded Sex Assigned at Not on file Legal Sex Female 8:45 PM MAGNET PLACER Gender Identity Not on file Sexual Orientation [...] documented as of this encounter Care Teams Grooving Lathe Tender Relationship Specialty Start Date End Date Chintan Henderson MD [address] [facility] [place] [address] PCP - General 11/26/10 01/16/17 Memo Nieves MD [address] [facility] [place] [address] PCP - General 01/17/17 08/26/22 Rm Escoto MD [address] [facility] [address] [place] [address] PCP - General Family Medicine 08/27/22 Antoinette Carreno, RN [address] [facility] [address] [place] [address] Manager Of Training 11/17/17 11/26/17 Carrie Joe, [address] [place] [address] Senior Trainer 11/27/22 12/09/22 Leslye Correia MD [address] [facility] [address] [place] [address] Consulting Physician Pain Management 06/12/23 Carrie Joe, STEWARD/STEWARDESS ROOM [address] [place] [address] [address] [place] [address] Senior Trainer 11/06/23 04/07/24 documented as of this encounter
--- OUTSIDE RECORDS SUMMARY | 2025-04-28 13:26 | XMS_ITS | Encounter Summary ---
Author Organization [facility] Facility Care Team Providers Care Open End Spinning Operator Name Role Phone Chintan Henderson MD Primary Care Provider [phone] Memo Nieves MD Primary Care Provider Antoinette Carreno RN Unavailable [phone] Rm Escoto MD Primary Care Provider [phone] Carrie Joe DRIVER RETRAINING INSTRUCTOR Unavailable [phone] Leslye Correia MD Unavailable Carrie Joe DRIVER RETRAINING INSTRUCTOR Unavailable [phone] Encounter Details Date Type Department Care Team (Latest Contact Info) Description 10/23/2016 Orders Only [facility] CLINCONV Provider, MD Kelly [address] [place] [address] Social History Tobacco Use Types Packs/Day Years Used Date Smoking Tobacco: Never Comments Unknown Sex and Gender Information Value Date Recorded Sex Assigned at Not on file Legal Sex Female 8:45 PM STROKE BELT SANDER OPERATOR Gender Identity Not on file Sexual Orientation Not on file documented as of this encounter Plan of Treatment Not on file documented as of this encounter Procedures Procedure Name Priority Date/Time Associated Diagnosis Comments CARDIOLOGY REPORT 10/23/2016 12: 00 AM STROKE BELT SANDER OPERATOR CARDIOLOGY REPORT 10/23/2016 12: 00 AM STROKE BELT SANDER OPERATOR CARDIOLOGY REPORT 10/23/2016 12: 00 AM STROKE BELT SANDER OPERATOR documented in this encounter Results * CARDIOLOGY REPORT (10/23/2016 12:00 AM STROKE BELT SANDER OPERATOR) Anatomical Region Laterality Modality Other Narrative 10/23/2016 12:00 AM STROKE BELT SANDER OPERATOR Ordered by an unspecified provider. us Historical Provider [facility] CARDIAC SERVICES PROCE DURES Final Result * CARDIOLOGY REPORT (10/23/2016 12:00 AM STROKE BELT SANDER OPERATOR) Anatomical Region Laterality Modality Other Narrative 10/23/2016 12:00 AM STROKE BELT SANDER OPERATOR Ordered by an unspecified provider. Historical Provider CV CARDIAC SERVICES PROCE DURES Final Result * CARDIOLOGY REPORT (10/23/2016 12:00 AM STROKE BELT SANDER OPERATOR) Anatomical Region Laterality Modality Other Narrative 10/23/2016 12:00 AM STROKE BELT SANDER OPERATOR Ordered by an unspecified provider. Historical Provider CV CARDIAC SERVICES PROCE DURES Final Result documented in this encounter Visit Diagnoses Not on filedocumented in this encounter Additional Health Concerns Infection Onset Date Last Indicated Resolved Time COVID: Suspected 05/27/2023 05/27/2023 05/27/2023 1:37 PM CDT documented as of this encounter Care Teams Open End Spinning Operator Relationship Specialty Start Date End Date Chintan Henderson MD [address] [place] [address] PCP - General 11/26/10 01/16/17 Memo Nieves MD [address] [place] [address] PCP - General 01/17/17 08/26/22 Rm Escoto MD [address] [place] [address] Drive [address] [place] [address] PCP - General Family Medicine 08/27/22 Antoinette Carreno, DEMAR [address] [facility] [address] [place] [address] Gas Mask Inspector 11/17/17 11/26/17 Carrie Joe, ELIANA [address] [facility] [address] [place] [address] Certified Scrub Tech 11/27/22 12/09/22 Lelsye Correia MD [address] [facility] [address] [place] [address] Consulting Physician Pain Management 06/12/23 Carrie Joe, DRIVER RETRAINING INSTRUCTOR [address] [facility] [address] [facility] [address] [place] [address] Certified Scrub Tech 11/06/23 04/07/24 documented as of this encounter
--- OUTSIDE RECORDS SUMMARY | 2025-04-28 13:26 | XMS_ITS | Clinical Summary ---
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 Preschool Teacher Name Role Phone Lori Valentin MD Unavailable [phone] Edison Escoto MD Primary Care Provider [phone] Allergies Active Allergy Reactions Criticality Noted Date [...] hyperglycemia, without long-term current use of insulin ([facility]) OneTouch Ultra Blue In Vitro StripTEST BLOOD SUGAR UP TO 5 TIMES [id number] Hayek, MireilleActivePharmacy Instructions: E11.9 150 each 11 2018 Active Additional Information Patient taking differently: 1 each Other 6 times daily, OneTouch Ultra Blue In Vitro StripTEST BLOOD SUGAR UP TO 5 TIMES [id number] Hayek, MireilleActivePharmacy Instructions: E11.9, Reported on 12/31/2024 ketoconazole 2 % cream Apply 2 times a day around the valvular area daily. 2018 Active metoprolol succinate ER 100 MG 24 hr tablet Take 1 tablet (100 mg total) by mouth daily. 2018 Active dicyclomine 20 MG tablet Take 1 tablet (20 mg total) by mouth every 6 (six) hours. 2018 Active Glucose Blood (CONTOUR NEXT TEST) [...] mg total) by mouth daily. 2023 Active citalopram (CELEXA) 10 MG tablet Take 1 tablet (10 mg total) by mouth daily. 2023 Active HUMULIN 70/30 KWIKPEN (70-30) 100 UNIT/ML injection (pen) Inject 20 Units into the skin 2 (two) times daily. 12/08 Active metFORMIN (GLUCOPHAGE) 1000 MG tablet Take 1 tablet (1,000 mg total) by mouth 2 (two) times daily. 07/05 Active HYDROcodone-danny taminophen (NORCO) 7.5-325 MG tablet Take 1 tablet by mouth every 8 (eight) hours as needed. FOR PAIN 2024 Active hydrOXYzine (ATARAX) 25 MG tablet TAKE 1 TABLET(25 MG) BY MOUTH THREE TIMES DAILY NEEDED FOR ITCHING------- DO NOT TAKE WITH BENADRYL 2024 Active B Complex Vitamins Cap Take 1 capsule by mouth daily. 2024 Active nitroglycerin (NITROSTAT) 0.[address] 1 tablet (0.4 mg total) under the tongue every 5 (five) minutes as needed for Chest Pain. Maximum of 3 doses. 90 tablet 04/15 Active acetaminophen 500 MG tablet Take 1 tablet (500 mg total) by mouth as needed. 30 tablet 04/15 Discontinued Brindall Melton-Chromium Carl 500-0.2 MG Tab Take 1 tablet by mouth daily. 04/15 Discontinued nitroglycerin (NITROSTAT) 0.[address] 1 tablet (0.4 mg total) under the tongue every 5 (five) minutes as needed. 04/15 Discontinued amLODIPine (NORVASC) 5 MG tablet 1 tablet (5 mg total). 07/17 Discontinued Hospital, Clinic, or Other Facility Administered Medication Ordered Dose Route Frequency Start Date End Date Status EPINEPHrine (EPIPEN) injection 0.3 mgIndications:Type 2 diabetes mellitus without complication, without long-term current use of insulin ([facility]) 0.3 mg IM Once 05/24/2019 Active Active Problems Problem Noted Date Diagnosed Date Microcytic anemia 09/01/2024 Syncope 07/02/2024 Imbalance 11/30/2021 PAD (peripheral artery disease) 07/13/2019 Brain aneurysm ([facility]) 07/13/2019 CASTELLANOS (dyspnea on exertion) 06/17/2019 Abnormal EKG 06/17/2019 Acquired hypothyroidism 02/04/2019 Type 2 diabetes mellitus wit h diabetic neuropathy, with long-term current use of insulin ([facility]) 12/03/2018 Allergy status to other drug s, [...] uterus 05/12/2018 Ribs, multiple fractures 05/12/2018 Seizures ([facility]) 05/12/2018 Stroke ([facility]) 05/12/2018 Stomach ulcer 05/12/2018 Lumbar facet arthropathy 04/21/2018 Greater trochanteric bursitis of right hip 04/08 GERD without esophagitis 09/17/2017 Lumbago with sciatica, left side 08/18/2017 Angioneurotic edema 07/31/2017 Diabetic polyneuropathy ([facility]) 2016 Diverticulitis of large inte jagdish without [...] Encounters Date Type Department Care Team Description 04/15/2025 2:00 PM CDT Office Visit [facility] [id number] Lori Valentin MD CHF (Follow up) 04/15/2025 Travel 04/05/2025 Results Follow-Up [facility], [address] [address] Lyssa Steele RN NM PHARM NUC STRESS TEST 1 DAY W TRACING 03/30/2025 1:00 PM CDT - 03/30/2025 11:59 PM CDT Hospital Encounter [facility] [place] [address] Lori Valentin MD Discharge Disposition: Home or Self Care (Routine Discharge) 03/30/2025 Travel 03/25/2025 Results Follow-Up [facility], [address] [address] Lyssa Steeel RN USE ECHOCARDIOGRAM W CON 03/24/2025 1:08 PM CDT - 03/24/2025 11:59 PM CDT Hospital Encounter [facility] [place] [address] Lori Valentin MD Discharge Disposition: Home or Self Care (Routine Discharge) 03/24/2025 Travel from Last 3 Months Family History Medical History Relation Comments Lung Cancer Father [place] Father Alzheimers Mother Heart Disease Mother Diabetes [...] Sex Assigned at Female 11/16/2024 3:42 PM LEAN FACILITATOR Legal Sex Female 5:38 PM CDT Gender Identity Not on file Sexual Orientation Not on file Occupation Industry Job Start Date Job End Date Not on file Not on file Not on file Not on file Last Filed Vital Signs Vital Sign Reading Time Taken Comments Blood Pressure 120/60 04/15/2025 2:01 PM CDT Pulse 89 04/15/2025 2:01 PM CDT Temperature 36.2 C (97.2 F) 08/23/2024 10:30 AM LEAN FACILITATOR Respiratory Rate 18 08/23/2024 10:30 AM LEAN FACILITATOR Oxygen Saturation 96% 04/15/2025 2:01 PM CDT Inhaled Oxygen Concentration - - Weight 73 kg (161 lb) 04/15/2025 2:01 PM CDT Height 163.8 cm (5' 4.5) 04/15/2025 2:01 PM CDT Body Mass Index 27.21 04/15/2025 2:01 PM CDT Plan of Treatment Health Maintenance Due Date Last Done Comments ASCVD Statin 1945 Kidney Health Evaluation 1945 Diabetes: Retinopathy Eye Exam 1962 DTaP, Tdap and Td Vaccines (1 - Tdap) 1963 Pneumococcal Vaccine: 50+ Years (1 of 2 - PCV) 1963 Zoster Vaccines (1 of 2) 1994 Annual Medicare Wellness Visit 2009 Dexa Scan (General) 2009 RSV Immunization or 60+ Years (1 - 1-dose 75+ series) 2019 Hemoglobin A1C 11/16/2023 05/16/2023, 05/2020, 10/11/2019, Additional history exists COVID-19 Vaccine ( season) 2024 Lipid Panel 12/31/2025 12/31/2024, 07/12/2019 Meningococcal B Vaccine Aged Out No l onger eligible based on patient's age to complete this topic Meningococcal Vaccine Aged Out No magaly rodolfo eligible based on patient's age to complete this topic RSV Immunizations Under 20 Months Aged Out No longer eligible based on patient's age to complete this topic Medical Devices Implanted Type Area Communications Specialist Device Identifier Shelf Expiration Date Model / Serial / Lot Iol Tecnis Simplicity Dcb00 - [id number] Implanted:Qty: 1 on 08/23/2024 by Bhavin Jerez MD at [facility] Lens Left: Eye [employer] 08/01/2026 DCB00 / [id number] / Tecnis 1-Piece Iol With Tecnis Simplicity Delivery System Implanted:Qty: 1 on 07/26/2024 by Bhavin Jerez MD at [facility] Right: Eye [employer] 02/10/2027 DCB00 / / Procedures Procedure Name Priority Date/Time Associated Diagnosis Comments ELECTROCARDIOGRAM (NON MIDMARK ACQUIRED) Routine 04/15/2025 2:47 PM CDT Chest pain Procedure Note - 04/15/2025 2:47 PM CDTThis note is in progress. [facility] [address] [place] [address] Test Date: 2025-04-15 Pat Name: KIMBERLY GASTELUM Department: 171 Room: Gender: Female Security Incident Response Specialist: : 1945 Requested By: LORI VALENTIN Order Number: [id number] Reading MD: LORI VALENTIN Measurements Intervals [place] Rate: 80 P: 78 SC: 214 QRS: -14 QRSD: 101 T: 127 QT: 386 QTc: 445 Interpretive Statements SINUS RHYTHM WITH FIRST DEGREE AV BLOCK LEFT VENTRICULAR HYPERTROPHY AND ST-T CHANGE NM PHARM NUC STRESS TEST 1DAY W TRACING Routine 03/30/2025 3:03 PM CDT SOB (shortness of breath) Chest pain CARDIOLOGY STRESS TEST ONLY, EXERCISE Routine 03/30/2025 1:16 PM CDT SOB (shortness of breath) Chest pain Type 2 diabetes mellitus with diabetic neuropathy, with long-term current use of insulin ([facility]) Acquired hypothyroidism Sleep apnea Atherosclerosis of coronary artery Essential (primary) hypertension GERD without esophagitis Mixed hyperlipidemia CASTELLANOS (dyspnea on exertion) Abnormal EKG Syncope USE ECHOCARDIOGRAM W CON Routine 03/24/2025 2:41 PM CDT SOB (shortness of breath) Chest pain LIPID PANEL Routine 12/31/2024 HEMOGLOBIN, GLYCOSYLATED Routine 05/24/2019 8:59 AM CDT Type 2 diabetes mellitus without complication, without long-term current use of insulin from Last 3 Months or Most Recently Relevant to Health Maintenance Results * NM PHARM NUC STRESS TEST 1 DAY W TRACING (03/30/2025 3:03 PM CDT) Anatomical Region Laterality Modality Cardiac Nuclear Medicine 03/30/2025 2:14 PM CDT Narrative 04/05/2025 3:18 PM CDT Myocardial Perfusion Imaging Pat.Name: KIMBERLY GASTELUM Danielle Pat.ID: [id number] .Date: 03/30/2025 Refer.MD: Lori Valentin [id number] Exam Time: 2:14:00 PM Study Type:AGNES NC HT MUSCLE IMAGE SPECT MULTI Height: 65 in Weight: 173 lb BSA: 1.86 m2 Age: 9 1945,79Y Sex: F Sonogrphr: CAMI Vazquez Pat. Stat.:Outpatient Reason for Study:Shortness of breath History / Clinical:Diabetes, Hypertension, Dyslipidemia, GERD, Hypothyroidism, Sleep Apnea Procedures: Nuclear Stress Test with Lexiscan Race: W Surgery: Nuclear Stress Test, Echocardiogram ++++++++++++++++++++++++++++++++++++ SUMMARY: ++++++++++++++++++++++++++++++++++++ Stress conclusion: 1. Clinically negative. 2. Electrocardiographically negative stress test for ischemia. 3. Scintigraphic images to follow. Perfusion conclusion: 1. Good study quality. No motion correction was applied to images. No attenuation is noted. Unable to prone. 2. Mildly abnormal myocardial perfusion SPECT imaging. Images show a small area of irreversibility present in the inferior wall(s). 3. Normal wall motion with an ejection fraction of 73%. 4. Stress test with myocardial perfusion imaging shows overall low risk for a cardiac event. ++++++++++++++++++++++++++++++++++++ FINDINGS: ++++++++++++++++++++++++++++++++++++ Protocol: Lexiscan 0.4mg was given as a rapid injection IV over a period of 10 seconds with the radiopharmaceutical injected at 20 seconds. The images were processed using the standard SPECT technique. A gated study was performed on the stress images. Impr: SPECT images demonstrate a small irreversible perfusion abnormality present in the inferior region(s) of mild intensity. Hrt size: The left ventricle is normal. WM: The LVEF is calculated to be 73%. Gated SPECT images reveal normal wall motion. Transient Ischemic Dilatation: The TID is 1.09. There is no evidence of Transient Ischemic Dilatation. ++++++++++++++++++++++++++++++++++++ STRESS: ++++++++++++++++++++++++++++++++++++ Baseline Vital Signs: Baseline ECG: Sinus rhythm, no ST changes HR: 68 bmp Rest BP: 137/59 Regadenoson Peak Dose: 0.4 mg Stress Test Results: Max HR: 81 bmp Target HR: 140 bmp % Target: 58 % Max BP: 146/69 Max RPP: 51822 O2 sat: 99 % Symptoms and Complications: Reason for Stopping Test: Protocol completed Stress Induced Symptoms: Dizziness Complications: None ECG Findings: No significant changes <Electronic Signature> 04/05/2025 03:18 PM Andrew Saucedo M.D. Procedure Note Andrew Saucedo MD - 04/05/2025 Myocardial Perfusion Imaging Pat.Name: KIMBERLY GASTELUM.ID: [id number] .Date: 03/30/2025 Refer.MD: Lori Valentin [id number] Exam Time: 2:14:00 PM Study Type:AGNES NC HT MUSCLE IMAGE SPECT MULTI Height: 65 in Weight: 173 lb BSA: 1.86 m2 Age: 9 1945,79Y Sex: F Sonogrphr: Neema Parrish, [facility] Pat. Stat.:Outpatient Reason for Study:Shortness of breath History / Clinical:Diabetes, Hypertension, Dyslipidemia, GERD, Hypothyroidism, Sleep Apnea Procedures: Nuclear Stress Test with Lexiscan Race: W Surgery: Nuclear Stress Test, Echocardiogram ++++++++++++++++++++++++++++++++++++ SUMMARY: ++++++++++++++++++++++++++++++++++++ Stress conclusion: 1. Clinically negative. 2. Electrocardiographically negative stress test for ischemia. 3. Scintigraphic images to follow. Perfusion conclusion: 1. Good study quality. No motion correction was applied to images. No attenuation is noted. Unable to prone. 2. Mildly abnormal myocardial perfusion SPECT imaging. Images show a small area of irreversibility present in the inferior wall(s). 3. Normal wall motion with an ejection fraction of 73%. 4. Stress test with myocardial perfusion imaging shows overall low risk for a cardiac event. ++++++++++++++++++++++++++++++++++++ FINDINGS: ++++++++++++++++++++++++++++++++++++ Protocol: Lexiscan 0.4mg was given as a rapid injection IV over a period of 10 seconds with the radiopharmaceutical injected at 20 seconds. The images were processed using the standard SPECT technique. A gated study was performed on the stress images. Impr: SPECT images demonstrate a small irreversible perfusion abnormality present in the inferior region(s) of mild intensity. Hrt size: The left ventricle is normal. WM: The LVEF is calculated to be 73%. Gated SPECT images reveal normal wall motion. Transient Ischemic Dilatation: The TID is 1.09. There is no evidence of Transient Ischemic Dilatation. ++++++++++++++++++++++++++++++++++++ STRESS: ++++++++++++++++++++++++++++++++++++ Baseline Vital Signs: Baseline ECG: Sinus rhythm, no ST changes HR: 68 bmp Rest BP: 137/59 Regadenoson Peak Dose: 0.4 mg Stress Test Results: Max HR: 81 bmp Target HR: 140 bmp % Target: 58 % Max BP: 146/69 Max RPP: 98230 O2 sat: 99 % Symptoms and Complications: Reason for Stopping Test: Protocol completed Stress Induced Symptoms: Dizziness Complications: None ECG Findings: No significant changes <Electronic Signature> 04/05/2025 03:18 PM Andrew Saucedo M.D. us Lori Valentin MD [facility] Final Result * USE ECHOCARDIOGRAM W CON (03/24/2025 2:41 PM CDT) Anatomical Region Laterality Modality NA Echocardiogram 03/24/2025 1:43 PM CDT Narrative 03/24/2025 5:31 PM CDT Echocardiography Report Pat.Name: KIMBERLY GASTELUM Pat.ID: [id number] St.Date: 03/24/2025 Refer.MD: [id number] HOMERO Chavez EWDPROV EWDPROV Exam Time: 1:43:00 PM Study Type:ECHO WITH CARDIAC DOPPLER COMP Height: 64 in Weight: 173 lb BSA: 1.84 m2 Age: 9 1945,79Y Sex: F BP: 132/61 HR: 71 bpm Sonogrphr: Khalida Hampton Pat. Stat.:Outpatient Reason for Study:Chest pain, Shortness of breath Procedures: 2D, M-mode, Doppler, Color Flow, Definity was used to enhance endocardial definition. The study quality is technically difficult. Race: W ++++++++++++++++++++++++++++++++++++ SUMMARY: ++++++++++++++++++++++++++++++++++++ The left ventricular size is normal. Estimated left ventricular ejection fraction is 65-70%. Mild concentric left ventricular hypertrophy. Left ventricular diastolic function is abnormal (grade 1 - impaired relaxation). Wall motion appears normal in all segments. The right ventricular size is normal. Right ventricular systolic function is mildly depressed. Right atrial size is normal. The left atrial volume is severely increased (>48 ml/M2). Mild tricuspid regurgitation. Right ventricular systolic pressure is estimated 23 + RAP by TR jet but RA pressure not assessable . ++++++++++++++++++++++++++++++++++++ FINDINGS: ++++++++++++++++++++++++++++++++++++ LV: The left ventricular size is normal. Estimated left ventricular ejection fraction is 65-70%. Mild concentric left ventricular hypertrophy. Left ventricular diastolic function is abnormal (grade 1 - impaired relaxation). WM: Wall motion appears normal in all segments. RV: The right ventricular size is normal. Right ventricular systolic function is mildly depressed. IVS: No evidence of ventricular septal defect. LA: The left atrial volume is severely increased (>48 ml/M2). RA: Right atrial size is normal. IAS: Atrial septum is poorly visualized. NICOLE: No evidence of pericardial effusion. AO: Normal aortic root. The sinus of Valsalva measures 3.7cm. PVn: Pulmonary veins are not assessable. SVn: Inferior vena cava is not assessable. AV: No evidence of aortic valve stenosis. No evidence of aortic valve regurgitation. The aortic valve not well visualized. PV: Trace pulmonic regurgitation. No evidence of pulmonic valve stenosis. Pulmonic valve not well visualized. TV: Mild tricuspid regurgitation. Right ventricular systolic pressure is 20-30 + RAP. No evidence of tricuspid valve stenosis. The tricuspid valve is not well visualized. ++++++++++++++++++++++++++++++++++++ MEASUREMENTS: ++++++++++++++++++++++++++++++++++++ DOPPLER LVOT LVOTpkPG 8 mmHg LVOTmnPG 4 mmHg LVOTpkVel 137 cm/s (70-110)+* LVOT SV 97 ml LVOT TVI 30.9 cm AV Forward Flow AV TVI 36.8 cm AV pkPG 11 mmHg AV pkVel 163 cm/s (100-170)+ Area (TVI) 2.64 cm2 (3-5)* AV mnPG 6 mmHg Area (Salvador) 2.64 cm2 (3-5)* MV Forward Flow MV DeTm 213 msec MV E/A 0.6 MVA P1/2t 3.55 cm2 (4-6)* MV pkE 62.9 cm/s (60-130)+ MV P1/2t 62 msec (30-60)+* MV pkA 104 cm/s TV Regurg Flow TV pkPG 23 mmHg TV pkVel 242 cm/s (30-70)* Lat E' Lat e 7.4 cm/s Lat E/E' Lat E/e 8.5 Med E' Med e 4.79 cm/s Med E/E' Med E/e 13.1 Aortic Valve Aortic Valve Ar 1.43 Aortic Valve Ve 0.84 Right Ventricle Right Ventricle 9.57 cm/s 2D Left Ventricle LVIDd 4.7 cm (3.6-5.2)+ LV ESV 31.8 ml LVIDs 3 cm (2.3-3.9) LV ESV 23.1 ml LngAxd 8.55 cm LVESV BP 28 ml LngAxd 8.14 cm LV EF 60.9 % LV EDV 81.4 ml LV EF 74.1 % LV EDV 89.1 ml LV EF BP 67.9 % LVEDV BP 87.1 ml LV SV 49.6 ml LngAxs 6.91 cm LV SV 66.1 ml LngAxs 6.46 cm LV SV BP 59.1 ml LVPW LVPWd 1.1 cm Ventricular Septum IVSd 1.2 cm Left Atrium LA a-p 4.6 cm (2.8-3.4)* LA VOLBP 101 ml Aorta Ao Rtd 4 cm (zsc 4)* LVOT LVOT 2 cm LVOTArea 3.14 cm2 Ratios IVS LA Biplane LAVol I BP 54.9 ml/m2 MMODE TA Tricuspid Annul 17 mm <Electronic Signature> 03/24/2025 05:31 PM Lori Valentin M.D. Procedure Note Lori Valentin MD - 03/24/2025 Echocardiography Report Pat.Name: KIMBERLY GASTELUM Pat.ID: [id number] .Date: 03/24/2025 : [id number] HOMERO Chavez EWDPROV EWDPROV Exam Time: 1:43:00 PM Study Type:ECHO WITH CARDIAC DOPPLER COMP Height: 64 in Weight: 173 lb BSA: 1.84 m2 Age: 9 1945,79Y Sex: F BP: 132/61 HR: 71 bpm Sonogrphr: Khalida Hampton Pat. Stat.:Outpatient Reason for Study:Chest pain, Shortness of breath Procedures: 2D, M-mode, Doppler, Color Flow, Definity was used to enhance endocardial definition. The study quality is technically difficult. Race: W ++++++++++++++++++++++++++++++++++++ SUMMARY: ++++++++++++++++++++++++++++++++++++ The left ventricular size is normal. Estimated left ventricular ejection fraction is 65-70%. Mild concentric left ventricular hypertrophy. Left ventricular diastolic function is abnormal (grade 1 - impaired relaxation). Wall motion appears normal in all segments. The right ventricular size is normal. Right ventricular systolic function is mildly depressed. Right atrial size is normal. The left atrial volume is severely increased (>48 ml/M2). Mild tricuspid regurgitation. Right ventricular systolic pressure is estimated 23 + RAP by TR jet but RA pressure not assessable . ++++++++++++++++++++++++++++++++++++ FINDINGS: ++++++++++++++++++++++++++++++++++++ LV: The left ventricular size is normal. Estimated left ventricular ejection fraction is 65-70%. Mild concentric left ventricular hypertrophy. Left ventricular diastolic function is abnormal (grade 1 - impaired relaxation). WM: Wall motion appears normal in all segments. RV: The right ventricular size is normal. Right ventricular systolic function is mildly depressed. IVS: No evidence of ventricular septal defect. LA: The left atrial volume is severely increased (>48 ml/M2). RA: Right atrial size is normal. IAS: Atrial septum is poorly visualized. NICOLE: No evidence of pericardial effusion. AO: Normal aortic root. The sinus of Valsalva measures 3.7cm. PVn: Pulmonary veins are not assessable. SVn: Inferior vena cava is not assessable. AV: No evidence of aortic valve stenosis. No evidence of aortic valve regurgitation. The aortic valve not well visualized. PV: Trace pulmonic regurgitation. No evidence of pulmonic valve stenosis. Pulmonic valve not well visualized. TV: Mild tricuspid regurgitation. Right ventricular systolic pressure is 20-30 + RAP. No evidence of tricuspid valve stenosis. The tricuspid valve is not well visualized. ++++++++++++++++++++++++++++++++++++ MEASUREMENTS: ++++++++++++++++++++++++++++++++++++ DOPPLER LVOT LVOTpkPG 8 mmHg LVOTmnPG 4 mmHg LVOTpkVel 137 cm/s (70-110)+* LVOT SV 97 ml LVOT TVI 30.9 cm AV Forward Flow AV TVI 36.8 cm AV pkPG 11 mmHg AV pkVel 163 cm/s (100-170)+ Area (TVI) 2.64 cm2 (3-5)* AV mnPG 6 mmHg Area (Salvador) 2.64 cm2 (3-5)* MV Forward Flow MV DeTm 213 msec MV E/A 0.6 MVA P1/2t 3.55 cm2 (4-6)* MV pkE 62.9 cm/s (60-130)+ MV P1/2t 62 msec (30-60)+* MV pkA 104 cm/s TV Regurg Flow TV pkPG 23 mmHg TV pkVel 242 cm/s (30-70)* Lat E' Lat e 7.4 cm/s Lat E/E' Lat E/e 8.5 Med E' Med e 4.79 cm/s Med E/E' Med E/e 13.1 Aortic Valve Aortic Valve Ar 1.43 Aortic Valve Ve 0.84 Right Ventricle Right Ventricle 9.57 cm/s 2D Left Ventricle LVIDd 4.7 cm (3.6-5.2)+ LV ESV 31.8 ml LVIDs 3 cm (2.3-3.9) LV ESV 23.1 ml LngAxd 8.55 cm LVESV BP 28 ml LngAxd 8.14 cm LV EF 60.9 % LV EDV 81.4 ml LV EF 74.1 % LV EDV 89.1 ml LV EF BP 67.9 % LVEDV BP 87.1 ml LV SV 49.6 ml LngAxs 6.91 cm LV SV 66.1 ml LngAxs 6.46 cm LV SV BP 59.1 ml LVPW LVPWd 1.1 cm Ventricular Septum IVSd 1.2 cm Left Atrium LA a-p 4.6 cm (2.8-3.4)* LA VOLBP 101 ml Aorta Ao Rtd 4 cm (zsc 4)* LVOT LVOT 2 cm LVOTArea 3.14 cm2 Ratios IVS LA Biplane LAVol I BP 54.9 ml/m2 MMODE TA Tricuspid Annul 17 mm <Electronic Signature> 03/24/2025 05:31 PM Lori Valentin M.D. Lori Valentin MD ECHO Final Result * LIPID PANEL (12/31/2024) Pathologist [facility] CHOLESTEROL 193 TRIGLYCERIDES 71 HDL 50 DIRECT LDL 111 Default History Genericprovider LABORATORY Edited Result - Final * HEMOGLOBIN, GLYCOSYLATED (05/24/2019 8:59 AM CDT) Pathologist [facility] HGB A1C 10.[address] [place] 05/24/2019 8:59 AM CDT Carolina Florence MD LABORATORY Nadeen l Result [address] [place] [address] [facility] [address] [place] [address], [place] [phone] from Last 3 Months or Most Recently Relevant to Health Maintenance Insurance MEDICAID [facility] MEDICAID Care Teams 1 Year Olds Preschool Teacher Relationship Specialty Start Date End Date Edison Escoto MD [address] [place] [address] PCP - General Neurology Psychiatry 04/26/23 Lori Valentin MD [address] [place] [address] [place] Panel Raiser Operator CARDIOVASCULAR DISEASE 05/25/19
== END 2025-04-28 13:22 | disposition home or self-care (01) ==
LOC: ANHIMG 13:23
PROVIDERS: PCP Family Medicine; Visit Provider Family Medicine
DX: N64.4 Mastodynia (principal)
CPT/HCPCS: 76642; 77062; 77066; G0279

== ENCOUNTER 2025-06-29 04:11 | Emergency (ER) | payer MEDICARE, MEDICAID, SELFPAY ==
[2025-06-29] VITALS (36 sets, daily range): BP systolic 78–167; BP diastolic 44–99; PULSE 67–100; RESP 8–21; TEMP 36.4–36.8; O2SAT 90–100
--- NOTE | ~2025-06-29 | CT_ITS ---
EXAMINATION: CT abdomen pelvis wo con DATE: 06/29/2025 06:52 INDICATION: Gastrointestinal hemorrhage. TECHNIQUE: Computed tomography (CT) of the abdomen and pelvis was performed without intravenous contrast. Automated exposure control and iterative reconstruction technique were employed. The dose-length product was 1048.70 mGy-cm. COMPARISON: CT abdomen and pelvis 04/14/2023 FINDINGS: The visualized portions of lung bases demonstrate mild atelectasis. There is mild bronchiectasis bilaterally. No pleural effusion. There is left atrial enlargement of the heart. There are coronary artery calcifications. No pericardial effusion. There are changes of fundoplication of the stomach. There is liver surface nodularity, consistent with cirrhosis. The spleen is normal. There are gallstones in the gallbladder, which is normal in size. The pancreas, adrenal glands, and left kidney are normal. There is an 11 mm cyst in right kidney. The bladder is distended. Stool distends the rectum. There is diverticulosis of the colon without evidence of diverticulitis. The appendix is not visualized. There are no pathologically enlarged lymph nodes. There is no free intraperitoneal fluid. There are old healed bilateral rib fractures. There is a chronic burst fracture of L3 with changes of vertebroplasty. There is mild chronic height loss of multiple vertebral bodies. There is severe lumbar sp ondylosis. There are bridging endplate osteophytes at multiple levels in the thoracic spine, consistent with diffuse idiopathic skeletal hyperostosis (DISH). IMPRESSION: 1. Cirrhosis of the liver. 2. Stool distends the rectum. Reviewed, dictated and finalized at location E.
[2025-06-29] MEDS: SODIUM CHLORIDE 0.9% IV 3,000 ML 999 ML (04:11)
--- OUTSIDE RECORDS SUMMARY | 2025-06-29 04:14 | XMS_ITS | Encounter Summary ---
Author Organization [facility] Care Team Providers Care People Manager Name Role Phone Memo Nieves MD Primary Care Provider [phone] Carire Joe BENCH WORKER HELPER Unavailable [phone] Leslye Correia MD Unavailable Carrie Joe BENCH WORKER HELPER Unavailable [phone] Rm Escoto MD Primary Care Provider [phone] Encounter Details Date Type Department Care Team (Latest Contact Info) Description 11/27/2017 Orders Only MMG CLINCONV ProviderKelly MD [address] [place] [address] Social History Tobacco Use Types Packs/Day Years Used Date Smoking Tobacco: Never Comments Unknown Sex and Gender Information Value Date Recorded Sex Assigned at Not on file Legal Sex Female 8:45 PM GRITTING MACHINE OPERATOR Gender Identity Not on file Sexual Orientation Not on file documented as of this encounter Plan of Treatment Not on file documented as of this encounter Procedures Procedure Name Priority Date/Time Associated Diagnosis Comments PROCEDURE - RESULT 12/01/2017 12 :00 AM GRITTING MACHINE OPERATOR CARDIOLOGY REPORT 11/27/2017 12: 00 AM GRITTING MACHINE OPERATOR documented in this encounter Results * PROCEDURE - RESULT (12/01/2017 12:00 AM GRITTING MACHINE OPERATOR) Narrative 12/01/2017 12:00 AM GRITTING MACHINE OPERATOR Ordered by an unspecified provider. Historical Provider Final Res ult * CARDIOLOGY REPORT (11/27/2017 12:00 AM GRITTING MACHINE OPERATOR) Anatomical Region Laterality Modality Other Narrative 11/27/2017 12:00 AM GRITTING MACHINE OPERATOR Ordered by an unspecified provider. us Historical Provider [facility] CARDIAC SERVICES JO CHAN Final Result documented in this encounter Visit Diagnoses Not on filedocumented in this encounter Additional Health Concerns Infection Onset Date Last Indicated Resolved Time COVID: Suspected 05/27/2023 05/27/2023 05/27/2023 1:37 PM CDT documented as of this encounter Care Teams People Manager Relationship Specialty Start Date End Date Memo Nieves MD PCP - General 01/17/17 08/26/22 Rm Escoto MD [address] [facility] [address] [facility] [address] [place] [address] PCP - General Family Medicine 06/10/25 Carrie Joe, BENCH WORKER HELPER [address] [place] [address] [address] [place], [place] [id number] Velvet Cutter 11/27/22 12/09/22 Leslye Correia MD [facility] [address] [place] [address] Consulting Physician Pain Management 06/12/23 Carrie Joe BENCH WORKER HELPER [address] [place] [address] [address] [place] [address] Velvet Cutter 11/06/23 04/07/24 documented as of this encounter
--- OUTSIDE RECORDS SUMMARY | 2025-06-29 04:14 | XMS_ITS | Encounter Summary ---
Author Organization [facility] Care Team Providers Care Pediatric Dentist Name Role Phone Memo Nieves MD Primary Care Provider [phone] Antoinette Carreno RN Unavailable [phone] Carrie Joe POWERHOUSE MECHANIC Unavailable [phone] Leslye Correia MD Unavailable Carrie Joe POWERHOUSE MECHANIC Unavailable [phone] Rm Escoto MD Primary Care Provider [phone] Encounter Details Date Type Department Care Team (Latest Contact Info) Description 11/26/2017 Orders Only MMG CLINCONV Provider, MD Kelly [address] [place] [address] Social History Tobacco Use Types Packs/Day Years Used Date Smoking Tobacco: Never Comments Unknown Sex and Gender Information Value Date Recorded Sex Assigned at Not on file Legal Sex Female 8:45 PM ACCOUNTING TEACHER Gender Identity Not on file Sexual Orientation Not on file documented as of this encounter Plan of Treatment Not on file documented as of this encounter Procedures Procedure Name Priority Date/Time Associated Diagnosis Comments CARDIOLOGY REPORT 12/01/2017 12: 00 AM ACCOUNTING TEACHER PROCEDURE - RESULT 11/26/2017 12 :00 AM ACCOUNTING TEACHER documented in this encounter Results * CARDIOLOGY REPORT (12/01/2017 12:00 AM ACCOUNTING TEACHER) Anatomical Region Laterality Modality Other Narrative 12/01/2017 12:00 AM ACCOUNTING TEACHER Ordered by an unspecified provider. Historical Provider [facility] C[facility] JO CHAN Final Result * PROCEDURE - RESULT (11/26/2017 12:00 AM ACCOUNTING TEACHER) Narrative 11/26/2017 12:00 AM ACCOUNTING TEACHER Ordered by an unspecified provider. us Historical Provider Final Res ult documented in this encounter Visit Diagnoses Not on filedocumented in this encounter Additional Health Concerns Infection Onset Date Last Indicated Resolved Time COVID: Suspected 05/27/2023 05/27/2023 05/27/2023 1:37 PM CDT documented as of this encounter Care Teams Pediatric Dentist Relationship Specialty Start Date End Date Memo Nieves MD PCP - General 01/17/17 08/26/22 Rm Escoto MD [address] [facility] [address] [place] [address] PCP - General Family Medicine 06/10/25 Antoinette Carreno, RN [address] [place], [place] [id number] Correction Officer Head 11/17/17 11/26/17 Carrie Joe, POWERHOUSE MECHANIC [address] [place] [address] [address] [place] [address] Geothermal Production Manager 11/27/22 12/09/22 Leslye Correia MD [address] [facility] [address] [facility] [address] [place] [address] Consulting Physician Pain Management 06/12/23 Carrie Joe, POWERHOUSE MECHANIC [address] [place] [address] Geothermal Production Manager 11/06/23 04/07/24 documented as of this encounter
--- OUTSIDE RECORDS SUMMARY | 2025-06-29 04:14 | XMS_ITS | Encounter Summary ---
Author Organization [facility] Healthcare Address [address] [place] [address] Care Team Providers Care Jewel Bearing Polisher Name Role Phone Leslye Correia MD Unavailable Rm Escoto MD Primary Care Provider [phone] Reason for Visit * Reason Onset Date Comments Additional Services Or Orders 06/21/2025 Call Back 06/21/2025 Encounter Details Date Type Department Care Team (Late st Contact Info) Description 06/21/2025 Telephone [facility] Medical Group Family Medicine at [address] [place] [address] Rm Escoto MD [address] [place] [address] [address] [place] [address] Additional Services Or Orders; Call Back Social History Tobacco Use Types Packs/Day Years Used Date Smoking Tobacco: Never Smokeless Tobacco: Never Alcohol Use Standard Drinks/Week Comments Never 0 (1 standard drink = 0.6 oz pur e alcohol) [facility] Utilities Answer Date Recorded In the past 12 months has [employer], gas, oil, or water [employer] threatened to shut off services in your home? No 11/06/2023 Social Connection and Isolation Panel Answer Date Recorded In a typical week, how many times do you talk on the phone with family, friends, or neighbors? Twice a week 11/06/2023 How often do you get togethe r with friends or relatives? Once a week 11/06/2023 How often do you attend [facility] or presybeterian services? More than 4 times per year 11/06/2023 Do you belong to any clubs o r organizations such as samaritan groups, unions, fraternal or athletic groups, or [...] place to sleep or slept in a mcfp (including now)? No 11/06/2023 Personal Safety Answer Date Recorded Have you ever been in or are you currently in a harmful physical or emotional relationship or is someone making you feel afraid or unsafe? Denies 05/27/2023 Comments No Sex and Gender Information Value Date Recorded Sex Assigned at Not on file Legal Sex Female 8:45 PM BRICKLAYER APPRENTICE Gender Identity Not on file Sexual Orientation Not on file documented as of this encounter Ordered Prescriptions Prescription Sig Dispense Quantity Refills Last Filled Start Date End Date miscellaneous medical supply miscIndications:U rinary incontinence, unspecified type Pull up adult diapers with underpads (150 count) and pad liners (126 count) for urge incontinence 200 each 11 06/28/2025 documented in this encounter Miscellaneous Notes * Telephone Encounter - Alvina Ramos - 06/28/2025 1:33 PM CDT Call Back Caller???s Concern: Patient called wanting to make sure Holly got the Fax# for the [facility] office. Does message need to be routed? Yes-Action Needed * Telephone Encounter - Holly Sanchez MA - 06/28/2025 1:18 PM CDT Spoke to patient State Aid Office [phone] She wants a copy of prescription for depends mailed to her I also called [employer], she now a spend down every month that she has to meet in order to get her supplies from [facility] [employer] Tried to call state office unable to get through, will try again later Prescription on Dr Jevon donaldson for signature, will be mailed when signed * Telephone Encounter - Holly Sanchez MA - 06/24/2025 10:03 AM CDT Tried to call patient for a contact number of person she spoke to Voice mail full Please transfer back if call is returned I will try to call patient again later * Telephone Encounter - Holly Sanchez MA - 06/22/2025 4:44 PM CDT I will look into this and call patient * Telephone Encounter - Alvina Dykes - 06/21/2025 4:17 PM CDT Additional Services or Orders Type of Service Requested:Equipment Reason for Request (e.g. condition/symptom, date of COVID exposure if applicable): [facility] ID department told patient she needs a written Rx for incontinent supplies Details Regarding Additional Services (e.g. type of home health, type of equipment, type of test, etc.): Incontinent supplies Where will services be performed? (if outside of the practice, facility name, address, phone/fax offacility): State ID Department in [place] Will call back with the fax number she has but can't find. Additional Comments: patient states the [facility] ID office told her they will no longer cover her incontinent supplies through [employer] anymore because she needs a written RX from Dr Escoto statingshe needs the incontinent supplies so she's asking Dr Escoto to please fax a written Rx for the incontinent supplies stating she needs to the [facility] ID office, she will have to call back with the faxnumber she has for them because she couldn't find it while on the phone with the CONTINUOUS MINING MACHINE COAL MINER.. Patient also needs a written Rx for herself for so she will get credit on her My Spend Down card through the [facility] ID dept for when she purchaes her supplies at [facility]. Does message need to be routed? Yes-Action Needed documented in this encounter Plan of Treatment Not on file documented as of this encounter Goals Goal Patient Goal Type Associated Problems Recent Progress Patient-Stated? Author ACO SW Goal - Patient can identify and utilize needed community resources ACO Care Management On track( 024 4:16 PM CDT) Carrie Jackson, SUPERVISOR DRYING AND WINDING Note: Problem: Need for Community Resources Interventions: - Provide patient/family with a list of appropriate resources for their specific need. - Help to coordinate resources. - Follow up to ensure patient/family has connected with the appropriate resources / personnel. documented as of this encounter Visit Diagnoses Diagnosis Urinary incontinence, unspecified type- Primary documented in this encounter Care Teams Jewel Bearing Polisher Relationship Specialty Start Date End Date Rm Escoto MD [address] [facility] [address] [place] [address] PCP - General Family Medicine 06/10/25 Leslye Correia MD [address] [facility] [address] [place] [address] Consulting Physician Pain Management 06/12/23 documented as of this encounter
--- OUTSIDE RECORDS SUMMARY | 2025-06-29 04:14 | XMS_ITS | Encounter Summary ---
Author Organization [facility] Care Team Providers Care Supervisor Intermediates Name Role Phone Memo Nieves MD Primary Care Provider [phone] Antoinette Carreno RN Unavailable [phone] Carrie Joe VALVE INSPECTOR Unavailable [phone] Leslye Correia MD Unavailable Carrie Joe VALVE INSPECTOR Unavailable [phone] Rm Escoto MD Primary Care Provider [phone] Encounter Details Date Type Department Care Team (Latest Contact Info) Description 06/05/2017 Orders Only MMG CLINCONV ProviderKelly MD [address] [place] [address] Social History Tobacco Use Types Packs/Day Years Used Date Smoking Tobacco: Never Comments Unknown Sex and Gender Information Value Date Recorded Sex Assigned at Not on file Legal Sex Female 8:45 PM LINEN ROOM CUSTODIAN Gender Identity Not on file Sexual Orientation [...] as of this encounter Care Teams Supervisor Intermediates Relationship Specialty Start Date End Date Memo Nieevs MD PCP - General 01/17/17 08/26/22 Rm Escoto MD [address] [facility] [address] [place] [address] PCP - General Family Medicine 06/10/25 Antoinette Carreno, RN [address] [place], [place] [id number] Hvac Journeyman 11/17/17 11/26/17 Carrie Joe, [address] [place] [address] Supervisor Counseling And Guidance 11/27/22 12/09/22 Leslye Correia MD [address] [facility] [address] [facility] [address] [place] [address] Consulting Physician Pain Management 06/12/23 Carrie Joe, [address] [place] [address] Supervisor Counseling And Guidance 11/06/23 04/07/24 documented as of this encounter
--- OUTSIDE RECORDS SUMMARY | 2025-06-29 04:14 | XMS_ITS | Encounter Summary ---
Author Organization [facility] Healthcare Address [address] [place] [address] Care Team Providers Care Tool Grinding Machine Operator Name Role Phone Leslye Correia MD Unavailable Rm Escoto MD Primary Care Provider [phone] Encounter Details Date Type Department Care Team (Late st Contact Info) Description 07/15/2024 Telephone [facility] Medical Group Family Medicine at [address] [place] [address] Rm Escoto MD [address] [place] [address] [address] [place] [address] Social History Tobacco Use Types Packs/Day Years Used Date Smoking Tobacco: Never Smokeless Tobacco: Never Alcohol Use Standard Drinks/Week Comments Never 0 (1 standard drink = 0.6 oz pur e alcohol) [facility] Utilities Answer Date Recorded In the past 12 months has [employer], gas, oil, or water company threatened [...] often do you attend chur ch or catholic services? More than 4 times per year 11/06/2023 Do you belong to any clubs o r organizations such as caodaism groups, unions, fraternal or athletic groups, or [...] place to sleep or slept in a correction (including now)? No 11/06/2023 Personal Safety Answer Date Recorded Have you ever been in or are you currently in a harmful physical or emotional relationship or is someone making you feel afraid or unsafe? Denies 05/27/2023 Comments No Sex and Gender Information Value Date Recorded Sex Assigned at Not on file Legal Sex Female 8:45 PM INSURANCE POLICY CLERK Gender Identity Not on file Sexual [...] track( 024 4:16 PM CDT) Carrie Jackson, CRIMINAL JUSTICE LAWYER Note: Problem: Need for Community Resources Interventions: - Provide patient/family with a list of appropriate resources for their specific need. - Help to coordinate resources. - Follow up to ensure patient/family has connected with the appropriate resources / personnel. documented as of this encounter Visit Diagnoses Not on filedocumented in this encounter Care Teams Tool Grinding Machine Operator Relationship Specialty Start Date End Date Rm Escoto MD [facility] [address] [address] PCP - General Family Medicine 06/10/25 Leslye Correia MD [facility] [address] Consulting Physician Pain Management 06/12/23 documented as of this encounter
--- OUTSIDE RECORDS SUMMARY | 2025-06-29 04:14 | XMS_ITS | Encounter Summary ---
Author Organization [facility] Address [address] [place] [address] Care Team Providers Care Head Operator Name Role Phone Memo Nieves MD Primary Care Provider [phone] Natanael Yarbrough MD Unavailable [phone] Edison Escoto MD Primary Care Provider [phone] Encounter Details Date Type Department Care Team (Late st Contact Info) Description 07/15/2019 Abstract [facility] at [facility], [facility] [address] [place] [address] Jaquan Tirado MA Social History Tobacco Use [...] Sex Assigned at Female 11/16/2024 3:42 PM BEARING INSPECTOR Legal Sex Female 5:38 PM CDT Gender [...] * TRIIODOTHYRONINE TOTAL , TT-3 (12/31/2024) Pathologist [facility] T3 TOTAL 1.16 12/31/2024 us Default History Genericprovider LABORATORY Final Result * COMPREHENSIVE METABOLIC PANEL (12/31/2024) [facility] SODIUM S/P/B 138 GLUCOSE 97 mg/dL AST 28 BUN 30 CREATININE S/P/B 0.99 0.5 - 1.0 CALCIUM S/P/B 9.2 POTASSIUM S/P/B 3.7 ALT 18 GFR ESTIMATE 54 us Default History Genericprovider LABORATORY Edited Result - Final * LIPID PANEL (12/31/2024) [facility] CHOLESTEROL 193 TRIGLYCERIDES 71 HDL 50 DIRECT LDL 111 us Default History Genericprovider LABORATORY Edited Result - Final * PRO-BRAIN NATRIURETIC PEPTIDE (12/31/2024) [facility] PRO-B TYPE NATRIURETIC PEPTIDE 225 us Default History Genericprovider LABORATORY Edited Result - Final * CBC, MANUAL DIFF (12/31/2024) [facility] WBC 6.4 HGB 9.8 HCT 32.4 PLT 231 Default History Genericprovider LABORATORY Edited Result - Final * THYROID STIM HORMONE TSH (12/31/2024) [facility] TSH 2.690 Default History Genericprovider LABORATORY Final Result * THYROXINE, FREE (FT4) (07/12/2019) [facility] FREE T4 0.89 07/12/2019 us Doc [facility] Abstract LABORATORY Final Result * CBC (OUTSIDE LAB) (07/12/2019) [facility] WBC 6.3 HGB 12.4 HCT 38.1 PLT 215 07/12/2019 us Doc [facility] Abstract LAB-OUTSIDE/ABSTRACTED Final Result * PROTIME (OUTSIDE LAB) (07/12/2019) [facility] PROTIME 13.2 INR 1.0 07/12/2019 us Doc [facility] Abstract LAB-OUTSIDE/ABSTRACTED Final Result * PRO-BRAIN NATRIURETIC PEPTIDE (07/12/2019) [facility] PRO-BRAIN NATRIURETIC PEPTIDE 93 5 - 100 07/12/2019 us Doc [facility] Abstract LABORATORY Final Result * LIPID PANEL (07/12/2019) [facility] CHOLESTEROL 248 HDL 49 TRIGLYCERIDES 137 LDL [...] on filedocumented in this encounter Care Teams Head Operator Relationship Specialty Start Date End Date Memo Nieves MD PCP - General FAMILY PRACTICE 07/14/18 04/25/23 Edison Escoto MD [address] [place] [address] PCP - General Neurology Psychiatry 04/26/23 Natanael Yarbrough MD [address] [facility] [address] [place] [phone] [place] Spray Painting Machine Operator CARDIOVASCULAR DISEASE 05/25/19 documented as of this encounter
--- OUTSIDE RECORDS SUMMARY | 2025-06-29 04:14 | XMS_ITS | Encounter Summary ---
Author Organization [facility] Healthcare Address [address] [place] [address] Care Team Providers Care Cloud Systems Architect Name Role Phone Leslye Correia MD Unavailable Rm Escoto MD Primary Care Provider [phone] Reason for Visit * Reason Onset Date Comments Medical Question/Miscellaneous 06/03/2025 Encounter Details Date Type Department Care Team (Late st Contact Info) Description 06/03/2025 Telephone [facility] Medical Group Family Medicine at [address] [place] [address] Rm Escoto MD [address] [place] [address] [address] [place] [address] Medical Question/Miscellaneous Social History Tobacco Use Types Packs/Day Years Used Date Smoking Tobacco: Never Smokeless Tobacco: Never Alcohol Use Standard Drinks/Week Comments Never 0 (1 standard drink = 0.6 oz pur e alcohol) [facility] Utilities Answer Date Recorded In the past 12 months has [employer], gas, oil, or water company threatened to [...] How often do you attend chur or islam services? More than 4 times per year 11/06/2023 Do you belong to any clubs o r organizations such as mu-ism groups, unions, fraternal or athletic groups, or [...] place to sleep or slept in a usp (including now)? No 11/06/2023 Personal Safety Answer Date Recorded Have you ever been in or are you currently in a harmful physical or emotional relationship or is someone making you feel afraid or unsafe? Denies 05/27/2023 Comments No Sex and Gender Information Value Date Recorded Sex Assigned at Not on file Legal Sex Female 8:45 PM PARKS RECREATION COORDINATOR Gender Identity Not on file Sexual Orientation Not on file documented as of this encounter Miscellaneous Notes * Telephone Encounter - Jayashree Bruno - 06/03/2025 2:46 PM CDT Medical Question/Miscellaneous Caller???s Concern: Patient checking on the status of her appointment for her breast biopsy. AC transferred Patient to [facility] to check with them, as there are no appointments showing in [employer] Does message need to be routed? No documented in this encounter Plan of Treatment Not on file documented as of this encounter Goals Goal Patient Goal Type Associated Problems Recent Progress Patient-Stated? Author ACO SW Goal - Patient can identify and utilize needed community resources ACO Care Management On track( 024 4:16 PM CDT) No Carrie Joe, DISEASE INTERVENTION SPECIALIST Note: Problem: Need for Community Resources Interventions: - Provide patient/family with a list of appropriate resources for their specific need. - Help to coordinate resources. - Follow up to ensure patient/family has connected with the appropriate resources / personnel. documented as of this encounter Visit Diagnoses Not on filedocumented in this encounter Care Teams Cloud Systems Architect Relationship Specialty Start Date End Date Rm Escoto MD [facility] [address] [address] PCP - General Family Medicine 06/10/25 Leslye Correia MD [facility], [address] [address] Consulting Physician Pain Management 06/12/23 documented as of this encounter
--- OUTSIDE RECORDS SUMMARY | 2025-06-29 04:14 | XMS_ITS | Clinical Summary ---
Author Organization [facility] Address [address] [place] [address] Care Team Providers Care Painter Plate Name Role Phone Lori Valentin MD Unavailable [phone] Edison Escoto MD Primary Care Provider [phone] Allergies Active Allergy Reactions Criticality Noted Date [...] PEN NEEDLES 31G X 5 MM Misc 018 Active Insulin Pen Needle (BD ULTRA-FINE PEN NEEDLES) 29G X 12.7MM Misc 1 each by Does not apply route. 018 Active Lancets (ONETOUCH ULTRASOFT) lancets 018 Active pantoprazole 40 MG tablet Take 1 tablet (40 mg total) by mouth daily. Ac tive Glucose Blood (ONE TOUCH ULTRA TEST STRIPS) test stripIndications :Type 2 diabetes mellitus with hyperglycemia, without long-term current use of insulin ([facility]/H[facility]) OneTouch Ultra Blue In Vitro StripTEST BLOOD SUGAR UP TO 5 TIMES [id number] Hayek, MireilleActivePharmacy Instructions: E11.9 150 each 11 Active Additional Information Patient taking differently: 1 each Other 6 times daily, OneTouch Ultra Blue In Vitro StripTEST BLOOD SUGAR UP TO 5 TIMES [id number] Hayek, MireilleActivePharmacy Instructions: E11.9, Reported on 12/31/2024 ketoconazole 2 % cream Apply 2 times a day around the valvular area daily. Active metoprolol succinate ER 100 MG 24 hr tablet Take 1 tablet (100 mg total) by mouth daily. Active dicyclomine 20 MG tablet Take 1 tablet (20 mg total) by mouth every 6 (six) hours. Active Glucose Blood (CONTOUR NEXT TEST) test strip Test blood sugar 5 times daily Active losartan-hydroCH LOROthiazide 50-12.5 MG tablet Take 1 tablet by mouth daily. Active LORazepam 1 MG tablet TAKE 1 TABLET BY MOUTH TWICE DAILY NEEDED Active meclizine 12.5 MG tablet TAKE 1 TABLET BY MOUTH THREE TIMES DAILY NEEDED Active citalopram 20 MG tabletIndication s:prn daily. Indications: prn 12/28 Active Multiple Vitamins-Mineral s (ONE-A-DAY WOMENS 50+) Tab Take 1 tablet by mouth daily. Active ondansetron (ZOFRAN-ODT) 4 MG disintegrating tablet Take 1 tablet (4 mg total) by mouth every 8 (eight) hours as needed for Nausea. 20 tablet Active furosemide (LASIX) 40 MG tablet Take 1 tablet (40 mg total) by mouth daily. Active citalopram (CELEXA) 10 MG tablet Take 1 tablet (10 mg total) by mouth daily. 06/21/2 024 Active HUMULIN 70/30 KWIKPEN (70-30) 100 UNIT/ML injection (pen) Inject 20 Units into the skin 2 (two) times daily. 025 12/08 Active metFORMIN (GLUCOPHAGE) 1000 MG tablet Take 1 tablet (1,000 mg total) by mouth 2 (two) times daily. 025 07/05 Active HYDROcodone-acet aminophen (NORCO) 7.5-325 MG tablet Take 1 tablet by mouth every 8 (eight) hours as needed. FOR PAIN Active hydrOXYzine (ATARAX) 25 MG tablet TAKE 1 TABLET(25 MG) BY MOUTH THREE TIMES DAILY NEEDED FOR ITCHING------- DO NOT TAKE WITH BENADRYL Active B Complex Vitamins Cap Take 1 capsule by mouth daily. Active nitroglycerin (NITROSTAT) 0.[address] 1 tablet (0.4 mg total) under the tongue every 5 (five) minutes as needed for Chest Pain. Maximum of 3 doses. 90 tablet 04/15 Active Hospital, Clinic, or Other Facility Administered Medication Ordered Dose Route Frequency Start Date End Date Status EPINEPHrine (EPIPEN) injection 0.3 mgIndications:Type 2 diabetes mellitus without complication, without long-term current use of insulin ([facility]) 0.3 mg IM Once 05/24/2019 Active Active Problems Problem Noted Date Diagnosed Date Microcytic anemia 09/01/2024 Syncope 07/02/2024 Imbalance 11/30/2021 PAD (peripheral artery disease) 07/13/2019 Brain aneurysm ([facility]) 07/13/2019 CASTELLANOS (dyspnea on exertion) 06/17/2019 Abnormal EKG 06/17/2019 Acquired hypothyroidism 02/04/2019 Type 2 diabetes mellitus wit h diabetic neuropathy, with long-term current use of insulin ([facility]) 12/03/2018 Allergy status to other drug [...] uterus 05/12/2018 Ribs, multiple fractures 05/12/2018 Seizures ([facility]) 05/12/2018 Stroke ([facility]) 05/12/2018 Stomach ulcer 05/12/2018 Lumbar facet arthropathy 04/21/2018 Greater trochanteric bursitis of right hip 04/08 GERD without esophagitis 09/17/2017 Lumbago with sciatica, left side 08/18/2017 Angioneurotic edema 07/31/2017 Diabetic polyneuropathy ([facility]) 2016 Diverticulitis of large inte jagdish [...] Description 04/15/2025 2:00 PM CDT Office Visit [facility] [address] Lori Valentin MD CHF (Follow up) 04/15/2025 Travel 04/05/2025 Results Follow-Up [facility], [address] [address] Lyssa Steele RN NM PHARM NUC STRESS TEST 1 DAY W TRACING 03/30/2025 1:00 PM CDT - 03/30/2025 11:59 PM CDT Hospital Encounter [facility] [place] [address] Lori Valentin MD Discharge Disposition: Home or Self Care (Routine Discharge) 03/30/2025 Travel from Last 3 Months Family History Medical History Relation Comments Lung Cancer Father PR Father Alzheimers Mother Heart Disease Mother Diabetes [...] Sex Assigned at Female 11/16/2024 3:42 PM HELP DESK SUPPORT Legal Sex Female 5:38 PM CDT Gender [...] 36.2 C (97.2 F) 08/23/2024 10:30 AM HELP DESK SUPPORT Respiratory Rate 18 08/23/2024 10:30 AM HELP DESK SUPPORT Oxygen Saturation 96% 04/15/2025 2:01 PM CDT [...] 75+ series) 2019 Hemoglobin A1C 11/16/2023 05/16/2023, 10/0 05/2020, 10/11/2019, Additional history exists COVID-19 Vaccine ( - season) 2025 Lipid Panel 12/31/2025 12/31/2024, 07/12/2019 Meningococcal B Vaccine Aged Out No l onger eligible based on patient's age to complete this topic Meningococcal Vaccine Aged Out No magaly rodolfo eligible based on patient's age to complete this topic RSV Immunizations Under 20 Months Aged Out No longer eligible based on patient's age to complete this topic Medical Devices Implanted Type Area Pulp Bleacher Device Identifier Shelf Expiration Date Model / Serial / Lot Iol Tecnis Simplicity Dcb00 - [id number] Implanted:Qty: 1 on 08/23/2024 by Bhavin Jerez MD at [facility] Lens Left: Eye [employer] 08/01/2026 DCB00 / [id number] / Tecnis 1-Piece Iol With Tecnis Simplicity Delivery System Implanted:Qty: 1 on 07/26/2024 by Bhavin Jerez MD at [facility] Right: Eye [employer] 02/10/2027 DCB00 / / Procedures Procedure Name Priority Date/Time Associated Diagnosis Comments ELECTROCARDIOGRAM (NON MIDMARK ACQUIRED) Routine 04/15/2025 2:47 PM CDT Chest pain NM PHARM NUC STRESS TEST 1DAY W TRACING Routine 03/30/2025 3:03 PM CDT SOB (shortness of breath) Chest pain CARDIOLOGY STRESS TEST ONLY, EXERCISE Routine 03/30/2025 1:16 PM CDT SOB (shortness of breath) Chest pain Type 2 diabetes mellitus with diabetic neuropathy, with long-term current use of insulin ([facility]/HCC) Acquired hypothyroidism Sleep apnea Atherosclerosis of coronary artery Essential (primary) hypertension GERD without esophagitis Mixed hyperlipidemia CASTELLANOS (dyspnea on exertion) Abnormal EKG Syncope LIPID PANEL Routine 12/31/2024 HEMOGLOBIN, GLYCOSYLATED Routine 019 8:59 AM CDT Type 2 diabetes mellitus without complication, without long-term current use of insulin from Last 3 Months or Most Recently Relevant to Health Maintenance Results * ELECTROCARDIOGRAM (04/15/2025 2:47 PM CDT) 04/15/2025 2:47 PM CDT Narrative [facility] - 05/10/2025 8:12 AM CDT [facility] Test Date: 2025-04-15 Pat Name: KIMBERLY ARENASLEY Department: 171 Room: Gender: Female Final Operations Technician: : 1945 Requested By: LORI VALENTIN Order Number: [id number] Reading MD: Mayra Azar Measurements Intervals Baldwin Rate: 80 P: 78 SC: 214 QRS: -14 QRSD: 101 T: 127 QT: 386 QTc: 445 Interpretive Statements SINUS RHYTHM WITH FIRST DEGREE AV BLOCK LEFT VENTRICULAR HYPERTROPHY AND ST-T CHANGE Procedure Note Mayra Azar MD - 05/10/2025 [facility] Date: 2025-04-15 Pat Name: KIMBERLY ARENASLEY Department: 171 Room: Gender: Female Final Operations Technician: : 1945 Requested By: LORI VALENTIN Order Number: [id number] Reading : aMyra Azar Measurements Intervals Baldwin Rate: 80 P: 78 SC: 214 QRS: -14 QRSD: 101 T: 127 QT: 386 QTc: 445 Interpretive Statements SINUS RHYTHM WITH FIRST DEGREE AV BLOCK LEFT VENTRICULAR HYPERTROPHY AND ST-T CHANGE us Lori Valentin MD PROCEDURES-ORDERABLE NO CHARG E Final Result [facility] * NM PHARM NUC STRESS TEST 1 DAY W TRACING (03/30/2025 3:03 PM CDT) Anatomical Region Laterality Modality Cardiac Nuclear Medicine 03/30/2025 2:14 PM CDT Narrative 04/05/2025 3:18 PM CDT Myocardial Perfusion Imaging Pat.Name: KIMBERLY MASTERS Pat.ID: [id number] St.Date: 03/30/2025 Refer.MD: Lori Valentin [id number] Exam Time: 2:14:00 PM Study Type:AGNES NC [...] 58 % Max BP: 146/69 Max RPP: [id number] O2 sat: 99 % Symptoms and Complications: Reason for Stopping Test: Protocol completed Stress Induced Symptoms: Dizziness Complications: None ECG Findings: No significant changes <Electronic Signature> 04/05/2025 03:18 PM Andrew Saucedo M.D. Procedure Note Andrew Saucedo MD - 04/05/2025 Myocardial Perfusion Imaging Pat.Name: NIRAV KIMBERLY Danielle Pat.ID: [id number] .Date: 03/30/2025 Refer.MD: Lori Valentin [id number] Exam Time: 2:14:00 PM Study Type:AGNES NC [...] 58 % Max BP: 146/69 Max RPP: 87953 O2 sat: 99 % Symptoms and Complications: Reason for Stopping Test: Protocol completed Stress Induced Symptoms: Dizziness Complications: None ECG Findings: No significant changes <Electronic Signature> 04/05/2025 03:18 PM Andrew Saucedo M.D. us Lori Valentin MD NUC MED Final Result * LIPID PANEL (12/31/2024) CHOLESTEROL 193 TRIGLYCERIDES 71 HDL 50 DIRECT LDL 111 Default History Genericprovider LABORATORY Edited Result - Final * HEMOGLOBIN, GLYCOSYLATED (05/24/2019 8:59 AM CDT) HGB A1C [address] [place] 05/24/2019 8:59 AM CDT Carolina Florence MD LABORATORY Nadeen l Result [address] [place] [address] [address], from Last 3 Months or Most Recently Relevant to Health Maintenance Insurance MEDICAID Member Subscriber Plan / Payer (Ef fective 2024-Present) Name:Kimberly Masters Relation to Subscriber:Self Name:Kimberly Masters Payer ID:Not on file Group ID:Not on file Type:Not on file Address: [address] MEDICARE MEDICAID Care Teams Painter Plate Relationship Specialty Start Date End Date Edison Escoto MD [address] [place] [address] PCP - General Neurology Psychiatry 04/26/23 Lori Valentin MD [address] [facility] [address] [place] [id number] [place] [employer] CARDIOVASCULAR DISEASE 05/25/19
--- OUTSIDE RECORDS SUMMARY | 2025-06-29 04:15 | XMS_ITS | Clinical Summary ---
Author Organization [facility] Address [address] [place] [address] Phone Care Team Providers Care Behavioral Health Specialist Name Role Phone Memo Nieves MD Primary Care Provider [phone] Social History Tobacco Use Types Packs/Day Years Used Date Smoking Tobacco: Never Assessed Comments Unknown Sex and Gender Information Value Date Recorded Sex Assigned at Not on file Legal Sex Female 3:19 PM PUMPER HAND Gender Identity Not on file Sexual Orientation Not on file Plan of Treatment Health Maintenance Due Date Last Done Comments DTAP/TDAP/TD VACCINES (1 - Tdap) 1963 PNEUMOCOCCAL VACCINE 50+ YEARS (1 of 1 - PCV) 06/16/19 94 ZOSTER VACCINE (1 of 2) 1994 OSTEOPOROSIS SCREENING 2009 RSV VACCINE (60+ or ) (1 - 1-dose 75+ series) 2019 INFLUENZA VACCINE (#1) 2025 Care Teams Behavioral Health Specialist Relationship Specialty Start Date End Date Memo Nieves MD PCP - General Family Practice 09/18/17
--- OUTSIDE RECORDS SUMMARY | 2025-06-29 04:15 | XMS_ITS | Patient Health Record ---
Author Organization [facility] Address [facility] [facility] [address] [facility] [address] [place] [address] Care Team Providers Care Corporate Counsel Name Role Phone Louis Dominguez Unavailable [phone] Reason For Referral No Information Plan Of Treatment No Information
--- OUTSIDE RECORDS SUMMARY | 2025-06-29 04:15 | XMS_ITS | Encounter Summary ---
Author Organization [facility] Facility Care Team Providers Care Metallurgist Process Name Role Phone Chintan Henderson MD Primary Care Provider [phone] Memo Nieves MD Primary Care Provider [phone] Antoinette Carreno RN Unavailable [phone] Carrie Joe CONTINUOUS WAVE OPERATOR Unavailable [phone] Leslye Correia MD Unavailable Carrie Joe CONTINUOUS WAVE OPERATOR Unavailable [phone] Rm Escoto MD Primary Care Provider [phone] Encounter Details Date Type Department Care Team (Latest Contact Info) Description 02/05/2016 Orders Only [facility] Provider, MD Kelly [address] [place] [address] Social History Tobacco Use Types Packs/Day Years Used Date Smoking Tobacco: Never Comments Unknown Sex and Gender Information Value Date Recorded Sex Assigned at Not on file Legal Sex Female 8:45 PM WARP PICKER Gender Identity Not on file Sexual Orientation [...] documented as of this encounter Care Teams Metallurgist Process Relationship Specialty Start Date End Date Chintan Henderson MD [address] [facility] [place] [address] PCP - General 11/26/10 01/16/17 Memo Nieves MD [address] [facility] [place] [address] PCP - General 01/17/17 08/26/22 Rm Escoto MD [address] [facility] [address] [place] [address] PCP - General Family Medicine 06/10/25 Antoinette Carreno, RN [address] [place], [place] [id number] Skilled Labor 11/17/17 11/26/17 Carrie Joe, [address] [facility] [address] [place], [place] [id number] Wardrobe Coordinator 11/27/22 12/09/22 Leslye Correia MD [address] [facility], [facility] [address] [place] [address] Consulting Physician Pain Management 06/12/23 Carrie Joe, [address] [facility] [address] [place] [address] Wardrobe Coordinator 11/06/23 04/07/24 documented as of this encounter
--- OUTSIDE RECORDS SUMMARY | 2025-06-29 04:15 | XMS_ITS | Clinical Summary ---
Author Organization [facility] Building [address] Address [address] [place] [address] Care Team Providers Care Process Mold Technician Name Role Phone Leslye Correia MD Unavailable Rm Escoto MD Primary Care Provider [phone] Allergies Active Allergy Reactions Criticality Noted Date [...] mouth daily 023 Active cholecalciferol (VITAMIN D-3) 06091 unit tabletIndications :Vitamin D Deficiency,Vitami n D Deficiency (High Dose Therapy) Take 1 tablet (50,000 Units total) by mouth once a week 12 tablet 3 024 Active citalopram (CeleXA) 10 mg tablet Take 1 tablet (10 mg total) by mouth daily Active FreeStyle Lanny 2 Sensor kitIndications:Un controlled type 2 diabetes mellitus with hypoglycemia without coma Change every 14 days 2 kit 11 Active QUEtiapine (SEROquel) 25 mg tabletIndications :Primary insomnia Take 1 tablet (25 mg total) by mouth nightly 30 tablet [address] (PROTONIX) 40 mg EC tabletIndications :GERD without esophagitis Take 1 tablet (40 mg total) by mouth daily 90 tablet 3 024 2024 Active blood-glucose sensor deviceIndications :Uncontrolled type 2 diabetes mellitus with hypoglycemia without coma 1 each every 14 (fourteen) days To check blood sugar 4-5 times per day 6 each 1 Active blood-glucose meter,continuous (FreeStyle Lanny 3 [place]) miscIndications:U ncontrolled type 2 diabetes mellitus with hypoglycemia without coma 1 each daily 1 each 1 024 Active docusate sodium (COLACE) 100 mg capsuleIndication s:constipation Take 1 capsule (100 mg total) by mouth 2 (two) times a day 60 capsule 11 024 Active pen needle, diabetic (BD July 2nd Gen Pen Needle) 32 gauge x needleIndications :Uncontrolled type 2 diabetes mellitus with hypoglycemia without coma USE ONE PEN NEEDLE TO INJECT INSULIN FOUR TIMES DAILY 400 each 5 025 Active meclizine (ANTIVERT) 12.5 mg tablet TAKE 1 TABLET(12.5 MG) BY MOUTH THREE TIMES DAILY NEEDED FOR DIZZINESS OR NAUSEA 90 tablet 3 025 Active furosemide (LASIX) 40 mg tablet Take 1 tablet (40 mg total) by mouth 2 (two) times a day 180 tablet 3 025 Active levothyroxine (SYNTHROID) 25 mcg tabletIndications :Acquired hypothyroidism Take 1 tablet (25 mcg total) by mouth daily 90 tablet 3 025 Active vitamin B complex capsuleIndication s:Uncontrolled type 2 diabetes mellitus with hypoglycemia without coma TAKE 1 CAPSULE BY MOUTH EVERY DAY 30 capsule 025 Active miscellaneous medical supply miscIndications:L umbar facet arthropathy,Compr ession fracture of L3 vertebra with routine healing, subsequent encounter One back brace of patient choice 1 each 025 Active blood glucose diagnostic (Contour Next Test Strips) stripIndications: Uncontrolled type 2 diabetes mellitus with hypoglycemia without coma Check blood sugar 4-5 times daily 300 strip 1 025 Active rosuvastatin (CRESTOR) 10 mg tabletIndications :Controlled type 2 diabetes mellitus with diabetic polyneuropathy, with long-term current use of insulin Take 1 tablet (10 mg total) by mouth daily 90 tablet 1 025 2024 Active losartan-hydroCHL OROthiazide (Hyzaar) 50-12.5 mg per tabletIndications :Essential (primary) hypertension Take 1 tablet by mouth daily 90 tablet 3 025 Active metoprolol XL (TOPROL-XL) 100 mg 24 hr tabletIndications :Essential (primary) hypertension Take 1 tablet (100 mg total) by mouth daily 90 tablet 3 025 Active hydrOXYzine (ATARAX) 25 mg tabletIndications :Lumbar facet arthropathy TAKE 1 TABLET(25 MG) BY MOUTH THREE TIMES DAILY NEEDED FOR ITCHING------- DO NOT TAKE WITH BENADRYL 90 tablet 025 Active HYDROcodone-aceta minophen (NORCO) 7.5-325 mg per tabletIndications :Pain Take 1 tablet by mouth every 8 (eight) hours as needed for pain 90 tablet 025 Active metFORMIN (GLUCOPHAGE) 1,000 mg tabletIndications :Uncontrolled type 2 diabetes mellitus with hypoglycemia without coma TAKE 1 TABLET(1000 MG) BY MOUTH TWICE DAILY WITH MEALS 180 tablet 1 025 Active insulin NPH-insulin regular 70/30 (HumuLIN 70/30, NovoLIN 70/30) 100 unit/mL pen for injectionIndicati ons:Uncontrolled type 2 diabetes mellitus with hypoglycemia without coma Inject 20 Units under the skin 2 (two) times a day 12 mL 11 025 Active ondansetron (ZOFRAN) 4 mg tablet TAKE 1 TABLET(4 MG) BY MOUTH EVERY 8 HOURS NEEDED FOR NAUSEA OR VOMITING 30 tablet 025 Active miscellaneous medical supply miscIndications:U rinary incontinence, unspecified type Pull up adult diapers with underpads (150 count) and pad liners (126 count) for urge incontinence 200 each 11 025 Active metFORMIN (GLUCOPHAGE) 1,000 mg tabletIndications :Uncontrolled type 2 diabetes mellitus with hypoglycemia without coma Take 1 tablet (1,000 mg total) by mouth 2 (two) times a day with meals 180 tablet 1 025 2024 Discontinued insulin NPH-insulin regular 70/30 (HumuLIN 70/30, NovoLIN 70/30) 100 unit/mL pen for injectionIndicati ons:Controlled type 2 diabetes mellitus with diabetic polyneuropathy, with long-term current use of insulin Inject 20 Units under the skin 2 (two) times a day 12 mL 11 025 2024 Discontinued ondansetron (ZOFRAN) 4 mg tablet TAKE 1 TABLET(4 MG) BY MOUTH EVERY 8 HOURS NEEDED FOR NAUSEA OR VOMITING 30 tablet 025 2024 Discontinued insulin NPH-insulin regular 70/30 (NovoLIN 70/30 100 unit/mL) 100 unit/mL pen for injectionIndicati ons:Controlled type 2 diabetes mellitus with diabetic polyneuropathy, with long-term current use of insulin ADMINISTER 20 UNITS UNDER THE SKIN TWICE DAILY 36 mL 2 025 2024 Discontinued Active Problems Problem Noted Date Diagnosed Date [...] benefit of other non-opioid pain therapies. Immunization: [id number]: Risk and benefits discussed with patient. Patient voiced understandings; and refused. [id number]: Risk and benefits discussed with patient. Patient [...] Annually Assessment & Plan (11/04/2023 2:26 PM DATA WAREHOUSING MANAGER): Patient here for annual Medicare wellness [...] Plan Services (PPPS): Opioid Use: No Immunization: [id number]: Risk and benefits discussed with patient. Patient voiced understandings; and refused. [id number]: Risk and benefits discussed with patient. Patient [...] 12/26/2015 Assessment & Plan (08/11/2019 12:40 PM DATA WAREHOUSING MANAGER): Blood pressure 165/80. Continue same medications at this time. Continue to monitor. Atherosclerosis of coronary artery 10/23/2012 Overview (01/02/2017): CAD (coronary artery disease) Mixed hyperlipidemia 10/23/2012 Overview (01/02/2017): Hyperlipidemia Resolved Problems Problem Noted Date Diagnosed Date Resolved Date Hypertension 10/23/2012 02/04/2019 Overview (01/02/2017): HYPERTENSION NOS Encounters Date Type Department Care Team Description 06/21/2025 Telephone [facility] Family Medicine at [address] [place] [address] Rm Escoto MD Additional Services Or Orders; Call Back 06/20/2025 Telephone [facility] Family Medicine at [address] [place] [address] Rm Escoto MD PA for novolin 70/30 06/17/2025 Telephone [facility] Family Medicine at [address] [phone] Rm Escoto MD Request For Order(s) (Left Us breast Bx) 06/08/2025 Telephone [facility] Family Medicine at [address] [phone] Rm Escoto MD Additional Services Or Orders 06/06/2025 Telephone [facility] Family Medicine at [address] [address] Rm Escoto MD Medical Question/Miscellaneo us 06/03/2025 Telephone [facility] Family Medicine at [address] [address] Rm sEcoto MD Medical Question/Miscellaneo us 05/17/2025 Orders Only [facility] Family Medicine at [address] [place] [phone] Rm Escoto MD 05/17/2025 Telephone [facility] Family Medicine at [address] [place] [address] Rm Escoto MD Med Refill 05/06/2025 Telephone [facility] Family Medicine at [address] [address] Rm Escoto MD Test Results 04/29/2025 Orders Only [facility] Family Medicine at [address] [place] [address] Rm Escoto MD 04/28/2025 12:05 AM CDT - 04/28/2025 11:59 PM CDT Hospital Encounter [facility] Outside Images [address] [place] [address] Discharge Disposition: Discharge to home or self care 04/28/2025 - 04/28/2025 11:59 PM CDT Hospital Encounter [facility] Outside Images [address] [place] [address] Discharge Disposition: Discharge to home or self care from Last 3 Months Immunizations Immunization Administration [...] (CVA) (HCC) Stroke Type 2 diabetes mellitus Incontinence Left leg pain Family History Medical [...] drink = 0.6 oz pur e alcohol) [facility] Utilities Answer Date Recorded In the [...] week 11/06/2023 How often do you attend [facility] ch or restorationist services? More than 4 times per year 11/06/2023 Do you belong to any clubs o r organizations such as muslim groups, unions, fraternal or athletic groups, or [...] place to sleep or slept in a senior care (including now)? No 11/06/2023 Personal Safety Answer Date Recorded Have you ever been in or are you currently in a harmful physical or emotional relationship or is someone making you feel afraid or unsafe? Denies 05/27/2023 Comments No Sex and Gender Information Value Date Recorded Sex Assigned at Not on file Legal Sex Female 8:45 PM DATA WAREHOUSING MANAGER Gender Identity Not on file Sexual [...] Additional history exists Hemoglobin A1C 09/15/2025 03/16/2025, 11/27, 05/18/2024, Additional history exists Depression Screening 12/08/2025 12/08/2024, 11/04/2023, 02/12/2023, Additional history exists Fall Risk Assessment 12/08/2025 12/08/2024, 11/04/2023, 05/20/2023, Additional history exists Well Visit 65+ 12/08/2025 12/08/2024, 02/2024, 02/13/2022 Albumin Creatinine Ratio, Urine 12/31/2025 [...] track( 024 4:16 PM CDT) Carrie Jackson, PAPER BOX MAKER Note: Problem: Need for Community Resources Interventions: - Provide patient/family with a list of appropriate resources for their specific need. - Help to coordinate resources. - Follow up to ensure patient/family has connected with the appropriate resources / personnel. Medical Devices Implanted Type Area Maintenance Equipment Operator Device Identifier Shelf Expiration Date Model / Serial / Lot [employer] Vertaplex Hv Autoplex Without Needle Delivery System Kit Bone [id number] - [id number] Implanted:Qty: 1 on 05/15/2023 by Leslye Correia MD at [facility] N/A: Spine Lumbar [employer] 02/26/2025 [id number] / / [id number] Procedures Procedure Name Priority Date/Time Associated Diagnosis Comments BREAST IMAGING MG DIAGNOSTIC OUTSIDE REFERENCE Routine 04/28/2025 12:05 AM CDT BREAST IMAGING US OUTSIDE REFERENCE Routine 04/28/2025 12:00 AM CDT DIAGNOSTIC MAMMOGRAM BILATERAL W NACHO Schedule Routine, Read Routine (OP Routine) 04/28/2025 POCT HEMOGLOBIN A1C Routine 03/16/2025 4:10 PM CDT Controlled type 2 diabetes mellitus [...] Recently Relevant to Health Maintenance Results * Breast Imaging Diagnostic Outside Reference (04/28/2025 12:05 AM CDT) Narrative [email or web address] - 06/06/2025 9:34 AM CDT This order has been auto-finalized and does not contain a result. us Provider Transcribed Order IMG MAMMO PROCEDURES Final Result [email or web address] * Breast Imaging US Outside Reference (04/28/2025 12:00 AM CDT) Narrative [email or web address] - 06/06/2025 9:33 AM CDT This order has been auto-finalized and does not contain a result. Result [facility] Provider Transcribed Order IMG MAMMO PROCEDURES Final Result Performing Organization Address [facility]/ZIP Co de Phone Number [email or web address] * Diagnostic Mammogram Bilateral W Nacho (04/28/2025) Anatomical Region Laterality Modality Breast Bilateral Mammography Result [facility] Historical Provider IMG MAMMO PROCEDURES Nadeen l Result * (ABNORMAL) POCT hemoglobin A1c (03/16/2025 4:10 PM CDT) Hemoglobin A1C, POC 6.9(A) 4.0 - 5.6 % Blood 03/16/2025 4:10 PM CDT Result [facility] Rm Escoto MD POINT OF CARE TEST ORDERABLES Fi nal Result * Lipid panel (12/31/2024 11:37 AM CDT) SCRIBED Cholesterol, Total 193 0 - 200 EXTERNAL LAB SCRIBED HDL 50 35 - 100 EXTERNAL LAB SCRIBED LDL 111 0 - 130 EXTERNAL LAB SCRIBED Triglycerides 71 0 - 150 EXTERNAL LAB Blood Result [facility] Historical Provider LAB BLOOD ORDERABLES Nadeen l Result Performing Organization Address [facility]/ZIP Co de Phone Number EXTERNAL LAB * (ABNORMAL) Albumin Creatinine Ratio, Urine (12/31/2024) SCRIBED Creatinine, Urine 30.1(A) 0 - 0 EXTERNAL LAB SCRIBED Microalbumin 7.3 0 - 16.7 EXTERNAL LAB SCRIBED Micro ACR, Urine 24.3 0 - 30 EXTERNAL LAB Urine 12/31/2024 Result [facility] Rm Escoto MD LAB URINE ORDERABLES Final [...] ORDERABLES Final Resul t Performing Organization Address [facility] de Phone Number [place] [phone] [facility] Department [place] [address] * Occult blood, fecal non neoplasm screening (12/09/2016 10:00 AM CDT) Stool Occult Blood POSITIVE NEGATIVE 12/09/2016 10:0 0 AM CDT 12/09/2016 10:39 AM CDT Narrative [facility] HISTORICAL RESULTS - 12/09/2016 10:41 AM CDT Collected By us Felecia Stephens LAB BODY FLUIDS AND STOOLS ORDER RUBEN Final Result Performing Organization Address [facility] Co de Phone Number [facility] HISTORICAL RESULTS from Last 3 Months or Most Recently Relevant to Health Maintenance Insurance [facility]IC[facility] Address: [address] [address] [place] [address] MEDICARE [facility] Address: [address] [address] [place] [address] [facility] MEDICARE [employer] [facility] MEDIC[facility] Address: [address] [address] [place] [address] Advance Directives For more information, please contact: [phone] * Full Code (Latest Code Status on File) Date Activated Date Inactivated Comments 05/10/2023 10:28 PM 05/20/2023 8:11 PM Care Teams Process Mold Technician Relationship Specialty Start Date End Date Rm Escoto MD [facility] [address] [place] [address] PCP - General Family Medicine 06/10/25 Leslye Correia MD [address] [facility] [address] [facility], [facility] [address] [place] [address] Consulting Physician Pain Management 06/12/23
--- OUTSIDE RECORDS SUMMARY | 2025-06-29 04:15 | XMS_ITS | Encounter Summary ---
Author Organization [facility] Facility Care Team Providers Care Senior Software Engineer Analytics Name Role Phone Memo Nieves MD Primary Care Provider [phone] Carrie Joe BILINGUAL NANNY Unavailable [phone] Leslye Correia MD Unavailable Carrie Joe BILINGUAL NANNY Unavailable [phone] Rm Escoto MD Primary Care Provider [phone] Encounter Details Date Type Department Care Team (Latest Contact Info) Description 10/23/2018 Orders Only [facility] ProviderKelly MD [address] [place] [address] Social History Tobacco Use Types Packs/Day Years Used Date Smoking Tobacco: Never Smokeless Tobacco: Never Comments Unknown Sex and Gender Information Value Date Recorded Sex Assigned at Not on file Legal Sex Female 8:45 PM MARKETING ANALYST Gender Identity Not on file Sexual Orientation Not on file documented as of this encounter Plan of Treatment Not on file documented as of this encounter Procedures Procedure Name Priority Date/Time Associated Diagnosis Comments CARDIOLOGY REPORT 10/23/2018 12: 00 AM MARKETING ANALYST documented in this encounter Results * CARDIOLOGY REPORT (10/23/2018 12:00 AM MARKETING ANALYST) Anatomical Region Laterality Modality Other Narrative 10/23/2018 12:00 AM MARKETING ANALYST Ordered by an unspecified provider. Historical Provider [facility] CARDIAC SERVICES JO CAHN Final Result documented in this encounter Visit Diagnoses Not on filedocumented in this encounter Additional Health Concerns Infection Onset Date Last Indicated Resolved Time COVID: Suspected 05/27/2023 05/27/2023 05/27/2023 1:37 PM CDT documented as of this encounter Care Teams Senior Software Engineer Analytics Relationship Specialty Start Date End Date Memo Nieves MD PCP - General 01/17/17 08/26/22 Rm Escoto MD [address] [facility] [address] [place] [address] PCP - General Family Medicine 06/10/25 Carrie Joe, BILINGUAL NANNY [address] [facility] [address] [place], [place] [id number] Loan Expeditor 11/27/22 12/09/22 Leslye Correia MD [facility] [address] [place] [address] Consulting Physician Pain Management 06/12/23 Carrie Joe, BILINGUAL NANNY [address] [facility] [address] [place] [address] Loan Expeditor 11/06/23 04/07/24 documented as of this encounter
--- OUTSIDE RECORDS SUMMARY | 2025-06-29 04:15 | XMS_ITS | Encounter Summary ---
Author Organization [facility] Facility Care Team Providers Care Stained Glass Painter Name Role Phone Chintan [place] MD Primary Care Provider [phone] Memo Nieves MD Primary Care Provider [phone] Antoinette Carreno RN Unavailable [phone] Carrie Joe FORMING MACHINE UPKEEP MECHANIC HELPER Unavailable [phone] Leslye Correia MD Unavailable Carrie Joe FORMING MACHINE UPKEEP MECHANIC HELPER Unavailable [phone] Rm Escoto MD Primary Care Provider [phone] Encounter Details Date Type Department Care Team (Latest Contact Info) Description 10/23/2016 Orders Only [facility] Provider, MD Kelly [address] [place] [address] Social History Tobacco Use Types Packs/Day Years Used Date Smoking Tobacco: Never Comments Unknown Sex and Gender Information Value Date Recorded Sex Assigned at Not on file Legal Sex Female 8:45 PM TUBE INSPECTOR Gender Identity Not on file Sexual Orientation Not on file documented as of this encounter Plan of Treatment Not on file documented as of this encounter Procedures Procedure Name Priority Date/Time Associated Diagnosis Comments CARDIOLOGY REPORT 10/23/2016 12: 00 AM TUBE INSPECTOR CARDIOLOGY REPORT 10/23/2016 12: 00 AM TUBE INSPECTOR CARDIOLOGY REPORT 10/23/2016 12: 00 AM TUBE INSPECTOR documented in this encounter Results * CARDIOLOGY REPORT (10/23/2016 12:00 AM TUBE INSPECTOR) Anatomical Region Laterality Modality Other Narrative 10/23/2016 12:00 AM TUBE INSPECTOR Ordered by an unspecified provider. us Historical Provider CV CARDIAC SERVICES PROCE DURES Final Result * CARDIOLOGY REPORT (10/23/2016 12:00 AM TUBE INSPECTOR) Anatomical Region Laterality Modality Other Narrative 10/23/2016 12:00 AM TUBE INSPECTOR Ordered by an unspecified provider. Historical Provider CV CARDIAC SERVICES PROCE DURES Final Result * CARDIOLOGY REPORT (10/23/2016 12:00 AM TUBE INSPECTOR) Anatomical Region Laterality Modality Other Narrative 10/23/2016 12:00 AM TUBE INSPECTOR Ordered by an unspecified provider. Historical Provider CV CARDIAC SERVICES PROCE DURES Final Result documented in this encounter Visit Diagnoses Not on filedocumented in this encounter Additional Health Concerns Infection Onset Date Last Indicated Resolved Time COVID: Suspected 05/27/2023 05/27/2023 05/27/2023 1:37 PM CDT documented as of this encounter Care Teams Stained Glass Painter Relationship Specialty Start Date End Date Chintan Henderson MD [address] [place] [address] PCP - General 11/26/10 01/16/17 Memo Nieves MD [address] [place] [address] PCP - General 01/17/17 08/26/22 Rm Escoto MD [address] [facility] [address] [place] [address] PCP - General Family Medicine 06/10/25 Antoinette Carreno, RN [address] [place], [place] [id number] Market President 11/17/17 11/26/17 Carrie Joe, FORMING MACHINE UPKEEP MECHANIC HELPER [address] [facility] [address] [place] [address] Wheelchair Van Operator First Responder 11/27/22 12/09/22 Leslye Correia MD [address] [facility] [address] [place] [address] Consulting Physician Pain Management 06/12/23 Carrie Joe, FORMING MACHINE UPKEEP MECHANIC HELPER [address] [place] [address] [facility] [address] [place] [address] Wheelchair Van Operator First Responder 11/06/23 04/07/24 documented as of this encounter
--- OUTSIDE RECORDS SUMMARY | 2025-06-29 04:15 | XMS_ITS | Encounter Summary ---
Author Organization [facility] Facility Care Team Providers Care Switch Cleaner Name Role Phone Chintan Henderson MD Primary Care Provider [phone] Memo Nieves MD Primary Care Provider [phone] Antoinette Carreno RN Unavailable [phone] Carrie Joe AGRICULTURAL SYSTEMS SPECIALIST Unavailable [phone] Leslye Correia MD Unavailable Carrie Joe AGRICULTURAL SYSTEMS SPECIALIST Unavailable [phone] Rm Escoto MD Primary Care Provider [phone] Encounter Details Date Type Department Care Team (Latest Contact Info) Description 09/18/2016 Orders Only [facility] Provider, MD Kelly [address] [place] [address] Social History Tobacco Use Types Packs/Day Years Used Date Smoking Tobacco: Never Comments Unknown Sex and Gender Information Value Date Recorded Sex Assigned at Not on file Legal Sex Female 8:45 PM ACETONE RECOVERY WORKER Gender Identity Not on file Sexual Orientation Not on file documented as of this encounter Plan of Treatment Not on file documented as of this encounter Procedures Procedure Name Priority Date/Time Associated Diagnosis Comments SCAN - LABS 09/18/2016 12:00 AM ACETONE RECOVERY WORKER documented in this encounter Results * SCAN - LABS (09/18/2016 12:00 AM ACETONE RECOVERY WORKER) Narrative 09/18/2016 12:00 AM ACETONE RECOVERY WORKER Ordered by an unspecified provider. us Historical Provider Final Res ult documented in this encounter Visit Diagnoses Not on filedocumented in this encounter Additional Health Concerns Infection Onset Date Last Indicated Resolved Time COVID: Suspected 05/27/2023 05/27/2023 05/27/2023 1:37 PM CDT documented as of this encounter Care Teams Switch Cleaner Relationship Specialty Start Date End Date Chintan Henderson MD [address] [facility] [place] [address] PCP - General 11/26/10 01/16/17 Memo Nieves MD [address] [facility] [place] [address] PCP - General 01/17/17 08/26/22 Rm Escoto MD [address] [facility] [address] [place] [address] PCP - General Family Medicine 06/10/25 Antoinette Carreno, RN [address] [facility] [address] [place], [place] [id number] Spooler Operator 11/17/17 11/26/17 Carrie Joe LCSW [address] [place] [address] [facility] [address] [place] [address] Talent Development Analyst 11/27/22 12/09/22 Leslye Correia MD [address] [facility] [address] [facility] [address] [place] [address] Consulting Physician Pain Management 06/12/23 Carrie Joe LCSW [address] [place] [address] [address] [place] [address] Talent Development Analyst 11/06/23 04/07/24 documented as of this encounter
--- OUTSIDE RECORDS SUMMARY | 2025-06-29 04:15 | XMS_ITS | Encounter Summary ---
Author Organization [facility] [place] [facility] Care Team Providers Care Piano Instructor Name Role Phone Chintan Hednerson MD Primary Care Provider [phone] Memo Nieves MD Primary Care Provider [phone] Antoinette Carreno RN Unavailable [phone] Carrie Joe BOARD CERTIFIED ORTHODONTIST Unavailable [phone] Leslye Correia MD Unavailable Carrie Joe BOARD CERTIFIED ORTHODONTIST Unavailable [phone] Rm Escoto MD Primary Care Provider [phone] Encounter Details Date Type Department Care Team (Latest Contact Info) Description 12/17/2016 Orders Only [facility] Provider, MD Kelly [address] [place] [id number] Social History Tobacco Use Types Packs/Day Years Used Date Smoking Tobacco: Never Comments Unknown Sex and Gender Information Value Date Recorded Sex Assigned at Not on file Legal Sex Female 8:45 PM STOCK SPECULATOR Gender Identity Not on file Sexual Orientation [...] documented as of this encounter Care Teams Piano Instructor Relationship Specialty Start Date End Date Chintan Henderson MD [address] [facility] [place] [address] PCP - General 11/26/10 01/16/17 Memo Nieves MD [address] [facility] [address] [place] [address] PCP - General 01/17/17 08/26/22 Rm Escoto MD [address] [facility] [address] [place] [address] PCP - General Family Medicine 06/10/25 Antoinette Carreno, RN [address] [place], [place] [id number] Harness Puller 11/17/17 11/26/17 Carrie Joe, [address] [place], [place] [id number] Logistics Management Specialist 11/27/22 12/09/22 Leslye Correia MD [address] [facility] [address] [place] [address] Consulting Physician Pain Management 06/12/23 Carrie Joe, BOARD CERTIFIED ORTHODONTIST [address] [place] [address] [address] [place] [address] Logistics Management Specialist 11/06/23 04/07/24 documented as of this encounter
[2025-06-29 04:38] LABS: Hematocrit 28.9 % (37.0-47.0); Hemoglobin 8.8 g/dL (12.0-15.0); Immature Granulocyte Percent A 0.7 % (0-0.5); Lymphocytes Absolute Auto 1.40 K/mm3 (0.9-3.2); Mean Corpuscular HGB Conc 30.4 g/dl (32-36); Mean Corpuscular Hemoglobin 27.8 pg (26-34); Mean Corpuscular Volume 91.5 fl (80-100); Nucleated Red Blood Cells Absolute Auto 0.000 K/mm3 (0.0-0.012); Nucleated Red Blood Cells Perc 0.0 % (0.0-0.2); Platelet Count Result 231 k/mm3 (150-375); Red Blood Count 3.16 M/mm3 (4.2-5.4); White Blood Count 9.2 K/mm3 (4.5-10.0)
[2025-06-29 04:49] LABS: Alanine Aminotransferase 21 U/L (6-35); Albumin Level 4.4 g/dL (3.5-5.1); Alkaline Phosphatase 94 U/L (38-126); Anion Gap 13 mmol/L (4-12); Aspartate Amino Transferase 27 U/L (14-36); Bilirubin,Total 0.2 mg/dL (0.2-1.3); Blood Urea Nitrogen 45 mg/dL (7-17); Calcium 8.9 mg/dL (8.4-10.2); Carbon Dioxide 27 mmol/L (22-30); Chloride 95 mmol/L (98-107); Estimated CRCL calculation 28 ml/min; Estimated Glomerular Filt Rate 35; Glucose 181 mg/dL (65-110); Potassium 4.1 mmol/L (3.4-5.0); Sodium 135 mmol/L (137-145); Total Protein 7.9 g/dL (6.3-8.2)
[2025-06-29 04:51] LABS: INR 1.1; Partial Thromboplastin Time 33.9 Seconds (22.3-36.8); Prothrombin Time 14.3 Seconds (11.1-14.7)
--- NOTE | 2025-06-29 05:03 | PC.NURSE ---
Per MD Rios he verbally states to give pt 3 L of NS due to low blood pressures. Last pressure was 80s/40s.
--- NOTE | 2025-06-29 05:37 | ED.GIBLEED ---
HPI - GI Bleed General Chief complaint: GI Bleed <Elias Rios MD - Last Filed: 06/29/25 08:17> Stated complaint: rectal bleeding <Elias Rios MD - Last Filed: 06/29/25 08:17> Time Seen by Provider: 06/29/25 04:59 <Elias Rios MD - Last Filed: 06/29/25 08:17> History of Present Illness HPI Narrative: 80-year-old female with a history of previous bleeding diverticula presenting to the emergency department with bright red blood per rectum and passing large voluminous clots from rectum. His a history of anemia, CKD, type 2 diabetes, diastolic dysfunction. She presents to the emergency department with several days of nauseousness and chest today having large bloody bowel movements. States the same thing happened to her 20 years ago and she required endoscopy. States that she feels like she has to pass more bowel movements in clots. Denies any nauseousness presently but did vomit earlier today. No chest pain shortness a breath. No fever or chills. No blood thinner use per review of patient's EMR. <Elias Rios MD - Last Filed: 06/29/25 08:17> Related Data Home medications: Home Medications ?Medication ?Instructions ?Recorded ?Confirmed ?Last Taken ?Type losartan 50 mg-hydrochlorothiazide 1 tablet PO DAILY 01/10/21 06/29/25 06/21/24 History 12.5 mg tablet metoprolol succinate 100 mg 100 mg PO DAILY 01/10/21 06/29/25 06/21/24 History tablet,extended release 24 hr meclizine 12.5 mg tablet 12.5 mg PO TID PRN Dizziness 01/02/22 09/02/24 Unknown History bayfnzys-cjo-halui ac 400 1 tablet PO DAILY 04/15/22 09/02/24 06/20/24 History mcg-calcium carb 500 mg-vit K1 20 mcg tablet metformin 1,000 mg tablet 1,000 mg PO BIDWM 06/11/23 06/29/25 06/21/24 History acetaminophen 500 mg tablet 500 mg PO TID PRN Pain 05/02/24 09/02/24 06/21/24 History insulin NPH-regular 70-30 U-100 15 unit subcut BIDWM 05/02/24 06/30/25 06/21/24 06:00 History insulin 100 unit/mL subcutaneous pen (Novolin 70-30 FlexPen U-100 Insulin) pantoprazole 40 mg tablet,delayed 40 mg PO DAILY 05/02/24 06/29/25 06/20/24 History release hydroxyzine HCl 25 mg tablet 25 mg PO TID PRN Itching 06/21/24 06/29/25 Unknown History <Elias Rios MD - Last Filed: 06/29/25 08:17> Allergies/Adverse reactions: Allergies Allergy/AdvReac Type Severity Reaction Status Date / Time insulin aspart (From Fiasp Allergy Severe itching, Verified 06/29/25 08:45 U-100 Insulin) trouble breathing, chest pain niacinamide (From Fiasp Allergy Severe itching, Verified 06/29/25 08:45 U-100 Insulin) trouble breathing, chest pain Insulins Allergy Intermediate Swelling Verified 06/29/25 08:45 amoxicillin Allergy Mild Unknown Verified 06/29/25 08:45 iohexol (From contrast - CT, Allergy Mild Unknown Verified 06/29/25 08:45 X-RAY) Quinolones Allergy Mild Unknown Verified 06/29/25 08:45 Aminoglycosides Allergy Unknown Unknown Verified 06/29/25 08:45 chlordiazepoxide Allergy Unknown Unknown Verified 06/29/25 08:45 erythromycin base Allergy Unknown Unknown Verified 06/29/25 08:45 insulin detemir Allergy Unknown Unknown Verified 06/29/25 08:45 insulin glargine Allergy Unknown Unknown Verified 06/29/25 08:45 iodine Allergy Unknown Unknown Verified 06/29/25 08:45 latex Allergy Unknown Unknown Verified 06/29/25 08:45 levofloxacin Allergy Unknown Unknown Verified 06/29/25 08:45 Macrolide Antibiotics Allergy Unknown Unknown Verified 06/29/25 08:45 acyclovir Allergy Unknown Verified 06/29/25 08:45 sulfamethoxazole (From Allergy Swelling Verified 06/29/25 08:45 Bactrim) trimethoprim (From Bactrim) Allergy Swelling Verified 06/29/25 08:45 diphenhydramine (From AdvReac Mild Itching Verified 06/29/25 08:45 Benadryl Allergy) insulin glulisine (From AdvReac Hives Verified 06/29/25 08:45 Apidra U-100 Insulin) MYCINS Allergy Mild MAKES Uncoded 09/25/24 18:08 TONGUE SWELL, DIFF BREATHING <Elias Rios MD - Last Filed: 06/29/25 08:17> Review of Systems Review of Systems: As reviewed above in HPI <Elias Rios MD - Last Filed: 06/29/25 08:17> [facility] Past Medical History Medical History: Medical History Diastolic dysfunction Iron deficiency anemia Type 2 diabetes mellitus Peripheral neuropathy Hearing loss Cataracts, bilateral Vitamin D deficiency Uncontrolled type 2 diabetes mellitus with hyperglycemia Brain tumor Myelopathy Hyperlipidemia Stroke Seizures Osteoporosis Gallbladder disorder Arthritis Anxiety Asthma Allergies Essential (primary) hypertension History of IN (myocardial infarction) <Elias Rios MD - Last Filed: 06/29/25 08:17> Surgical History Surgical History: Surgical History History of repair of hiatal hernia <Elias Rios MD - Last Filed: 06/29/25 08:17> Family History Family History: Family History Grandparent Family history of obesity Asthma Diabetes mellitus Mother Family history of osteoporosis Depression Family history of migraine headaches Asthma Family history of anemia Cerebrovascular accident Family history of arthritis Carcinoma of colon Family history of Alzheimer's disease Family history of atrial fibrillation Family history of heart disease in male family member before age 55 Acute myocardial infarction Father Family history of alcoholism Family history of arthritis Family history of lung cancer Family history of lung disease Family history of hearing loss Other Family history of allergic disorder Hypertension <Elias Rios MD - Last Filed: 06/29/25 08:17> Social History Social History: Social History Social History: Surrogate medical decision maker: Brendan Masters, son. Code status: Full code. Smoking status: Never smoker Second hand tobacco smoke exposure: No Alcohol intake: never Substance use: never Substance use type: does not use Do You Feel Safe in your Home?: Yes Lack of Transportation: YES Lack of Food: Never True Current Housing: I Have Housing Concerned About Future Housing: No Difficulty Paying Gas/Electric Bills: No Difficulty Paying for Meds: No Currently Unemployed: No Education: High School Diploma/GED Difficulty w/ Childcare or Family Care: No Spiritual care concerns: No <Elias Rios MD - Last Filed: 06/29/25 08:17> Exam Narrative: GENERAL: Ill-appearing, pale appearance, answering questions and awake alert oriented HEAD: Normocephalic, atraumatic EYES: [PERRLA and EOMI.] ENT: Nares clear, no rhinorrhea or epistaxis. Mucous membranes dry. NECK: Supple. CHEST: Clear to auscultation, HEART: [Regular rate and rhythm]. No murmur heard. [Normal peripheral pulses.] ABDOMEN: That mildly distended abdomen, no tenderness to palpation. No rigidity or guarding. Ventral hernia appreciated /RECTAL: No external hemorrhoids, bright red blood per rectum with blood clots evident. Mild pain with digital rectal exam EXTREMITIES: Normal range of motion. [No edema.] SKIN: Warm, dry, no rash. NEURO: [No focal deficits]. Alert and oriented [x3.] PSYCH: [Normal mood and affect.] <Elias Rios MD - Last Filed: 06/29/25 08:17> Course Vital Signs Vital signs: Vital Signs Temperature 98.3 F 06/29/25 04:18 Pulse Rate 92 06/29/25 04:18 Respiratory Rate 16 06/29/25 04:18 Blood Pressure 132/70 06/29/25 04:18 Pulse Oximetry 98 06/29/25 04:18 Oxygen Delivery Room Air 06/29/25 04:18 Temperature 98.1 F 06/30/25 04:17 Pulse Rate 73 06/30/25 04:17 Respiratory Rate 18 06/30/25 04:17 Blood Pressure 131/69 06/30/25 04:17 Pulse Oximetry 99 06/30/25 04:17 Oxygen Delivery Room Air 06/29/25 04:18 <Elias Rios MD - Last Filed: 06/29/25 08:17> Vital Signs Temperature 98.3 F 06/29/25 04:18 Pulse Rate 92 06/29/25 04:18 Respiratory Rate 16 06/29/25 04:18 Blood Pressure 132/70 06/29/25 04:18 Pulse Oximetry 98 06/29/25 04:18 Oxygen Delivery Room Air 06/29/25 04:18 Temperature 98.1 F 06/30/25 04:17 Pulse Rate 73 06/30/25 04:17 Respiratory Rate 18 06/30/25 04:17 Blood Pressure 131/69 06/30/25 04:17 Pulse Oximetry 99 06/30/25 04:17 Oxygen Delivery Room Air 06/29/25 04:18 <Marin Feliciano MD - Last Filed: 06/30/25 08:03> MDM - GI Bleed MDM Narrative Medical decision making narrative: 80-year-old female with a history of previous bleeding diverticula presenting to the emergency department with bright red blood per rectum and passing large voluminous clots from rectum. His a history of anemia, CKD, type 2 diabetes, diastolic dysfunction. She presents to the emergency department with several days of nauseousness and chest today having large bloody bowel movements. States the same thing happened to her 20 years ago and she required endoscopy. States that she feels like she has to pass more bowel movements in clots. Denies any nauseousness presently but did vomit earlier today. No chest pain shortness a breath. No fever or chills. No blood thinner use per review of patient's EMR. Patient is she was hemodynamically stable with normal blood pressure and no tachycardia, hypoxia or fever. Bright red blood per rectum evident on /rectal examination. No visible hemorrhoids. Patient had a voluminous bowel movement and went hypotensive, blood pressure is 87/44. Fluids were initiated and she was set up in bed and had initiate transient improvement in blood pressure to low 100s. Patient stated feeling she had more bowel movements to have and went hypotensive in the 70 systolic range. Emergent red blood cell release got from blood bank 2 units of O-negative infusing an additional fluids going. Laboratory studies started come back she does have an acute kidney injury secondary to GI bleed and dehydration, hemoglobin of 8.8 but will trend this with repeat H&H as she usually lives around the 10 range. Spoke to the GI on-call Dr. Storey and informed them of patient's active GI bleed and he will come see the patient while we work on stabilizing her in admitting her to the intensive care unit. Spoke to the ICU sap integration architect Dr. Curtis who believes patient will be better served at a facility with angiography and IR capabilities given patient's unstable initial vital signs and active bleeding. Confirmed with Dr. Storey over the phone and both recommend transfer at this juncture. Patient has significant improved and has not had any further bloody bowel movements after transfusion and fluids. Current blood pressure 147/79, no tachycardia feels much better. Spoke to the [facility] transfer system and awaiting discussion with consultants for transfer her to a higher level of care facility. Patient care signed over to Dr. Feliciano in the morning for continued care wall transfer process underway. <Elias Rios MD - Last Filed: 06/29/25 08:17> 80-year-old female with a history of previous bleeding diverticula presenting to the emergency department with bright red blood per rectum and passing large voluminous clots from rectum. His a history of anemia, CKD, type 2 diabetes, diastolic dysfunction. She presents to the emergency department with several days of nauseousness and chest today having large bloody bowel movements. States the same thing happened to her 20 years ago and she required endoscopy. States that she feels like she has to pass more bowel movements in clots. Denies any nauseousness presently but did vomit earlier today. No chest pain shortness a breath. No fever or chills. No blood thinner use per review of patient's EMR. Patient is she was hemodynamically stable with normal blood pressure and no tachycardia, hypoxia or fever. Bright red blood per rectum evident on /rectal examination. No visible hemorrhoids. Patient had a voluminous bowel movement and went hypotensive, blood pressure is 87/44. Fluids were initiated and she was set up in bed and had initiate transient improvement in blood pressure to low 100s. Patient stated feeling she had more bowel movements to have and went hypotensive in the 70 systolic range. Emergent red blood cell release got from blood bank 2 units of O-negative infusing an additional fluids going. Laboratory studies started come back she does have an acute kidney injury secondary to GI bleed and dehydration, hemoglobin of 8.8 but will trend this with repeat H&H as she usually lives around the 10 range. Spoke to the GI on-call Dr. Storey and informed them of patient's active GI bleed and he will come see the patient while we work on stabilizing her in admitting her to the intensive care unit. Spoke to the ICU sap integration architect Dr. Curtis who believes patient will be better served at a facility with angiography and IR capabilities given patient's unstable initial vital signs and active bleeding. Confirmed with Dr. Storey over the phone and both recommend transfer at this juncture. Patient has significant improved and has not had any further bloody bowel movements after transfusion and fluids. Current blood pressure 147/79, no tachycardia feels much better. Spoke to the [facility] transfer system and awaiting discussion with consultants for transfer her to a higher level of care facility. Patient care signed over to Dr. Feliciano in the morning for continued care wall transfer process underway. --- patient care was signed out to me by the overnight physician with transfer pending. Our GI and sap integration architect did not feel comfortable keeping the patient here because a photo that she needed IR intervention to help with the GI bleed. Patient is currently afebrile no leukocytosis and patient's repeat H&H went from 8-10.2. Patient's INR is 1.1. patient does have a mild IBETH but patient was also treated with 2 L normal saline along with 2 units of packed red blood. CT scan showed evidence of cirrhosis and stool in rectum but no reference to active extravasation, CT was without contrast due to underlying dye allergy. Case was discussed with GI at [place] and patient was accepted as consult and patient was discussed with the hospitalist at [place] and patient was admitted to a step-down bed. Dr Vaughn accepted the patient. <Marin Feliciano MD - Last Filed: 06/30/25 08:03> Medical Records Attestation: I reviewed the patient's medical records. <Elias Rios MD - Last Filed: 06/29/25 08:17> Lab Data Attestation: I reviewed the patient's lab results. <Elias Rios MD - Last Filed: 06/29/25 08:17> Result diagrams: 06/29/25 23:23 06/29/25 04:30 <Elias Rios MD - Last Filed: 06/29/25 08:17> Labs: Lab Results 06/29/25 06/29/25 06/29/25 Range/Units 04:30 08:46 18:47 WBC 9.2 (4.5-10.0) K/mm3 RBC 3.16 L (4.2-5.4) M/mm3 Hgb 8.8 L 10.2 L 10.1 L (12.0-15.0) g/dL Hct 28.9 L 32.0 L 31.6 L (37.0-47.0) % MCV 91.5 (80-100) fl MCH 27.8 (26-34) pg MCHC 30.4 L (32-36) g/dl RDW 15.3 H (11.5-14.5) % Plt Count 231 (150-375) k/mm3 MPV 10.0 (7.4-10.4) fl Immature Gran % (Auto) 0.7 H (0-0.5) % Neut % (Auto) 78.0 H (45.5-73.1) % Lymph % (Auto) 15.3 L (18.3-44.2) % Sterling % (Auto) 4.6 (2.6-8.5) % Eos % (Auto) 1.0 (0-4.4) % Baso % (Auto) 0.4 (0.2-1.2) % Lymph # (Auto) 1.40 (0.9-3.2) K/mm3 Sterling # (Auto) 0.4 (0.1-0.6) K/mm3 Eos # (Auto) 0.1 (0-0.3) K/mm3 Baso # (Auto) 0.0 (0.0-0.1) K/mm3 Abs Immat Gran (auto) 0.06 H (0.00-0.031) K/mm3 Absolute Neuts (auto) 7.1 H (1.3-6.7) K/mm3 Absolute Nucleated RBC 0.000 (0.0-0.012) K/mm3 Nucleated RBC % 0.0 (0.0-0.2) % PT 14.3 (11.1-14.7) Seconds INR 1.1 APTT 33.9 (22.3-36.8) Seconds Sodium 135 L (137-145) mmol/L Potassium 4.1 (3.4-5.0) mmol/L Chloride 95 L (98-107) mmol/L Carbon Dioxide 27 (22-30) mmol/L Anion Gap 13 H (4-12) mmol/L BUN 45 H D (7-17) mg/dL Creatinine 1.44 H (0.7-1.0) mg/dL Estim Creat Clear Calc 28 ml/min Estimated GFR 35 L (59 - ) Glucose 181 H (65-110) mg/dL POC Capillary Glucose (65-105) mg/dl Calcium 8.9 (8.4-10.2) mg/dL Total Bilirubin 0.2 (0.2-1.3) mg/dL AST 27 (14-36) U/L ALT 21 (6-35) U/L Alkaline Phosphatase 94 (38-126) U/L Total Protein 7.9 (6.3-8.2) g/dL Albumin 4.4 (3.5-5.1) g/dL Blood Type O Positive Antibody Screen Negative Crossmatch See Detail 06/29/25 06/29/25 Range/Units 23:23 23:36 WBC (4.5-10.0) K/mm3 RBC (4.2-5.4) M/mm3 Hgb 9.7 L (12.0-15.0) g/dL Hct 29.6 L (37.0-47.0) % MCV (80-100) fl MCH (26-34) pg MCHC (32-36) g/dl RDW (11.5-14.5) % Plt Count (150-375) k/mm3 MPV (7.4-10.4) fl Immature Gran % (Auto) (0-0.5) % Neut % (Auto) (45.5-73.1) % Lymph % (Auto) (18.3-44.2) % Sterling % (Auto) (2.6-8.5) % Eos % (Auto) (0-4.4) % Baso % (Auto) (0.2-1.2) % Lymph # (Auto) (0.9-3.2) K/mm3 Sterling # (Auto) (0.1-0.6) K/mm3 Eos # (Auto) (0-0.3) K/mm3 Baso # (Auto) (0.0-0.1) K/mm3 Abs Immat Gran (auto) (0.00-0.031) K/mm3 Absolute Neuts (auto) (1.3-6.7) K/mm3 Absolute Nucleated RBC (0.0-0.012) K/mm3 Nucleated RBC % (0.0-0.2) % PT (11.1-14.7) Seconds INR APTT (22.3-36.8) Seconds Sodium (137-145) mmol/L Potassium (3.4-5.0) mmol/L Chloride (98-107) mmol/L Carbon Dioxide (22-30) mmol/L Anion Gap (4-12) mmol/L BUN (7-17) mg/dL Creatinine (0.7-1.0) mg/dL Estim Creat Clear Calc ml/min Estimated GFR (59 - ) Glucose (65-110) mg/dL POC Capillary Glucose 73 (65-105) mg/dl Calcium (8.4-10.2) mg/dL Total Bilirubin (0.2-1.3) mg/dL AST (14-36) U/L ALT (6-35) U/L Alkaline Phosphatase (38-126) U/L Total Protein (6.3-8.2) g/dL Albumin (3.5-5.1) g/dL Blood Type Antibody Screen Crossmatch <Elias Rios MD - Last Filed: 06/29/25 08:17> Lab Results 06/29/25 06/29/25 06/29/25 Range/Units 04:30 08:46 18:47 WBC 9.2 (4.5-10.0) K/mm3 RBC 3.16 L (4.2-5.4) M/mm3 Hgb 8.8 L 10.2 L 10.1 L (12.0-15.0) g/dL Hct 28.9 L 32.0 L 31.6 L (37.0-47.0) % MCV 91.5 (80-100) fl MCH 27.8 (26-34) pg MCHC 30.4 L (32-36) g/dl RDW 15.3 H (11.5-14.5) % Plt Count 231 (150-375) k/mm3 MPV 10.0 (7.4-10.4) fl Immature Gran % (Auto) 0.7 H (0-0.5) % Neut % (Auto) 78.0 H (45.5-73.1) % Lymph % (Auto) 15.3 L (18.3-44.2) % Sterling % (Auto) 4.6 (2.6-8.5) % Eos % (Auto) 1.0 (0-4.4) % Baso % (Auto) 0.4 (0.2-1.2) % Lymph # (Auto) 1.40 (0.9-3.2) K/mm3 Sterling # (Auto) 0.4 (0.1-0.6) K/mm3 Eos # (Auto) 0.1 (0-0.3) K/mm3 Baso # (Auto) 0.0 (0.0-0.1) K/mm3 Abs Immat Gran (auto) 0.06 H (0.00-0.031) K/mm3 Absolute Neuts (auto) 7.1 H (1.3-6.7) K/mm3 Absolute Nucleated RBC 0.000 (0.0-0.012) K/mm3 Nucleated RBC % 0.0 (0.0-0.2) % PT 14.3 (11.1-14.7) Seconds INR 1.1 APTT 33.9 (22.3-36.8) Seconds Sodium 135 L (137-145) mmol/L Potassium 4.1 (3.4-5.0) mmol/L Chloride 95 L (98-107) mmol/L Carbon Dioxide 27 (22-30) mmol/L Anion Gap 13 H (4-12) mmol/L BUN 45 H D (7-17) mg/dL Creatinine 1.44 H (0.7-1.0) mg/dL Estim Creat Clear Calc 28 ml/min Estimated GFR 35 L (59 - ) Glucose 181 H (65-110) mg/dL POC Capillary Glucose (65-105) mg/dl Calcium 8.9 (8.4-10.2) mg/dL Total Bilirubin 0.2 (0.2-1.3) mg/dL AST 27 (14-36) U/L ALT 21 (6-35) U/L Alkaline Phosphatase 94 (38-126) U/L Total Protein 7.9 (6.3-8.2) g/dL Albumin 4.4 (3.5-5.1) g/dL Blood Type O Positive Antibody Screen Negative Crossmatch See Detail 06/29/25 06/29/25 Range/Units 23:23 23:36 WBC (4.5-10.0) K/mm3 RBC (4.2-5.4) M/mm3 Hgb 9.7 L (12.0-15.0) g/dL Hct 29.6 L (37.0-47.0) % MCV (80-100) fl MCH (26-34) pg MCHC (32-36) g/dl RDW (11.5-14.5) % Plt Count (150-375) k/mm3 MPV (7.4-10.4) fl Immature Gran % (Auto) (0-0.5) % Neut % (Auto) (45.5-73.1) % Lymph % (Auto) (18.3-44.2) % Sterling % (Auto) (2.6-8.5) % Eos % (Auto) (0-4.4) % Baso % (Auto) (0.2-1.2) % Lymph # (Auto) (0.9-3.2) K/mm3 Sterling # (Auto) (0.1-0.6) K/mm3 Eos # (Auto) (0-0.3) K/mm3 Baso # (Auto) (0.0-0.1) K/mm3 Abs Immat Gran (auto) (0.00-0.031) K/mm3 Absolute Neuts (auto) (1.3-6.7) K/mm3 Absolute Nucleated RBC (0.0-0.012) K/mm3 Nucleated RBC % (0.0-0.2) % PT (11.1-14.7) Seconds INR APTT (22.3-36.8) Seconds Sodium (137-145) mmol/L Potassium (3.4-5.0) mmol/L Chloride (98-107) mmol/L Carbon Dioxide (22-30) mmol/L Anion Gap (4-12) mmol/L BUN (7-17) mg/dL Creatinine (0.7-1.0) mg/dL Estim Creat Clear Calc ml/min Estimated GFR (59 - ) Glucose (65-110) mg/dL POC Capillary Glucose 73 (65-105) mg/dl Calcium (8.4-10.2) mg/dL Total Bilirubin (0.2-1.3) mg/dL AST (14-36) U/L ALT (6-35) U/L Alkaline Phosphatase (38-126) U/L Total Protein (6.3-8.2) g/dL Albumin (3.5-5.1) g/dL Blood Type Antibody Screen Crossmatch <Marin Feliciano MD - Last Filed: 06/30/25 08:03> Critical Care Time Critical Care Time Critical Care Time: Yes <Elias Rios MD - Last Filed: 06/29/25 08:17> Total Critical Care Time: 75 <Elias Rios MD - Last Filed: 06/29/25 08:17> Discharge Plan Discharge Clinical Impression: GI (gastrointestinal bleed), BRBPR (bright red blood per rectum), Anemia requiring transfusions <Elias Rios MD - Last Filed: 06/29/25 08:17> Patient Disposition: Still a Patient <Elias Rios MD - Last Filed: 06/29/25 08:17> Condition: Serious <Elias Rios MD - Last Filed: 06/29/25 08:17> Patient Language: Belarusian <Elias Rios MD - Last Filed: 06/29/25 08:17> Prescriptions: No Action meclizine 12.5 mg tablet 12.5 mg PO TID PRN (Reason: Dizziness) metoprolol succinate 100 mg tablet extended release 24 hr 100 mg PO DAILY losartan-hydrochlorothiazide 50-12.5 mg tablet 1 tablet PO DAILY [id number]-smcpn-calcium carb-K1 400 mcg-500 mg calcium-20 mcg tablet 1 tablet PO DAILY (DME) insulin syringe-needle U-100 [BD Insulin Syringe] 0.3 mL 29 gauge x 1/2 syringe See Rx Instructions .Route Qty: 100 4RF Rx Instructions: As directed metformin 1,000 mg tablet 1,000 mg PO BIDWM hydroxyzine HCl 25 mg tablet 25 mg PO TID PRN (Reason: Itching) diclofenac sodium [Voltaren Arthritis Pain] 1 % gel 2 g topical QID Qty: 100 0RF Rx Instructions: apply to single elbow, wrist or hand; for hand includes palm/fingers/back of hand polysaccharide iron complex 150 mg iron Capsule 150 mg PO BIDWM Qty: 60 0RF hydroxyzine pamoate 25 mg Capsule 25 mg PO Q4H PRN (Reason: Anxiety) Qty: 30 0RF lidocaine [Lidoderm] 5 % Adhesive Patch,Medicated 1 patch transdermal DAILY Qty: 15 0RF lidocaine [Lidoderm] 5 % adhesive patch,medicated See Rx Instructions .ROUTE .COMPLEX PRN (Reason: pain) Qty: 15 0RF Rx Instructions: leave on most painful area for up to 12 hrs PRN; hydrocodone-acetaminophen 5-325 mg tablet 1 tablet PO Q6H PRN (Reason: pain) Qty: 16 0RF Rx Instructions: Patient takes with Acetaminophen 500mg (DME) blood-glucose meter [Contour Next Glucose Meter] Kit See Rx Instructions .Route Qty: 1 0RF Rx Instructions: As directed acetaminophen 500 mg Tablet 500 mg PO TID PRN (Reason: Pain) Rx Instructions: Take with [place] pantoprazole 40 mg tablet,delayed release (DR/EC) 40 mg PO DAILY Patient Comments: Patient takes 1 to as needed per day Novolin 70-30 FlexPen U-100 100 unit/mL (70-30) Insulin Pen 15 unit SUBCUT BIDWM furosemide 40 mg tablet 40 mg PO DAILY Qty: 30 1RF benzonatate 100 mg capsule 100 mg PO TID PRN (Reason: cough) Qty: 30 0RF (DME) lancets [Microlet Lancet] Misc See Rx Instructions .Route Qty: 400 3RF Rx Instructions: use one lancet to check BS 4 times daily (DME) blood-glucose meter [Accu-Chek Guide Glucose Meter] Misc See Rx Instructions .Route Qty: 1 0RF Rx Instructions: Use to check blood sugar 5 times daily (DME) Accu-Chek Guide test strips Strip See Rx Instructions .Route Qty: 300 0RF Rx Instructions: Use to check blood sugar 5 times daily (DME) pen needle, diabetic [BD Ultra-Fine July Pen Needle] 32 gauge x 5/32 needle See Rx Instructions .Route Qty: 400 0RF Rx Instructions: use one pen needle to inject insulin 4 times daily <Elias Rios MD - Last Filed: 06/29/25 08:17> Follow-up/Referrals: Jevon,MD Rm [Primary Care Provider, Unknown] <Elias Rios MD - Last Filed: 06/29/25 08:17> Time of Disposition: 08:16 <Elias Rios MD - Last Filed: 06/29/25 08:17> 08:16 <Marin Feliciano MD - Last Filed: 06/30/25 08:03>
[2025-06-29] MEDS: TUBING, BLOOD SET 1 EACH XX ×2 (05:54→05:55)
--- NOTE | 2025-06-29 05:57 | PC.NURSE ---
Pt is receiving 2L of NS per MD Rios not 3L.
--- NOTE | 2025-06-29 05:57 | PC.NURSE ---
Pt blood pressure kept dropping after infusion of IV fluids continued. Per MD calvert we are doing emergency blood transfusion. Pt consent form filled out. Pt has two units of blood going at this time. HR-85, 97% on room air, 14 rr, and 108/73 blood pressure.
--- NOTE | 2025-06-29 06:32 | PC.NURSE ---
Pt sIV fluids are paused at this time due to hx of CHF. notified. Pt has two units of blood transfusing at this time.
--- NOTE | 2025-06-29 06:55 | PC.NURSE ---
per md calvert her verbally states he wants this Rn to conitnue IV fluids.
[2025-06-29] MEDS: SODIUM CHLORIDE 0.9% IV 250 ML 30 ML IV CONT (07:28)
[2025-06-29 08:51] LABS: Hematocrit 32.0 % (37.0-47.0); Hemoglobin 10.2 g/dL (12.0-15.0)
[2025-06-29] MEDS: FUROSEMIDE INJ 40 MG/4 ML VIAL IV PUSH (08:58)
--- NOTE | 2025-06-29 09:14 | PC.NURSE ---
Heather with the [facility] transfer center called asking for update on pt latest H&H. Update given. She states she will call back after talking with their doctor.
--- NOTE | 2025-06-29 09:24 | PC.NURSE ---
[facility] transfer center called asking for triage information. Information given. States patient is on waitlist for [facility] and call back once bed becomes available.
[2025-06-29 19:03] LABS: Hematocrit 31.6 % (37.0-47.0); Hemoglobin 10.1 g/dL (12.0-15.0)
--- NOTE | 2025-06-29 21:25 | PC.NURSE ---
Courtney from [facility] updated on pt status and updated on pt's vitals. States that she is still on the wait list and will call with a room when ready.
[2025-06-29] MEDS: PANTOPRAZOLE SODIUM IV 40 MG VIAL IV PUSH (23:22)
[2025-06-29 23:36] LABS: Hematocrit 29.6 % (37.0-47.0); Hemoglobin 9.7 g/dL (12.0-15.0)
[2025-06-30] VITALS (11 sets, daily range): BP systolic 95–145; BP diastolic 53–75; PULSE 72–80; RESP 18; TEMP 36.7–36.9; O2SAT 94–99
[2025-06-30] MEDS: FUROSEMIDE 40 MG TABLET PO (00:33)
--- NOTE | 2025-06-30 01:14 | PC.NURSE ---
Report called to Brenda at [facility].
== END 2025-06-30 04:38 | disposition short-term general hospital (02) ==
PROVIDERS: Emergency Medicine; Student in an Organized Health Care Education/Training Program; Emergency Provider Student in an Organized Health Care Education/Training Program; PCP Family Medicine
DX: K62.5 Hemorrhage of anus and rectum (principal); D64.9 Anemia, unspecified; I11.9 Hypertensive heart disease without heart failure; I25.2 Old myocardial infarction; E11.22 Type 2 diabetes mellitus with diabetic chronic kidney disease; I12.9 Hypertensive chronic kidney disease with stage 1 through stage 4 chronic kidney disease, or unspecified chronic kidney disease; N18.9 Chronic kidney disease, unspecified; E11.42 Type 2 diabetes mellitus with diabetic polyneuropathy; E55.9 Vitamin D deficiency, unspecified; E78.5 Hyperlipidemia, unspecified; J45.909 Unspecified asthma, uncomplicated; D50.9 Iron deficiency anemia, unspecified; M81.0 Age-related osteoporosis without current pathological fracture; M19.90 Unspecified osteoarthritis, unspecified site; F41.9 Anxiety disorder, unspecified; Z86.73 Personal history of transient ischemic attack (TIA), and cerebral infarction without residual deficits; Z79.4 Long term (current) use of insulin; Z79.899 Other long term (current) drug therapy; Z79.84 Long term (current) use of oral hypoglycemic drugs
CPT/HCPCS: 36415; 36430; 74176; 80053; 82948; 85014; 85018; 85025; 85610; 85730; 86850; 86900; 86901; 86923; 96361; 96374; 96375; 96376; 99285; A9270; C1751; J1938; J2470; J7030; J7050; P9016